=== PATIENT | female | born 1990 | race Caucasian/White ===

== ENCOUNTER 2023-03-15 22:50 | Outpatient (REF) | payer OTHER, SELFPAY ==
[2023-03-20 11:09] LABS: Age Gdln ACOG Testing Note (.); HPV Aptima Negative (Negative); IGP, Aptima HPV, rfx 16/18,45 Note (.)
== END 2023-03-15 22:51 ==
LOC: LAB 22:50
PROVIDERS: PCP Physician Assistant; Visit Provider Physician Assistant
DX: Z12.4 Encounter for screening for malignant neoplasm of cervix (principal)
CPT/HCPCS: 87624; G0145

== ENCOUNTER 2023-04-24 14:34 | Outpatient (OUT) | payer OTHER, SELFPAY ==
--- NOTE | 2023-04-24 14:39 | US_ITS ---
[address] [address] Patient Name: TOMMY ARREOLA MRN: [id number] date: 1990 Sex: F Assigned Patient Location: US Current Patient Location: Accession/Order Number: [id number] Exam Date: 04/24/2023 14:39 Report Date: 04/24/2023 16:04 At the request of: DARREL RAVI Procedure: US OB anatomy EXAMINATION: US OB anatomy HISTORY: ANATOMY COMPARISON: No relevant comparison available. TECHNIQUE: Transabdominal sonographic examination was performed for obstetrical and evaluation. FINDINGS: Number: 1 Heart Rate: 134.0 bpm H.B. /min Amniotic Fluid Volume: Placental Location: Posterior-fundal; no previa Cervix Length: 4 cm , closed ANATOMY: Normal Structures -cerebellum, choroid plexus, cisterna magna, lateral cerebral ventricles, orbits, midline falx, hard palate, four-chamber heart, RVOT, LVOT, stomach, kidneys, bladder, umbilical cord insertion into abdomen, three-vessel cord, cervical spine, thoracic spine, lumbar spine, sacral spine, right upper extremity, left upper extremity, right lower extremity, left lower extremity. SUBOPTIMALLY SEEN: None ABNORMALITIES: None BIOMETRY: BPD: 5.2 cm 21 weeks 5 days HC: 19.4 cm 21 weeks 4 days AC: 17.2 cm 22 weeks 1 days FL: 3.6 cm 21 weeks 3 days EFW:451.2 grams; 72% FL/AC: 21.0 FL/BPD: 69.7 HC/AC: 1.1 GESTATIONAL AGE: Age by EDC: 21 weeks 2 days BRADY by EDC: 09/02/2023 Age by current US: 21 weeks 5 days BRADY by current US: 08/30/2023 US/US OB anatomy IMPRESSION: 1. Single live intrauterine with growth detailed above. Electronically authenticated by: GLEN RALPH Date: 04/24/2023 16:04
--- NOTE | 2023-04-24 14:39 | US_ITS ---
[address] [address] Patient Name: TOMMY ARREOLA MRN: [id number] date: 1990 Sex: F Assigned Patient Location: US Current Patient Location: Accession/Order Number: [id number] Exam Date: 04/24/2023 14:39 Report Date: 04/24/2023 16:04 At the request of: DARREL RAVI Procedure: US OB transvaginal EXAMINATION: US OB anatomy HISTORY: ANATOMY COMPARISON: No relevant comparison available. TECHNIQUE: Transabdominal sonographic examination was performed for obstetrical and evaluation. FINDINGS: Number: 1 Heart Rate: 134.0 bpm H.B. /min Amniotic Fluid Volume: Placental Location: Posterior-fundal; no previa Cervix Length: 4 cm , closed ANATOMY: Normal Structures -cerebellum, choroid plexus, cisterna magna, lateral cerebral ventricles, orbits, midline falx, hard palate, four-chamber heart, RVOT, LVOT, stomach, kidneys, bladder, umbilical cord insertion into abdomen, three-vessel cord, cervical spine, thoracic spine, lumbar spine, sacral spine, right upper extremity, left upper extremity, right lower extremity, left lower extremity. SUBOPTIMALLY SEEN: None ABNORMALITIES: None BIOMETRY: BPD: 5.2 cm 21 weeks 5 days HC: 19.4 cm 21 weeks 4 days AC: 17.2 cm 22 weeks 1 days FL: 3.6 cm 21 weeks 3 days EFW:451.2 grams; 72% FL/AC: 21.0 FL/BPD: 69.7 HC/AC: 1.1 GESTATIONAL AGE: Age by EDC: 21 weeks 2 days BRADY by EDC: 09/02/2023 Age by current US: 21 weeks 5 days BRADY by current US: 08/30/2023 US/US OB transvaginal IMPRESSION: 1. Single live intrauterine with growth detailed above. Electronically authenticated by: GLEN RALPH Date: 04/24/2023 16:04
== END 2023-04-24 14:35 | disposition home or self-care (01) ==
LOC: US 14:35
PROVIDERS: PCP Physician Assistant; Visit Provider Obstetrics & Gynecology
DX: Z34.92 Encounter for supervision of normal pregnancy, unspecified, second trimester (principal)
CPT/HCPCS: 76805; 76817

== ENCOUNTER 2023-06-20 13:22 | Outpatient (OUT) | payer OTHER, SELFPAY ==
--- NOTE | 2023-06-20 13:25 | US_ITS ---
[place] [id number] Patient Name: TOMMY ARREOLA MRN: [id number] date: 1990 Sex: F Assigned Patient Location: US Current Patient Location: US Accession/Order Number: [id number] Exam Date: 06/20/2023 13:25 Report Date: 06/20/2023 16:43 At the request of: DARREL RAVI Procedure: US OB growth EXAMINATION: US OB growth HISTORY: LGA COMPARISON: No relevant comparison available. FINDINGS: Heart Rate: 139.0 bpm Amniotic Fluid Volume: 18.8 cm Number: 1.0 Position: Cephalic presentation, longitudinal lie Maximum Vertical Pocket: 5.3 cm cm 4.5 cm cm 4.6 cm cm 4.5 cm cm BIOMETRY: BPD: 7.4 cm cm; 29 weeks 4 days; 43% HC: 28.3 cmcm; 31 weeks 1 days, 66% AC: 27.2 cm cm; 31 weeks 2 days, 91% FL: 5.5 cm cm; 29 weeks 1 days; 26.2 % % EFW: 1575.3 grams, 3 lbs. 8 oz., 74% FL/AC: 20.3 FL/BPD: 74.8 HC/AC: 1.0 GESTATIONAL AGE: Age by EDC: 29 weeks 3 days BRADY by EDC: 09/02/2023 Age by US: 30 weeks 2 days BRADY by US: 08/27/2023 US/US OB growth IMPRESSION: Normal interval growth Electronically authenticated by: LISBETH PEOPLES Date: 06/20/2023 16:43
== END 2023-06-20 13:23 | disposition home or self-care (01) ==
LOC: US 13:22
PROVIDERS: PCP Physician Assistant; Visit Provider Obstetrics & Gynecology
DX: O26.843 Uterine size-date discrepancy, third trimester (principal); Z3A.29 29 weeks gestation of pregnancy
CPT/HCPCS: 76816

== ENCOUNTER 2023-08-08 19:41 | Outpatient (REF) | payer OTHER, SELFPAY | END 2023-08-08 19:42 | disposition home or self-care (01) | LOC: LAB 19:41 | PROVIDERS: PCP Physician Assistant; Visit Provider Obstetrics & Gynecology | DX: Z34.93 Encounter for supervision of normal pregnancy, unspecified, third trimester (principal) | CPT/HCPCS: 87081 ==

== ENCOUNTER 2023-08-14 08:30 | Outpatient (OUT) | payer OTHER, SELFPAY ==
--- NOTE | 2023-08-14 08:31 | US_ITS ---
[place] [id number] Patient Name: TOMMY ARREOLA MRN: [id number] date: 1990 Sex: F Assigned Patient Location: US Current Patient Location: US Accession/Order Number: [id number] Exam Date: 08/14/2023 08:33 Report Date: 08/14/2023 20:49 At the request of: DARREL RAVI Procedure: US OB growth PROCEDURE: US OB growth HISTORY: SIZE GREATER THAN DATES COMPARISON: None. TECHNIQUE: Transabdominal sonographic examination was performed for obstetrical and evaluation. FINDINGS: Heart Rate: 136.0 bpm Number: 1.0 Position: Cephalic Amniotic Fluid Volume: Objectively normal BIOMETRY: BPD: 8.7 cm 35 weeks 2 days, 15% HC: 32.9 cm 37 weeks 3 days, 30% AC: 33.8 cm 37 weeks 5 days, 75% FL: 7.3 cm 37 weeks 4 days, 57% EFW: 3180 g, 7 lbs. 0 oz. pounds, 59% by AUA FL/AC: 21.7 FL/BPD: 84.1 HC/AC: 1.0 GESTATIONAL AGE: Clinical Age (by LMP): 37 weeks 2 days Clinical BRADY: 09/02/2023 Ultrasound Age: 37 weeks 0 days Ultrasound BRADY: 09/04/2023 US/US OB growth IMPRESSION: Normal interval growth *Reference: [facility] Practice Guideline for the performance of Obstetric Ultrasound Examinations, July 15, 2007. Electronically authenticated by: LISBETH PEOPLES Date: 08/14/2023 20:49
== END 2023-08-14 08:31 | disposition home or self-care (01) ==
LOC: US 08:30
PROVIDERS: PCP Physician Assistant; Visit Provider Obstetrics & Gynecology
DX: O26.843 Uterine size-date discrepancy, third trimester (principal); Z3A.37 37 weeks gestation of pregnancy
CPT/HCPCS: 76816

== ENCOUNTER 2023-08-26 22:14 | Inpatient (IN) | payer OTHER, SELFPAY ==
[2023-08-26 22:40] VITALS: BP 146/83; PULSE 77; TEMP 35.9
[2023-08-26 22:42] VITALS: RESP 18
[2023-08-26] MEDS: 0.9 % SODIUM CHLORIDE 1,000 ML 125 ML IV (23:37)
[2023-08-26] MEDS: OXYTOCIN/0.9 % SODIUM CHLORIDE 10 UNITS/500 ML PLAST..BAG 6 UNIT IV (23:37)
[2023-08-26 23:39] LABS: Hematocrit 33.5 % (36.0-48.0); Hemoglobin 11.1 g/dL (12.0-16.0); Mean Corpuscular HGB Conc 33.1 g/dL (29.9-35.2); Mean Corpuscular Hemoglobin 29.9 pg (26.7-34.0); Mean Corpuscular Volume 90.3 fL (81.0-99.0); Mean Platelet Volume 10.3 fL (9.5-13.5); Platelet Count 296 10^3/uL (150-450); Red Blood Count 3.71 10^6/uL (4.20-5.40); Red Cell Distribution Width 13.6 % (11.0-15.0); White Blood Count 8.9 10^3/uL (4.0-11.0)
[2023-08-27] VITALS (96 sets, daily range): BP systolic 119–201; BP diastolic 61–102; PULSE 57–96; RESP 14–18; TEMP 35.8–36.8
[2023-08-27 00:04] LABS: Amphetamine Screen Urine NEGATIVE (NEGATIVE); Barbiturates Screen Urine NEGATIVE (NEGATIVE); Benzodiazepines Screen Urine NEGATIVE (NEGATIVE); Buprenorphine Screen Urine NEGATIVE (NEGATIVE); Cannabinoid Screen Urine NEGATIVE (NEGATIVE); Cocaine Screen Urine NEGATIVE (NEGATIVE); Methadone Screen Urine NEGATIVE (NEGATIVE); Methamphetamines Screen Urine NEGATIVE (NEGATIVE); Opiate Screen Urine NEGATIVE (NEGATIVE); Oxycodone Screen Urine NEGATIVE (NEGATIVE); Phencyclidine Screen Urine NEGATIVE (NEGATIVE); Tricyclic Antidepressant Urine NEGATIVE (NEGATIVE)
[2023-08-27] MEDS: 0.9 % SODIUM CHLORIDE 1,000 ML 125 ML IV ×2 (07:48→15:46)
[2023-08-27] MEDS: FENTANYL CITRATE/PF 100 MCG/2 ML VIAL EPIDURAL (09:46)
[2023-08-27] MEDS: ROPIVACAINE HCL 0.2% PF 40 MG/20 ML VIAL EPIDURAL (09:46)
[2023-08-27] MEDS: OXYTOCIN/0.9 % SODIUM CHLORIDE 10 UNITS/500 ML PLAST..BAG 60 UNIT IV (10:39)
--- NOTE | 2023-08-27 17:44 | PM.OBPRCVD ---
Procedure Intrapartal events: None Induction method: per pitocin protocol Delivery augmentation: rupture of membranes and pitocin Delivery monitor: external FHT and external uterine Route of delivery: Episiotomy Description: none Laceration description: none Estimated blood loss (mL): 300 Anesthesia type: Epidural Disposition: floor Delivery date: 08/27/23 Gender: male presentation: vertex Placental delivery description: Spontaneous cord description: 3 Vessels
[2023-08-27] MEDS: IBUPROFEN 400 MG TABLET 800 MG PO (18:14)
[2023-08-28 06:25] LABS: Basophils Percent Auto 0.2 % (0.2-2.0); Eosinophils Percent Auto 0.2 % (0.9-7.0); Hematocrit 30.2 % (36.0-48.0); Immature Granulocytes Pct Auto 0.8 % (0.0-0.5); Lymphocytes Absolute Auto 2.5 10^3/uL (1.2-3.8); Lymphocytes Percent Auto 20.4 % (20.5-60.0); Mean Corpuscular HGB Conc 33.1 g/dL (29.9-35.2); Mean Corpuscular Volume 90.7 fL (81.0-99.0); Mean Platelet Volume 10.3 fL (9.5-13.5); Monocytes Absolute Auto 1.3 10^3/uL (0.3-0.8); Monocytes Percent Auto 10.7 % (1.7-12.0); Neutrophils Absolute Auto 8.2 10^3/uL (1.4-6.5); Neutrophils Percent Auto 67.7 % (43.0-75.0); Platelet Count 260 10^3/uL (150-450); Red Blood Count 3.33 10^6/uL (4.20-5.40); Red Cell Distribution Width 13.7 % (11.0-15.0); White Blood Count 12.1 10^3/uL (4.0-11.0)
[2023-08-28] MEDS: IBUPROFEN 400 MG TABLET 800 MG PO ×2 (06:35→15:17)
--- NOTE | 2023-08-28 07:17 | W.PC.ACHO ---
Registration Status: ADM IN Primary Language: Togolese Preferred Language: Togolese Active Medications Generic Name Dose Route Start Last Admin Trade Name Freq PRN Reason Stop Dose Admin Acetaminophen 650 mg 08/27/23 17:45 Acetaminophen 325 Mg Tablet PO Q6H PRN Mild Pain Al Hydroxide/Mg Hydroxide 2,400 mg 08/27/23 17:45 Magnesium Hydroxide 2,400 Mg/10 Ml Oral.Susp PO Q6H PRN Dyspepsia Benzocaine/Menthol 1 applic 08/27/23 17:45 Benzocaine/Menthol 85 Gram Wellman Bottle TOPICAL Q2H PRN Pain Carboprost Tromethamine 250 mcg 08/26/23 22:17 Carboprost Tromethamine 250 Mcg/Ml 1 Ml Vial IM 08/28/23 22:18 Q15M PRN Bleeding Diphtheria/Pertussis/Tetanus Vacc 0.5 ml 08/29/23 09:00 Adacel Diph,Pertuss(Acell),Tet Vac/Pf 0.5 Ml Adult Syringe IM 08/29/23 09:01 .ONCE ONE Docusate Sodium 100 mg 08/28/23 09:00 Docusate Sodium 100 Mg Capsule PO BID [facility] Fentanyl Citrate 100 mcg 08/27/23 01:04 08/27/23 09:46 Fentanyl Citrate/Pf 100 Mcg/2 Ml Vial EPIDURAL 100 mcg ONCE PRN Administration epidural Fentanyl Citrate 100 mcg 08/27/23 01:04 Fentanyl Citrate/Pf 100 Mcg/2 Ml Vial EPIDURAL ONCE PRN epidural Sodium Chloride 1,000 mls @ 125 mls/hr 08/26/23 22:30 08/27/23 18:33 Sodium Chloride 0.9% 1,000 Ml IV Infused .Q8H KAREN Infusion Oxytocin/Sodium Chloride 10 units in 500 mls @ 6 mls/hr 08/26/23 22:30 08/27/23 17:45 Pitocin 10 Unit/500 Ml-Ns IV Infused CONT KAREN Infusion Protocol 2 MILLIUNIT/MIN Ibuprofen 800 mg 08/27/23 18:12 08/28/23 06:35 Ibuprofen 400 Mg Tablet PO 800 mg Q8H PRN Administration As Needed for Fever or Pain Lidocaine 5 ml 08/26/23 22:22 Lidocaine Viscous 2% 15 Ml Solution TOPICAL ONCE PRN Pain Lidocaine 1 ml 08/26/23 22:22 Lidocaine Hcl 1% 200 Mg/20 Ml Mdv INJ ONCE PRN Pain Measles/Mumps/Rubella Vaccine Live 0.5 ml 08/29/23 09:00 Measles,Mumps,Rubella Vacc/Pf 0.5 Ml Vial SQ 08/29/23 09:01 .ONCE ONE Methylergonovine Maleate 0.2 mg 08/26/23 22:17 Methylergonovine Maleate 0.2 Mg/Ml Ampule IM 08/28/23 22:18 ONCE PRN Uterine Contractility/Contract Methylergonovine Maleate 0.2 mg 08/26/23 22:17 Methylergonovine Maleate 0.2 Mg Tablet PO 08/28/23 22:18 Q4H PRN Uterine Contractility/Contract Misoprostol 600 mcg 08/26/23 22:17 Misoprostol 100 Mcg Tablet PO 08/28/23 22:18 ONCE PRN Uterine Bleeding Misoprostol 800 mcg 08/26/23 22:17 Misoprostol 100 Mcg Tablet SL 08/28/23 22:18 ONCE PRN Uterine Bleeding Misoprostol 1,000 mcg 08/26/23 22:17 Misoprostol 100 Mcg Tablet KS 08/28/23 22:18 ONCE PRN Uterine Bleeding Ondansetron HCl 4 mg 08/26/23 22:17 Ondansetron Pf 4 Mg/2 Ml Vial IV Q6H PRN Nausea And Vomiting Ondansetron HCl 4 mg 08/26/23 22:17 Ondansetron 4 Mg Rapdis Tablet SL Q6H PRN Nausea And Vomiting Oxytocin 10 unit 08/26/23 22:17 Oxytocin 10 Unit/Ml Vial IM 08/28/23 22:18 ONCE PRN Bleeding Senna 17.2 mg 08/27/23 20:00 Sennosides 8.6 Mg Tablet PO QHS PRN Constipation Simethicone 80 mg 08/27/23 17:45 Simethicone 80 Mg Tab.Chew PO QID PRN Abdominal Distention Temazepam 15 mg 08/27/23 17:45 Temazepam 15 Mg Capsule PO QHS PRN Sleep Witch Amparo/Glycerin 1 pad 08/27/23 17:45 Glycerin/Witch Amparo Pads TOPICAL Q2H PRN Pain Diet Category Date Time Status Regular Consistency Diet Diet 08/27/23 17:45 Active Respiratory Oxygen Delivery Method Room Air Oxygen Delivery Method Room Air Oxygen Delivery Method Room Air Oxygen Delivery Method Room Air Oxygen Delivery Method Room Air Oxygen Delivery Method Room Air Oxygen Delivery Method Room Air Oxygen Delivery Method Room Air Oxygen Delivery Method Room Air Cardiology Heart Sounds Strong,Regular Heart Sounds Strong,Regular Bowels Bowel Pattern No Bowel Movement Bowel Pattern No Bowel Movement Renal Bladder Pattern Continent Bladder Pattern Continent
--- NOTE | 2023-08-28 08:05 | PM.OBPN ---
OB - PN: Subj Subjective Patient comments: no complaints [place] status: doing well and well Exam Constitutional Vital Signs, click to edit/add: Last Vital Signs Temp 98.1 F 08/27/23 22:25 Pulse 59 L 08/27/23 22:28 Resp 14 08/27/23 22:25 BP 145/84 H 08/27/23 22:28 O2 Del Method Room Air 08/27/23 22:25 Documenting provider has reviewed patient's vital signs: yes Common normals: no apparent distress Respiratory Common normals: normal respiratory effort and clear to auscultation bilaterally Cardio Common normals: regular rate and regular rhythm GI Common normals: Normal to inspection, nondistended, normoactive bowel sounds present Extremity Common normals: no calf tenderness Results Labs Labs: Short CBC 08/28/23 Range/Units 06:20 WBC 12.1 H (4.0-11.0) 10^3/uL Hgb 10.0 L (12.0-16.0) g/dL Hct 30.2 L (36.0-48.0) % Plt Count 260 (150-450) 10^3/uL OB - PN: A/P Plan - Vaginal Delivery day: 1 Plan: routine care, discharge home and follow up 6 weeks Time Spent with Patient Time: Total time spent is greater than 50% in coordination of care (as documented) at patient's floor/unit and/or counseling patient: Total time spent with greater than 50% in coordination of care (as documented) at patient's floor/unit and/or counseling patient: less than 15 minutes
[2023-08-28 09:30] VITALS: RESP 16; TEMP 36.7
[2023-08-28 10:16] VITALS: BP 129/70; PULSE 69
[2023-08-28 15:19] VITALS: BP 122/76; PULSE 67
[2023-08-28 15:27] VITALS: RESP 16; TEMP 37.2
[2023-08-28 15:28] VITALS: RESP 16
--- OUTSIDE RECORDS SUMMARY | 2023-10-02 17:01 | XMS_ITS | CCD ---
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 Name Role Phone TANTIBHEDHYANGKUL, JULIERUT Unavailable Unav ailable TANTIBHEDHYANGKUL, JULIERUT Unavailable Unav ailable Juhi FIGUEROA Primary Care Physician Samira Null Primary Care Physician [phone] TRAV ., DR ROJO Admitting Unavailable TRAV ., DR ROJO Attending Unavailable TRAV ., DR ROJO Consulting Unavailable ZIEBER, DR GLEN Butler Consulting Unavailable TRAV ., DR ROJO Admitting Unavailable TRAV ., DR ROJO Attending Unavailable TRAV ., DR ROJO Consulting Unavailable NONE, XXXX Primary Care Physician Unavailab le TRAV, Darrel R Admitting Unavailable TRAV, Darrel R Attending Unavailable TRAV, Darrel R Admitting Unavailable TRAV, Darrel R Attending Unavailable TRAV, Darrel R Admitting Unavailable TRAV, Darrel R Attending Unavailable TRAV, Darrel R Attending Unavailable TRAV, Darrel R Admitting Unavailable HUMPHREY, TU Admitting Unavailable HUMPHREY, TU Attending Unavailable TRAV, Darrel R Attending Unavailable TRAV, Darrel R Admitting Unavailable Jeison Leon Attending Unavailable Jeison Leon Admitting Unavailable Jeison Leon Attending Unavailable Jeison Leon Admitting Unavailable Jewel Schmidt Attending Unavailable NBA, Becki T Referring Unavailable NBA Becki T Attending Unavailable NBA, Becki T Consulting Unavailable NBA, MALIK Becki T Consulting Unavailable Meghann ORTEGA Consulting Unavailabl e Becki ARANGO T Consulting Unavailable NBA, Becki T Consulting Unavailable NBA, Becki T Consulting Unavailable NBA Becki T Consulting Unavailable NBA, Becki T Consulting Unavailable NBA, Becki T Consulting Unavailable NBA, Becki T Consulting Unavailable NBA, Becki T Consulting Unavailable NBA, Becki T Consulting Unavailable NBA, Becki T Consulting Unavailable NBA, Becki T Consulting Unavailable NBA, Becki T Consulting Unavailable NBA, Becki T Consulting Unavailable Stephanie, Juaquin L Attending Unavailable TRAV, Darrel R Admitting Unavailable TRAV, Darrel R Attending Unavailable TRAV, Darrel R Admitting Unavailable TRAV, Darrel R Attending Unavailable TRAV, Darrel R Admitting Unavailable TRAV, Darrel R Attending Unavailable Allergies Allergy Classification Reported Allergen(s) Allergy Type Date of Onset Reaction(s) Facility (1 source) No Known Medication Allergies; Translations: [No Known Medication Allergies] Propensity to adverse reactions (disorder) [facility] Medications Current Medications Medication Drug Class(es) Dates Sig (Normalized) Sig (Original) ibuprofen 600 mg oral tablet (12 sources) Nonsteroidal Anti-inflammator y Drug Start: 1 take 1 tablet by mouth every six hours ibuprofen 600 mg Tab 600 mg = 1 tab(s), Oral, q6hr, # 15 tab(s), Refills(s) 0, Pharmacy: [facility], 157.4, cm, 12/25/20 2:16:00 EST, Height/Length Dosing, 93.2, kg, 12/25/20 2:16:00 EST, Weight Dosing Start Date: 12/27/20 Status: Ordered letrozole 2.5 mg oral tablet (2 sources) Aromatase Inhibitor Start: 2 End: 2 take 1 tablet by mouth once daily letrozole 2.5 mg Tab 2.5 mg = 1 tab(s), Oral, Daily, X 7 day(s), # 7 tab(s), Refills(s) 0 Start Date: 06/08/22 Stop Date: 06/15/22 Status: Ordered medroxyPROGESTERone acetate 10 mg oral tablet (10 sources) Progestin Start: 2 take 1 tablet by mouth once daily medroxyPROGESTERone 10 mg Tab 10 mg = 1 tab(s), Oral, Daily, # 30 tab(s), Refills(s) 0 Start Date: 06/08/22 Status: Ordered AD (12 sources) Start: 8 take 1 tablet by mouth once daily AD 1 tab(s), Oral, Daily, Refill(s) 0 Start Date: 11/26/17 Status: Ordered Completed/Discontinued Medications Medication Drug Class(es) Dates Sig (Normalized) Sig (Original) sertraline 50 mg oral tablet (12 sources) Serotonin Reuptake Inhibitor Start: 08-07-2019 take 1 tablet by mouth once daily Zoloft 50 mg Tab 50 mg = 1 tab(s), Oral, Daily, 0.5 tabs x 1 week then full tab daily., # 30 tab(s), Refills(s) 1, Pharmacy: [facility] Start Date: 08/07/19 Status: Ordered Problems Active Problems Problem Classification Problem Date Documented Da te Episodic/Chronic Anxiety disorders (12 sources) Anxiety 08-07-2019 Chronic Hypertension complicating ; childbirth and the puerperium (12 sources) -induced hypertension 04-11-2019 Episodic Intestinal infection (12 sources) Clostridium difficile diarrhea 01-28-2017 Episodic Comment on above: Problem added second omar to positive C-Diff lab result. Menstrual disorders (4 sources) Irregular menstruation, unspecified; Translations: [IRREGULAR MENSTRUATION UNSPECIFIED] Onset: 01-19-2023 Chronic Nonspecific chest pain (12 sources) Chest wall pain 06-16-2021 Episodic Other endocrine disorders (12 sources) Polycystic ovaries 11-26-2017 Chronic Other endocrine disorders (11 sources) Polycystic ovary syndrome; Translations: [Polycystic ovarian syndrome] Onset: 06-08-2022 Chronic Other liver diseases (12 sources) Elevated liver enzymes level 06-25-2019 Episodic Other nutritional; endocrine; and metabolic disorders (12 sources) Obesity 06-16-2021 Chronic Other and delivery including normal (5 sources) Encounter for supervision of other normal , first trimester; Translations: [Encounter for supervision of normal , unspecified, first trimester] Onset: 01-28-2023 Episodic Pneumonia (except that caused by tuberculosis or sexually transmitted disease) (12 sources) Pneumonia 04-13-2016 Episodic Polyhydramnios and other problems of amniotic cavity (12 sources) Polyhydramnios 12-25-2020 Episodic Unclassified (12 sources) Non-smoker 06-16-2021 Unclassified (20 sources) Patient encounter status 06-25-2019 Past or Other Problems Problem Classification Problem Date Documented Da te Episodic/Chronic Unclassified (20 sources) Onset: 08-15-2018 Resolved: 12-25-2020 04-13-2019 Results Test Name Value Interpretation Reference Range Facil ity CHEMISTRYOrdered By: SYSTEM SYSTEM on 06-08-2023 Glucose 3 Hr post 75 g gluco se PO [Mass/Vol] 87 mg/dL Normal 55 - 140 mg/dL FT Remisol Glucose 2 Hr post 75 g gluco se PO [Mass/Vol] 136 mg/dL Normal 55 - 155 mg/dL FT Remisol Glucose 1 Hr post 75 g gluco se PO [Mass/Vol] 166 mg/dL Normal 55 - 180 mg/dL [facility] Remisol Glucose post fast [Mass/Vol] 93 mg/dL Normal 55 - 99 mg/dL [facility] Remisol CHEMISTRYOrdered By: Lab ROP User on 06-08-2023 Glucose [Mass/Vol] 86 mg/dL Normal 55 - 99 mg/dL FT C POC Subsection Comment on above: Result Comment: Repe at Test POC Device SN [id number] Invalid Interpretation Code [facility] POC Subsection POC User ID [id number] Invalid Interpretation Code [facility] POC Subsection POC Username NEHEMIAH VENEGAS Invalid Interpretation Cod e [facility] POC Subsection Capillary Glucose POCon 05-16 Glucose [Mass/Vol] 86 mg/dL Normal 55-99 [facility] Comment on above: Result Comment: Repe at Test Performed By: #### 3 [id number], [id number], [id number] #### [facility] [address] [place] [address] Consent for Treatmenton 05-16 Consent for Treatment [id number]:127 Normal [facility] Glu 1 Hron 06-08-2023 Glucose [Mass/Vol] 166 mg/dL Normal 55-180 [facility] Comment on above: Result Comment: POSI TIVE SCREEN = 1 HR > 140 mg/dL Performed By: #### 2 [id number] #### [facility] [address] [place] [address] Glu 2 Hron 06-08-2023 Glucose [Mass/Vol] 136 mg/dL Normal 55-155 [facility] Comment on above: Result Comment: DIAB ETES FASTING >126 mg/dL or 2 HOUR >200 mg/dL Performed By: #### 3 [id number], [id number], [id number] #### [facility] [address] [place] [address] Glu 3 Hron 06-08-2023 Glucose [Mass/Vol] 87 mg/dL Normal 55-140 [facility] Comment on above: Result Comment: GEST ATIONAL DIABETES 2 of the following: FASTING >95 mg/dL 1 HOUR >180 mg/dL 2 HOUR >155 mg/dL 3 HOUR >140 mg/dL Performed By: #### 2 [id number] #### [facility] [address] [place] [address] Glu Fastingon 06-08-2023 Glucose [Mass/Vol] 93 mg/dL Normal 55-99 [facility] Comment on above: Performed By: #### 2 [id number] #### [facility] [address] [place] [address] Physician Orderon 06-08-2023 Physician Order [id number]:127 Normal [facility] Auto Diffon 05-29-2023 Basophils/100 WBC (Bld) 0.3 % Normal 0.0-2.0 F [facility] Comment on above: Order Comment: Order Added by Discern Expert. Performed By: #### 3 [id number], [id number], [id number] #### [facility] [address] [place] [address] Basophils/Leukocytes Auto (B ld) [Pure # fraction] 0.0 E9/L Normal 0.0-0.2 [facility] Comment on above: Order Comment: Order Added by Discern Expert. Performed By: #### 3 [id number], 6440847, 6821774 #### [facility] [address] [place] [address] Eosinophils/100 WBC (Bld) 0.7 % Normal 0.0-8.0 [facility] Comment on above: Order Comment: Order Added by Discern Expert. Performed By: #### 3 [id number], 2645386, 1703068 #### [facility] [address] [place] [address] Eosinophils/Leukocytes Auto (Bld) [Pure # fraction] 0.1 E9/L Normal 0.0-0.5 [facility] Comment on above: Order Comment: Order Added by Discern Expert. Performed By: #### 3 [id number], 9734092, 1748056 #### [facility] [address] [place] [address] Lymphocytes/100 WBC (Bld) 20.4 % Normal 14.0-50.0 [facility] Comment on above: Order Comment: Order Added by [place] Expert. Performed By: #### 3 [id number], 3391473, 3542481 #### [facility] [address] [place] [address] Lymphocytes/Leukocytes Auto (Bld) [Pure # fraction] 1.9 E9/L Normal 1.0-4.0 [facility] Comment on above: Order Comment: Order Added by [place]at Expert. Performed By: #### 3 [id number], 7756554, 7449611 #### [facility] [address] [place] [address] Monocytes/100 WBC (Bld) 5.7 % Normal 4.0-14.0 [facility] Comment on above: Order Comment: Order Added by Discern Expert. Performed By: #### 3 [id number], 1166192, 0814232 #### [facility] [address] [place] [address] Monocytes/Leukocytes Auto (B ld) [Pure # fraction] 0.5 E9/L Normal 0.2-1.0 [facility] Comment on above: Order Comment: Order Added by Montserrat Expert. Performed By: #### 3 [id number], 9529272, 5761892 #### [facility] [address] [place] [address] Neutrophils/100 WBC (Bld) 72.9 % Normal 36.0-75.0 [facility] Comment on above: Order Comment: Order Added by Discern Expert. Performed By: #### 3 [id number], 3125452, 1586885 #### [facility] [address] [place] [address] Neutrophils/Leukocytes Auto (Bld) [Pure # fraction] 6.9 E9/L Normal 2.0-7.5 [facility] Comment on above: Order Comment: Order Added by Discern Expert. Performed By: #### 3 [id number], 3741929, 5254064 #### [facility] [address] [place] [address] CBC w/ Auto Diffon 3 Erythrocyte distribution wid th (RBC) [Ratio] 13.5 % Normal 10.9-14.2 [facility] Comment on above: Performed By: #### 3 [id number], 2689240, 5051598 #### [facility] [address] [place] [address] Hematocrit (Bld) [Volume fraction] 32.8 % Low 3 4.0-46.0 [facility] Comment on above: Performed By: #### 3 0150374, 7359647, 5166183 #### [facility] [address] [place] [address] Hemoglobin (Bld) [Mass/Vol] 11.2 g/dL Low 12.0-16. 0 [facility] Comment on above: Performed By: #### 3 6930597, 3591980, 2851675 #### [facility] [address] [place] [address] MCH (RBC) [Entitic mass] 30.1 pg Normal 27.0-34.0 [facility] Comment on above: Performed By: #### 3 [id number], 0563719, 7933620 #### [facility] [address] [place] [address] MCHC (RBC) [Mass/Vol] 34.1 g/dL Normal 31.4-36.0 [facility] Comment on above: Performed By: #### 3 [id number], 5342199, 5653890 #### [facility] [address] [place] [address] MCV (RBC) [Entitic vol] 88.3 fL Normal 80.0-100.0 F [facility] Comment on above: Performed By: #### 3 7235915, 3982052, 6855884 #### [facility] [address] [place] [address] Platelet mean volume (Bld) [Entitic vol] 8.9 fL Normal 6.4-10.8 [facility] Comment on above: Performed By: #### 3 9971691, 8103328, 7455341 #### [facility] [address] [place] [address] Platelets (Bld) [#/Vol] 296.0 E9/L Normal 150.0-500.0 [facility] Comment on above: Performed By: #### 3 3467042, 1260577, 0266969 #### [facility] [address] [place] [address] RBC (Bld) [#/Vol] 3.7 E12/L Low 4.3-5.9 [facility] Comment on above: Performed By: #### 3 8814504, 7878881, 2033990 #### [facility] [address] [place] [address] WBC corrected for nucl RBC A uto (Bld) [#/Vol] 9.5 E9/L Normal 4.0-11.0 [facility] Comment on above: Performed By: #### 3 3524389, 6588424, 9926249 #### [facility] [address] [place] [address] CHEMISTRYOrdered By: SYSTEM SYSTEM on 05-29-2023 Glucose 1 Hr post 50 g gluco se PO [Mass/Vol] 146 mg/dL High 55 - 140 mg/dL [facility] Remisol Consent for Treatmenton 05-15 Consent for Treatment [id number]:127 Normal [facility] Gest Scr Glu 1 Hron 05-29-20 Glucose [Mass/Vol] 146 mg/dL High 55-140 [facility] Comment on above: Result Comment: Posi tive Screen =1 HR > 140mg/dL Performed By: #### 3 [id number], 2143639, 8439502 #### [facility] [address] [place] [address] HEMATOLOGYOrdered By: SYSTEM SYSTEM on 05-29-2023 Basophils/100 WBC (Bld) 0.3 % Normal 0.0 - 2.0 % [facility] Basophils/Leukocytes Auto (B ld) [Pure # fraction] 0.0 E9/L Normal 0.0 - 0.2 E9/L [facility] Eosinophils/100 WBC (Bld) 0.7 % Normal 0.0 - 8.0 % [facility] Eosinophils/Leukocytes Auto (Bld) [Pure # fraction] 0.1 E9/L Normal 0.0 - 0.5 E9/L [facility] S Lymphocytes/100 WBC (Bld) 20.4 % Normal 14.0 - 50. 0 % [facility] Lymphocytes/Leukocytes Auto (Bld) [Pure # fraction] 1.9 E9/L Normal 1.0 - 4.0 E9/L [facility] S Monocytes/100 WBC (Bld) 5.7 % Normal 4.0 - 14.0 % [facility] Monocytes/Leukocytes Auto (B ld) [Pure # fraction] 0.5 E9/L Normal 0.2 - 1.0 E9/L [facility] Neutrophils/100 WBC (Bld) 72.9 % Normal 36.0 - 75. 0 % [facility] Neutrophils/Leukocytes Auto (Bld) [Pure # fraction] 6.9 E9/L Normal 2.0 - 7.5 E9/L [facility] S HEMATOLOGYOrdered By: Mane Moulton on 05-29-2023 Erythrocyte distribution wid th (RBC) [Ratio] 13.5 % Normal 10.9 - 14.2 % [facility] Hematocrit (Bld) [Volume fraction] 32.8 % Low 34.0 - 46.0 % [facility] Hemoglobin (Bld) [Mass/Vol] 11.2 g/dL Low 12.0 - 1 6.0 gm/dL [facility] MCH (RBC) [Entitic mass] 30.1 pg Normal 27.0 - 34.0 pg [facility] MCHC (RBC) [Mass/Vol] 34.1 g/dL Normal 31.4 - 36.0 gm /dL [facility] MCV (RBC) [Entitic vol] 88.3 fL Normal 80.0 - 100.0 fL [facility] Platelet mean volume (Bld) [Entitic vol] 8.9 fL Normal 6.4 - 10.8 fL [facility] Platelets (Bld) [#/Vol] 296.0 E9/L Normal 150.0 - 500. 0 E9/L [facility] RBC (Bld) [#/Vol] 3.7 E12/L Low 4.3 - 5.9 E12/L [facility] WBC corrected for nucl RBC A uto (Bld) [#/Vol] 9.5 E9/L Normal 4.0 - 11.0 E9/L [facility] HemeAutoSS Physician Orderon 05-29-2023 Physician Order [id number]:127 Normal [facility] BOX TEST SENT OUTon 01-30-20 23 SENT TO REF LAB 01/29/2023 Normal [facility] Comment on above: Performed By: #### B OX #### [facility] [address] [place] [address] Dr. Lydia De Dios Coding Summary.on 01-27-2023 Coding Summary. [id number] [file] [id number] (more content not included)... Normal [facility] C Urineon 01-21-2023 Bacteria identified Cx Nom (U) Microbiology PROCEDURE: Urine Culture [R1] SOURCE: U CleanCatch BODY SITE: COLLECTED DATE/TIME: 01/19/2023 12:07 EDT RECEIVED DATE/TIME: 01/19/2023 13:36 EDT START DATE/TIME: 01/19/2023 13:36 EDT FREE TEXT SOURCE: Darrel RAVI DO R Darrel RAVI DO R FINAL REPORTS Final Report [] Verified Date/Time: 01/21/2023 07:43 EDT <10,000 cfu/ml Mixed skin contaminants Performing Locations R1: This test was performed at: [facility] [place], [address] [place] [address], [address] , , [facility] Comment on above: Performed By: #### 2 [id number] ####[facility] [address] [place] [address] .Interpretation:on HCV Ab IA Ql Comment Invalid Interpretation Code [facility] Comment on above: Result Comment: Not infected with HCV unless early or acute infection is suspected (which may be delayed in an immunocompromised individual), or other evidence exists to indicate HCV infection. Performed at: [facility] [id number] PhD Dayanna Pedro Performed By: #### 3 [id number], 7731632, 1083895 #### [facility] [address] [place] [address] HCV Antibody RFX to Quant PC Dave 01-20-2023 HCV IgG IA Ql Non-Reactive Invalid Interpre tation Code Non Reactive [facility] Comment on above: Result Comment: Perf ormed at: [address] [id number] PhD Dayanna Pedro Performed By: #### 3 [id number], 3044285, 9339480 #### [facility] [address] [place] [address] Hep Bs Agon 01-20-2023 HBV surface Ag IA Ql Negative Invalid Interpretation Cod e Negative [facility] Comment on above: Result Comment: Perf ormed at: [facility] [address] [place], [place] [id number] PhD Dayanna Pedro Performed By: #### 3 [id number], 4431366, [id number] #### [facility] [address] [place] [address] RPR with Conf Rfxon 01-21-20 23 Reagin Ab RPR Ql (S) Non-Reactive Invalid Interpretation Code Non Reactive [facility] Comment on above: Result Comment: Perf ormed at: [address] [id number] PhD Dayanna Pedro Performed By: #### 3 3558334, 4060743, 9456749 #### [facility] [address] [place] [address] Rubella IgGon 01-20-2023 Rubella virus IgG Qn (S) 3.46 [IU]/mL Invalid Interpretation Code Immune >0.99 [facility] Comment on above: Result Comment: Non- immune <0.90 Equivocal 0.90 - 0.99 Immune >0.99 Performed at: [address] [id number] PhD Dayanna Pedro Performed By: #### 3 [id number], 2010819, 8295193 #### [facility] [address] [place] [address] Rubella IgMon 01-20-2023 Rubella virus IgM IA Qn (S) <20.0 Invalid Interpretation Code 0.0-19.9 [facility] Comment on above: Result Comment: Nega tive <20.0 Equivocal 20.0 - 24.9 Positive >24.9 Performed at: [address] [id number] PhD Dayanna Pedro Performed By: #### 3 4552713, 8861059, 4369196 #### [facility] [address] [place] [address] ABO/Rhon 04-07-2023 ABO/Rh Positive Invalid Interpretation Code [facility] Comment on above: Performed By: #### 2 [id number], [id number] ####[facility] [address] [place] [address] ABSCon 01-19-2023 ABSC Gel Interp Negative Normal [facility] Comment on above: Performed By: #### 2 [id number], [id number] ####[facility] [address] [place] [address] Auto Diffon 01-19-2023 Basophils/100 WBC (Bld) 0.4 % Normal 0.0-2.0 F [facility] Comment on above: Order Comment: Order Added by Discern Expert. Performed By: #### 3 [id number], 5418967, 9229358 #### [facility] [address] [place] [address] Basophils/Leukocytes Auto (B ld) [Pure # fraction] 0.0 E9/L Normal 0.0-0.2 [facility] Comment on above: Order Comment: Order Added by Discern Expert. Performed By: #### 3 1897854, 8878086, 9655080 #### [facility] [address] [place] [address] Eosinophils/100 WBC (Bld) 1.4 % Normal 0.0-8.0 [facility] Comment on above: Order Comment: Order Added by Discern Expert. Performed By: #### 3 8092143, 3437945, 5157435 #### [facility] [address] [place] [address] Eosinophils/Leukocytes Auto (Bld) [Pure # fraction] 0.1 E9/L Normal 0.0-0.5 [facility] Comment on above: Order Comment: Order Added by Discern Expert. Performed By: #### 3 2906039, 9914855, 4321536 #### [facility] [address] [place] [address] Lymphocytes/100 WBC (Bld) 26.8 % Normal 14.0-50.0 [facility] Comment on above: Order Comment: Order Added by Discern Expert. Performed By: #### 3 8194071, 6495006, 2042099 #### [facility] [address] [place] [address] Lymphocytes/Leukocytes Auto (Bld) [Pure # fraction] 2.7 E9/L Normal 1.0-4.0 [facility] Comment on above: Order Comment: Order Added by Discern Expert. Performed By: #### 3 2429690, 2129786, 9049864 #### [facility] [address] [place] [address] Monocytes/100 WBC (Bld) 6.6 % Normal 4.0-14.0 [facility] Comment on above: Order Comment: Order Added by Discern Expert. Performed By: #### 3 3629367, 2922423, 0326029 #### [facility] [address] [place] [address] Monocytes/Leukocytes Auto (B ld) [Pure # fraction] 0.7 E9/L Normal 0.2-1.0 [facility] Comment on above: Order Comment: Order Added by Discern Expert. Performed By: #### 3 6474740, 5809040, 8594683 #### [facility] [address] [place] [address] Neutrophils/100 WBC (Bld) 64.8 % Normal 36.0-75.0 [facility] Comment on above: Order Comment: Order Added by Discern Expert. Performed By: #### 3 9146421, 1079520, 0856854 #### [facility] [address] [place] [address] Neutrophils/Leukocytes Auto (Bld) [Pure # fraction] 6.6 E9/L Normal 2.0-7.5 [facility] Comment on above: Order Comment: Order Added by Discern Expert. Performed By: #### 3 4326802, 2894105, 0762459 #### [facility] [address] [place] [address] CBC w/ Auto Diffon 3 Erythrocyte distribution wid th (RBC) [Ratio] 13.6 % Normal 10.9-14.2 [facility] Comment on above: Performed By: #### 3 [id number], 1660480, 1992338 #### [facility] [address] [place] [address] Hematocrit (Bld) [Volume fraction] 38.5 % Normal 34.0-46.0 [facility] Comment on above: Performed By: #### 3 2948146, 8128793, 3813990 #### [facility] [address] [place] [address] Hemoglobin (Bld) [Mass/Vol] 12.9 g/dL Normal 12.0-16. 0 [facility] Comment on above: Performed By: #### 3 9757309, 2478202, 4107697 #### [facility] [address] [place] [address] MCH (RBC) [Entitic mass] 29.2 pg Normal 27.0-34.0 [facility] Comment on above: Performed By: #### 3 9001951, 3058340, 6778165 #### [facility] [address] [place] [address] MCHC (RBC) [Mass/Vol] 33.4 g/dL Normal 31.4-36.0 [facility] Comment on above: Performed By: #### 3 8877950, 2070033, 1784961 #### [facility] [address] [place] [address] MCV (RBC) [Entitic vol] 87.3 fL Normal 80.0-100.0 [facility] Comment on above: Performed By: #### 3 0478426, 9894972, 0144046 #### [facility] [address] [place] [address] Platelet mean volume (Bld) [Entitic vol] 8.3 fL Normal 6.4-10.8 [facility] Comment on above: Performed By: #### 3 5133428, 7898707, 3305826 #### [facility] [address] [place] [address] Platelets (Bld) [#/Vol] 328.0 E9/L Normal 150.0-500.0 [facility] Comment on above: Performed By: #### 3 [id number], [id number], [id number] #### [facility] [address] [place] [address] RBC (Bld) [#/Vol] 4.4 E12/L Normal 4.3-5.9 [facility] Comment on above: Performed By: #### 3 [id number], [id number], [id number] #### [facility] [address] [place] [address] WBC corrected for nucl RBC A uto (Bld) [#/Vol] 10.2 E9/L Normal 4.0-11.0 [facility] Comment on above: Performed By: #### 3 [id number], [id number], [id number] #### [facility] [address] [place] [address] Consent for Treatmenton Consent for Treatment [id number]#1.00CD:127 Normal [facility] JliL9ekr 01-19-2023 HbA1c (Bld) [Mass fraction] 5.5 % Normal <=5.9 [facility] Comment on above: Performed By: #### 3 [id number], [id number], [id number] #### [facility] [address] [place] [address] Physician Orderon 01-19-2023 Physician Order [id number]#1.00CD:127 Normal [facility] TSHon 01-19-2023 TSH Qn 2.30 m[IU]/L Normal 0.34-5.60 [facility] Comment on above: Performed By: #### 3 [id number], [id number], [id number] #### [facility] [address] [place] [address] US PREG TVon 01-19-2023 US PREG TV EXAMINATION: US PREG TV HISTORY: Missed period COMPARISON: No relevant comparison available. FINDINGS: GESTATIONAL SAC: Present and normal appearing. YOLK SAC: Present and normal appearing. POLE: Present and normal appearing. CARDIAC: Present. UTERUS: Normal size and appearance. OVARIES: Right: Corpus lutein cyst. Left: Normal. CERVIX: 3.7 cm in length and closed. CUL-DE-SAC: Normal. OTHER: None. AGE BY LMP: 7 weeks 5 days BRADY BY LMP: 09/02/2023 AGE BY US CRL: 7 weeks 6 days BRADY BY US CRL: 09/01/2023 IMPRESSION: 1. Single live intrauterine . Electronically authenticated by: GLEN RALPH Date: 2023-01-19 10:36 Normal [facility] Coding Summary.on 12-28-2022 Coding Summary. CD:[id number]+PGhlYWQ+QI2THNPmV34lbWBlwF8aB6IKFQlAZgliMXHXRLyCOuFng qKbNJ0ldVNuNVFw [file] ci1j (more content not included)... Normal [facility] Coding Summary. CD:[id number]:[id number]+PGhlYWQ+QV4TRMDcK31ptJCwuD9eX8XOPPvMPbhcBKTUCRnOPmNoc rRrMR6sgLBtMZKm [file] ZGVy (more content not included)... Normal [facility] Coding Summary.on 12-26-2022 Coding Summary. CD:[id number]:[id number]+PGhlYWQ+ER2VQLVuO45brNMtpV7tN1AQVHdKIvdoPHACIJyXMbZen eXnNQ9diXWuJZNl [file] LWNv (more content not included)... Normal Fish [facility] Quanton 12-25-2022 HCG.beta subunit Qn 356 m[IU]/mL High 1-3 [facility] Comment on above: Result Comment: GEST ATIONAL AGE HCG RANGE (mIU/mL) NON- <1-3 0.2-1 WEEKS 5-50 1-2 WEEKS 50-500 2-3 WEEKS 100-5,000 3-4 WEEKS 500-10,000 4-5 WEEKS 1,000-50,000 5-6 WEEKS 10,000-100,000 6-8 WEEKS 15,000-200,000 8-12 WEEKS 10,000-100,000 Performed By: #### 2 [id number] #### [facility] [address] [place] [address] Consent for Treatmenton 12-13 Consent for Treatment [id number]#1.00CD:127 Normal [facility] Physician Orderon 12-25-2022 Physician Order [id number]#1.00CD:127 Normal [facility] Quanton 12-23-2022 HCG.beta subunit Qn 103 m[IU]/mL High 1-3 [facility] Comment on above: Result Comment: GEST ATIONAL AGE HCG RANGE (mIU/mL) NON- <1-3 0.2-1 WEEKS 5-50 1-2 WEEKS 50-500 2-3 WEEKS 100-5,000 3-4 WEEKS 500-10,000 4-5 WEEKS 1,000-50,000 5-6 WEEKS 10,000-100,000 6-8 WEEKS 15,000-200,000 8-12 WEEKS 10,000-100,000 Performed By: #### 2 [id number] ####[facility] [address] [place] [address] CHEMISTRYOrdered By: SYSTEM SYSTEM on 12-23-2022 HCG.beta subunit Qn 103 m[IU]/mL High 1 - 3 mIU/mL [facility] Remisol Consent for Treatmenton 12-13 Consent for Treatment [id number]#1.00CD:127 Normal [facility] Physician Orderon 12-23-2022 Physician Order [id number]#1.00CD:127 Normal [facility] BhCG Quanton 12-22-2022 HCG.beta subunit Qn 38 m[IU]/mL High 1-3 [facility] Comment on above: Result Comment: GEST ATIONAL AGE HCG RANGE (mIU/mL) NON- <1-3 0.2-1 WEEKS 5-50 1-2 WEEKS 50-500 2-3 WEEKS 100-5,000 3-4 WEEKS 500-10,000 4-5 WEEKS 1,000-50,000 5-6 WEEKS 10,000-100,000 6-8 WEEKS 15,000-200,000 8-12 WEEKS 10,000-100,000 Performed By: #### 2 [id number] #### [facility] [address] [place] [address] Coding Summary.on 12-22-2022 Coding Summary. CD:[id number]+PGhlYWQ+WR3MLOAwN59etVKrmV2oC0AZKVnDTleeFIVOOLjKSvNih wPvVC3rpCCqBQVk [file] ci1j (more content not included)... Normal [facility] Physician Orderon 12-22-2022 Physician Order [id number]#1.00CD:127 Normal [facility] CHEMISTRYOrdered By: SYSTEM SYSTEM on 12-21-2022 HCG.beta subunit Qn 38 m[IU]/mL High 1 - 3 mIU/mL [facility] Remisol Consent for Treatmenton Consent for Treatment [id number]#1.00CD:127 Normal [facility] Physician Orderon 12-21-2022 Physician Order [id number]#1.00CD:127 Normal [facility] Physician Order [id number]#1.00CD:127 Normal [facility] Physician Order [id number]#1.00CD:127 Normal [facility] CHEMISTRYOrdered By: SYSTEM SYSTEM on 12-16-2022 Progesterone [Mass/Vol] 15.60 ng/mL Invalid Interpretation Code [facility] Remisol Consent for Treatmenton Consent for Treatment [id number]#1.00CD:127 Normal [facility] Physician Orderon 12-16-2022 Physician Order [id number]#1.00CD:127 Normal [facility] Progesteroneon 12-16-2022 Progesterone [Mass/Vol] 15.60 ng/mL Invalid Interpretation Code [facility] Comment on above: Result Comment: REFE RENCE RANGE Males 0.14-2.06 ng/mL Non- Females Follicular 0.10-0.60 ng/mL Luteal 3.00-17.5 ng/mL Midluteal 3.30-18.6 ng/mL Post-Menopausal 0.10-0.40 ng/mL First Trimester 8.30-66.5 ng/mL Second Trimester 18.9-66.1 ng/mL Third Trimester 35.8-312.4 ng/mL Performed By: #### 3 [id number], 7923358, 9024953 #### [facility] [address] [place] [address] Coding Summary.on 12-11-2022 Coding Summary. CD:[id number]+PGhlYWQ+BO3ZHTMiP22zqJRxiQ5EZ4rNVK6QHWDIGWWBLE4EUM5gh GU2RVwgT5PhoaEh [file] Y29s (more content not included)... Normal [facility] Anti-Mullerian Hormone (AMH) on 12-10-2022 Mullerian inhibiting substance [Mass/Vol] 5.46 ng/mL Invalid Interpretation Code [facility] Comment on above: Result Comment: For assays employing antibodies, the possibility exists for interference by heterophile antibodies in the samples.1 1.Yael Isaacs Interferences in Immunoassays - still a threat. Clin. Chem. 2000; 46: 1168-3584. This test was developed and its performance characteristics determined by [employer]. It has not been cleared or approved by the Food and Drug Administration. Reference Range: Females 26 - 30y: 1.03 - 11.10 Median 4.20 AMH concentrations of >= 1.06 ng/mL is correlated with a better response to ovarian stimulation, produced more retrievable oocytes and higher odds of live according to Chema et al. Fertility and Sterility. 2010: 94:6033-3753. The current AMH test method correlates with the study method with a slope of 0.94. Females at risk of ovarian hyperstimulation syndrome or polycystic ovarian syndrome (PCOS) may exhibit elevated serum AMH concentrations. AMH levels from PCOS patients may be 2 to 5 fold higher than age-appropriate reference interval values. Granulosa cell tumors of the ovary may secrete AMH along with other tumor markers. Elevated AMH is not specific for malignancy, and the assay should not be used exclusively to diagnose or exclude an AMH-secreting ovarian tumor. Performed at: [facility] [address] [place] [address] [id number] MD Cain Mchugh Performed By: #### 3 [id number], [id number], [id number] #### [facility] [address] [place] [address] CHEMISTRYOrdered By: SYSTEM SYSTEM on 12-06-2022 Free T4 [Mass/Vol] 0.69 ng/dL Normal 0.58 - 1.64 ng/dL [facility] Prolactin [Mass/Vol] 10.67 ng/mL Normal 3.34 - 26.72 n g/mL [facility] TSH Qn 2.03 m[IU]/L Normal 0.34 - 5.60 mcIU/mL [facility] Remisol CHEMISTRYOrdered By: Patricia Tyson on 12-06-2022 HbA1c (Bld) [Mass fraction] 5.8 % Normal <=5.9% [facility] ChemAutoSS Consent for Treatmenton 11-16 Consent for Treatment [id number]#1.00CD:127 Normal [facility] Free T4on 12-06-2022 Free T4 [Mass/Vol] 0.69 ng/dL Normal 0.58-1.64 [facility] Comment on above: Performed By: #### 3 [id number], 6889165, 2064077 #### [facility] [address] [place] [address] ZruX9qgd 12-06-2022 HbA1c (Bld) [Mass fraction] 5.8 % Normal <=5.9 [facility] Comment on above: Performed By: #### 3 [id number], 0975724, 7106749 #### [facility] [address] [place] [address] Physician Orderon 12-06-2022 Physician Order [id number]#1.00CD:127 Normal [facility] Prolactinon 12-06-2022 Prolactin [Mass/Vol] 10.67 ng/mL Normal 3.34-26.72 [facility] Comment on above: Performed By: #### 3 [id number], 2040097, 4634458 #### [facility] [address] [place] [address] TSHon 12-06-2022 TSH Qn 2.03 m[IU]/L Normal 0.34-5.60 [facility] Comment on above: Performed By: #### 3 [id number], 2632748, 4261579 #### [facility] [address] [place] [address] Coding Summary.on 10-30-2022 Coding Summary. CD:[id number]+PGhlYWQ+YL3QVNNlT68vcHOsdO8ZY6iWBO2ZVYEOTSBYAI7AAY6vp VC7FQakK7NclpIs [file] Y29s (more content not included)... Normal Fish [facility] BhCG Quanton 10-26-2022 HCG.beta subunit Qn 8 m[IU]/mL [facility] 1-3 [facility] Comment on above: Result Comment: GEST ATIONAL AGE HCG RANGE (mIU/mL) NON- <1-3 0.2-1 WEEKS 5-50 1-2 WEEKS 50-500 2-3 WEEKS 100-5,000 3-4 WEEKS 500-10,000 4-5 WEEKS 1,000-50,000 5-6 WEEKS 10,000-100,000 6-8 WEEKS 15,000-200,000 8-12 WEEKS 10,000-100,000 Performed By: #### 3 [id number], 2352609, 4326742 #### [facility] [address] [place] [address] CHEMISTRYOrdered By: SYSTEM SYSTEM on 10-26-2022 HCG.beta subunit Qn 8 m[IU]/mL High 1 - 3 mIU/mL [facility] C Remisol Progesterone [Mass/Vol] 0.90 ng/mL Invalid Interpretation Code [facility] Remisol Consent for Treatmenton 10-15 Consent for Treatment [id number]#1.00CD:127 Normal [facility] Physician Orderon 10-26-2022 Physician Order [id number]#1.00CD:127 Normal [facility] Progesteroneon 10-26-2022 Progesterone [Mass/Vol] 0.90 ng/mL Invalid Interpretation Code [facility] Comment on above: Result Comment: REFE RENCE RANGE Males 0.14-2.06 ng/mL Non- Females Follicular 0.10-0.60 ng/mL Luteal 3.00-17.5 ng/mL Midluteal 3.30-18.6 ng/mL Post-Menopausal 0.10-0.40 ng/mL First Trimester 8.30-66.5 ng/mL Second Trimester 18.9-66.1 ng/mL Third Trimester 35.8-312.4 ng/mL Performed By: #### 2 [id number] #### [facility] [address] [place] [address] Coding Summary.on 10-24-2022 Coding Summary. CD:[id number]+PGhlYWQ+XX0KSYWqC69rxZWuoR3WC7kLSO4VBKTZKLIFRO0QWI6rg ZH5UWzlJ6GkezUo [file] Y29s (more content not included)... Normal [facility] BhCG Quanton 10-20-2022 HCG.beta subunit Qn 20 m[IU]/mL High 1-3 [facility] Comment on above: Result Comment: GEST ATIONAL AGE HCG RANGE (mIU/mL) NON- <1-3 0.2-1 WEEKS 5-50 1-2 WEEKS 50-500 2-3 WEEKS 100-5,000 3-4 WEEKS 500-10,000 4-5 WEEKS 1,000-50,000 5-6 WEEKS 10,000-100,000 6-8 WEEKS 15,000-200,000 8-12 WEEKS 10,000-100,000 Performed By: #### 3 [id number], 1092523, 2790544 #### [facility] [address] [place] [address] CHEMISTRYOrdered By: SYSTEM SYSTEM on 10-20-2022 HCG.beta subunit Qn 20 m[IU]/mL High 1 - 3 mIU/mL [facility] Remisol Consent for Treatmenton Consent for Treatment [id number]#1.00CD:127 Normal [facility] Physician Orderon 10-20-2022 Physician Order [id number]#1.00CD:127 Normal [facility] COVID-19 (MC)on 08-07-2022 Performing Instrument FT Marcus 3 Normal [facility] Comment on above: Performed By: #### 2 [id number] #### [facility] [address] [place] [address] SARS-CoV-2 (COVID-19) RNA ANGIE+probe Ql (Resp) Not detected Normal Not Detected [facility] Comment on above: Result Comment: This test result should be correlated with clinical presentations and medical history by a healthcare provider to determine its clinical significance. This assay was performed by a reverse transcriptase real-time polymerase chain reaction (rt PCR) method on the [employer] system. This test has been authorized only for the detection of nucleic acid from SARS-CoV-2, not for any other viruses or pathogens. This test has not been FDA cleared or approved. This test has been authorized by FDA under an Emergency Use Authorization (EUA). This test is only authorized for the duration of time the declaration on that circumstances exist justifying the authorization emergency use of in vitro diagnostic tests for detection and/or diagnosis of COVID-19 infection under section 564 (b) (1) of the Act, 21 U.S.C. 360 bbb-3 (b) (1), unless authorization is terminated or revoked sooner. Performed By: #### 2 [id number] #### [facility] [address] [place] [address] SARS-CoV-2 (COVID-19) RNA NA A+probe Ql (Unsp spec) Pass Normal Pass [facility] Comment on above: Performed By: #### 2 [id number] #### [facility] [address] [place] [address] Specimen source Nom (Unsp spec) Nasal Normal [facility] Comment on above: Performed By: #### 2 [id number] #### [facility] [address] [place] [address] ADMITTED TO INTENSIVE CARE U NIT FOR CONDITION OF INTEREST:FIND:PT: Unknown Normal F [facility] Comment on above: Performed By: #### 2 [id number] #### [facility] [address] [place] [address] EMPLOYED IN A HEALTHCARE SETTING:FIND:PT: Unknown Normal [facility] Comment on above: Performed By: #### 2 [id number] #### [facility] [address] [place] [address] FIRST TEST FOR CONDITION OF INTEREST:FIND:PT: Unknown Normal [facility] Comment on above: Performed By: #### 2 [id number] #### [facility] [address] [place] [address] HAS SYMPTOMS RELATED TO COND ITION OF INTEREST:FIND:PT: Unknown Normal [facility] Comment on above: Performed By: #### 2 [id number] #### [facility] [address] [place] [address] HOSPITALIZED FOR CONDITION O F INTEREST:FIND:PT: Unknown Normal [facility] Comment on above: Performed By: #### 2 [id number] #### [facility] [address] [place] [address] STATUS:FIND:PT: Unknown Normal [facility] Comment on above: Performed By: #### 2 [id number] #### [facility] [address] [place] [address] RESIDES IN A [employer] [facility] SETTING:FIND:PT: Unknown Normal [facility] Comment on above: Performed By: #### 2 [id number] #### [facility] [address] [place] [address] Consent for Treatmenton 07-16 Consent for Treatment [id number]#1.00CD:127 Normal [facility] CHEMISTRYOrdered By: SYSTEM SYSTEM on 06-09-2022 Cholesterol [Mass/Vol] 171 mg/dL Normal 120 - 200 mg/ dL [facility] Remisol Cholesterol in HDL [Mass/Vol] 42 mg/dL Invalid Interpretation Code [facility] Cholesterol in LDL [Mass/Vol] 116 mg/dL Normal <=129mg/dL [facility] Cholesterol in VLDL [Mass/Vol] 17 mg/dL Normal 7 - 40 mg/dL [facility] Remisol Triglyceride [Mass/Vol] 85 mg/dL Normal <=149mg/dL [facility] Remisol CHEMISTRYOrdered By: Kuldeep ramos on 06-09-2022 HbA1c (Bld) [Mass fraction] 5.7 % Normal <=5.9% [facility] ChemAutoSS CHEMISTRYOrdered By: SYSTEM SYSTEM on 03-24-2022 Progesterone [Mass/Vol] 8.90 ng/mL Invalid Interpretation Code [facility] Remisol CHEMISTRYOrdered By: SYSTEM SYSTEM on 03-02-2022 Progesterone [Mass/Vol] 3.80 ng/mL Invalid Interpretation Code [facility] Remisol PROGRESSon 06-20-2018 Protein mass conc HNO ID: [id number] thor: Funmilayo Austin () Tarasvice: RadiologyAuthor Type: TechnicianType: Progress NotesFiled: 06/20/2018 3:02 PMNote Text: Radiology Service Progress NotePATIENT NAME: Tommy EldridgeRN: [id number] OF SERVICE: June 20, 2018TIME: 3:01 PMPATIENT IDENTITY VERIFICATION COMPLETED USING TWO (2) METHODS: Patientconfirmed name verbally and ID Band .PATIENT GENDER DATA: Female. status: : NoBreastfeeding status: NO.PATIENT RELEVANT IMPLANT DATA REVIEWED: Not ApplicableRADIOLOGY DEPARTMENT: General X-ray: Exam(s) Completed: HSGPERIPHERAL IV DATA: Not applicableSIGNED BY: Funmilayo Bermudez, [facility]ept2017 3:01 PM [facility] XR HYSTEROSALPINGOGRAMon XR HYSTEROSALPINGOGRAM * * *Final Report * * *DATE OF EXAM: Jun 20 2018 2:58PM X 5389 - XR HYSTEROSALPINGOGRAM / REASON: infertility testing * * * * Physician Interpretation * * * * XR HYSTEROSALPINGOGRAMPROVIDED HISTORY: infertility testingCOMPARISON: No previous similar exams are available for comparisonTECHNIQUE: Fluoroscopic Radiation Summary:Plane A, Air Kerma: 9.4 mGyDose Area Product (DAP): 0.0 mGy*yuU9Gseuon time: 0:12 min:secRESULT: 3 spot images were obtained of the pelvis. Contrast was administered by the TIME CHECKER physician with approximately 5 cc of contrast administered.Endometrial canal is a normal configuration. The bilateral fallopian tubes are seen. Free spillage of contrast is noted from each of the fallopian tubes.IMPRESSION: Patent fallopian tubesTranscriptionist: GEORGE Transcribe Date/Time: Jun 20 2018 4:09PDictated by : JUAQUIN DAVILA MDThis examination was interpreted and the report reviewed and electronically signed by: JUAQUIN DAVILA MD on Jun 20 2018 4:10PM [id number] Normal [facility] Vital Signs Date Time Vital Sign Value Performing Clinician Marisa pereira 06-08-2022 16:10-0400 Blood Pressure Location Samirayohan Null [facility] 06-08-2022 16:10-0400 Body temperature 98.42 [degF] Samirayohan Ambrizell [facility] 06-08-2022 16:10-0400 Diastolic blood pressure 70 mm[Hg] Samira Null [facility] 06-08-2022 16:10-0400 Heart rate 75 /min Samira Null [facility] 06-08-2022 16:10-0400 Respiratory rate 16 /min Samirayohan Null [facility] 06-08-2022 16:10-0400 SaO2% (BldA) [Mass fraction] 98 % Samira Null [facility] 06-08-2022 16:10-0400 Systolic blood pressure 120 mm[Hg] Samira Null [facility] Encounters Encounter Date Encounter Type Care Provider Facility Start: 07-23-2023 ambulatory Jewel Magallon ty:[facility] Start: 06-08-2023 End: 06-09-2023 ambulatory Darrel RAVI Facility:[facility] Start: 06-08-2023 End: 06-08-2023 Patient encounter procedure Darrel RAVI [facility] Start: 05-29-2023 End: 05-30-2023 ambulatory TU YIN Facility:[facility] Start: 05-29-2023 End: 05-29-2023 Patient encounter procedure TU HUMPHREY [facility] Start: 01-29-2023 End: 01-30-[address] DARREL RAVI . Facility: Start: 01-19-2023 End: 01-20-[address] DARREL RAVI . Facility: Start: 12-25-2022 End: 03-26-2023 ambulatory Darrel R TRAV Facility:[facility] Start: 12-23-2022 End: 12-24-2022 ambulatory Darrel R TRAV Facility:[facility] Start: 12-23-2022 End: 12-23-2022 Patient encounter procedure Darrel R TRAV [facility] Start: 12-22-2022 End: 12-23-2022 ambulatory Darrel R TRAV Facility:[facility] Start: 12-22-2022 End: 12-22-2022 Lab Drop off Darrel R TRAV [facility] Start: 12-21-2022 End: 12-22-2022 ambulatory Darrel R TRAV Facility:[facility] Start: 12-16-2022 End: 12-17-2022 ambulatory Darrel R TRAV Facility:[facility] Start: 12-16-2022 End: 12-16-2022 Patient encounter procedure Darrel R TRAV [facility] Start: 12-06-2022 End: 12-07-2022 ambulatory Darrel R TRAV Facility:[facility] Start: 12-06-2022 End: 12-06-2022 Patient encounter procedure Darrel R TRAV [facility] Start: 10-26-2022 End: 10-27-2022 ambulatory Jeison Leon Facility:[facility] Start: 10-26-2022 End: 10-26-2022 Patient encounter procedure Jeison Emanuely [facility] Start: 10-20-2022 End: 10-21-2022 ambulatory Jeison Leon Facility:[facility] Start: 10-20-2022 End: 10-20-2022 Patient encounter procedure Jeison Emanuely [facility] Start: 08-07-2022 End: 11-06-2022 ambulatory Becki ARANGO Facility:[facility] Start: 08-03-2022 End: 11-02-2022 ambulatory Juaquin Brown Facility:[facility] Start: 06-09-2022 End: 06-09-2022 Patient encounter procedure Samira Null [facility] Start: 06-08-2022 End: 06-08-2022 Patient encounter procedure Samira Null [facility] Start: 06-08-2022 End: 06-08-2022 Well adult monitoring check done Samira Null [facility] Start: 03-24-2022 End: 03-24-2022 Patient encounter procedure Jeison Emanuely [facility] Start: 03-02-2022 End: 03-02-2022 Patient encounter procedure Jeison Emanuely [facility] Start: 06-20-2018 Patient encounter [facility] Procedures Date Procedure Procedure Detail Performing Clinician Start: 03-11-2019 Betamethasone (substance) Jeison Printy Start: 03-10-2019 Betamethasone (substance) Jeison Printy Augmentation mammoplasty Lianna an ClearSlide Breast prosthesis, d evice (physical object) Jeison [employer]ide Immunizations Immunization Date Immunization Notes Care Provider Matthew robertsonkrysten 08-03-2022 influenza virus vaccine, unspecified formulation Jeison ClearSlide [facility] Comment on above: Reason for Medicatio n: Prophylaxis 08-09-2021 influenza virus vacc ine, unspecified formulation; Translations: [Fluzone PF Quadrivalent ] Kout [facility] Comment on above: Reason for Medicatio n: Prophylaxis 02-19-2021 COVID-19, mRNA, LNP- S, PF, 30 mcg/0.3 mL dose; Translations: [Pfizer-BioNTech COVID-19 Vaccine] JeisonKrush [facility] Comment on above: Reason for Medicatio n: Prophylaxis 01-29-2021 COVID-19, mRNA, LNP- S, PF, 30 mcg/0.3 mL dose; Translations: [Pfizer-BioNTech COVID-19 Vaccine] JeisonKrush [facility] Comment on above: Reason for Medicatio n: Prophylaxis 08-22-2019 influenza virus vacc ine, live, attenuated, for intranasal use Jeison [employer] [facility] 04-11-2019 tetanus toxoid, redu vanesa diphtheria toxoid, and acellular pertussis vaccine, adsorbed; Translations: [Adacel (Tdap)] [employer] [facility] Payers Date Payer Category Payer Unknown [id number] 2.16.84 [id number] 1990 Unknown [id number] 2.16.84 [id number] 1992 Unknown [id number] 2.16.8 40.1.030102.3.579.2.727 1992 Unknown [id number] 2.16.8 40.1.738089.3.579.2.727 1992 Unknown [id number] 2.16.8 40.1.158485.3.579.2.727 1992 Unknown [id number] 2.16.8 40.1.905346.3.579.2.727 1992 Unknown [id number] 2.16.8 40.1.532123.3.579.2.727 1992 Unknown [id number] 2.16.8 40.1.386611.3.579.2.727 1992 Unknown [id number] 2.16.8 40.1.243465.3.579.2.727 1992 Unknown [id number] 2.16.8 40.1.431532.3.579.2.727 1992 Unknown [id number] 2.16.8 40.1.897760.3.579.2.727 1992 Unknown [id number] 2.16.8 40.1.527349.3.579.2.727 1992 Unknown [id number] 2.16.8 40.1.855097.3.579.2.727 1992 Unknown [id number] 2.16.8 40.1.734205.3.579.2.727 1992 Unknown [id number] 2.16.8 40.1.613417.3.579.2.727 1992 Unknown [id number] 2.16.8 40.1.374829.3.579.2.727 1959 Unknown [id number] Social History Date Type Detail Facility Start: 06-16-2021 End: 06-12-2022 Tobacco smoking status Ex-smoker (finding) [facility] Tobacco smoking status Never [facility] Sex Assigned At Female [facility] Functional Status Date Assessment Result Facility 06-08-2022 Functional Status N/A [facility] Primary Care Evaluation + Plan note 12-06-2022 Laboratory Note Date & Type Note Facility 12-06-2022 Evaluation + Plan note Diagnostic Tests PendingAnti-Mullerian Hormone ([facility]) 12/06/22 Future Scheduled TestsCOVID-19 ([facility]) 05/24/22 [facility] Hospital Discharge instructions 06-08-2022 Note Date & Type Note Facility 06-08-2022 Hospital Discharg e instructions Patient Education 06/08/2022 16:45:36 Polycystic Ovarian Syndrome Polycystic Ovarian Syndrome Polycystic ovarian syndrome (PCOS) is a common hormonal disorder among women of reproductive age. In most women with PCOS, many small fluid-filled sacs (cysts) grow on the ovaries, and the cysts are not part of a normal menstrual cycle. PCOS can cause problems with your menstrual periods and make it difficult to get . It can also cause an increased risk of miscarriage with . If it is not treated, PCOS can lead to serious health problems, such as diabetes and heart disease. What are the causes? The cause of PCOS is not known, but it may be the result of a combination of certain factors, such as: Irregular menstrual cycle. High levels of certain hormones (androgens). Problems with the hormone that helps to control blood sugar (insulin resistance). Certain genes. What increases the risk? This condition is more likely to develop in women who have a family history of PCOS. What are the signs or symptoms? Symptoms of PCOS may include: Multiple ovarian cysts. Infrequent periods or no periods. Periods that are too frequent or too heavy. Unpredictable periods. Inability to get (infertility) because of not ovulating. Increased growth of hair on the face, chest, stomach, back, thumbs, thighs, or toes. Acne or oily skin. Acne may develop during adulthood, and it may not respond to treatment. Pelvic pain. Weight gain or obesity. Patches of thickened and dark brown or black skin on the neck, arms, breasts, or thighs (acanthosis nigricans). Excess hair growth on the face, chest, abdomen, or upper thighs (hirsutism). How is this diagnosed? This condition is diagnosed based on: Your medical history. A physical exam, including a pelvic exam. Your health care provider may look for areas of increased hair growth on your skin. Tests, such as: ?Ultrasound. This may be used to examine the ovaries and the lining of the uterus (endometrium) for cysts. ?Blood tests. These may be used to check levels of sugar (glucose), male hormone (testosterone), and female hormones (estrogen and progesterone) in your blood. How is this treated? There is no cure for PCOS, but treatment can help to manage symptoms and prevent more health problems from developing. Treatment varies depending on: Your symptoms. Whether you want to have a baby or whether you need control (contraception). Treatment may include nutrition and lifestyle changes along with: Progesterone hormone to start a menstrual period. control pills to help you have regular menstrual periods. Medicines to make you ovulate, if you want to get . Medicine to reduce excessive hair growth. Surgery, in severe cases. This may involve making small holes in one or both of your ovaries. This decreases the amount of testosterone that your body produces. Follow these instructions at home: Take esxj-run-mamfdsc and prescription medicines only as told by your health care provider. Follow a healthy meal plan. This can help you reduce the effects of PCOS. ?Eat a healthy diet that includes lean proteins, complex carbohydrates, fresh fruits and vegetables, low-fat dairy products, and healthy fats. Make sure to eat enough fiber. If you are overweight, lose weight as told by your health care provider. ?Losing 10% of your body weight may improve symptoms. ?Your health care provider can determine how much weight loss is best for you and can help you lose weight safely. Keep all follow-up visits as told by your health care provider. This is important. Contact a health care provider if: Your symptoms do not get better with medicine. You develop new symptoms. This information is not intended to replace advice given to you by your health care provider. Make sure you discuss any questions you have with your health care provider. Document Released: 01/25/2006 Document Revised: 09/13/2018 Document Reviewed: 03/18/2017 [employer] Patient Education 2020 [employer]. 06/08/2022 16:45:33 Health Maintenance, Female Health Maintenance, Female Adopting a healthy lifestyle and getting preventive care are important in promoting health and wellness. Ask your health care provider about: The right schedule for you to have regular tests and exams. Things you can do on your own to prevent diseases and keep yourself healthy. What should I know about diet, weight, and exercise? Eat a healthy diet Eat a diet that includes plenty of vegetables, fruits, low-fat dairy products, and lean protein. Do not eat a lot of foods that are high in solid fats, added sugars, or sodium. Maintain a healthy weight Body mass index (BMI) is used to identify weight problems. It estimates body fat based on height and weight. Your health care provider can help determine your BMI and help you achieve or maintain a healthy weight. Get regular exercise Get regular exercise. This is one of the most important things you can do for your health. Most adults should: Exercise for at least 150 minutes each week. The exercise should increase your heart rate and make you sweat (moderate-intensity exercise). Do strengthening exercises at least twice a week. This is in addition to the moderate-intensity exercise. Spend less time sitting. Even light physical activity can be beneficial. Watch cholesterol and blood lipids Have your blood tested for lipids and cholesterol at 20 years of age, then have this test every 5 years. Have your cholesterol levels checked more often if: Your lipid or cholesterol levels are high. You are older than 40 years of age. You are at high risk for heart disease. What should I know about cancer screening? Depending on your health history and family history, you may need to have cancer screening at various ages. This may include screening for: Breast cancer. Cervical cancer. Colorectal cancer. Skin cancer. Lung cancer. What should I know about heart disease, diabetes, and high blood pressure? Blood pressure and heart disease High blood pressure causes heart disease and increases the risk of stroke. This is more likely to develop in people who have high blood pressure readings, are of descent, or are overweight. Have your blood pressure checked: ?Every 3 5 years if you are 18 39 years of age. ?Every year if you are 40 years old or older. Diabetes Have regular diabetes screenings. This checks your fasting blood sugar level. Have the screening done: Once every three years after age 40 if you are at a normal weight and have a low risk for diabetes. More often and at a younger age if you are overweight or have a high risk for diabetes. What should I know about preventing infection? Hepatitis B If you have a higher risk for hepatitis B, you should be screened for this virus. Talk with your health care provider to find out if you are at risk for hepatitis B infection. Hepatitis C Testing is recommended for: Everyone born from 1945 through 1965. Anyone with known risk factors for hepatitis C. Sexually transmitted infections (STIs) Get screened for STIs, including gonorrhea and chlamydia, if: ?You are sexually active and are younger than 24 years of age. ?You are older than 24 years of age and your health care provider tells you that you are at risk for this type of infection. ?Your sexual activity has changed since you were last screened, and you are at increased risk for chlamydia or gonorrhea. Ask your health care provider if you are at risk. Ask your health care provider about whether you are at high risk for HIV. Your health care provider may recommend a prescription medicine to help prevent HIV infection. If you choose to take medicine to prevent HIV, you should first get tested for HIV. You should then be tested every 3 months for as long as you are taking the medicine. If you are about to stop having your period (premenopausal) and you may become , seek counseling before you get . Take 400 to 800 micrograms (mcg) of folic acid every day if you become . Ask for control (contraception) if you want to prevent . Osteoporosis and menopause Osteoporosis is a disease in which the bones lose minerals and strength with aging. This can result in bone fractures. If you are 65 years old or older, or if you are at risk for osteoporosis and fractures, ask your health care provider if you should: Be screened for bone loss. Take a calcium or vitamin D supplement to lower your risk of fractures. Be given hormone replacement therapy (HRT) to treat symptoms of menopause. Follow these instructions at home: Lifestyle Do not use any products that contain nicotine or tobacco, such as cigarettes, e-cigarettes, and chewing tobacco. If you need help quitting, ask your health care provider. Do not use street drugs. Do not share needles. Ask your health care provider for help if you need support or information about quitting drugs. Alcohol use Do not drink alcohol if: ?Your health care provider tells you not to drink. ?You are , may be , or are planning to become . If you drink alcohol: ?Limit how much you use to 0 1 drink a day. ?Limit intake if you are . Be aware of how much alcohol is in your drink. In the [place] one drink equals one 12 oz bottle of beer (355 mL), one 5 oz glass of wine (148 mL), or one 1 oz glass of hard liquor (44 mL). General instructions Schedule regular health, dental, and eye exams. Stay current with your vaccines. Tell your health care provider if: ?You often feel depressed. ?You have ever been abused or do not feel safe at home. Summary Adopting a healthy lifestyle and getting preventive care are important in promoting health and wellness. Follow your health care provider's instructions about healthy diet, exercising, and getting tested or screened for diseases. Follow your health care provider's instructions on monitoring your cholesterol and blood pressure. This information is not intended to replace advice given to you by your health care provider. Make sure you discuss any questions you have with your health care provider. Document Released: 04/15/2012 Document Revised: 09/24/2019 Document Reviewed: 09/24/2019 [employer] Patient Education [employer]. Follow Up Care 06/06/2022 18:36:13 With:Samira Null CNP Address: [address] [place] [phone] When:1 year Comments:or sooner if needed [facility] Primary Care Evaluation + Plan note 06-08-2022 Laboratory Note Date & Type Note Facility 06-08-2022 Evaluation + Plan note Future Scheduled [id number] 06/08/22COVID-19 ([facility]) 05/24/22Lipid Panel 06/08/[address] [facility] Primary Care Evaluation + Plan note 05-24-2022 Laboratory Note Date & Type Note Facility 05-24-2022 Evaluation + Plan note Future Scheduled TestsCOVID-19 ([facility]) 05/24/22 [facility] Evaluation + Plan note Note Date & Type Note Facility Evaluation + Plan note No data available for this section [facility] Hospital Discharge instructions Note Date & Type Note Facility Hospital Discharge instructions No data available for this section [facility] Progress note Note Date & Type Note Facility Progress note No data available for this section [facility] Primary Care Summary Purpose Family History No Family History Records FoundNo Family History Records FoundNo Family History Records Found Advance Directives No Advanced Directives Records FoundNo Advanced Directives Records FoundNo Advanced Directives Records Found Additional Source Comments INFORMATION SOURCE (unrecogn ized section and content) DATE CREATED AUTHOR 06/29/2018 [facility] DATE CREATED AUTHOR AUTHOR'S ORGANIZ ATION 02/04/2023 [facility] DATE CREATED AUTHOR AUTHOR'S ORGANIZ ATION 07/25/2023 [facility] Care Team (unrecognized sect ion and content) Personnel Name: Samira Null CNP Address: [address] [place] [address] Personnel Name: Samira Null CNP Address: [address] [place] [address] Personnel Name: Samira Null CNP Address: Address: [address] [place] [address] Personnel Name: Samira Null CNP Address: Address: [address] [place] [address] Personnel Name: Samira Null CNP Address: Address: [address] [place] [address] Personnel Name: Samira Null CNP Address: Address: [address] [place] [address] Personnel Name: Samira Null CNP Address: Address: [address] [place] [address] Personnel Name: Samira Null CNP Address: Address: [address] [place] [address] Personnel Name: Samira Null CNP Address: Address: [address] [place] [address] Personnel Name: NONE, XXXX Address: Address: [facility] FOR RECORDS PERTAINING TO PATIENTS WHO ARE OR HAVE BEEN ENROLLED IN A CHEMICAL DEPENDENCY/SUBSTANCEABUSE PROGRAM, SOME INFORMATION MAY BE OMITTED. This clinical summary was aggregated from multiple sources. Caution should be exercised in using it in the provision of clinical care. This summary normalizes information from multiple sources, and as a consequence, information in this document may materially change the coding, format and clinical context of patient data. In addition, data may be omitted in some cases. CLINICAL DECISIONS SHOULD BE BASED ON THE PRIMARY CLINICAL RECORDS. [facility]. provides no warranty or guarantee of the accuracy or completeness of information in this document.
== END 2023-08-28 20:00 | disposition home or self-care (01) | DRG 807 ==
PROVIDERS: Admitting Provider Obstetrics & Gynecology; PCP Physician Assistant; Visit Provider Obstetrics & Gynecology
DX: O75.81 Maternal exhaustion complicating labor and delivery (principal); O99.284 Endocrine, nutritional and metabolic diseases complicating childbirth; E28.2 Polycystic ovarian syndrome; Z37.0 Single live birth; Z3A.39 39 weeks gestation of pregnancy; Z23 Encounter for immunization; Z79.82 Long term (current) use of aspirin; Z83.3 Family history of diabetes mellitus; Z82.49 Family history of ischemic heart disease and other diseases of the circulatory system; Z84.2 Family history of other diseases of the genitourinary system; Z80.1 Family history of malignant neoplasm of trachea, bronchus and lung
CPT/HCPCS: 36415; 51702; 59050; 59410; 80307; 85025; 85027; 86850; 86900; 86901; 96365; 96366; 96376

== ENCOUNTER 2023-12-18 07:57 | Outpatient (OUT) | payer OTHER, SELFPAY ==
--- NOTE | 2023-12-18 08:01 | US_ITS ---
[address] [address] Patient Name: TOMMY ARREOLA MRN: [id number] date: 1990 Sex: F Assigned Patient Location: [facility] Current Patient Location: [facility] Accession/Order Number: [id number] Exam Date: 12/18/2023 08:02 Report Date: 12/18/2023 09:41 At the request of: DARREL RAVI Procedure: US OB transvaginal EXAMINATION: US OB transvaginal HISTORY: MISSED MENSES COMPARISON: No relevant comparison available. FINDINGS: Transvaginal images Taylor intrauterine gestation Gestational sac: 3.16 cm, 8 weeks 6 days CRL: 2.70 cm, 9 weeks 4 days Yolk sac: 4.8 mm Heart rate: 167 bpm Cervix: Closed, 4 5 cm. The uterus is normal, anteverted, anteflexed The ovaries are normal. Left corpus luteal cyst Clinical age: 6 weeks 2 days Clinical BRADY: 08/10/2024 Ultrasound age: 9 weeks 4 days Ultrasound BRADY: 07/18/2024 US/US OB transvaginal IMPRESSION: Viable taylor intrauterine gestation measuring 9 weeks 4 days Electronically authenticated by: LISBETH PEOPLES Date: 12/18/2023 09:41
--- OUTSIDE RECORDS SUMMARY | 2023-12-18 08:01 | XMS_ITS | CCD ---
Author Name Unknown Address [address] [place] [address] Organization [facility] Care Team Providers Care [employer] Name Role Phone TANTIBHEDHYANGKUL, JULIERUT Unavailable Unav ailable TANTIBHEDHYANGKUL, JULIERUT Unavailable Unav ailable Juhi FIGUEROA Primary Care Physician Samira Null Primary Care Physician [phone] TRAV ., DR ROJO Admitting Unavailable TRAV ., DR ROJO Attending Unavailable TRAV ., DR ROJO Consulting Unavailable ZIEBER, DR GLEN Butler Consulting Unavailable TRAV ., DR ROJO Admitting Unavailable TRAV ., DR ROJO Attending Unavailable TRAV ., DR ROJO Consulting Unavailable NONE, XXXX Primary Care Physician Unavailab DARREL Mooney Attending Unavailable TRAV, Darrel R Attending Unavailable TRAV, Darrel R Admitting Unavailable Jewel Schmidt Attending Unavailable TRAV, Darrel R Admitting Unavailable TRAV, Darrel R Attending Unavailable TRAV, Darrel R Admitting Unavailable TRAV, Darrel R Attending Unavailable TRAV, Darrel R Attending Unavailable TRAV, Darrel R Admitting Unavailable dorcas mayelin Admitting Unavailable dorcas mayelin Attending Unavailable TRAV, Darrel R Attending Unavailable TRAV, Darrel R Admitting Unavailable Mariya Oneal Attending Unavailab le TRAVDarrel R Attending Unavailable TRAV, Darrel R Admitting Unavailable TRAV, Darrel R Attending Unavailable TRAV, Darrel R Admitting Unavailable TRAV, Darrel R Admitting Unavailable TRAV, Darrel R Attending Unavailable Mariya Oneal Primary Care Physician Allergies Allergy Classification Reported Allergen(s) Allergy Type Date of Onset Reaction(s) Facility (1 source) No Known Medication Allergies; Translations: [No Known Medication Allergies] Propensity to adverse reactions (disorder) [facility] Repository Medications Current Medications Medication Drug Class(es) Dates Sig (Normalized) Sig (Original) ibuprofen 600 mg oral tablet (14 sources) Nonsteroidal Anti-inflammator y Drug Start: 1 take 1 tablet by mouth every six hours ibuprofen 600 mg Tab 600 mg = 1 tab(s), Oral, q6hr, # 15 tab(s), Refills(s) 0, Pharmacy: [facility], 157.4, cm, 12/25/20 2:16:00 EST, Height/Length [...] Ordered medroxyPROGESTERone acetate 10 mg oral tablet (12 sources) Progestin Start: 2 take 1 tablet by mouth once daily medroxyPROGESTERone 10 mg Tab 10 mg = 1 tab(s), Oral, Daily, # 30 tab(s), Refills(s) 0 Start Date: 06/08/22 Status: Ordered AD (14 sources) Start: 8 take 1 tablet by mouth once daily AD 1 tab(s), Oral, Daily, Refill(s) 0 Start Date: 11/26/17 Status: Ordered Completed/Discontinued Medications Medication Drug Class(es) Dates Sig (Normalized) Sig (Original) sertraline 50 mg oral tablet (14 sources) Serotonin Reuptake Inhibitor Start: 08-07-2019 take 1 tablet by mouth once daily Zoloft 50 mg Tab 50 mg = 1 tab(s), Oral, Daily, 0.5 tabs x 1 week then full tab daily., # 30 tab(s), Refills(s) 1, Pharmacy: [facility] Start Date: 08/07/19 Status: Ordered Problems Active Problems Problem Classification Problem Date Documented Date Episodic/Chronic Anxiety disorders (14 sources) Anxiety 08-07-2019 Chronic Hypertension complicating ; childbirth and the puerperium (14 sources) -induced hypertension 04-11-2019 Episodic Intestinal infection (14 sources) Clostridium difficile diarrhea 01-28-2017 Episodic Comment on above: Problem added second omar to positive C-Diff lab result. Menstrual disorders (4 sources) Irregular menstruation, unspecified; Translations: [IRREGULAR MENSTRUATION UNSPECIFIED] Onset: 01-19-2023 Chronic Nonspecific chest pain (12 sources) Chest wall pain 06-16-2021 Episodic Other endocrine disorders (12 sources) Polycystic ovaries 11-26-2017 Chronic Other endocrine disorders (13 sources) Polycystic ovary syndrome; Translations: [Polycystic ovarian syndrome] Onset: 06-08-2022 Chronic Other liver diseases (14 sources) Elevated liver enzymes level 06-25-2019 Episodic [...] Polyhydramnios and other problems of amniotic cavity (14 sources) Polyhydramnios 12-25-2020 Episodic Unclassified (14 sources) Non-smoker 06-16-2021 Unclassified (20 sources) Patient encounter status 06-25-2019 Past or Other Problems Problem Classification Problem Date Documented Da te Episodic/Chronic Unclassified (20 sources) Onset: 08-15-2018 Resolved: 12-25-2020 04-13-2019 Results Test Name Value Interpretation Reference Range Facility CHEMISTRYOrdered By: SYSTEM SYSTEM on 12-14-2023 HCG.beta subunit Qn [id number] m[IU]/mL High 1 - 3 mIU/mL Remisol Chem Comment on above: Result Comment: 'F N ON < 1 - 3' ' 0.2 - 1 WEEK = 5 TO 50' ' 1 - 2 WEEKS = 50 - 500' ' 2 - 3 WEEKS = 100 - 5000' ' 3 - 4 WEEKS = 500 - 26146' ' 4 - 5 WEEKS = 1000 - 22581' ' 5 - 6 WEEKS = 59258 - 488064' ' 6 - 8 WEEKS = 48908 - 143167' ' 8 - 12 WEEKS = 79194 - 092087' CHEMISTRYOrdered By: SYSTEM SYSTEM on 12-12-2023 HCG.beta subunit Qn [id number] m[IU]/mL High 1 - 3 mIU/mL Remisol Chem Comment on above: Result Comment: 'F N ON < 1 - 3' ' 0.2 - 1 WEEK = 5 TO 50' ' 1 - 2 WEEKS = 50 - 500' ' 2 - 3 WEEKS = 100 - 5000' ' 3 - 4 WEEKS = 500 - 86241' ' 4 - 5 WEEKS = 1000 - 95334' ' 5 - 6 WEEKS = 62019 - 223169' ' 6 - 8 WEEKS = 00139 - 525968' ' 8 - 12 WEEKS = 34065 - 664870' CHEMISTRYOrdered By: SYSTEM SYSTEM on 06-08-2023 Glucose 3 Hr post 75 g glucose PO [Mass/Vol] 87 mg/dL Normal 55 - 140 mg/dL [facility] Remisol Glucose 2 Hr post 75 g glucose PO [Mass/Vol] 136 mg/dL Normal 55 - 155 mg/dL [facility] Remisol Glucose 1 Hr post 75 g glucose PO [Mass/Vol] 166 mg/dL Normal 55 - 180 mg/dL [facility] Remisol Glucose post fast [Mass/Vol] 93 mg/dL Normal 55 - 99 mg/dL [facility] Remisol CHEMISTRYOrdered By: Lab ROP User on 06-08-2023 Glucose [Mass/Vol] 86 mg/dL Normal 55 - 99 mg/dL [facility] POC Subsection Comment on above: Result Comment: Repe at Test POC Device SN [id number] Invalid Interpretation Code [facility] POC Subsection POC User ID [id number] Invalid Interpretation Code [facility] POC Subsection POC Username NEHEMIAH VENEGAS Invalid Interpretation Code [facility] POC Subsection Capillary Glucose POCon 05-16 Glucose [Mass/Vol] 86 mg/dL Normal 55-99 [facility] Comment on above: Result Comment: Repe at Test Performed By: #### 2 [id number], [id number], [id number] #### [facility] [address] [place] [address] Consent for Treatmenton 05-16 Consent for Treatment [id number] 0CD:127 Normal [facility] Glu 1 Hron 06-08-2023 Glucose [Mass/Vol] 166 mg/dL Normal 55-180 [facility] Comment on above: Result Comment: POSI TIVE SCREEN = 1 HR > 140 mg/dL Performed By: #### 2 [id number] #### [facility] [address] [place] [address] Glu 2 Hron 06-08-2023 Glucose [Mass/Vol] 136 mg/dL Normal 55-155 [facility] Comment on above: Result Comment: DIAB ETES FASTING >126 mg/dL or 2 HOUR >200 mg/dL Performed By: #### 2 406101, [id number], [id number] #### [facility] [address] [place] [address] Glu 3 Hron 06-08-2023 Glucose [Mass/Vol] 87 mg/dL Normal 55-140 [facility] Comment on above: Result Comment: GEST ATIONAL DIABETES 2 of the following: FASTING >95 mg/dL 1 HOUR >180 mg/dL 2 HOUR >155 mg/dL 3 HOUR >140 mg/dL Performed By: #### 2 [id number] #### [facility] [address] [place] [address] Glu Fastingon 06-08-2023 Glucose [Mass/Vol] 93 mg/dL Normal 55-99 [facility] Comment on above: Performed By: #### 2 [id number] #### [facility] [address] [place] [address] Physician Orderon 06-08-2023 Physician Order [id number]#1.0 0CD:127 Normal [facility] Auto Diffon 05-29-2023 Basophils/100 WBC (Bld) 0.3 % Normal 0.0-2.0 [facility] Comment on above: Order Comment: Order Added by [employer] Expert. Performed By: #### 2 065594, [id number], [id number] #### [facility] [address] [place] [address] Basophils/Leukocytes Auto (Bld) [Pure # fraction] 0.0 E9/L Normal 0.0-0.2 [facility] Comment on above: Order Comment: Order Added by Discern Expert. Performed By: #### 2 218808, 5396334, [id number] #### [facility] [address] [place] [address] Eosinophils/100 WBC (Bld) 0.7 % Normal 0.0-8.0 [facility] Comment on above: Order Comment: Order Added by [employer] Expert. Performed By: #### 2 697199, 2637550, [id number] #### [facility] [address] [place] [address] 18960 Eosinophils/Leukocytes Auto (Bld) [Pure # fraction] 0.1 E9/L Normal 0.0-0.5 [facility] Comment on above: Order Comment: Order Added by [employer] Expert. Performed By: #### 2 782060, 8826703, [id number] #### [facility] [address] [place] [address]48[address] Lymphocytes/100 WBC (Bld) 20.4 % Normal 14.0-50.0 [facility] Comment on above: Order Comment: Order Added by [employer] Expert. Performed By: #### 2 594573, 6348254, [id number] #### [facility] [address] [place] [address]69[address] Lymphocytes/Leukocytes Auto (Bld) [Pure # fraction] 1.9 E9/L Normal 1.0-4.0 [facility] Comment on above: Order Comment: Order Added by [employer] Expert. Performed By: #### 2 334902, 2652910, [id number] #### [facility] [address] [place] [address] Monocytes/100 WBC (Bld) 5.7 % Normal 4.0-14.0 [facility] Comment on above: Order Comment: Order Added by Discern Expert. Performed By: #### 2 325917, 6987173, [id number] #### [facility] [address] [place] [address] Monocytes/Leukocytes Auto (Bld) [Pure # fraction] 0.5 E9/L Normal 0.2-1.0 [facility] Comment on above: Order Comment: Order Added by Discern Expert. Performed By: #### 2 569248, 2010593, [id number] #### [facility] [address] [place] [address] Neutrophils/100 WBC (Bld) 72.9 % Normal 36.0-75.0 [facility] Comment on above: Order Comment: Order Added by Discern Expert. Performed By: #### 2 434784, 2974516, [id number] #### [facility] [address] [place] [address] Neutrophils/Leukocytes Auto (Bld) [Pure # fraction] 6.9 E9/L Normal 2.0-7.5 [facility] Comment on above: Order Comment: Order Added by Discern Expert. Performed By: #### 2 369097, 1471879, [id number] #### [facility] [address] [place] [address] CBC w/ Auto Diffon 3 Erythrocyte distribution width (RBC) [Ratio] 13.5 % Normal 10.9-14.2 [facility] Comment on above: Performed By: #### 2 683601, 9909541, 15242009 #### [facility] [address] [place] [address] Hematocrit (Bld) [Volume fraction] 32.8 % Low 34.0-46.0 [facility] Comment on above: Performed By: #### 2 174583, 4909575, [id number] #### [facility] [address] [place] [address] Hemoglobin (Bld) [Mass/Vol] 11.2 g/dL Low 12.0-16.0 [facility] Comment on above: Performed By: #### 2 852569, 1133570, [id number] #### [facility] [address] [place] [address] MCH (RBC) [Entitic mass] 30.1 pg Normal 27.0-34.0 [facility] Comment on above: Performed By: #### 2 875366, 6693506, 61785514 #### [facility] [address] [place] [address] MCHC (RBC) [Mass/Vol] 34.1 g/dL Normal 31.4-36.0 [facility] Comment on above: Performed By: #### 2 335281, 1548151, [id number] #### [facility] [address] [place] [address]28 MCV (RBC) [Entitic vol] 88.3 fL Normal 80.0-100.0 [facility] Comment on above: Performed By: #### 2 875747, 2626950, [id number] #### [facility] [address] [place] [address] 30352 Platelet mean volume (Bld) [Entitic vol] 8.9 fL Normal 6.4-10.8 [facility] Comment on above: Performed By: #### 2 375649, 7736360, [id number] #### [facility] [address] [place] [address] Platelets (Bld) [#/Vol] 296.0 E9/L Normal 150.0-500.0 [facility] Comment on above: Performed By: #### 2 287990, 7322135, [id number] #### [facility] [address] [place] [address] RBC (Bld) [#/Vol] 3.7 E12/L Low 4.3-5.9 [facility] Comment on above: Performed By: #### 2 381137, 5898574, [id number] #### [facility] [address] [place] [address] WBC corrected for nucl RBC Auto (Bld) [#/Vol] 9.5 E9/L Normal 4.0-11.0 [facility] Comment on above: Performed By: #### 2 919554, 1711743, 79963656 #### [facility] [address] [place] [address] CHEMISTRYOrdered By: SYSTEM SYSTEM on 05-29-2023 Glucose 1 Hr post 50 g glucose PO [Mass/Vol] 146 mg/dL High 55 - 140 mg/dL [facility] Remisol Consent for Treatmenton 05-15 Consent for Treatment [id number] 0CD:127 Normal [facility] Gest Scr Glu 1 Hron 05-29-20 Glucose [Mass/Vol] 146 mg/dL High 55-140 [facility] Comment on above: Result Comment: Posi tive Screen =1 HR > 140mg/dL Performed By: #### 2 782596, 8443809, [id number] #### [facility] [address] [place] [address] HEMATOLOGYOrdered By: SYSTEM SYSTEM on 05-29-2023 Basophils/100 WBC (Bld) 0.3 % Normal 0.0 - 2.0 % [facility] Basophils/Leukocytes Auto (Bld) [Pure # fraction] 0.0 E9/L Normal 0.0 - 0.2 E9/L [facility] Eosinophils/100 WBC (Bld) 0.7 % Normal 0.0 - 8.0 % [facility] Eosinophils/Leukocytes Auto (Bld) [Pure # fraction] 0.1 E9/L Normal 0.0 - 0.5 E9/L [facility] Lymphocytes/100 WBC (Bld) 20.4 % Normal 14.0 - 50.0 % [facility] Lymphocytes/Leukocytes Auto (Bld) [Pure # fraction] 1.9 E9/L Normal 1.0 - 4.0 E9/L [facility] Monocytes/100 WBC (Bld) 5.7 % Normal 4.0 - 14.0 % [facility] Monocytes/Leukocytes Auto (Bld) [Pure # fraction] 0.5 E9/L Normal 0.2 - 1.0 E9/L [facility] Neutrophils/100 WBC (Bld) 72.9 % Normal 36.0 - 75.0 % [facility] Neutrophils/Leukocytes Auto (Bld) [Pure # fraction] 6.9 E9/L Normal 2.0 - 7.5 E9/L [facility] HEMATOLOGYOrdered By: Mane Moulton on 05-29-2023 Erythrocyte distribution width (RBC) [Ratio] 13.5 % Normal 10.9 - 14.2 % [facility] Hematocrit (Bld) [Volume fraction] 32.8 % Low 34.0 - 46.0 % [facility] Hemoglobin (Bld) [Mass/Vol] 11.2 g/dL Low 12.0 - 16.0 gm/dL [facility] MCH (RBC) [Entitic mass] 30.1 pg Normal 27. 0 - 34.0 pg [facility] MCHC (RBC) [Mass/Vol] 34.1 g/dL Normal 31.4 - 36.0 gm/dL [facility] MCV (RBC) [Entitic vol] 88.3 fL Normal 80.0 - 100.0 fL [facility] Platelet mean volume (Bld) [Entitic vol] 8.9 fL Normal 6.4 - 10.8 fL [facility] Platelets (Bld) [#/Vol] 296.0 E9/L Normal 150. 0 - 500.0 E9/L [facility] RBC (Bld) [#/Vol] 3.7 E12/L Low 4.3 - 5.9 E12/L [facility] WBC corrected for nucl RBC Auto (Bld) [#/Vol] 9.5 E9/L Normal 4.0 - 11.0 E9/L [facility] Physician Orderon 05-29-2023 Physician Order [id number]. [id number]:127 Normal [facility] BOX TEST SENT OUTon 01-30-20 23 SENT TO REF LAB 01/29/2023 Normal [facility] Comment on above: Performed By: #### B OX #### [facility] [address] [place] [address] Dr. Lydia De Dios Coding Summary.on 01-27-2023 Coding Summary. CD:[id number] Ww +PGhlYWQ+VI8QZWKxP23yp TXutR9vI6AUAQtKHmctCSC PMDxXFdUvyaOuXV0kgGWhO XJu IC8+UC8eMTNqDwzubWMas9 H6sWF2S13oos2fOWykjJU4 WXZhRqIpjryxq5ohsBa1BY cuNmluOyBt GKMcmG57HZM3cT97Xz89xW JjpUIzb7ohsAx6FfJmNFRj XCE9mRyxAYzvs4EwEMMoD0 9jeLFfc1L9 NDPqhBpkyPPdFbUgeWU7aQ 2dRYexislor6cekgrkCqo7 zv43hCYzu9H4aBP3U5Ztrt J6TGIavREz PoacrVAWxF8dfalgp8unxm euWeJpZSFsBTq0YGd0ZUSw oTlaMxJjKX70PAC9KXOnsp RmW8FuUXCb mJqgLoI5b0S5Im6SI1QDQu miD8PREDZGXZfvoMX+PC90 au00U7QtBtuhMpk8DBDtKL V8oWZ5cY1f FWGpWIfut7Q4hFA0Z2Wfut Htic2hf4gfGSLcLHglQ08i oOPmj4P5SMSxsWO3WSIglQ gfAmRreB57 Oyc+PMMooKeqt8MqVogrr8 ltv5tnpWo8OfyfVQSekyIn tSwwILH5o4EjRm4vXXCrvA G3dAK4hD6a VqFrKzC2BRbdJ594OaArrA YfAohzI07kX1PxnVV+PHRy Jxi4YOTspLgtYR4kK1KrOG RpbmctbGVm mZikDB7zCHEadlolGPFbiX 1lAHCdG8a0LjKdXpJ1RQlu Z5MxLAIelrjvVn03zC8xNy KdTsB0ONvn J0EigcF3RYDskYSmGZceNT N2T00bm7Y6CWNuVBVzVZI6 wWN4qF1jpIzaxfigbMQzaO sgdmVydGlj XEgmIMezF669VAHxnSulZx NvZGluZyBEYXRlOiAgMDQv MTUvMjAyMzwvdGQ+PHRkIH U5wNeoPZJa cJJpHAdkYt4qiYgbeStuDQ 7gONTgswbtQHZouF7xUHTi cKKibIwrKP0eLZVvxjnvg3 14QtCyKQM4 AWObmVUyE1YfiL9oRfNfJC CoJNDnP0RcgDVqHFdlE469 IGxzReN1CUAapaXsN1OqWN FsaWduOiB0 z8H9Hk9No8PhbldbQ1OanK PkBzWgNujoMUp3L6IhYfya dHI+RE35ICTcHV45ONn5DP H2gDlyECmz ZMCnP3SmsJ9pYwQjMYCwBR RkOyc+PHRhYmxlIHdpZHRo KImbOUIfIwQfkDsbAC7dNs 9yZGVyLWNv xDewvAEkFbTrb8skXEWxRW guJH6czDmpO2JbhNN2UAKn s7b6Ej92M07aG8TpkZH+PG AuaUC7kHM0 jK4kYmVlIyE2GFahA672Ku JfgYHiQavpo3img8xkbCx6 LhO1EMYshhBdsLlpJCB1c5 XuUo77K01w IHdpZHRoPSIxNSUiIHZhbG gytq0vsO1cLb1+PGNvbCB3 zNT1dL3vBvAeKkB7YTxfZ6 49InRvcCIv Cqskx0yzb7lldYe1IeWqKG JciuFziUeiEQQ3h9DhSe71 V3KowUkyc2YmAhx1ei37aU Cus8W5fMV4 O9UhATItvzpjsNVpeSyiJD 4fJBXxbnsvAIIymN5dYEXk M3g7MeMeMtJ0GVmnH7Wxwo D3BLFlaUNt ISLllXTYgK0qflhsv0jxki sjLgGbHNFzKXt2HQb7REQs kAnkQsXkAXM3OnA7ECZ8jV XhiD6rwIzo yzcvjJ8wMsg+QRZ2jEAraC WZNJ5bAyavjEM+PHRkIHN0 uGjtZJrbQCMtyR4kOADdK0 n8RhFqWxP5 WPlkB8LejbE2ANSpmUVcVB GmuMRKpY1hwoksq7ksrgzm EsXtNPLbVDz9RAp9KSIkcA duOiBsZWZ0 WyY8YHW1xVOmfI4jmXruug omhC9wHws+QmlydGggRGF0 VSc0S5FcFul7BTNncXrqIH 0ncGFkZGlu Ky1hxTxseKzfKE8vLNWxlx zan520JtPmg7pzMVTcgLJp DZjeOAA9Z56fa2E8PRKlXS XuUTZ2tCL9 pG4feObzxlffqZGmjQcurg LceDcbSRttWWzqE776JPGz aEpkJwOmKKc2B7TtIss4DT DcbYmfKW9h dBWlSZzsHl3naRxgqQgeYO 5eCWIwcjbrk963KiClq2ez WDWxyJUmACzfTII6I39dy3 Y2LQPxELOa VCB1qDO2eK3soAsdlbwqrL VmdDsgdmVydGljYWwtYWxp H270CSGyaLxtIdGrmMm3S8 WrNol2KLLq cGwxMK0pjBBlPNuiSp6mwJ zwgMjqCB8mXOPznhnlb545 BzSvo7yjHSGkwJXmMIjzIZ D8K82xc6N3 IXZpJKLpLSM5wZL4pL6tqE lnbjogbGVmdDsgdmVydGlj EYweMPkcZ131BVFxvNglUr BhdGllbnQg YFtrSEv4E9AuGqaqvPG+PC 71UBWnYQ14wMNpqHTaz6my yIq8SvAqPQSxJZR0iJxuHH ulx8JfPPOu R26yeYJoc2G3XYNhhBdyhO RkWpFztUK6aM8sTXlfdiil g7lefpzqPjawm2lkwx75fB 59E22qRBvh ZHRoPSIzMCUiIHZhbGlnbj 5wtU2pDn8+XTYepME7tPC9 uM1qQCHuOjI0RZanJ181Ue RvcCIvPjxj q0lkp7rcuUn0NxZ1SZSmkq MrrTbpYCF1v8VeGy29D27l IHdpZHRoPSIyMCUiIHZhbG czhb8ifY2i Ii8+FOJitFU2qFJ8xU5vJv VpCaJ8TMlcX974QgTpbLPl FrnjQ63uX5GwkGR+PHRyPj i4KIErmLfk CZ7dfDRdZYwmIr0rZQZ8Ni EyUuZwUEwwF7SyEWUnszde rrqqpJT8YWReEWChxO83Ag 9udDogMTBw hUUFiQ3lwcntq4scftqfDi DaUBBxISd3VGt9YDVizLxp VpCxGEH0HcJ6UOY2rDQvdY 1hbGlnbjog wF4bF8VjUPIprgzpRf98lN 1aTfCdJwE4WCsaVtm+WU9V EfmRHQPIYPrtYD8OW4XOTK A1C0CkAft2 OWRjvOwbWF9xiVKaTOifTy 5lfWnxhXlfLM5sMTWfkpml ZSRawH6jSCEgdASpoYscHL 4wNTBpbjtm n852DfMiYPZ0MERcqOCvG9 RtpK0rDsQaKHExUFVzS1Lo sLQzBMuoS948LQeiQxF6YR JhjkJbY7Vs EXMqwWnnMnC1u8U9Xz8rKQ 4qWK9iFHbiYO00LU07eHYl w3G3qKJ8J4RhYLTtwpyjlp lkpZQ1GYKq IDYcgR86uXAiFGsnUz1zj4 I6l088LVChBRExiX33Ev5g fTlvKJJquCXCrB2jlycre8 xvcjogIzAw JGTxQRg7FLx8HMPfbGdxHp WtQCJ0YgG6JLB7rXFgbW8t pQqryqxpkU6hAsu+MzAgWW VzfrZ4T1Zg Dmj9TMYkwOfdBZ6weNKqJB kzEs9tgMhhdKyuGH0iXWCz jxiqBRTqqN8uMYWtgAUcuZ vhYW9cKPDz xbpsv525OsPtGAQ1QNFgiW OuE3PjtC5mQfLrMCEdLOVs J8QnpJBxTVjuE588NFatAc R6QEYngvJj V4OoMTOjzLphQaV8j2C6Ef 9TZJ3brMW9T9VeLqj3EIMb kSacOV5mdOQsJWtqOv3hjA eofBkiLH7h GFFgjawfWZUwuQ9aGCYjoX XkwEwbAX2uJLSopykcl423 QmSlWNN9ODGjyGByK9MghG 9yOiAjMDAw YHVmN5NyiLQlYApxN356HD oyTaA6OPOmjkSqU9XsBCPk xNynWiD4m8G9Jf1LpYAtAC AnZV31GC10 HH70K0PbYkcbaJWwvZF+PH RhYmxlIHdpZHRoPScxMDAl MiYixZduRS2aAy4wYQNnAN NvbGxhcHNl QlDiw7egCJMoVZvpWI9gbM jmA7EvxSF9GIGtw8y1Qx87 J10yF7XcmSJ+JATrgFU8zL B1lU9uHmEr MlH3ZPtbS546HjGvsNLkTv ioa5imt1sdsAv3NqVgHBFc qcKnuSerBTY3k1HwIs20J7 9sIHdpZHRo EZTcRCHgYGSakAcfjb0enP 9wIi8+ZUZesMS3rWV5sM5s ToQeFiH3FWpkR444OtPrqW SwFlezP52k M5ZnaNR+SZMrPiw2YGGqiN aoDW4lvMMmVQmqHz1bHVF8 CrWqQgZrKQvbT6BbTCDows ctcmlnaHQ6 AXLkKUIhuU48Go5ktZfzGe 4tNTUiXCP5QXBxqRGoX2Wy fS8xKzRmJPJmPFZqU3ShpO EiFCjiV137 SFfbLaX8YEHslxTnR6JxJV DdpIffYyX2y9Y2Nu7BmLdg rRAnQX4uXaGlLMm4E8SaOs y3FZFlkOut YT7cdKJwUTqvWv3xjGvcaM wdKO4gANJhnbuft609BiUd j3mmACGebEGkJPssIDH1T2 9lv5V6XFSp KLChCTH2iIQ4qE1ydPmehe ogbGVmdDsgdmVydGljYWwt HYfqB731BQMpiYqbVgPRMt q0F6SxQlc9 OTXwiRfrVQ6yaTZmUXpnSg 1roRadiWbnHU0vFJTsbdze q279BrIyw9gxMCXhlDYwGQ juOMT1S97s l4Q2BJQjEXXiADK5fQT0kB 1hbGlnbjogbGVmdDsgdmVy jDtcBDjnJAhhW712VYPquA ckUy7RQpl1 Q0ScZjs4MIGddStuUN2vsY KuSYbyUr6iuBakfHkzKT9n UGNmzbhfy758UjTvx1ntKS EwcHQgVGlt XQE3J38si2W6IHHlJNKdDE K9iCG2tO3deWxedqqkqKZv dDsgdmVydGljYWwtYWxpZ2 46IHRvcDsn PlBheWVyOjwvdGQ+PC90cj 98U5LdShstSik9FWXxSID6 hKH9sC0yRGBmXQnau2A9zN U6N2UmzpHf cb3gt7bt (more content not included)... Normal [facility] C Urineon 01-21-2023 Bacteria identified Cx Nom (U) Microbiology PROCEDURE: Urine Culture [R1] SOURCE: U CleanCatch BODY SITE: COLLECTED DATE/TIME: 01/19/2023 12:07 EDT RECEIVED DATE/TIME: 01/19/2023 13:36 EDT START DATE/TIME: 01/19/2023 13:36 EDT FREE TEXT SOURCE: Darrel RAVI DO, DO, Corey R FINAL REPORTS Final Report [] Verified Date/Time: 01/21/2023 07:43 EDT <10,000 cfu/ml Mixed skin contaminants Performing Locations R1: This test was performed at: [facility], [address] [place] [address], [facility] , , [facility] Comment on above: Performed By: #### 2 [id number] ####[place] [address] .Interpretation:on 3 HCV Ab IA Ql Comment Invalid Interpretation Code [facility] Comment on above: Result Comment: Not infected with HCV unless early or acute infection is suspected (which may be delayed in an immunocompromised individual), or other evidence exists to indicate HCV infection. Performed at: [facility] [id number] PhD Dayanna Pedro Performed By: #### 2 [id number] #### [facility] [address] [place] [address] HCV Antibody RFX to Quant PC Dave 01-20-2023 HCV IgG IA Ql Non-Reactive Invalid Interpretation Code Non Reactive [facility] Comment on above: Result Comment: Perf ormed at: [address] [phone] [id number] PhD Dayanna Pedro Performed By: #### 2 [id number], [id number] #### [facility] [address] [place] [address] Hep Bs Agon 01-20-2023 HBV surface Ag IA Ql Negative Invalid Interpretation Code Negative [facility] Comment on above: Result Comment: Perf ormed at: [address] [id number] [id number] PhD Dayanna Pedro Performed By: #### 2 [id number] #### [facility] [address] [place] [id number] RPR with Conf Rfxon 01-21-20 23 Reagin Ab RPR Ql (S) Non-Reactive Invalid Interpretation Code Non Reactive [facility] Comment on above: Result Comment: Perf ormed at: [address] [phone] [id number] PhD Dayanna Pedro Performed By: #### 2 [id number] #### [facility] [address] [place] [address] Rubella IgGon 01-20-2023 Rubella virus IgG Qn (S) 3.46 [IU]/mL Invalid Interpretation Code Immune >0.99 [facility] Comment on above: Result Comment: Non- immune <0.90 Equivocal 0.90 - 0.99 Immune >0.99 Performed at: [address] [id number] PhD Dayanna Pedro Performed By: #### 2 [id number] #### [facility] [address] [place] [id number] Rubella IgMon 01-20-2023 Rubella virus IgM IA Qn (S) <20.0 Invalid Interpretation Code 0.0-19.9 [facility] [facility] Comment on above: Result Comment: Nega tive <20.0 Equivocal 20.0 - 24.9 Positive >24.9 Performed at: [facility] [id number] PhD Dayanna Pedro Performed By: #### 2 [id number], [id number], [id number] #### [facility] [address] [place] [address] ABO/Rhon 01-19-2023 ABO/Rh Positive Invalid Interpretation Code [facility] Comment on above: Performed By: #### 2 [id number], [id number] ####[facility] [address] [place] [address] ABSCon 01-19-2023 ABSC Gel Interp Negative Normal [facility] Comment on above: Performed By: #### 2 [id number], [id number] ####[facility] [address] [place] [address] Auto Diffon 01-19-2023 Basophils/100 WBC (Bld) 0.4 % Normal 0.0-2.0 [facility] Comment on above: Order Comment: Order Added by Discern Expert. Performed By: #### 2 [id number], [id number], [id number] #### [facility] [address] [place] [address] Basophils/Leukocytes Auto (Bld) [Pure # fraction] 0.0 E9/L Normal 0.0-0.2 [facility] Comment on above: Order Comment: Order Added by Discern Expert. Performed By: #### 2 218583, [id number], [id number] #### [facility] [address] [place] [address] Eosinophils/100 WBC (Bld) 1.4 % Normal 0.0-8.0 [facility] Comment on above: Order Comment: Order Added by Discern Expert. Performed By: #### 2 455914, 2791034, [id number] #### [facility] [address] [place] [address] Eosinophils/Leukocytes Auto (Bld) [Pure # fraction] 0.1 E9/L Normal 0.0-0.5 [facility] Comment on above: Order Comment: Order Added by Discern Expert. Performed By: #### 2 288271, [id number], [id number] #### [facility] [address] [place] [address] Lymphocytes/100 WBC (Bld) 26.8 % Normal 14.0-50.0 [facility] Comment on above: Order Comment: Order Added by Discern Expert. Performed By: #### 2 247364, [id number], [id number] #### [facility] [address] [place] [address] Lymphocytes/Leukocytes Auto (Bld) [Pure # fraction] 2.7 E9/L Normal 1.0-4.0 [facility] Comment on above: Order Comment: Order Added by Discern Expert. Performed By: #### 2 773424, 5943214, [id number] #### [facility] [address] [place] [address] Monocytes/100 WBC (Bld) 6.6 % Normal 4.0-14.0 [facility] Comment on above: Order Comment: Order Added by Discern Expert. Performed By: #### 2 384407, 9021859, [id number] #### [facility] [address] [place] [address] Monocytes/Leukocytes Auto (Bld) [Pure # fraction] 0.7 E9/L Normal 0.2-1.0 [facility] Comment on above: Order Comment: Order Added by Discern Expert. Performed By: #### 2 446630, 4745007, [id number] #### [facility] [address] [place] [address] Neutrophils/100 WBC (Bld) 64.8 % Normal 36.0-75.0 [facility] Comment on above: Order Comment: Order Added by Discern Expert. Performed By: #### 2 855479, 3819015, [id number] #### [facility] [address] [place] [address] Neutrophils/Leukocytes Auto (Bld) [Pure # fraction] 6.6 E9/L Normal 2.0-7.5 [facility] Comment on above: Order Comment: Order Added by Discern Expert. Performed By: #### 2 809812, 3597465, [id number] #### [facility] [address] [place] [address] CBC w/ Auto Diffon 3 Erythrocyte distribution width (RBC) [Ratio] 13.6 % Normal 10.9-14.2 [facility] Comment on above: Performed By: #### 2 540843, 6202348, [id number] #### [facility] [address] [place] [address] Hematocrit (Bld) [Volume fraction] 38.5 % Normal 34.0-46.0 [facility] Comment on above: Performed By: #### 2 274437, 3879576, [id number] #### [facility] [address] [place] [address] Hemoglobin (Bld) [Mass/Vol] 12.9 g/dL Normal 12.0-16.0 [facility] Comment on above: Performed By: #### 2 500547, 3288159, [id number] #### [facility] [address] [place] [address] MCH (RBC) [Entitic mass] 29.2 pg Normal 27.0-34.0 [facility] Comment on above: Performed By: #### 2 913351, 8034999, [id number] #### [facility] [address] [place] [address] MCHC (RBC) [Mass/Vol] 33.4 g/dL Normal 31.4-36.0 [facility] Comment on above: Performed By: #### 2 444800, 4602718, [id number] #### [facility] [address] [place] [address] MCV (RBC) [Entitic vol] 87.3 fL Normal 80.0-100.0 [facility] Comment on above: Performed By: #### 2 556587, 5755619, [id number] #### [facility] [address] [place] [address] Platelet mean volume (Bld) [Entitic vol] 8.3 fL Normal 6.4-10.8 [facility] Comment on above: Performed By: #### 2 507565, 1846098, [id number] #### [facility] [address] [place] [address] Platelets (Bld) [#/Vol] 328.0 E9/L Normal 150.0-500.0 [facility] Comment on above: Performed By: #### 2 080467, 9640482, [id number] #### [facility] [address] [place] [address] RBC (Bld) [#/Vol] 4.4 E12/L Normal 4.3-5.9 [facility] Comment on above: Performed By: #### 2 168299, 4315725, [id number] #### [facility] [address] [place] [address] WBC corrected for nucl RBC Auto (Bld) [#/Vol] 10.2 E9/L Normal 4.0-11.0 [facility] Comment on above: Performed By: #### 2 620750, 6155564, [id number] #### [facility] [address] [place] [address] Consent for Treatmenton Consent for Treatment [id number] [id number]#1.0 0CD:127 Normal [facility] WpbZ2bkn 01-19-2023 HbA1c (Bld) [Mass fraction] 5.5 % Normal <=5.9 [facility] Comment on above: Performed By: #### 2 792012, 0890184, [id number] #### [facility] [address] [place] [address] Physician Orderon 01-19-2023 Physician Order [id number]#1. 00CD:127 Normal [facility] TSHon 01-19-2023 TSH Qn 2.30 m[IU]/L Normal 0.34-5.60 [facility] Comment on above: Performed By: #### 2 438970, 8011825, [id number] #### [facility] [address] [place] [address] US PREG TVon 01-19-2023 US PREG TV [...] by: GLEN RALPH Date: 2023-01-19 10:[address] [facility] Coding Summary.on 12-28-2022 Coding Summary. CD:[id number]:[id number] Gh 0bWw+PGhlYWQ+FA1FGGEkL 71kcRBdwR5lH7ITSVtJZbx xYPYFXJbDToMemcVjNS1fk XNjZXJu IC8+XO3eMKSaBpzziFMnr1 A7wKJ7A04htf5mBCvroKU6 KXFyIrGdbrnrp4xuwLe3NX cuNmluOyBt EWKckI16GIU7uP46Cl58fN FgrCJmz3sqvAw0DeTdFNBd PBC3gVmlUObwe0BhWXLlH0 0ycVOqa2O9 HSTaeEfypIWqHhQqeQU0oI 9yDEleseuzw5zlbsqzQxw0 kw11uWGop5P7lOR8D8Dqrm K5AUOefEBp TgfwyXVBmN7iiajjl2rjuz adQxQdOFLrPRw5AIq0QLJu nHawLyQhZW02LMO6TJIzoa JpG5WnCBPq jTigCgX0s7U7Wi8NG9OJAf iyW7LDVRNSAWsipPO+PC90 bf56L4TeEucfGvg1FVKvUK D2wWK7hU8a ENZxABfkx3E5gNJ1H5Gyfe Zryn8ez3lxFUItHPerH47t xRAix5B2PDFqhIM2PAFbpC fvTyMupQ85 Oyc+CTVrjStkx4GlZocis0 hol3xqrHs8DfznBHBvjaZc gFmlTOZ8v4IgTb6eVKAkhO N7tQN2aI7h AdKfNuD2KUtuX671XgUvqE RyRxzqU39dD6CmrPP+PHRy Yud1KKYgpLneXR1bS4YuXF RpbmctbGVm gAkwOS5aYIGhjbsqNSUxjO 7nURLbY3v1GcHjOmW9RIin F7ZbXWAtikkkFc80rP8mZg GgBgG7KOqt B8DbpaP9IXXdhJBqBFcpQO W9B85ks5K3AURlIBSkMQG7 sHD1vS0lvZwazcitfXBshP sgdmVydGlj DAsvVLrzN095PRXgkFccDl NvZGluZyBEYXRlOiAgMDMv MTYvMjAyMzwvdGQ+PHRkIH A5aRiuSYEx gZTkNMjaTt1vbCmyoJbqRV 7wBDDeihwxITStyS1jDFVp kPRdgXeyZV4jYTEfrlaus0 43PlShWFL4 PEBieQJmC3SyfW4sYfVbRH YcHBDwE4YtaJMmNDpfQ237 RDrnNvV5HQRvtrWcK2MsHD FsaWduOiB0 u3N7Cc2Jp7BjuuyyF8DfdV NbYfZrVzxeMBn7A6KsEwob dHI+EP04NPSeEA37YKj4PE W8dQhtHEjx DYMfI9PmzE9zGlBuSAFnRJ RkOyc+PHRhYmxlIHdpZHRo BLkpCJWcCoAyeUuxNR8qWk 9yZGVyLWNv qJlnoSWzRtMoq9cbXQKpRJ ywWC1jeMneQ8EoqLV6QAUn u9s4Ib33W99gE1MzhIF+PG SvxGE3oAL3 uF3tVqSkPgO8FWxhN405Rw LqgFDwNmfft1uwx3hyhFh7 PzZ3TFBkwfDokVemRJI5z1 AuWo23O98w IHdpZHRoPSIxNSUiIHZhbG oawj7ywX8tUr2+PGNvbCB3 qSD1vW7fWpJfKkC5HFhiI2 49InRvcCIv Wqlwz7qgm1flmMj9BzWmDO XpkkQlmKzzIRF2s1RaHs60 Q4NqfJryi2AjPrd4jr31uM Uje0L4xPL8 G4YmKXJcryevoTSchYvvAO 1wTRRlnndwMVKipJ3vFNKj L8p0KbQnOpP8QHchP0Kuns U9HXRftKDe KVFowUHJoY1fmgxza0mnft hnHmIjOSFfPPm9RXq1IYNn hXmuDzBvADU1HnK5PNA3hF EzqV5tgDit ufrgeN3rBrv+VVG8kAXztT ORRT2wAgsghBW+PHRkIHN0 aMxjSGxyLORbsP8aXTEjC7 b9TfLzYmM9 RYakV9CfedH5YOQxfKBuSG KysXEMiM3tweser2tghhtc HaDvGVRfYWx1JGt9MSEokB duOiBsZWZ0 NuC0MWG7rFRyeL3uyFbzls nyyV6xRvy+QmlydGggRGF0 EEr1D1TtTyj8GGKeaMioHU 0ncGFkZGlu Sq5rjZsltKnvOS5xKZGqqq ytv752XiPhy0irINNdxLAg WJbwRTP3Z10hf1T3LKMdCC TcBCK6lIO3 aQ3njHjntupekRLfbVyhnv XjqWmjBQxsLDjsU256UZFf lIkzBzEdHJs7P8EsHid3YD WkhPevPG1y zYZmMXyjLr6lnEkiwTbuLU 5vKBVwzsagj512FpEnh2pr VOZtwPEhSDekEXI8O87sh7 E5FWNhCSSq ZUS4lWF9yT0ygBywswifrC VmdDsgdmVydGljYWwtYWxp N681FZEfcBbyQqNidCt9M5 OlCog9LRHo hQmyHG5ojBBaYPtpQf2zsK fvyPixCI3pHBNdiebhc782 FgZhk4kpSGYngMGiSJeaPZ O6F85lp2W8 CCZzENReCGY6lKB9iI0nhQ lnbjogbGVmdDsgdmVydGlj EFqkEBikJ973JQQtmTgqEn BhdGllbnQg HAkwDNg4I2HkDqbmvCD+PC 35LMWjNA43kUVdvTLmc5at jTs5QxMhHKSlRJG8kOisUN zfl7HnAIQx D66qoSEsi8Z9KRUilLucgA QeJkLbmNE7gY1mVUbstulu p1ztfgtwVigsj9lxel31sI 65D99wDJis ZHRoPSIzMCUiIHZhbGlnbj 5zeA7nSq4+MZMzrQY1wNG5 vA4hWWUmKoJ0CKgoI637Ba RvcCIvPjxj x1qbk5nbxYf4HfI0BGScop KvhFeiPBI5e1MbZb99M45l IHdpZHRoPSIyMCUiIHZhbG sqxf7sbO3x Ii8+TUAqnPA2hYB7iT1pWh UqMhY6NFuuR204BoSwoJVj BibcM49gJ3LlxUR+PHRyPj y5NNUxtHup VF3hxZFcMYluIs8sKLY6Th FzGiMgESphI2MwYSVlkqge jgnqtKK5JMRvVFYpeV50Gz 9udDogMTBw aKFUzP0ieivgj5vvhjjwXd OjXEZsGLo7VNw0KZHltQee DgJqUZI7HpL8KUK3zRBswI 1hbGlnbjog cN7uT7TvOTNrugcpJm05eF 5vWxKhWjO3QTcwGvk+WU9V JraHWPZRWRmgNM8KP1OZOZ S7M2EzEoe5 MUPyjRmwKE0uuWDlUPsdPe 0otSeqdDisLO0wTMXqruez VAEavH2oEBClaEHsnBvmBG 4wNTBpbjtm o448EdPhMVE4AVIlmBHiC0 OrbL8mBeKrZGLbSMVsF1Ve aPLoSKdqE218JWeuXlV2RV TeekZvT5Qt BUUsjBfqHiH8d8D0Ez0fSY 7vSE2kBWzeEU63PR66uPTf g3G1uAC4L4VaATSthzdpdd lmxOD5SRRn ZUGkuB39jBClCCseHr1xr7 B9b262IUXwZUUnsV41Rd5x zUmfPFUsgGDJdJ8nevjad1 xvcjogIzAw XEBrQNk5XMm5CFPmlIamPx UvRMW0YiY1JXE6bRCbtV2o zGcfckcytE6aOct+MzAgWW AyadP9G6Ga Tnx4DUIhjLowAQ0erGXlRL adWi4pyJsjxLhuYG3mZHYm asaxGKUnsO1eEQLavWJxbE xxGM2sZJJi pierz572DeReWGV5YYNktP YkO4PazC3vSgPzYNElQFHm H6RnnZZyPWntE246JSunMn B3AOElwdDz S0SqRENjxUagJvN2m9G0Io 4SYQ8duWK3B5CbIyf9XRNk kIupVA7nhUZdVVpeDl2duX rkoAbjVD0w SNZlkuvnSQOlbV9rIIMjxX WkcCvsYE7mPBWpoefde924 PkChUVT8USIefDNmQ0AtfL 9yOiAjMDAw BETkT3LowTPbYNqwG877HY joNxO6SSPerhJiN6LtRBUy zStnVjC6x2G2La5WqASqZK TnIZ13XA67 FH66Q1TpYvoiwRLydXZ+PH RhYmxlIHdpZHRoPScxMDAl GoCycCbnFN1iYw3lKTHlCG NvbGxhcHNl JaUis4zwEWQuUScyEZ5zrO gzO5HxtZA4LQJuz3p6Wy22 K00gW1LvnCS+XAJbnLO4kW R9pV9bXhJs IfR7DXvpO453NrMicDBfBz uge4ibr3yidIz6FkGtMNEm tvXnxNflPKG3o5FsIk57G0 9sIHdpZHRo RHMvTMNhHYCijOvjhu3ukG 9wIi8+FRZkdCW0iCA7aP0b HxHvFuE5LQjpP011KzWmwD KaNylrK32v L9WysHU+PAIzGif8BKBpfQ rfXH9lfDNyWApxEa1oMLR0 ZtGrAlCtSSkqC4CuMUCebp ctcmlnaHQ6 PYBrAUZwlK66Mp9rrSpuHg 0zJWCzIMR7XFAoaHGdN7Zd iE7tNmAuOWAoJBBiI7GgrP DkPDlwD434 RDmhUvQ3WNHndwZaF3VdAK WoyHpgXoA8z1W4Cl8WhClz cUNtUK6jIzZtZWc0C1VeIj f8CAAjfUki QS8pwWTjUOsnFp9biBrjfQ npYZ2vIFWfkpais568VtAt i5hhFVGlcJNtPRvtBFQ9O1 7cs7M5TASr FVMhWBS0vGU4yI6dpNttim ogbGVmdDsgdmVydGljYWwt GTigQ640JIXboEtoWaXOCx y2P8SzNrx3 TUBogXitTO6sdQFcDQirMz 5wmEmpvQkbGZ5sHCQmcduz s689BmHai1nwGXGjwRCiDR qqHJN7V68a x4S8FCRiJNVkWWP2nVD5mM 1hbGlnbjogbGVmdDsgdmVy dDvpOZcgBVsdJ955OYAyhS ixDz7DMhb4 J1FkAbu8SJCdqAwkXO8tfM KiAFaxYl6taGfnsSzzKJ3f QJVybpwgg229PsKkq2vgUE EwcHQgVGlt RBP2Y39wc2K9XGZqBEQyMH Z2dBN5sY9geMnbtcrjjLLr dDsgdmVydGljYWwtYWxpZ2 46IHRvcDsn PlBheWVyOjwvdGQ+PC90cj 33I3NzPpnmYtt4AIVcDGZ5 wSA7tR7oZOUmYTaie5L5kO C5B8LycnSf ci1j (more content not included)... Normal [facility] Coding Summary. CD:[id number] Gh 0bWw+PGhlYWQ+EG6HWWJuZ 73nuTCmhC5iD0XEYMaGXte kPTACNAqCMgXxzuIgIU9dc XNjZXJu IC8+GY6yARCzHsyjoGDhr1 P7wOA4C61frr9eVTlxuRZ4 WHAnVdCnzdltw0qxvCt0BF cuNmluOyBt HSSawK56AEC0uS45Sj20fV PtiQJvk4ozfSd6WlFmBJNk RHK3sKoaCArms2JoQRSoN2 6xhKApq7D6 JLKagNcttSIoTdYriQD3zL 6xCDkkdcvna9ajrjhnJir8 np48uLBpz1H1rVF3K4Fckg F7PQYdtIDb EwdfvOCJdI4nnoxlm9ygfo tnOjIqYUGvOIr5LJu1AFTn eOfaZtTtSX03SQP2XGXiio LbQ1WwLBUc tJtnLjQ5c9G7Kc3CJ8JXRp hbX2TOYATTYWxshTC+PC90 on84M1SaNivwKnk2BMDtJM N6tTX5iV7x RRClDSneo9U5pSF8J1Zkkt Oplo3uv7abFFPsQWhoO68d rZDzz5Y8APMazFU5FPBwvQ rePxDzfG44 Oyc+QLGfnItdd7AcTgrlk1 oov4wjrHn9PabgJZXmogHf qWjlUDM0r2QiRd2cXLZieF M7jLH4zM5y SvSeJqI0MFjiC284LwYmuJ TrJbdwE89lG6DygHT+PHRy Ale8CDVwtFvmRP2uS5EkPA RpbmctbGVm tQwgHT2tFNDgpsoqDKAqmC 4gNIKfF7f6BnXmThY5ERfl Y7FsTEVxogqlUm04nA0uEy TbNxA0LRth M1XhvyX9CJOhiYChDZcrXY B0S61rd8K7SJSrNPTqPHF6 kIB9sG4cpXxodqdcbJLtvI sgdmVydGlj AOolNZztH509FNSsmNxkEh NvZGluZyBEYXRlOiAgMDMv MTYvMjAyMzwvdGQ+PHRkIH Y9aKhtRMXx zTZoJJjwBb0phUfwgCilGQ 5yTQIeoclrMMKycR4rADTg gCNnkMuvSY9kZVYcdoaws4 61SbKpCSX3 TRHckBLnO7TbdK4hIdEyKM VwHMTtN4JdyLYqWVacU039 VWquLhX5GEEkvoEqT2TdNW FsaWduOiB0 w7A1La8Mi5UzqwntM9KqmJ WjFaAvChjsCZc0W7SzCrxo dHI+OS25WJTvLV44IBq5UQ F3zFunGLwt SSGqI3YigV1iFjPwBWMlMF RkOyc+PHRhYmxlIHdpZHRo NAshMKGyVvBzpCxeYN2wAe 9yZGVyLWNv pLldzHShXnDwp8idBJRoRZ cuCU8mrQrcO6XwyBV9FRPt y2j1Pq66K04kT3GeuUD+PG DgiXO4lOH2 iU6gHzMvQxG7RKfuM818Bo IsrNUzBggtz0rat2mrxSb3 ZrU5NVBvbdGfdMihUUI9a3 HaHx18L32r IHdpZHRoPSIxNSUiIHZhbG yrwx4ahQ4uEq5+PGNvbCB3 gSP2yA0oSyEcKnR7CQlyN6 49InRvcCIv Iuoqb4jcv0wfoUy3MzCtIN LgocKazOdyXPO0a5ZuQr12 E4NdlOvqp1GtGpm8yq40zX Fyy3Q7wLP9 M8NvYIUrhtioqFBsmCavOS 9pKXXadyjmTYKglM4aQBZr K9o9KcJnAdC6CRjzP2Lata B5AZFrxHKg UZDsxSUUsN6vbtaqt5vizi roTjVvVQJkXRp6UGl6SZCe mMsxYbXwSDK0KzO2LBU8wA IncR2tkAmk hlxyuT2xJoz+ISJ1pSEbxI GDQR1zJnnvlZN+PHRkIHN0 vRcyRGmxCOYitE3qCWNcI3 b4UxEuXlX3 SYtpI3MwgwM2HELlrWUbGZ DzfADKlB1krboma7cevfrz GqDzTTKjDKe6SId1WPBnjY duOiBsZWZ0 VeO6IDR5kSGztV7jhRudvp jngK3pVbo+QmlydGggRGF0 LRq0A4UkDby2YCAtuKkwKM 0ncGFkZGlu Yl5owHupkGdbFV7eLGZjdx fvk091ZuSsn0vwEEFipHRz BKumWXH0S24vp5V9RHKfNI TvEYO7bEP6 pD2nxLsxglsxlVVwoRsfig TpvUrsRDnzKYlmS621KAIh yVpmGuOjJSc6Z5XaPej6TU VdtGyfDP7k xCYoBLntCo4sdKdltZtmNJ 9wISJgewmir458OtXfy8cg GATgbSFqLVmhJXM9T03fs7 J6BKEjJBMr CPE3xAS2rD3dfJtmfcqnpX VmdDsgdmVydGljYWwtYWxp I588DVXxyYjkWwWtgXd1T7 HiEcb3CJXm lQjtYU8dfKGqDCewSv9bhQ cmjPosOF2cJKXrmiexk294 DdDbd4quTYIdfUPmQMbvAL Z4X88pm8C3 PFRaYNYyLPY1hKV3qX0bnK lnbjogbGVmdDsgdmVydGlj TZesTNgtE113SAQdrXduJt BhdGllbnQg UPwkDQw1A6WrGvrqgLO+PC 75HJKjBT14xFGarCVoz6ej lYf9GqAoDTOaZLQ7zVrmSL his6UyTKCv S37qjWGsb4Z8CHNtrTwzsV ScSjAruEJ1iE3rMEbqsqsy b3tnocraDwplj2jccb05nE 87T27pQEnw ZHRoPSIzMCUiIHZhbGlnbj 8tgS3qDd3+TZXjiKV9kAD9 xE9hIWGgVsK5JIalX505Ue RvcCIvPjxj d6xzl7dzdZq5JbG0ZTIjot FhnXivQFO3j6OgUj71P81k IHdpZHRoPSIyMCUiIHZhbG czrw2umO3n Ii8+GDXdeQY2pNP4pZ4sYq VwSzM5HUnrJ035KpTapGWk PvmdI75uH2UreVP+PHRyPj a1NGXpaAdi RZ1raTVlODopWp8oPUV2Am TwNpGfJXdtU7LeYZPmuqki lpppkLJ9SZJgKAPuqB38Ux 9udDogMTBw lZSKoY9hpabie1jkgpttSw EyVQAeCWf0PWc9UJEogHys MuOsVFM8CvU7AOZ9iSMogI 1hbGlnbjog sJ6zS3JxDWLogwiiRb95xU 3rHgZlPtF8OOjmHsb+WU9V SluMCAGZGJsdXQ5QK5NEHZ Y7M4NyJhl3 DXSnyQvhMP8gfWIfNHefCi 2hdQounTmjHR5oNESeipdi FMGneZ7dPEAasRDcbOfqKK 4wNTBpbjtm u327DlRnJCT1BBDdsDBqA8 GhqX9yEfSkWWVzLVPxJ4Be zGBmNQnsB882GIyvYcR4GE BjifUqL8Ug IEJkaXvgUtV7k6Q0Jj4jMD 9yKN1kQWqlHI50NP18rPBr l9E8yEM8W5OeNRGgloiyai yyfDG1ZLRs PKZrtR10fZAkOHdtDq5zr2 T3g070TBAxFPIvpF94Ud2u cGasOKFtkGSAeJ6slslgn2 xvcjogIzAw CHDpREj2WXu5BVXooAtnUe OzXMV9DrM0UEH3wTXlqF3h eAylzqvvxZ4gYff+MzAgWW FftjC6H9Nw Trb2SYLhyFvlHX6mnFXtDK ugDn9boSlpsQkfFE1mBGSq avkdDTYdrQ9oDFUskRJqyD jyMV9iGFCf nbsoc464CqSpOEI7NWWnnB SgK7TywC2oIaEtGMLzLKTu U1LboKAvZPvyI505EXryUo Q6MPPalnSj J2GfDLUftRudRyV0o4C0Rb 9EBF3lgPV7E4HpEki9ANSq rVpeRG5elLUxOFwzMo9wzT kocMwxTW1n PDOdiutjOVChpO8zRLRcpC QevHweUP1hMPUrmvyzp915 PiEoKRJ4MUJupFXmI5IrqF 9yOiAjMDAw UWSbM9LmjZGzNVlcC841OB gfEdC9SGStxoGyM5KvGMRl gRynBzN7j4X3Vf8QRPNiZC JvcCBvZmY8 K6RuHyqpbKO+RX62EXSeOV 66oQXisEHbv9vdsIx8PeAu TCFpEXH9qVziQEtlc8KuCM OfE93thWJk s6T4QEHjuLhlkDBhIiLmkJ I7mN6zHRaiilsed4bsuant Flstb9kggt24bY14P53uCQ dpZHRoPSIz EZDoUSIxwHuciz2cdW4vNy 8+EOYfeAQ8rKY2bS2yMxRe AtQ8GVpmP194IjSupGZwRf blg8hus9jw cGa1QxPkQGQsedVclHiySA R6w2BaRm51J02xPWqlZJCq YMCpKGIhXCDqiYtvhn7zzT 9wIi8+PC9j o3cduc04pQ74oXJ+PHRkIH X0aJyaSTtjNECohY8bXJxo FjH1HUIjTdKxxX38yEYnZX inYj8tkVhz uFidMO6wHFIdpfxge511Vn Rhj3okWAOchPWlCEnuHGI9 X65wo3V1XUWvNMMrUFT2hG S0tZ4rqHha bjogbGVmdDsgdmVydGljYW hbISifD503EOBayYgyPtOy eLDoX7qamxUPAG2lWuhqtK Q+PHRkIHN0 lYbnLRwwAOXniW0yABAyH2 f0EgFjGqX9SWirJ0YtzjN2 EGWahJVyVGIgcWFUfD2gax tex9yjfkuq OgUpGVJvKBp9FTe5XIZvfC fvMzPiEKP0ZrG8WEW9aSCp gW3clDozyviqrZ9mAtv+Rk lOOjwvdGQ+ SCXzLSY7uJvgPNjkLYIbcI 1nEQYkC8s1OaPcTpW4YCek Y0NzmaX5ZEJgmKZvPMAonG ABnX5qhtkk a4ufnhcuZrWgBICxXVl0GG f1FMBwbGgcRtWnZII4CyN2 UST3lSUmgH2pxKntcbwdlX 9wOyc+TVJO OjwvdGQ+FTRhNVY8mIllFI hcWKDmeX6pTMQzZ6a5AfGr ViV6MTmzK3RdiaJ8INDioF QgMTBwdCBU iC2sysqhh3fcljroEqGsRJ TyONt7HGb8YORfxDkeKsBl CFI4EyO2KVL7uMXycS4meM yhdpimqP4z Oyc+JQW2DDQ8CE37ZE17Y4 RyPjwvdGFibGU+PHRhYmxl IHdpZHRoPScxMDAlJyBzdH bvWR4fCy5g ZGVy (more content not included)... Normal [facility] Coding Summary.on 12-26-2022 Coding Summary. CD:[id number]:[id number] Gh 0bWw+PGhlYWQ+RK8VNNUyK 20mtYCzrS4dQ6GHLSjPPtb mPNKUTQhHKgHkacJqBP2hx XNjZXJu IC8+LB7jHRLwDcwqsZBif1 N3qOL8A62div7gKEtaqYV0 PVIwAyMnuxrdz0detOz4RD cuNmluOyBt PKSdyT03CEE7xX60Nj57iW ZcdZKio5qltZo2DlZcHQJv WHD5eShcFPwrn3IfCVOaJ3 3znQYnt2B3 IXHrnObdeQUpKwTxpII5pR 8eZCdjoupit5yslchdQps7 nl10iOZpc8Q9iMZ5S4Cboq I4KHMulJCv MhuyvVALsG9dnoool6gflr gbAfZfJMGsSNr5LNh7OHIk uVpyEdYdNU19SOM8PYQwli TjZ9FwKORb qRalSjD9j9Q8Ph1YS0PFFh zuV7NNXFUYEOiorZE+PC90 ok96Y4AwZsroNut5ULTfFP X6xBJ1aW1c OQHtCJhfb7B9rLP7N3Jocc Nqzt0zk1ahCAVsOZldX02h nDIsf4L1DIIndWG1UEEhpM iwPdFlpD76 Oyc+FPJddYjve6LfUvkta3 ona3ddiCg9EmjjZZHhpdLx bAgwERI5m9NtNc3iTRUqfH N2uEW2xD6s YxHwNqC7HAvtR650JgPekW WxViwjQ74kH3MtmYG+PHRy Pzr8KQAbiOgyDJ9gJ9NoGI RpbmctbGVm vQnsRH9cKCOxhndnSGGkmX 1uNWSkC8q2OpGyBmJ8KCnr E8ChTZEwygfkRb28iX0dOx NcWxD8QOsd T2AqdtA4SGQbeCImMZldZQ C8G34rw6A2DHDhOTMpLDK8 dAE3wU7qjQyvewohtAMgzK sgdmVydGlj BSoyBYebX023PFGgoZvvMc NvZGluZyBEYXRlOiAgMDMv MTQvMjAyMzwvdGQ+PHRkIH I2vGhbNEWv sBAaZYbnZn1csOfdnSsvXM 0wLXInvduzPRLirO4gKEXy sJBhgXeuBT0eXTSwjeehh9 95PnDpLNB6 KHQzbZGbZ3MzfN4qPwGbZJ XtSHSiH9GyaBCpTEldH194 FJnzJgJ3MADyftRqW8HyKL FsaWduOiB0 i3P2Zl3Bi2KsygtfM0PxwZ FiDuOuMnoxVBj2P8OoGoti dHI+FS41FJSfQJ59TCb9VR U6gIlaWHqm DSWxB4KvbZ0gRpKoURZbAR RkOyc+PHRhYmxlIHdpZHRo MAdyWNEkKjIftJxvAK5tCh 9yZGVyLWNv aKqwrBDnQiPtb7flUCIpKF eeIF8btUsyP6IwkDE4COYa z7o1Dd57G19lU8YmyFC+PG QyuTC8hJX4 dF3fTeWkXfD5FNzlV002Tl MxjBJrBytyd3csv0hvbJi4 BgW0LBHvmjPclJkbMUI9t4 XoFz14Z54a IHdpZHRoPSIxNSUiIHZhbG hdvc1klU5uOd6+PGNvbCB3 mHT2kS8qRyBuSuM8BStfU5 49InRvcCIv Elvdz4gvd5ffaGi4CaNjRS VswqCwvOsbQUZ1g2GwLz76 G8VerGgcf0RlMsn8nv82tT Pcz1Q4wBZ7 T7ArMKZhxrcooLYwtZnyOA 7uXMGlssrbBUNduC3sPCTl N8s2XoEnPuR2LXnfA7Ccrf J8PNJexSSv RYRwgEDVsC8rfudps6flmv uaKhNpWVOvHEn2AFc3PMQy rKfrXeUwLYU2RbX1ATP5tY MheB6kdLuu hjctmW8xSyf+IUI6uRJbrL MUDH2ePdstsWG+PHRkIHN0 vIbeWWyiISSarT0dKBBxH0 x4FvDyHuJ9 JYyxS2BqopR8SUZyyBCnBX BeuBXUkX3cyjbnk1fsralw KqPjBWOeQYe5SMw8RMRogJ duOiBsZWZ0 EyV7WDQ1dMUiwD2qoGaako izbB4wUbo+QmlydGggRGF0 KGk5R7HaHij5RBWspQtrXL 0ncGFkZGlu Ih0chBumfUphDH1eCLWgef kan114LtFdn8wbIJWpoOWd ZFfjIXH2E43yg4V7KULjZK YiUCU9oZE2 lX3tyCzwjvypzKRelCgexb UnhCfsGCzlXKinS741TJSf qNpiBaAeJKg7R4CrNzy8TX BsgFdfMH7x bLNjGRucXm0raPlqrDpwSC 3lNRZexqkpp982CgVxm4ei JHLlcVXpVExdKYX0P84cn6 Z0YYZnJEKj DUQ1xAT1lS9tnPdqfguhgR VmdDsgdmVydGljYWwtYWxp C189DZNnrNvoLtEtgDj8H8 SfCza8NQZm iNzmRN7loNYyBBzlYr8eyN mvgJjmCI6fLBWthwigt151 FqGny2teCMYucEAbSKmjLU O2F92ww4X5 BHSaVFWqSEU4lEN5lB3vwK lnbjogbGVmdDsgdmVydGlj MXwfBWpfC774KRNoeEcqQw BhdGllbnQg DBpyNCr6P4UdCddsqDT+PC 38HUSnAY53fIGmvTRlt1ou cAr6YhNwQSAfVPZ1dEpoVO sua0BfGDQk P53hsYWfa0T0NNWoqLqpdI XnAwBxvLF8dR2fZHebaeyb w4esedkxGnvnk5stwf64zK 84K52tZEwi ZHRoPSIzMCUiIHZhbGlnbj 2azT4xJk2+MCTczKF6hPH2 cQ6gTDZmMdG8RUkfC697Gl RvcCIvPjxj h1esg8gfdNn0AnE2HQOxly NxvQncKHE2b6OiQf56P65x IHdpZHRoPSIyMCUiIHZhbG mvkf5qiN6c Ii8+OXJkwPR2iNB3uT3fDp CiGuG9HVemI257XrNtnBXt FgbwH45zE8LsmJV+PHRyPj h2ELOefDwm RL0jwRFnHSrdPh8wASY0Xj YxNtDnCUahU6MzHGXrocry mvgipXM6OHRyNJIhpZ33Dr 9udDogMTBw sMGGmY0ytczxs5srkuexLc OnOKDoPFn2KBo3VPVvaXfz HtKvRUS5KzL0QST0pZSipU 1hbGlnbjog hY8nD4QzNJTmxyozHf52xQ 5kLxQeLpR7TPdeWqe+WU9V WeqHUZFPLIcuXH5PY8EPDL F9G7ShOzd5 NHXjuYpxEE9jvYKeOBlmJp 6fxDzvpXipWV1mOKCenshb OKOnqC7mEALjkEGwzWmiAQ 4wNTBpbjtm o553TbXvONF7YKWhqZCcZ5 AnoJ1qKyUxHOZsJLAuA9Zw fZUpUItoF979ZXjqDsC6SO RrywScD4Ty JCKkvVuaMvZ9p4N2Vi8xST 3zVV8wHMcbQB01ZK54tGNc d8Y9xPJ2S6BlGCJhkwodih iduID1RKUu NFVwbE86pPHtDYmtVw4pw1 V8h901WSCyRBVsqQ46Gd3k vHruPDXfwEPZtC6ijeqjq8 xvcjogIzAw UDGlMMh0TJr9UIWskDqaNo MuGKO6VrS6WJI6uEJklA1s qVlwxxtvkP6nBka+MzAgWW QgnhZ4F5Xh Ehx6GICsbNqmRN6lhLYjXG xrHw6saJjcfRxySK2xKSEo etcbBNRedV0uAYBkqKNmgK nfBY2iNIXu wrzww324LuNjLFM9NBZxaR BiR9YggR4fSdYdATSfHDDc K8EayZYxCFefG169EFsyVs E2CMGritBu X1YiFIUneWzuKhU9x6E8Bz 7FZU8jfDT0D3DxEbn8INKr lLtfOA6oqWIqJKctNi1kjD ajvHepDH0u DDSdjbtjSEBmbT4fKLUtrP PdbBwaFJ3yEIYivkjyp434 QeXdQCZ4OQEazLLrD3HazN 9yOiAjMDAw SMGsP4DrkVMzWBmvJ769LC etDwK8ZZMboqVkG4JoNHSm kJakMfV0p5K0Ot2SKHC2ul Jwhut6K9Ou PjwvdHI+YJ41UBTwWA25nU GgzSBjf4oqoVs4OcTbTDNn QNZ9iBivYWlpi0AeFIWkB1 2ajGAcf3V4 JOXddVtpaODuFdBxoWA4uO 5vPGlvpeqyd3ggsexwJdkv o1rbsa44oI20Y11yVNbeUT RoPSIzMCUi TGRbuVgawx4izG3cWq0+PG YyrEX6sGB6iP7wCwYcKvN6 IWelB095XmMfpSRbRbvmx1 kye9aghJq5 QzVuEKOjsaRmzRmpCYL8c5 UoZx57U20fMJpyWHGgHPQz LAZlPYMwrRbexb1wjU7kMq 8+DX5pr2wz bn40qC30pCF+QVKmZRH4wD tyLDnnMHSswA1oKNwwYfI0 BNDoUwLxcS35hHWsKKbhEr 1yaWdodDog II0dHBZrpimre600YzYpg0 ujQODygQZdZFgjPCA2P27x d7W3NXUhZKWxUIT6zWN0yW 1hbGlnbjog bGVmdDsgdmVydGljYWwtYW fmQ125ICDlzXhsSoOvoBFd K8scqjYCHS1cXxydfGA+PH KjZIA9vOoh CHarLWYqvA3gFXZvR5n3Zs QpRlR8LXqhX6LvhzC8NGXr cCYwPRMfhZVGkN1sxalps6 xvcjogIzAw TFXkMMl5HTw1RHHjjIgtZn DfHCC3EzZ4IEK9dDGhfD7w yVwsshidmA1yFbt+RklOOj wvdGQ+PHRk BEI7dGdhPNovQJLkdJ7lCS RvB2x2FgRkCzE7EEnxE4Az ndO4WRRyxYKuRZVzzOPWzW 5rachhh7dy czlwOzEpDSXoLSk4IKh6HU JrgCpzJiOrFQH2BlA2ZFO0 xTYsvR2hxCzzfbnemH2qTq c+TVJOOjwv dGQ+RUVgJWF7vZkgEGpgQM PwdT0aKIEvZ0a2UdNsFbA5 RCdhI6ElitU3WSYwmAKqHI ZaiAZXqM5k vfekw3cmphikPaFmJJQhWC p9KNt8AYTpoFopJvGnXFQ0 RbW6XMA7nAIbwO7dpPtkex ozoO6jLfs+ NNV2QNP1YN04TL68T5IkTt wvdGFibGU+PHRhYmxlIHdp ZHRoPScxMDAlJyBzdHlsZT 3xFh8bAQZk LWNv (more content not included)... Normal [facility] Quanton 12-25-2022 HCG.beta subunit Qn 356 m[IU]/mL High 1-3 [facility] Comment on above: Result Comment: GEST ATIONAL AGE HCG RANGE (mIU/mL) NON- <1-3 0.2-1 WEEKS 5-50 1-2 WEEKS 50-500 2-3 WEEKS 100-5,000 3-4 WEEKS 500-10,000 4-5 WEEKS 1,000-50,000 5-6 WEEKS 10,000-100,000 6-8 WEEKS 15,000-200,000 8-12 WEEKS 10,000-100,000 Performed By: #### 2 [id number] ####[facility] [id number] [place] [address] Consent for Treatmenton 12-13 Consent for Treatment [id number]#1.0 0CD:127 Normal [facility] Physician Orderon 12-25-2022 Physician Order [id number]#1. 00CD:127 Normal [facility] 12-23-2022 HCG.beta subunit Qn 103 m[IU]/mL High 1-3 [facility] Comment on above: Result Comment: GEST ATIONAL AGE HCG RANGE (mIU/mL) NON- <1-3 0.2-1 WEEKS 5-50 1-2 WEEKS 50-500 2-3 WEEKS 100-5,000 3-4 WEEKS 500-10,000 4-5 WEEKS 1,000-50,000 5-6 WEEKS 10,000-100,000 6-8 WEEKS 15,000-200,000 8-12 WEEKS 10,000-100,000 Performed By: #### 2 [id number] #### [facility] [address] [place] [address] CHEMISTRYOrdered By: SYSTEM SYSTEM on 12-23-2022 HCG.beta subunit Qn 103 m[IU]/mL High 1 - 3 mIU/mL [facility] Remisol Consent for Treatmenton 12-13 Consent for Treatment [id number]#1.0 0CD:127 Normal [facility] Physician Orderon 12-23-2022 Physician Order [id number]#1. 00CD:127 Normal [facility] [facility]-22-2022 HCG.beta subunit Qn 38 m[IU]/mL High 1-3 [facility] Comment on above: Result Comment: GEST ATIONAL AGE HCG RANGE (mIU/mL) NON- <1-3 0.2-1 WEEKS 5-50 1-2 WEEKS 50-500 2-3 WEEKS 100-5,000 3-4 WEEKS 500-10,000 4-5 WEEKS 1,000-50,000 5-6 WEEKS 10,000-100,000 6-8 WEEKS 15,000-200,000 8-12 WEEKS 10,000-100,000 Performed By: #### 2 [id number] #### [facility] [address] [place] [address] Coding Summary.on 12-22-2022 Coding Summary. CD:[id number] Gh 0bWw+PGhlYWQ+NT4ZWCYvL 03bwURliV7tM0XDAEgWFpx xFFMWFXtYFjXekhZoUM1te XNjZXJu IC8+DS1tVDShVdhpdFLmm9 J6oWO4L59pzw1kGJduzQX8 PRRfIiDsfmhzl3eaxCf9OY cuNmluOyBt YAYmuQ80PGA5jA73Fv87xT IzpSPfn8zfaJx5OqUbMIHl EQZ0nXiiPSowq6VwYSKsQ0 7tnWYfl2I8 LEZgmDgcnBNsPeDmlZR4iO 8uSWuxddmdd6ndkwabYsi2 sp85oXZgj7T2iSF3T6Kjef K7WZNclAOp UxrdgSUDiI5uawxup6aaun eaJpWgZFFnEWo8OSh2WNEb eDjzCrEwKP08HQY3QKLewo CkB9SwFZTn bUqjWkU8r9E2Bk9PO0EUTl loJ9HUHGGRJMwkmAP+PC90 br59S9NeNbqcNnq3SZYoBS O8dQF3aZ7y IQLfPHejn0K6yDX4E6Djxp Zrhb4lo6daPSReWUwgP75y nCPtc6S3VGGkzFA0HRQveJ cuFeUzhP23 Oyc+PZVdxPrqp6MoNsznt7 gtl1wdpXk5PwjjLMGeuiQv jDbgDMH9r0NaAj1hVSEmjY J8yCZ9eI2x NvEpNpZ2MCzzZ467XpXmjS LqBmogF73aF1OghWL+PHRy Zlt9JANycCycHJ9mI1MoDC RpbmctbGVm eLgrOD7sUGJcuehiCIJdhE 3fWZYsW0f6QzSrFzD0EBmm L6RcENBqzvqgDu36iA7uMq EqRfQ0ENwm J0SzbnE4WHMbqBItYQjoJW Q1K66qy6X3WTPkKISwSUF7 pDG2qX8myRzheczfvEYhcK sgdmVydGlj JEpmFRpoK412XEZpvQvgQi NvZGluZyBEYXRlOiAgMDMv MTAvMjAyMzwvdGQ+PHRkIH V8xHlfNMUa pOXvSAlqFh3ixZfxwFvsSB 8zXUOuattjRUXlmV3mLHQk nYBdhCuzSF8pPUGtqvzkt4 91LuSbDDW9 PXTpcXLuJ2RujS5gDaEmQF FmYCWvZ8ZasNYsQVtnM414 ZObnChA3XBTswxUiJ2XpFR FsaWduOiB0 f3Y7Jm3Nv9RwpakmV6FhtP YrBjUyTqixFWn4G5WzHzdb dHI+BZ91DLIrOY17RHa6KG L1uXvtMDfu QTMlK2YolY1pXiMcKFYwKT RkOyc+PHRhYmxlIHdpZHRo LFnwVTInJsAspTfdKE3lRf 9yZGVyLWNv pLpruITrLaEif5goPZAhBH eaUQ0zmIshC7RmmGD5EOFz f6l2Xy42M52cD0WwnXA+PG FgkKT7qNM1 bI2ePfHaIiH0DBjgV616Ta AomWQqViqog8wdg3fotKm6 WnL2TVAtnmHiqIlhZLL2c4 NkVv28X21i IHdpZHRoPSIxNSUiIHZhbG qpek6tbR3hXf5+PGNvbCB3 xXI2dH1zCeYpJcR8MYrdQ0 49InRvcCIv Lxlli3mew9fgpGu9UcBoEZ FzabEsfOeyOGM2k9CoSy33 R2TbjOhtc7ApFlz1dm99hX Vpj0I6fOT9 D3CwAPNxwdldlKBpkMbqJM 1fAHWzywtnQPVbsL5nFPLn V0w6GySvGxJ9CYknU8Idhc Y8PDBkbCWb ZEItlUASzX1bngrny4ectm jcGnWnZLSaVWg0NQm7ACGy nFxqLjNtINY6MkZ6TIZ7iY WqkQ9mzDiw wmpesK5uOkn+CKL3eGOcpE HVUO7fZfuktBW+PHRkIHN0 uTzdQLmpVCPfxP7pSCGsO7 c3PdSkYuU9 CZvnS9WwsvA6OONeeBJbYR PvqTDBdR1lecjjq1iusoun YqGgNUMmPFh3LYj3PMUcvT duOiBsZWZ0 MfB5EZC7yJZkqL6vlEniet wywO7iBrr+QmlydGggRGF0 CMe8P2ReKvz6UUGgxTrmYK 0ncGFkZGlu Ac4diSjntBvaGI6bXIPibv lqj851VwBvo0erBLMlvYAj PJqgEWF8I94pq2N6FFYsIQ EePMQ6yRK0 bE8ffPdjpatmaFUsuQnvbt MikXfpLDgrDIfoO866QMIc oQkaVuKqMIx6U7NfAof8FP DbtTifYU8e nQXiQEnmOi0prCrqaRasNZ 4qASBjswzef545EuLdb8qp RVPsnZLvSOdfCHN2P19ma8 N7LIQjXCGl VTZ8xYO4sB7nuLlicuupdF VmdDsgdmVydGljYWwtYWxp W088WPQbyNsvTsOlpJs6X4 SkMvy9UKGb nPyqWW1yvFNjASzlXi7ukD zksMeyRT0rJQUexgbru863 HtRtg8rjQNHduDSxTDwoPH E5U89vx7P6 JFIjFJFxJFN1yCT8hF2naN lnbjogbGVmdDsgdmVydGlj VVmsTFgtK778HLPxlFcmJy BhdGllbnQg QRjtSGg7U0MdYwsrfXL+PC 27KXRjTH45kGYihZNkr3qf fAp1OiXiNQXmWVX7lOslQS vsm2QxPHTy K85uaREum9C2HATuzOgypZ MmLiNyvYZ1gR8gSSwbklcr i3btctbqLpnih9iqbd45eK 62B02sXRbg ZHRoPSIzMCUiIHZhbGlnbj 9xzQ6iZw2+PYOkoHW7bTK4 dI4kGUUrMkN3PEgqN505Zx RvcCIvPjxj x5ioc8uffNj9TgV3DIKdca VtpGljWTL2v7BiAt80P86o IHdpZHRoPSIyMCUiIHZhbG wiky0nwI5j Ii8+WIZveAW1lAF8uS2yPh PuUrR2QKmlH788JiIfqCUd EjiiJ34dF9ItmIF+PHRyPj h2PWVdkQuq RC1ltZYsGQkrNg8eBBF3Qo LsArNcHJbjI6PvGKKpivmi ombtdEJ6WNAdDUMnoB34Nk 9udDogMTBw sWPObI5wlnwjp6lcbyrbJs VqTJUyXRy2WGe2TWMmaHqf YuDhJPS2JwC8NXC5lLEamF 1hbGlnbjog mU5yN1UrLPRrzjkoAg65hB 2tLgQmMbS5KFztZxx+WU9V AlkAZAPKJOlpNY9IK0UIGI V8T6MpCir1 LPGuvYniWJ1efEAuOCzhJc 9ajTsisUjlQB9fCBAqtera WTEvwL1zLIEygXHepIllPS 4wNTBpbjtm i453JyNvOYB6GNTpcRWqF7 LjbF1uDrJoWJFqBUOhI7Er fTWtUXedN219PHgnZmB2JZ GegaHxJ1Ib EVZppVoaYfJ2n5J1Ri1kRS 5yXA6oHAqcYU58ZU53uHOu k1H2eEP2X1RmVTLnrvhxfk bpuYX9MNUx YTElsR96aJHsCOixYf3ut9 H3l207QJEsQBCxsZ14Wr0y mDjhYJRglZIJbZ9sjprss6 xvcjogIzAw RIClIIm9VVy2SZBpkKkxBb RsTIR2WfM2ZRT8vUFglJ8f wKlbeqwdvJ3dFvp+MzAgWW UxeoA1C4Bp Yhb7XSPldGhuFG4gtYGdZT hvAb9mvYabsLrwKR1eDSNl hwuqKBBgzM6bXDEopKUvvW omDY4rVWRy tgpec034NvKxTHC0AASdqZ RfH4WxhX5zTqYjMRXoIRXs Q7IioTLvVKwvF280URyqNc H5IVZuhaRt C9MmFHAaeKepAfF4f1H2Cf 4HVB2bbAH2Y0FvUij3RHUz yMrsVA6gnRKpFXupQu6eqU uzkLteFJ3p JXGomigsICNvnI7zKOGtvC DtlXukNF2bTFBqyrcqa591 FfWiPOY8UNQcwDNtR8NaqM 9yOiAjMDAw IOQzH0FwwABbHPfeS830IT lxFnU6INQyugPoK6LvZVRn jLwoGaM2t6M9Py4WaSYrXC OiBC10LS13 MH23V4TlDfaokIEjpVV+PH RhYmxlIHdpZHRoPScxMDAl QqQdpMuyLJ2oPr4rYAZmYT NvbGxhcHNl DdQjd1rdVXDdEEafZP5amD rcU7UirTL4KSUko6w7Vz11 S07cL3TrzOS+CJUtkCY3nT Z6zG5nDzNw OzS5IDhmK595FvWdbAShUd oko8oyj5joiFq0NyKtQTVh gmFpgJiwDJK8k9RdPy39U3 9sIHdpZHRo VQSnBKZpAOUgnXkjqz3lkU 9wIi8+CJElvHW3kWV4nO2p ZdWnFuJ2GFlwH886InNubB ZeXalgP26t Z8QsdAC+FDAoAbn0UMZjwA cwNF9eyNSnDJlyOj0nEKE8 KrIiMiHkAQrkB2VjZOThcj ctcmlnaHQ6 XMEkYYRttE06Cx5jqOzzZz 0iCRRyQKT2ITBreENbS7Zo cA5uEfDuKCRdCBAiA9FimQ RrKAnoM286 LCubZfB4ILFzpqNaT4FqSP PgcDjaLaW9d8Q6Uo1HnWej eTTfUN8oDgOxVLp4K2GmJv d7FSXvhGgj DN2hbRCtVCwaIj9uzUqkfZ vpOG6jKPIshngzo501VbZc d4bsXPUmaWEaHEcdAHR8M3 4cs8L1XLUn ETQrJMS1hOX7eR1cjLqezj ogbGVmdDsgdmVydGljYWwt NXlqT936KHWjkQrxUtJVPa o0Y3TaZok1 AFVjkYmsOR9stMJtWIawCm 4saVekmThqBQ6lZAWqzlll m512UaDjy2veGFIoeJSjCX yzUUF5M64x t2V8MVJlYBSzTYE3xST9lQ 1hbGlnbjogbGVmdDsgdmVy hBylSQluZYbtG590XVKjeO rnPe5FGxs5 L4WjAqf2TOXgcJqkFG0heG MfQRjcYo6doFgocHrwFM7z UPOjpjgke562EcQqk9pmMV EwcHQgVGlt XEL9Z24fh7K8ZHPtGOLjNM G5vUX9lV3maCxkjwcpwRMl dDsgdmVydGljYWwtYWxpZ2 46IHRvcDsn PlBheWVyOjwvdGQ+PC90cj 97R8YoSbbzGso1ATQgYVT3 dBZ7qM4vDLToNUlcx2S9mL Y5T3VepsYx ci1j (more content not included)... Normal [facility] Physician Orderon 12-22-2022 Physician Order [id number]#1.0 0CD:127 [facility] CHEMISTRYOrdered By: SYSTEM SYSTEM on 12-21-2022 HCG.beta subunit Qn 38 m[IU]/mL High 1 - 3 mIU/mL [facility] Remisol Consent for Treatmenton Consent for Treatment [id number] 3030 [id number]#1.0 0CD:127 [facility] Physician Orderon 12-21-2022 Physician Order [id number]#1.0 0CD:127 [facility] Physician Order [id number]#1.0 0CD:127 [facility] Physician Order [id number]#1. 00CD:127 [facility] CHEMISTRYOrdered By: SYSTEM SYSTEM on 12-16-2022 Progesterone [Mass/Vol] 15.60 ng/mL Invalid Interpretation Code [facility] Remisol Consent for Treatmenton Consent for Treatment [id number] 3030 [id number]#1.0 0CD:127 [facility] Physician Orderon 12-16-2022 Physician Order [id number]#1. 00CD:127 [facility] Progesteroneon 12-16-2022 Progesterone [Mass/Vol] 15.60 ng/mL Invalid Interpretation Code [facility] Comment on above: Result Comment: REFE RENCE RANGE Males 0.14-2.06 ng/mL Non- Females Follicular 0.10-0.60 ng/mL Luteal 3.00-17.5 ng/mL Midluteal 3.30-18.6 ng/mL Post-Menopausal 0.10-0.40 ng/mL First Trimester 8.30-66.5 ng/mL Second Trimester 18.9-66.1 ng/mL Third Trimester 35.8-312.4 ng/mL Performed By: #### 2 [id number] #### [facility] [address] [place] [address] Coding Summary.on 12-11-2022 Coding Summary. CD:[id number] Gh 0bWw+PGhlYWQ+CH8RSVZtL 12zmSPbfT4MT9fYHZ0EABQ YZLWXNI1JCZ2ctXG8IIsgZ 2VybiAv BbztkNUwQF14QBp6VQD2aY iaWQbuaE4bwJJuO6q6VdQo AX74qQ14WSwjZJDmNeI7Nf ZpbjsgbWFy N9kgCqYxxTDzKeo+PHRhYm xlIHdpZHRoPScxMDAlJyBz wGfsBW8jUb4eNEFgNWHyaI xhcHNlOiBj s2tpGEXuCBgdCC0zmYdwE8 PfpXY6KPRho3p8By27oCE+ DBUcTSP0eGwxNXpew285Ac Ymg2tiPXU9 nUQzQSajIJV2X34tf7C5FE VrFHKyZUE9pBZ2tR4uhIra dyyoC7GljPOcGiE4VHU2mD YovC7nfPkg ezfbwW4cSnw+E62RUO5AZX OOJH9DJky6K6OcOdwnsTV+ VW56PFMbBZ38eGPmiIJfh6 xfhDs4SvVt BLYaUDN1eBuwMQzjb1LxBG XgF61iiUJyl7S7JFJknKda eAZeOeRtwBK2nX9rLRzgig ecu2wfwdjj Oeast8vsln96sO79U02rAV ssXIHhJSD8JQPaJCHxuUpj as0nmK1tTm6+QPeav5nkg4 wsxSn4HkCn TGWzriVvyMdfWHB3w0TfZx 19J8LvzOuak9HeKoc5wg90 vOTry4D2gVQ8MFgiQWKjrU 6qWIwdRhC2 KMUtAkOjcX91eUSgXFnyEb 7tuMjfrWycTV5hAXDfadzq LEAnnA0zQKTvwQFlvRfeML 4wNTBpbjtm p928ArCeTFY7QFQjhXKaN7 VmgT6dEeJpRXFdHXUlX5Ng tZMsCIsvI283AAvsNlY1EG XaizYdN5Zg NJTrnIdoKuZ9a9V5Mf4Jt3 TvdqptTRQ0EYbkHPQtNlM1 OzDfCaK1Q0ViTvh6ATJrhK soRT5zJ9Mn BMQzusqrvgqzwKM5YIRjZK XdoG80wZMkJUmyQg3ex2R5 x474YUFvUURgrU62Nv1ysP ogMTBwdCBU cZ9nyrmwh3vosetjThAgSS CcLHy9PUn8ALThnGvoDgSs RFQ5OaT1TRA6zIJycO0raZ zpjvukvC6m Oyc+E58oeD6iKVS2QHJ7hf evZDCeipJtLB71ST66Z1Na PjwvdGFibGU+PGRpdiBzdH xePS4iWeEp y3uqv6VoMJupY1RbNEGdSQ vvMtb6JFYpEDK8jEJ5yS8d JKHtVAcsq8C3pPT4K9Dzqd Yiie0op7tj QUErUFawY77ppKKly0F4BA GoiXZ6OQFjgZpgQaTnaA88 Oyc+PKFrzAjzl1DiNpqbw6 cnj5owdPx1 AfBmPTThxgUqcOamDDE9w6 YcEe18M14nNHunAAWpIYJw TMDeTQZxjTcikt3rdF8eXg 8+PGNvbCB3 pKD4oI0vCTJtAyY1AHamE0 21CtWlgOTzRyyit9bir4bo lVc1QoJuOBUgovWtlYlwJL H8x0BzPf31 N64eRZsaTHMnMRApYXXgDR KpfLqotc8gaR2dJv0+PC9j m0uvax38uZ94sJX+PHRkIH G9dQzuOYbs OCOwsH5qAWdhErS6FXDaTe XmgX79tEOvXBuxBa2gbJtg zIbzPP7kAYJvaumnr166Gq Ofj5tlPGCm iJLlSDbiTDM7Q46ek8Z5SC JsAZQwKXN8dPK0jK6tfOqg bjogbGVmdDsgdmVydGljYW itCPahH989 IHRvcDsnPlBhdGllbnQgTm MfHQq6D0SuEhj3UUXfyPzt CY4xbQRfQBuwEo2ggPwnlQ gkEK6nAWOa qigkn347EsEiw6jeSVBbxF HjPNeiTMU2H70kr4C8QREo QALmSGX1bUM1sY0grNlgxn ogbGVmdDsg zyUvgMznQRhtZHdaH331OJ RvcDsnPkJpcnRoIERhdGU6 TK24MG10fBSgz4Y6oCB8D0 BhZGRpbmct niqwdWU0PLQcLDAnvL45Zg 9tdZyuCv5hVWOmGJA0JLFn rUNgY2PdcB5uTtIlDRCnTD MiG1OskBCt IJvoU959ZQzqSpV5KPQpbn HdO9SbVOGzhQtvLfE9j6I7 Ah6YT1J7GM89BE31yTDzz9 K6uTZ6Q7Vi JSZpylktlfzypYP6BULyIB XyfO82Fx4vqZuiPv5kLHSu HNI0YKPskKZnE9EtlV4jVm AjMDAwMDAw G1GduSYnTTbwK963XSdhMm L7DGAjviBgZ7DoJSYziOay XxJ6r1L4Kk1TPFi0JD69BW 62sKOnm1E6 sUD0S0XaTDHofwhsvmgteF U0JRDoVGIbcU77Rg8ucLip Bn7zMOBnPND4KUEvrWCrN4 KqkU2lRlAa REGrFCOoA6AleQCnZGnuK4 99CGknNwH5OGBqluWvP3Bx UAGmsSxwQnM8m4D8Pj9ICT UmSR38CIH9 jZI4DT68VP43E2NjUeqymC FibGU+PHRhYmxlIHdpZHRo AAvtLMSjXaWolTkvNH2yQb 9yZGVyLWNv kLnzjUNpJrIvy5vhZEVbRS icSJ5ofCrdZ2DgkQQ4WFTr d7s6Nf95W56sO5IxbXW+PG IdoAU5wTS6 cC0jWdKcMjU4ZMyyI224Xx UctGKgAunxp8gce6adtVl6 ZwN9NIEpeiLboFekDDD6a6 ZqQh87B24d IHdpZHRoPSIxNSUiIHZhbG yphx4rnM9jQs5+PGNvbCB3 uDN4tG9zPhTlKoO3TYhaL5 49InRvcCIv Nezbz3sas2awvHc6LvSdTP TopfMyvXkdLXF5q2QuYs65 U4TqiFpba7QsNfu9qp91eG Yht5E7cXA2 I5JmIQFioktmbVGerWfoGC 6bDAHvguznAZQlqB8aNNBj V5u5PpMaQuT8EEdeA9Jsfr I8XAQcdDFf BZxjDWH8J94jb4N5CJXxGG BpSBK7yEL3jC0pgQtbokgq bGVmdDsgdmVydGljYWwtYW hkZ675QOWt qLbsHBVsuW6fBXIsiMBqeU wqSQ9xBVDdttwnNpjZJOHK CgiCU7olMU9YQodUGwIRUY 14WD20fBTz r0U4cXH4M9GmZMMowvcqym kwzNY9EMYhQITljI65pJNn ORwnZu9er7Y8b423JSBjPG NowU84Bb8u uYlwQASzwYWNjJ8dloeof9 eogedgYbQhGHIvCQw5TGd0 UWFooIjzLvVsOZH4YzM0LM C0iJMjnZ2v iDxqebdtjZ9vUvp+MDEvMT JjMCy1JdoreRC+PHRkIHN0 zSjzEKalAQDknS9mSNStY6 d2AiPbViW6 QQgoB4NbRIWfzbjaDo93pY 5rOhCiWtB0ZEhyC4DqumO6 GACuhXHjXMlgUIC0B14qa3 V6IMEgWDBy DPW6qOV4lN4hxAyrpsuvdL VmdDsgdmVydGljYWwtYWxp C478MEIkdMslTuUjZHdyWR QhDZ16AE16 bXLnf5P6zKY9F9SrKZHsvh vknvbwvSW2DLOeZQUdrH54 uYAmUAjeLi3tr5S8b241IS UnWHXqzF25 Lt8wtQnrKNBgpRNGqD6tby mtt5ibrwzqVaElAMRvYKr7 STy3AZAdvBllEjUhPZG7Mi F2WDZ9yZDt iP3vgRwbjihvbH5bAqq+Rm QlKFneMF98TX87uDEiq8B8 jWE2N1WaUDQqqmjmervgtJ C1XPAcPVGp xX27gGGrHJbeEb3eh9R7m7 59CSCoYWLupW98Hx1cbTdk SLBusRXWlJ1ozpums4awsi ogIzAwMDAw VZn7SFt8CHKvbFfhVmIuBL N5TbU3UJK4wAHrtE3hdHew drokoS5xCyw+R7T3fQH4lB VudDwvdGQ+ BD38ye89Y7SaAfajJzh8JY OrFJR8tIH4gY5hOTKvETem m0Y1oXI6P5HgyoIhsf7ml9 xsYXBzZTog H85nyZTar8N0VEErgRP5KO QmtQmtHoCoxJ42Ety+PGNv bTkln3JtIkazw2tzc4udhP d6VtPhJRZl agUnlFcyVNS5d1VoHu55Z9 9sIHdpZHRoPSIzMCUiIHZh aAybvr1qhB5tFi5+PGNvbC X0nCW6kH8t CzNwMbN1XYskA946VyItnI YhLhknk6pqi6nqiCp1PqZd JNBdxlHufYidDSI3m9YrCl 30H7PowRki z8FnSab8ik62sHFml5R1iD Z5H3AtZCVvnksvcLBxyLnf QC6bVSRkzaleHXIaxQ0rDF LvO9x2HrRx HlE4IQusU8IdrsS8ZHFjaI VxEXMzuXKXkC9kagajn7ay aqukKrUbHDBdWEt9HQi3OP FsaWduOiBs SWM5KpM4ROO4mSShnF2orO owbohmvG1hTra+PXb8c4el rKStZH6hcLA1GP05XZ99rJ Rso0P9pNP3 H7HhTSXvvabyiunnxEN9ZR HaOTHpzS47Rx7bpJbgOt5j UEWwMFJ4KQMuaXVbQ8ZxjF 9yOiAjMDAw JJUbL4CueYXfCIsoY019RP hpHpD8QXCydtLdQ1OwKDZr xRipHaS8m4L2Rb7JFD11EW 53OY55dNYp o5D0wWW5P0ZaUOOkmojwjq wcbNC0YNUdUIDgdK41Hp6i fQguBv3mUGDzWTD5RNLamL NbA5UuiE3i WyJuDLMwISYjZ4KfxXVfCM nvQ010LXgrMoR5JZDjffQg Z0ZkMWVwpOpcEpL3m1G5Ur 1MJo37VW62 HL89qEZsn0B9gPA0U9AuLY SvrfzqhfcxvUK7GPOcCPYf eP18Fb3tpDkmHt2mEGTmZN V6VOZegXUi Y1KvgC5wBbQgWRKfWREsF9 IzkHOlFIalK915YJknOaQ1 GABjtnOdC3HtCVTffUesVb E8j8X6Oa2R OBezqgo8Z7HtKremzLS+PC 63QNQdVV92vOVmkRFxw2iw sBi0MhScLSAzENH8gIfcRV hkb0AiRTAj Y29s (more content not included)... Normal [facility] Anti-Mullerian Hormone (AMH) on 12-10-2022 Mullerian inhibiting substance [Mass/Vol] 5.46 ng/mL Invalid Interpretation Code [facility] Comment on above: Result Comment: For assays employing antibodies, the possibility exists for interference by heterophile antibodies in the samples.1 1.Yael Isaacs Interferences in Immunoassays - still a threat. Clin. Chem. 2000; 46: 3584-4915. This test was developed and its performance characteristics determined by [employer]. It has not been cleared or approved by the Food and Drug Administration. Reference Range: Females 26 - 30y: 1.03 - 11.10 Median 4.20 AMH concentrations of >= 1.06 ng/mL is correlated with a better response to ovarian stimulation, produced more retrievable oocytes and higher odds of live according to Alinaer et al. Fertility and Sterility. 2010: 94:0631-0181. The current AMH test method correlates with [...] exclude an AMH-secreting ovarian tumor. Performed at: [facility] [address] [place] [address] [id number] MD Cain Mchugh Performed By: #### 2 [id number] #### [facility] [address] [place] [address] CHEMISTRYOrdered By: SYSTEM SYSTEM on 12-06-2022 Free T4 [Mass/Vol] 0.69 ng/dL Normal 0.58 - 1. 64 ng/dL [facility] Remisol Prolactin [Mass/Vol] 10.67 ng/mL Normal 3.34 - 26.72 ng/mL [facility] TSH Qn 2.03 m[IU]/L Normal 0.34 - 5.60 mcIU/mL [facility] CHEMISTRYOrdered By: Patricia Tyson on 12-06-2022 HbA1c (Bld) [Mass fraction] 5.8 % Normal <=5.9% [facility] ChemAutoSS Consent for Treatmenton 11-16 Consent for Treatment [id number] 0CD:127 Normal [facility] Free T4on 12-06-2022 Free T4 [Mass/Vol] 0.69 ng/dL Normal 0.58-1.64 [facility] Comment on above: Performed By: #### 2 [id number] #### [facility] [address] [place] [address] PooQ9oet 12-06-2022 HbA1c (Bld) [Mass fraction] 5.8 % Normal <=5.9 [facility] Comment on above: Performed By: #### 2 [id number] #### [facility] [address] [place] [address] Physician Orderon 12-06-2022 Physician Order [id number]. 00CD:127 Normal [facility] Prolactinon 12-06-2022 Prolactin [Mass/Vol] 10.67 ng/mL Normal 3.34-26.72 [facility] Comment on above: Performed By: #### 2 [id number], [id number], [id number] #### [facility] [address] [place] [address] TSHon 12-06-2022 TSH Qn 2.03 m[IU]/L Normal 0.34-5.60 [facility] Comment on above: Performed By: #### 2 [id number], [id number] #### [facility] [address] [place] [address] CHEMISTRYOrdered By: SYSTEM SYSTEM on 10-26-2022 HCG.beta subunit Qn 8 m[IU]/mL High 1 - 3 mIU/mL [facility]isol Progesterone [Mass/Vol] 0.90 ng/mL Invalid Interpretation Code [facility] CHEMISTRYOrdered By: SYSTEM SYSTEM on 10-20-2022 HCG.beta subunit Qn 20 m[IU]/mL High 1 - 3 mIU/mL [facility] CHEMISTRYOrdered By: SYSTEM SYSTEM on 06-09-2022 Cholesterol [Mass/Vol] 171 mg/dL Normal 120 - 200 mg/dL [facility] Cholesterol in HDL [Mass/Vol] 42 mg/dL Invalid Interpretation Code [facility] Cholesterol in LDL [Mass/Vol] 116 mg/dL Normal <=129mg/dL [facility] Cholesterol in VLDL [Mass/Vol] 17 mg/dL Normal 7 - 40 mg/dL [facility] Triglyceride [Mass/Vol] 85 mg/dL Normal <=149mg/dL [facility] Remisol CHEMISTRYOrdered By: Kuldeep ramos on 06-09-2022 HbA1c (Bld) [Mass fraction] 5.7 % Normal <=5.9% [facility] ChemAutoSS CHEMISTRYOrdered By: SYSTEM SYSTEM on 03-24-2022 Progesterone [Mass/Vol] 8.90 ng/mL Invalid Interpretation Code [facility]isol CHEMISTRYOrdered By: SYSTEM SYSTEM on 03-02-2022 Progesterone [Mass/Vol] 3.80 ng/mL Invalid Interpretation Code [facility] PROGRESSon 06-20-2018 Protein mass conc HNO ID: [id number]: Funmilayo GarciaRtJames Sancheze: RadiologyAuthor Type: TechnicianType: Progress NotesFiled: 06/20/2018 3:02 PMNote Text: Radiology Service Progress NotePATIENT NAME: Tommy EldridgeCarrieN: [id number] OF SERVICE: June 20, 2018TIME: 3:01 PMPATIENT IDENTITY VERIFICATION COMPLETED USING TWO (2) METHODS: Patientconfirmed name verbally and ID Band .PATIENT GENDER DATA: Female. status: : NoBreastfeeding status: NO.PATIENT RELEVANT IMPLANT DATA REVIEWED: Not ApplicableRADIOLOGY DEPARTMENT: General X-ray: Exam(s) Completed: HSGPERIPHERAL IV DATA: Not applicableSIGNED BY: Funmilayo Bermudez, RTSept2017 3:01 PM [facility] XR HYSTEROSALPINGOGRAMon XR HYSTEROSALPINGOGRAM * * *Final Report * * *DATE OF EXAM: Jun 20 2018 2:58PM [id number] - XR HYSTEROSALPINGOGRAM / REASON: infertility testing * * * * Physician Interpretation * * * * XR HYSTEROSALPINGOGRAMPRO VIDED HISTORY: infertility testingCOMPARISON: No previous similar exams are available for comparisonTECHNIQUE: Fluoroscopic Radiation Summary:Plane A, Air Kerma: 9.4 mGyDose Area Product (DAP): 0.0 mGy*jjN7Hxzdyz time: 0:12 min:secRESULT: 3 spot images were obtained of the pelvis. Contrast was administered by the MANAGER LIGHTING physician with approximately 5 cc of contrast administered.Endometri al canal is a normal configuration. The bilateral fallopian tubes are seen. Free spillage of contrast is noted from each of the fallopian tubes.IMPRESSION: Patent fallopian tubesTranscriptionist: GEORGE Transcribe Date/Time: Jun 20 2018 4:09PDictated by : JAXON DAVILA MDThis examination was interpreted and the report reviewed and electronically signed by: JAXON DAVILA MD on Jun 20 2018 4:10PM [id number] [facility] Vital Signs Date Time Vital Sign Value Performing Clinician Marisa pereira 06-08-2022 16:10-0400 Blood Pressure Location Samira Null [facility] 06-08-2022 16:10-0400 Body temperature 98.42 [degF] Samira Null [facility] 06-08-2022 16:10-0400 Diastolic blood pressure 70 mm[Hg] Samira Null [facility] 06-08-2022 16:10-0400 Heart rate 75 /min Samira Null [facility] 06-08-2022 16:10-0400 Respiratory rate 16 /min Samira Null [facility] 06-08-2022 16:10-0400 SaO2% (BldA) [Mass fraction] 98 % Samira Null [facility] 06-08-2022 16:10-0400 Systolic blood pressure 120 mm[Hg] Samira Null [facility] Encounters Encounter Date Encounter Type Care Provider Facility Start: 12-24-2023 ambulatory Mariya Trotter [facility] Start: 12-14-2023 End: 12-14-2023 Patient encounter procedure Darrel R TRAV [facility] Start: 12-12-2023 End: 12-12-2023 Patient encounter procedure Darrle R TRAV [facility] Start: 10-09-2023 End: 10-09-2023 ambulatory DARREL TRAV Not Available Start: 07-23-2023 End: 10-22-2023 ambulatory Jewel Schmidt Facility:[facility] Start: 06-08-2023 End: 06-09-2023 ambulatory Darrel R TRAV Facility:[facility] Start: 06-08-2023 End: 06-08-2023 Patient encounter procedure Darrel R TRAV [facility] Start: 05-29-2023 End: 05-30-2023 ambulatory mayelin yin Facility:[facility] Start: 05-29-2023 End: 05-29-2023 Patient encounter procedure MAYELIN YIN [facility] Start: 01-29-2023 End: 01-30-[address] DARREL RAVI . Facility: Start: 01-19-2023 End: 01-20-[address] DARREL RAVI . Facility: Start: 12-25-2022 End: 03-26-2023 ambulatory Darrel R TRAV Facility:[facility] Start: 12-23-2022 End: 12-24-2022 ambulatory Darrel R TRAV Facility:[facility] Start: 12-23-2022 End: 12-23-2022 Patient encounter procedure Darrel R TRAV [facility] Start: 12-22-2022 End: 12-23-2022 ambulatory Darrel R TRAV Facility:[facility] Start: 12-22-2022 End: 12-22-2022 Lab Drop off Darrel R TRAV [facility] Start: 12-21-2022 End: 12-22-2022 ambulatory Darrel R TRAV Facility:[facility] Start: 12-16-2022 End: 12-17-2022 ambulatory Darrel R TRAV Facility:[facility] Start: 12-16-2022 End: 12-16-2022 Patient encounter procedure Darrel R TRAV [facility] Start: 12-06-2022 End: 12-07-2022 ambulatory Darrel R TRAV Facility:[facility] Start: 12-06-2022 End: 12-06-2022 Patient encounter procedure Darrel R TRAV [facility] Start: 10-26-2022 End: 10-26-2022 Patient encounter procedure Jeison Leon [facility] Start: 10-20-2022 End: 10-20-2022 Patient encounter procedure Jeison Leon [facility] Start: 06-09-2022 End: 06-09-2022 Patient encounter procedure Samira Carrie Null [facility] Start: 06-08-2022 End: 06-08-2022 Patient encounter procedure Samira Null [facility] Start: 06-08-2022 End: 06-08-2022 Well adult monitoring check done Samira Carrie Null [facility] Start: 03-24-2022 End: 03-24-2022 Patient encounter procedure Jeison Leon [facility] Start: 03-02-2022 End: 03-02-2022 Patient encounter procedure Jeison Leon [facility] Start: 06-20-2018 Patient encounter [facility] Procedures Date Procedure Procedure Detail Performing Clinician Start: 03-11-2019 Betamethasone (substance) Jeison Printy Start: 03-10-2019 Betamethasone (substance) Jeison Printy Augmentation mammoplasty Lianna an Printy Breast prosthesis, d evice (physical object) Jeison Printy Immunizations Immunization Date Immunization Notes Care Provider Matthew mendoza 07-23-2023 influenza virus vaccine, unspecified formulation Darrel RAVI [facility] Comment on above: Reason for Medicatio n: Prophylaxis 08-03-2022 influenza virus vaccine, unspecified formulation Jeison Leon [facility] Comment on above: Reason for Medicatio n: Prophylaxis 08-09-2021 influenza virus vaccine, unspecified formulation; Translations: [Fluzone PF Quadrivalent ] Jeison [employer] [facility] Comment on above: Reason for Medicatio n: Prophylaxis 02-19-2021 COVID-19, mRNA, LNP- S, PF, 30 mcg/0.3 mL dose; Translations: [Pfizer-BioNTech COVID-19 Vaccine] Jeison [employer] [facility] Comment on above: Reason for Medicatio n: Prophylaxis 01-29-2021 COVID-19, mRNA, LNP- S, PF, 30 mcg/0.3 mL dose; Translations: [Pfizer-BioNTech COVID-19 Vaccine] Jeison [employer] [facility] Comment on above: Reason for Medicatio n: Prophylaxis 08-22-2019 influenza virus vaccine, live, attenuated, for intranasal use Jeison [employer] [facility] 04-11-2019 tetanus toxoid, redu vanesa diphtheria toxoid, and acellular pertussis vaccine, adsorbed; Translations: [Adacel (Tdap)] Jeison [employer] [facility] Payers Date Payer Category Payer Unknown [id number] 2.16.84 [id number] 1992 Unknown [id number] 2.16.84 [id number] 1992 Unknown [id number] 1992 Unknown [id number] 2.16.8 [id number] 1992 Unknown [id number] 2.16.8 [id number] 1992 Unknown [id number] 2.16.8 [id number] 1992 Unknown [id number] 2.16.8 [id number] 1990 Unknown [id number] 2.16.8 [id number] 1990 Unknown [id number] 2.16.8 [id number] 1992 Unknown [id number] 2.16.8 [id number] 1992 Unknown [id number] 2.16.8 [id number] 1992 Unknown [id number] 2.16.8 [id number] 1992 Unknown [id number] 2.16.8 [id number] 1992 Unknown [id number] 2.16.8 [id number] 1959 Unknown [id number] Social History Date Type Detail Facility Start: 06-16-2021 End: 06-12-2022 Tobacco smoking status Ex-smoker (finding) [facility] Tobacco smoking status Never [facility] Sex Assigned At Female [facility] Functional Status Date Assessment Result Facility 06-08-2022 Functional Status N/A [facility] Primary Care Evaluation + Plan note 12-06-2022 Laboratory Note Date & Type Note Facility 12-06-2022 Evaluation + Plan note Diagnostic Tests PendingAnti-Mullerian Hormone ([facility]) 12/06/22 Future Scheduled TestsCOVID-19 ([facility]) 05/24/22 [facility] Hospital Discharge instructions 08-25-2022 Note Date & Type Note Facility 06-08-2022 [...] produces. Follow these instructions at home: Take [id number] and prescription medicines only as told by [...] 01/25/2006 Document Revised: 09/13/2018 Document Reviewed: 03/18/2017 [employer] Patient Education 2020 [employer]. 06/08/2022 16:45:33 Health Maintenance, Female Health Maintenance, [...] 04/15/2012 Document Revised: 09/24/2019 Document Reviewed: 09/24/2019 [employer] Patient Education 2020 [employer]. Follow Up Care 06/06/2022 18:36:13 With:Samira Null CNP Address: [address] [place] [address] [place] [address]- [phone] When:1 year Comments:or sooner if needed [facility] Primary Care Evaluation + Plan note 06-08-2022 Laboratory Note Date & Type Note Facility 06-08-2022 Evaluation + Plan note Future Scheduled [id number] 06/08/22COVID-19 ([facility]) 05/24/22Lipid Panel 06/08/22 [facility] Primary Care Evaluation + Plan note 05-24-2022 Laboratory Note Date & Type Note Facility 05-24-2022 Evaluation + Plan note Future Scheduled TestsCOVID-19 ([facility]) 05/24/22 [facility] Evaluation + Plan note Note Date & Type Note Facility Evaluation + Plan note No data available for this section [facility] Evaluation + Plan note Note Date & Type Note Facility Evaluation + Plan note Future Appointments Appointment Date:12/24/2023 08:20:00 AM Scheduled Provider:Mariya Girard Location:[facility] Appointment Type: Open [facility] Hospital Discharge instructions Note Date & Type Note Facility Hospital Discharge instructions No data available for this section [facility] Progress note Note Date & Type Note Facility Progress note No data available for this section [facility] Primary Care Summary Purpose Family History No Family History Records FoundNo Family History Records FoundNo Family History Records FoundNo Family History Records Found No data available for this section No data available for this section Advance Directives No Advanced Directives Records FoundNo Advanced Directives Records FoundNo Advanced Directives Records FoundNo Advanced Directives Records Found Additional Source Comments INFORMATION SOURCE (unrecogn ized section and content) DATE CREATED AUTHOR 06/29/2018 [facility] DATE CREATED AUTHOR AUTHOR'S ORGANIZ ATION 02/04/2023 [facility] DATE CREATED AUTHOR AUTHOR'S ORGANIZ ATION 10/11/2023 [facility] EPIC DATE CREATED AUTHOR AUTHOR'S ORGANIZ ATION 11/17/2023 [facility] Care Team (unrecognized sect ion and content) Personnel Name: Samira Nlul CNP Address: [address] [place] [address] Personnel Name: Samira Null CNP Address: [address] [place] [address] Personnel Name: Samira Null CNP Address: Address: [address] [place] [address] Personnel Name: Samira Null CNP Address: Address: [address] [place] [address] Personnel Name: Samira Null CNP Address: Address: [address] [place] [address] Personnel Name: Samira Null CNP Address: Address: [address] [place] [address] Personnel Name: Samira Null CNP Address: Address: [address] [place] [address] Personnel Name: Samira Null CNP Address: Address: [address] [place] [address] Personnel Name: Samira Null CNP Address: Address: [address] [place] [address] Personnel Name: NONE, XXXX Address: Address: [facility] Personnel Name: Mariya Girard Address: Address: [address] [place] [address] Personnel Name: Mariya Girard Address: Address: [address] [place] [address] FOR RECORDS PERTAINING TO PATIENTS WHO ARE [...] BE BASED ON THE PRIMARY CLINICAL RECORDS. [facility]. provides no warranty or guarantee of the accuracy or completeness of information in this document.
== END 2023-12-18 07:58 | disposition home or self-care (01) ==
LOC: NOMS 07:58
PROVIDERS: PCP Physician Assistant; Visit Provider Obstetrics & Gynecology
DX: Z34.91 Encounter for supervision of normal pregnancy, unspecified, first trimester (principal); Z3A.09 9 weeks gestation of pregnancy; N92.6 Irregular menstruation, unspecified
CPT/HCPCS: 76817

== ENCOUNTER 2024-03-06 09:27 | Outpatient (OUT) | payer OTHER, SELFPAY ==
--- NOTE | 2024-03-06 09:36 | US_ITS ---
[address] [address] Patient Name: TOMMY ARREOLA MRN: [id number] date: 1990 Sex: F Assigned Patient Location: [facility] Current Patient Location: [facility] Accession/Order Number: [id number] Exam Date: 03/06/2024 09:36 Report Date: 03/06/2024 10:54 At the request of: TU YIN Procedure: US OB cervical length EXAMINATION: US OB anatomy, US OB cervical length HISTORY: ANATOMY COMPARISON: No relevant comparison available. TECHNIQUE: Transabdominal sonographic examination was performed for obstetrical and evaluation. FINDINGS: Number: 1 Heart Rate: 143.0 bpm H.B. /min Amniotic Fluid Volume: Subjectively normal position: Cephalic Placental Location: Posterior, grade 1. Placental edge is 5.4 cm from the internal os Cervix Length: 4.8 cm , closed Normal anatomy: Lateral ventricles, cerebellum, posterior fossa, nose, lips, orbits, four-chamber heart, RVOT, LVOT, diaphragm, stomach, kidneys, abdominal cord insertion, bladder, umbilical arteries, three-vessel cord, spine, extremities BIOMETRY: BPD: 4.7 cm 20 weeks 0 days , 19% HC: 17.8 cm 20 weeks 2 days, 18% AC: 15.5 cm 20 weeks 5 days, 38% FL: 3.7 cm 21 weeks 6 days , 75% EFW:398.8 grams; 14 ounces, 58% FL/AC: 23.9 FL/BPD: 80.0 HC/AC: 1.2 GESTATIONAL AGE: Age by EDC: 20 weeks 6 days BRADY by EDC: 07/18/2024 Age by current US: 20 weeks 5 days BRADY by current US: 07/19/2024 US/US OB cervical length IMPRESSION: Normal anatomy scan Closed cervix measuring 4.8 cm in length *Reference: [employer] Practice Guideline for the performance of Obstetric Ultrasound Examinations, July 15, 2007. Electronically authenticated by: LISBETH PEOPLES Date: 03/06/2024 10:54
--- NOTE | 2024-03-06 09:36 | US_ITS ---
[address] [address] Patient Name: TOMMY ARREOLA MRN: [id number] date: 1990 Sex: F Assigned Patient Location: [facility] Current Patient Location: [facility] Accession/Order Number: [id number] Exam Date: 03/06/2024 09:37 Report Date: 03/06/2024 10:54 At the request of: TU YIN Procedure: US OB anatomy EXAMINATION: US OB anatomy, US OB cervical length HISTORY: ANATOMY COMPARISON: No relevant comparison available. TECHNIQUE: Transabdominal sonographic examination was performed for obstetrical and evaluation. FINDINGS: Number: 1 Heart Rate: 143.0 bpm H.B. /min Amniotic Fluid Volume: Subjectively normal position: Cephalic Placental Location: Posterior, grade 1. Placental edge is 5.4 cm from the internal os Cervix Length: 4.8 cm , closed Normal anatomy: Lateral ventricles, cerebellum, posterior fossa, nose, lips, orbits, four-chamber heart, RVOT, LVOT, diaphragm, stomach, kidneys, abdominal cord insertion, bladder, umbilical arteries, three-vessel cord, spine, extremities BIOMETRY: BPD: 4.7 cm 20 weeks 0 days , 19% HC: 17.8 cm 20 weeks 2 days, 18% AC: 15.5 cm 20 weeks 5 days, 38% FL: 3.7 cm 21 weeks 6 days , 75% EFW:398.8 grams; 14 ounces, 58% FL/AC: 23.9 FL/BPD: 80.0 HC/AC: 1.2 GESTATIONAL AGE: Age by EDC: 20 weeks 6 days BRADY by EDC: 07/18/2024 Age by current US: 20 weeks 5 days BRADY by current US: 07/19/2024 US/US OB anatomy IMPRESSION: Normal anatomy scan Closed cervix measuring 4.8 cm in length *Reference: [employer] Practice Guideline for the performance of Obstetric Ultrasound Examinations, July 15, 2007. Electronically authenticated by: LISBETH PEOPLES Date: 03/06/2024 10:54
--- OUTSIDE RECORDS SUMMARY | 2024-03-06 09:57 | XMS_ITS | CCD ---
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 Name Role Phone TANTIBHEDHYANGKUL, JULIERUT Unavailable Unav ailable TANTIBHEDHYANGKUL, JULIERUT Unavailable Unav ailable Juhi FIGUEROA Primary Care Physician Samira Null Primary Care Physician TRAV ., DR ROJO Admitting Unavailable TRAV ., DR ROJO Attending Unavailable TRAV ., DR ROJO Consulting Unavailable ZIEBER, DR GLEN Butler Consulting Unavailable TRAV ., DR ROJO Admitting Unavailable TRAV ., DR ROJO Attending Unavailable TRAV ., DR ROJO Consulting Unavailable NONE, XXXX Primary Care Physician Unavailab Mariya Hicks Primary Care Physician [phone] Gregory RAVIy R Attending Unavailable TRAV, Darrel R Admitting Unavailable TU YIN Attending Unavailable TU YIN Admitting Unavailable Mariya Oneal Attending Unavailab le Gregory RAVIy R Attending Unavailable TRAV, Darrel R Admitting Unavailable TRAV, Darrel R Admitting Unavailable TRAV, Darrel R Attending Unavailable TRAV, Darrel R Attending Unavailable TRAV, Darrel R Admitting Unavailable TRAV, Darrel R Attending Unavailable TRAV, Darrel R Admitting Unavailable Jewel Schmidt Attending Unavailable GREGORY RAVIY Attending Unavailable GREGORY RAVIY Attending Unavailable TU YIN Attending Unavailable Allergies Allergy Classification Reported Allergen(s) Allergy Type Date of Onset Reaction(s) Facility (1 source) No Known Medication Allergies; Translations: [No Known Medication Allergies] Propensity to adverse reactions (disorder) [facility] Repository Medications Current Medications Medication Drug Class(es) Dates Sig (Normalized) Sig (Original) ibuprofen 600 mg oral tablet (16 sources) Nonsteroidal Anti-inflammator y Drug Start: 1 take 1 tablet by mouth every six hours ibuprofen 600 mg Tab 600 mg = 1 tab(s), Oral, q6hr, # 15 tab(s), Refills(s) 0, Pharmacy: [facility], 157.4, cm, 12/25/20 2:16:00 EST, [...] Ordered medroxyPROGESTERone acetate 10 mg oral tablet (14 sources) Progestin Start: 2 take 1 tablet by mouth once daily medroxyPROGESTERone 10 mg Tab 10 mg = 1 tab(s), Oral, Daily, # 30 tab(s), Refills(s) 0 Start Date: 06/08/22 Status: Ordered AD (16 sources) Start: 8 take 1 tablet by mouth once daily AD 1 tab(s), Oral, Daily, Refill(s) 0 Start Date: 11/26/17 Status: Ordered Completed/Discontinued Medications Medication Drug Class(es) Dates Sig (Normalized) Sig (Original) sertraline 50 mg oral tablet (16 sources) Serotonin Reuptake Inhibitor Start: 08-07-2019 take 1 tablet by mouth once daily Zoloft 50 mg Tab 50 mg = 1 tab(s), Oral, Daily, 0.5 tabs x 1 week then full tab daily., # 30 tab(s), Refills(s) 1, Pharmacy: [facility] Start Date: 08/07/19 Status: Ordered Problems Active Problems Problem Classification Problem Date Documented Date Episodic/Chronic Administrative/social admission (1 source) Counseling procedure with explicit context; Translations: [Dietary counseling and surveillance] Onset: 12-12-2023 Episodic Anxiety disorders (17 sources) Anxiety; Translations: [Anxiety disorder] Onset: 12-12-2023 08-07-2019 Chronic Hypertension complicating ; childbirth and the puerperium (16 sources) -induced hypertension 04-11-2019 Episodic Intestinal infection (16 sources) Clostridium difficile diarrhea 01-28-2017 Episodic Comment on above: Problem added second omar to positive C-Diff lab result. Menstrual disorders (4 sources) Irregular menstruation, unspecified; Translations: [IRREGULAR MENSTRUATION UNSPECIFIED] Onset: 01-19-2023 Chronic Nonspecific chest pain (12 sources) Chest wall pain 06-16-2021 Episodic Other endocrine disorders (12 sources) Polycystic ovaries 11-26-2017 Chronic Other endocrine disorders (15 sources) Polycystic ovary syndrome; Translations: [Polycystic ovarian syndrome] Onset: 06-08-2022 Chronic Other liver diseases (16 sources) Elevated liver enzymes level 06-25-2019 Episodic [...] Polyhydramnios and other problems of amniotic cavity (16 sources) Polyhydramnios 12-25-2020 Episodic Unclassified (16 sources) Non-smoker 06-16-2021 Unclassified (20 sources) Patient encounter status 06-25-2019 Past or Other Problems Problem Classification Problem Date Documented Da te Episodic/Chronic Unclassified (20 sources) Onset: 08-15-2018 Resolved: 12-25-2020 04-13-2019 Results Test Name Value Interpretation Reference Range Facility .Interpretation:on 4 HCV Ab IA Ql Comment Invalid Interpretation Code [facility] Comment on above: Result Comment: Not infected with HCV unless early or acute infection is suspected (which may be delayed in an immunocompromised individual), or other evidence exists to indicate HCV infection. Performed at: [facility] [id number] PhD Dayanna Pedro Performed By: #### 2 [id number], [id number], [id number], [id number], 8638834197, 648136680, 60772223, 6497621 ####[facility] [address] [place] [address] C Urineon 01-10-2024 Bacteria identified Cx Nom (U) Microbiology PROCEDURE: Urine Culture [R1] SOURCE: U CleanCatch BODY SITE: COLLECTED DATE/TIME: 01/08/2024 16:47 EDT RECEIVED DATE/TIME: 01/08/2024 19:10 EDT START DATE/TIME: 01/08/2024 19:10 EDT FREE TEXT SOURCE: Darrel RAVI DO, DO, Corey R FINAL REPORTS Final Report [] Verified Date/Time: 01/10/2024 07:30 EDT 5,000 cfu/ml Mixed skin contaminants Performing Locations R1: This test was performed at: [facility], [address] [place] [address], [facility] , , Normal [facility] Comment on above: Performed By: #### 2 [id number] ####[address] [address] HCV Antibody RFX to Quant PC Dave 01-10-2024 HCV IgG IA Ql Non-Reactive Invalid Interpretation Code Non Reactive [facility] Comment on above: Result Comment: Perf ormed at: [facility] [address] [id number] PhD Dayanna Pedro Performed By: #### 2 [id number], 7991291, 024777456, 697698105, 2234258171, 297275773, 42366727, 0916892 ####[facility] [address] [place] [address] HIV Screen 4th Generation wR fxon 01-10-2024 HIV 1+2 Ab+HIV1 p24 Ag IA Ql Non-Reactive Invalid Interpretation Code Non Reactive [facility] Comment on above: Result Comment: HIV Negative HIV-1/HIV-2 antibodies and HIV-1 p24 antigen were NOT detected. There is no laboratory evidence of HIV infection. Performed at: [address] [id number] PhD Dayanna Pedro Performed By: #### 2 [id number], 9774915, 720834672, 257479877, 3734130153, 264301635, 30729552, 8750549 ####[facility] [address] [place] [address] Hep Bs Agon 01-10-2024 HBV surface Ag IA Ql Negative Invalid Interpretation Code Negative [facility] Comment on above: Result Comment: Perf ormed at: [address] [id number] PhD Dayanna Pedro Performed By: #### 2 [id number], 8192614, 782562610, 552314150, 2836717305, 121775359, 55198691, 0098161 ####[facility] [address] [place] [address] RPR with Conf Rfxon 01-10-20 Reagin Ab RPR Ql (S) Non-Reactive Invalid Interpretation Code Non Reactive [facility] Comment on above: Result Comment: Perf ormed at: [address] [id number] PhD Dayanna Pedro Performed By: #### 2 [id number], 5326117, 598119345, 894107504, 7833673877, 961755821, 89135576, 1753437 ####[facility] [address] [place] [address] Rubella IgGon 01-10-2024 Rubella virus IgG Qn (S) 3.33 [IU]/mL Invalid Interpretation Code Immune >0.99 [facility] Comment on above: Result Comment: Non- immune <0.90 Equivocal 0.90 - 0.99 Immune >0.99 Performed at: [address] [id number] PhD Dayanna Pedro Performed By: #### 2 [id number], 2379433, 150816695, 867671522, 8664694753, 823932812, 19178655, 4108682 ####[facility] [address] [place] [address] ABO/Rhon 01-08-2024 ABO/Rh Positive Invalid Interpretation Code [facility] Comment on above: Performed By: #### 1 [id number], 80504116, 2572634 ####[facility] [address] [place] [address] ABO/Rh History Checkon 01-07 ABO/Rh History Check Verified Hx Blood Type Normal [facility] Comment on above: Performed By: #### 1 1014799, 32395210, 2778595 ####[address] [address] ABSCon 01-08-2024 ABSC Gel Interp Negative Normal [facility] Comment on above: Performed By: #### 1 0004555, 30863844, 1007785 ####[address] [address] BLOOD BANKOrdered By: Tree Arenas on 01-08-2024 ABO/Rh Interp Positive Invalid Interpretation Code [facility] BB Subsection ABSC Gel Interp Negative (01/08/24 4:58 PM) Normal [facility] BB Subsection CBC w/ Auto Diffon Basophils/100 WBC (Bld) 0.6 % Normal 0.0-2.0 [facility] Comment on above: Performed By: #### 2 [id number], 4696922, 257049432, 027586564, 0029653094, 798803625, 14751058, 3187291 ####[facility] [address] [place] [address] Basophils/Leukocytes Auto (Bld) [Pure # fraction] 0.1 E9/L Normal 0.0-0.2 [facility] Comment on above: Performed By: #### 2 028852325, 0015949, 018961417, 299839775, 0024651138, 968945426, 85786626, 7879894 ####[address] [place] [address] Eosinophils (Bld) [#/Vol] 0.3 E9/L Normal 0.0-0.5 [facility] Comment on above: Performed By: #### 2 309754601, 1532077, 560495898, 587474667, 2473187675, 000430686, 18992827, 6282764 ####[address] [address] Eosinophils/100 WBC (Bld) 2.3 % Normal 0.0-8.0 [facility] Comment on above: Performed By: #### 2 191121766, 7267030, 776547638, 800727162, 0973141242, 912933435, 99056245, 4002698 ####[address] [address] Erythrocyte distribution width (RBC) [Ratio] 13.9 % Normal 10.9-14.2 [facility] Comment on above: Performed By: #### 2 533862645, 0459179, 578455746, 094455188, 7279101225, 225197484, 28675364, 2479345 ####[address] [address] Hematocrit (Bld) [Volume fraction] 36.9 % Normal 34.0-46.0 [facility] Comment on above: Performed By: #### 2 751492671, 9205044, 893454636, 061946738, 8330336165, 297151224, 04947470, 8929120 ####[address] [address] Hemoglobin (Bld) [Mass/Vol] 12.5 g/dL Normal 12.0-16.0 [facility] Comment on above: Performed By: #### 2 403170908, 5665706, 404764705, 794804615, 6204786009, 220085017, 82001153, 3063701 ####[address] [place] [address] Lymphocytes (Bld) [#/Vol] 3.2 E9/L Normal 1.0-4.0 [facility] Comment on above: Performed By: #### 2 712665642, 2514531, 378108160, 253470037, 9212826490, 690988090, 99828079, 2210146 ####[address] [address] Lymphocytes/100 WBC (Bld) 28.1 % Normal 14.0-50.0 [facility] Comment on above: Performed By: #### 2 928089327, 9819796, 254531983, 496281589, 7727452681, 765445750, 33580958, 6432692 ####[address] [address] MCH (RBC) [Entitic mass] 29.2 pg Normal 27.0-34.0 [facility] Comment on above: Performed By: #### 2 703118306, 5646790, 855522199, 860083035, 3203778560, 413308167, 16127591, 5478940 ####[address] [address] MCHC (RBC) [Mass/Vol] 33.9 g/dL Normal 31.4-36.0 [facility] Comment on above: Performed By: #### 2 923791051, 1431488, 587159002, 052676773, 6654886389, 750037525, 93084632, 4878788 ####[address] [place] [address] MCV (RBC) [Entitic vol] 86.1 fL Normal 80.0-100.0 [facility] Comment on above: Performed By: #### 2 060457387, 2521122, 181703721, 519676348, 0500858175, 868210650, 52769515, 7637246 ####[facility] [address] [place] [address] Monocytes (Bld) [#/Vol] 0.8 E9/L Normal 0.2-1.0 [facility] Comment on above: Performed By: #### 2 552258417, 6295284, 554659241, 714053185, 9428090717, 796709376, 92877320, 0130089 ####[address] [address] Neutrophils (Bld) [#/Vol] 7.0 E9/L Normal 2.0-7.5 [facility] Comment on above: Performed By: #### 2 662690996, 1243291, 538444572, 711726488, 9821339391, 599219391, 24698215, 1642536 ####[address] [address] Neutrophils/100 WBC (Bld) 62.2 % Normal 36.0-75.0 [facility] Comment on above: Performed By: #### 2 616421022, 6716735, 440234475, 049591429, 5584384159, 824717907, 10064818, 9824208 ####[address] [address] Platelet 341.0 E9/L Normal 150.0-500.0 [facility] Comment on above: Performed By: #### 2 054099196, 2989475, 323336066, 957387839, 8750840917, 054589255, 97071895, 6953473 ####[address] [place] [address] Platelet mean volume (Bld) [Entitic vol] 8.4 fL Normal 6.4-10.8 [facility] Comment on above: Performed By: #### 2 903550228, 4006712, 280009353, 397603494, 3223281197, 885532786, 01792836, 1080660 ####[facility] [address] [place] [address] RBC (Bld) [#/Vol] 4.3 E12/L Normal 4.3-5.9 [facility] Comment on above: Performed By: #### 2 404765370, 9171317, 756475697, 755014610, 6862548096, 587624721, 98436641, 8779445 ####[facility] [address] [place] [address] WBC corrected for nucl RBC Auto (Bld) [#/Vol] 11.3 E9/L High 4.0-11.0 [facility] Comment on above: Performed By: #### 2 756319237, 4832058, 135077636, 440524143, 5472087550, 707625249, 08811750, 4435274 ####[facility] [address] [place] [address] CHEMISTRYOrdered By: Becka Spaulding on 01-08-2024 HbA1c (Bld) [Mass fraction] 5.5 % Normal <=5.9% [facility] ChemAutoSS Consent for Treatmenton 12-14 Consent for Treatment [id number] [id number]#1.0 0TIFF Normal [facility] HEMATOLOGYOrdered By: SYSTEM SYSTEM on 01-08-2024 Basophils/100 WBC (Bld) 0.6 % Normal 0.0 - 2.0 % [facility] Basophils/Leukocytes Auto (Bld) [Pure # fraction] 0.1 E9/L Normal 0.0 - 0.2 E9/L [facility] Eosinophils (Bld) [#/Vol] 0.3 E9/L Normal 0.0 - 0.5 E9/L [facility] Eosinophils/100 WBC (Bld) 2.3 % Normal 0.0 - 8.0 % [facility] Erythrocyte distribution width (RBC) [Ratio] 13.9 % Normal 10.9 - 14.2 % [facility] Hematocrit (Bld) [Volume fraction] 36.9 % Normal 34.0 - 46.0 % [facility] Hemoglobin (Bld) [Mass/Vol] 12.5 g/dL Normal 12.0 - 16.0 gm/dL [facility] Lymphocytes (Bld) [#/Vol] 3.2 E9/L Normal 1.0 - 4.0 E9/L [facility] Lymphocytes/100 WBC (Bld) 28.1 % Normal 14.0 - 50.0 % [facility] MCH (RBC) [Entitic mass] 29.2 pg Normal 27. 0 - 34.0 pg [facility] MCHC (RBC) [Mass/Vol] 33.9 g/dL Normal 31.4 - 36.0 gm/dL [facility] MCV (RBC) [Entitic vol] 86.1 fL Normal 80.0 - 100.0 fL [facility] Monocytes (Bld) [#/Vol] 0.8 E9/L Normal 0.2 - 1.0 E9/L [facility] Monocytes/100 WBC (Bld) 6.8 % Normal 4.0 - 14.0 % [facility] Neutrophils (Bld) [#/Vol] 7.0 E9/L Normal 2.0 - 7.5 E9/L [facility] Neutrophils/100 WBC (Bld) 62.2 % Normal 36.0 - 75.0 % [facility] Platelet 341.0 E9/L Normal 150.0 - 500.0 E9/L [facility] Platelet mean volume (Bld) [Entitic vol] 8.4 fL Normal 6.4 - 10.8 fL [facility] RBC (Bld) [#/Vol] 4.3 E12/L Normal 4.3 - 5.9 E12/L [facility] WBC corrected for nucl RBC Auto (Bld) [#/Vol] 11.3 E9/L High 4.0 - 11.0 E9/L [facility] [id number] 01-08-2024 HbA1c (Bld) [Mass fraction] 5.5 % Normal <=5.9 [facility] Comment on above: Performed By: #### 2 [id number], 6050654, 962800280, 394823294, 5030189094, 582161689, 63276827, 5208628 ####[facility] [address] [place] [address] Physician Orderon 01-08-2024 Physician Order [id number]#1. 00TIFF Normal [facility] BhCG Quanton 12-14-2023 HCG.beta subunit Qn 836265 m[IU]/mL High 1-3 [facility] Comment on above: Result Comment: 'F N ON < 1 - 3' ' 0.2 - 1 WEEK = 5 TO 50' ' 1 - 2 WEEKS = 50 - 500' ' 2 - 3 WEEKS = 100 - 5000' ' 3 - 4 WEEKS = 500 - 58809' ' 4 - 5 WEEKS = 1000 - 01188' ' 5 - 6 WEEKS = 11649 - 673167' ' 6 - 8 WEEKS = 65513 - 805888' ' 8 - 12 WEEKS = 63373 - 542168' Performed By: #### 2 518550 ####[facility] [address] [place] [address] CHEMISTRYOrdered By: SYSTEM SYSTEM on 12-14-2023 HCG.beta subunit Qn 731041 m[IU]/mL High 1 - 3 mIU/mL [facility] Comment on above: Result Comment: 'F N ON < 1 - 3' ' 0.2 - 1 WEEK = 5 TO 50' ' 1 - 2 WEEKS = 50 - 500' ' 2 - 3 WEEKS = 100 - 5000' ' 3 - 4 WEEKS = 500 - 15259' ' 4 - 5 WEEKS = 1000 - 48691' ' 5 - 6 WEEKS = [address]83 - 131290' ' 6 - 8 WEEKS = 75718 - 250131' ' 8 - 12 WEEKS = 86735 - 674448' Consent for Treatmenton Consent for Treatment [id number] [id number]#1.0 0TIFF Normal [facility] Physician Orderon 12-14-2023 Physician Order [id number]#1.0 0TIFF Normal [facility] BhCG Quanton 12-12-2023 Beta hCG Qnt 391625 mIU/mL High 1-3 [facility] Comment on above: Result Comment: 'F N ON < 1 - 3' ' 0.2 - 1 WEEK = 5 TO 50' ' 1 - 2 WEEKS = 50 - 500' ' 2 - 3 WEEKS = 100 - 5000' ' 3 - 4 WEEKS = 500 - 48482' ' 4 - 5 WEEKS = 1000 - 77577' ' 5 - 6 WEEKS = 02852 - 219309' ' 6 - 8 WEEKS = 13318 - 602371' ' 8 - 12 WEEKS = 44204 - 138746' Performed By: #### 2 921709 ####[facility] [address] [place] [address] CHEMISTRYOrdered By: SYSTEM SYSTEM on 12-12-2023 HCG.beta subunit Qn 079623 m[IU]/mL High 1 - 3 mIU/mL [facility] Comment on above: Result Comment: 'F N ON < 1 - 3' ' 0.2 - 1 WEEK = 5 TO 50' ' 1 - 2 WEEKS = 50 - 500' ' 2 - 3 WEEKS = 100 - 5000' ' 3 - 4 WEEKS = 500 - 61026' ' 4 - 5 WEEKS = 1000 - 34946' ' 5 - 6 WEEKS = 46827 - 302367' ' 6 - 8 WEEKS = 59501 - 818516' ' 8 - 12 WEEKS = 14489 - 167610' Consent for Treatmenton 11-16 Consent for Treatment [id number] [id number]#1.0 0TIFF Normal [facility] Patient Educationon 12-12-19 24 Patient Education Emergency Medicine Medical Screening Exam A medical screening exam (MSE) helps to determine whether you need immediate medical treatment relating to any number of symptoms you are having. This type of exam may be done in an emergency department, an urgent care setting, or your health care provider's office. Depending on your symptoms and severity, you may need additional tests or medical therapy. It is important to note that an MSE does not necessarily mean that you will need or receive further medical testing or interventions if your symptoms are not deemed to be medically urgent (emergent). Tell a health care provider about: ? Any allergies you have. ? All medicines you are taking, including vitamins, herbs, eye drops, creams, and jplz-xbt-wpzjhus medicines. ? Any problems you or family members have had with anesthetic medicines. ? Any bleeding problems you have. ? Any surgeries you have had. ? Any medical conditions you have. ? Whether you are or may be . What happens during the test? During the exam, a health care provider does a short, often focused, physical exam and asks about your medical history to assess: ? Your current symptoms. ? Your overall health. ? Your need for possible further medical intervention. What can I expect after the test? If you have a regular health care provider, make an appointment for a follow-up visit with him or her. If you do not have a regular health care provider, ask about resources in your community. Your medical screening exam may determine that: ? You do not need emergency treatment at this time. ? You need treatment right away. ? You need to be transferred to another medical center. This may happen if you need an emergent specialist or customer consultant that is not available at the medical center you are at. ? You need to have more tests. A medical laboratory specialist may be consulted if needed. Get help right away if: ? Your condition gets worse. ? You develop new or troubling symptoms before you see your health care provider. These symptoms may represent a serious problem that is an emergency. Do not wait to see if the symptoms will go away. Get medical help right away. Call your local emergency services (911 in the [place] Do not drive yourself to the hospital. Summary ? A medical screening exam helps to determine whether you need medical treatment right away. This type of exam may be done in an emergency department, an urgent care setting, or your health care provider's office. ? During the exam, a health care provider does a short physical exam and asks about your current symptoms and overall health. ? Depending on the exam, more tests or therapies may be ordered. However, an MSE does not necessarily mean that you will have further medical testing if your symptoms are not deemed to be urgent. ? If you need further care that is not offered at your current medical center, you may need to be transferred to another facility. This information is not intended to replace advice given to you by your health care provider. Make sure you discuss any questions you have with your health care provider. Document Revised: 06/14/2022 Document Reviewed: 02/09/2022 [employer] Patient Education ? 2022 [employer] Obstetrics and Gynecology Health Maintenance, Female Adopting a healthy lifestyle and getting preventive care are important in promoting health and wellness. Ask your health care provider about: ? The right schedule for you to have regular tests and exams. ? Things you can do on your own to prevent diseases and keep yourself healthy. What should I know about diet, weight, and exercise? Eat a healthy diet ? Eat a diet that includes plenty of vegetables, fruits, low-fat dairy products, and lean protein. ? Do not eat a lot of foods [...] do for your health. Most adults should: ? Exercise for at least 150 minutes each week. The exercise should increase your heart rate and make you sweat (moderate-intensity exercise). ? Do strengthening exercises at least twice a week. This is in addition to the moderate-intensity exercise. ? Spend less time sitting. Even light physical activity can be beneficial. Watch cholesterol and blood lipids Have your blood tested for lipids and cholesterol at 20 years of age, then have this test every 5 years. Have your cholesterol levels checked more often if: ? Your lipid or cholesterol levels are high. ? You are older than 40 years of age. ? You are at high risk for heart disease. What (more content not included)... Normal [facility] Physician Orderon 12-12-2023 Physician Order [id number]#1. 00TIFF Normal [facility] CHEMISTRYOrdered By: SYSTEM SYSTEM on 06-08-2023 Glucose 3 Hr post 75 g glucose PO [Mass/Vol] 87 mg/dL Normal 55 - 140 mg/dL [facility] Remisol Glucose 2 Hr post 75 g glucose PO [Mass/Vol] 136 mg/dL Normal 55 - 155 mg/dL [facility] Remisol Glucose 1 Hr post 75 g glucose PO [Mass/Vol] 166 mg/dL Normal 55 - 180 mg/dL [facility] Remisol Glucose post fast [Mass/Vol] 93 mg/dL Normal 55 - 99 mg/dL [facility] Remisol CHEMISTRYOrdered By: Lab ROP User on 06-08-2023 Glucose [Mass/Vol] 86 mg/dL Normal 55 - 99 mg/dL [facility] POC Subsection Comment on above: Result Comment: Repe at Test POC Device SN [id number] Invalid Interpretation Code [facility] POC Subsection POC User ID [id number] Invalid Interpretation Code [facility] POC Subsection POC Username NEHEMIAH VENEGAS Invalid Interpretation Code [facility] POC Subsection Capillary Glucose POCon 05-16 Glucose [Mass/Vol] 86 mg/dL Normal 55-99 [facility] Comment on above: Result Comment: Repe at Test Performed By: #### 2 [id number] ####[facility] [address] [place] [address] Consent for Treatmenton 05-16 Consent for Treatment [id number]#1.0 0CD:127 Normal [facility] Glu 1 Hron 06-08-2023 Glucose [Mass/Vol] 166 mg/dL Normal 55-180 [facility] Comment on above: Result Comment: POSI TIVE SCREEN = 1 HR > 140 mg/dL Performed By: #### 2 [id number] ####[facility] [address] [place] [address] Glu 2 Hron 06-08-2023 Glucose [Mass/Vol] 136 mg/dL Normal 55-155 [facility] Comment on above: Result Comment: DIAB ETES FASTING >126 mg/dL or 2 HOUR >200 mg/dL Performed By: #### 2 410294 ####[facility] [address] [place] [address] Glu 3 Hron 06-08-2023 Glucose [Mass/Vol] 87 mg/dL Normal 55-140 [facility] Comment on above: Result Comment: [facility] DIABETES 2 of the following: FASTING >95 mg/dL 1 HOUR >180 mg/dL 2 HOUR >155 mg/dL 3 HOUR >140 mg/dL Performed By: #### 2 737544 ####[facility] [address] [place] [address] Glu Fastingon 06-08-2023 Glucose [Mass/Vol] 93 mg/dL Normal 55-99 [facility] Comment on above: Performed By: #### 2 986348 ####[address] [address] Physician Orderon 06-08-2023 Physician Order [id number]#1.0 0CD:127 Normal [facility] Auto Diffon 05-29-2023 Basophils/100 WBC (Bld) 0.3 % Normal 0.0-2.0 [facility] Comment on above: Order Comment: Order Added by Discern Expert. Performed By: #### 2 627635, 14542938, 1329154 ####[address] [address] Basophils/Leukocytes Auto (Bld) [Pure # fraction] 0.0 E9/L Normal 0.0-0.2 [facility] Comment on above: Order Comment: Order Added by Discern Expert. Performed By: #### 2 284997, [id number], 5342897 ####[address] [address] Eosinophils/100 WBC (Bld) 0.7 % Normal 0.0-8.0 [facility] Comment on above: Order Comment: Order Added by Discern Expert. Performed By: #### 2 424388, 49629244, 6716916 ####[facility] [address] [place] [address] Eosinophils/Leukocytes Auto (Bld) [Pure # fraction] 0.1 E9/L Normal 0.0-0.5 [facility] Comment on above: Order Comment: Order Added by Discern Expert. Performed By: #### 2 901712, 75437404, 4896471 ####[facility] [address] [place] [address] Lymphocytes/100 WBC (Bld) 20.4 % Normal 14.0-50.0 [facility] Comment on above: Order Comment: Order Added by Discern Expert. Performed By: #### 2 379075, 60230473, 4987617 ####[address] [place] [address] Lymphocytes/Leukocytes Auto (Bld) [Pure # fraction] 1.9 E9/L Normal 1.0-4.0 [facility] Comment on above: Order Comment: Order Added by Discern Expert. Performed By: #### 2 986040, 96235444, 9842195 ####[address] [address] Monocytes/100 WBC (Bld) 5.7 % Normal 4.0-14.0 [facility] Comment on above: Order Comment: Order Added by Discern Expert. Performed By: #### 2 466456, 00453854, 1076294 ####[address] [address] Monocytes/Leukocytes Auto (Bld) [Pure # fraction] 0.5 E9/L Normal 0.2-1.0 [facility] Comment on above: Order Comment: Order Added by Discern Expert. Performed By: #### 2 327419, 83792639, 9099138 ####[facility] [address] [place] [address] Neutrophils/100 WBC (Bld) 72.9 % Normal 36.0-75.0 [facility] Comment on above: Order Comment: Order Added by Discern Expert. Performed By: #### 2 935092, 70289208, 1244707 ####[address] [address] Neutrophils/Leukocytes Auto (Bld) [Pure # fraction] 6.9 E9/L Normal 2.0-7.5 [facility] Comment on above: Order Comment: Order Added by Discern Expert. Performed By: #### 2 216673, 70119108, 4860743 ####[address] [place] [address] CBC w/ Auto Diffon 3 Erythrocyte distribution width (RBC) [Ratio] 13.5 % Normal 10.9-14.2 [facility] Comment on above: Performed By: #### 2 549142, 19777313, 2168384 ####[address] [address] Hematocrit (Bld) [Volume fraction] 32.8 % Low 34.0-46.0 [facility] Comment on above: Performed By: #### 2 924725, 52251774, 4719965 ####[address] [address] Hemoglobin (Bld) [Mass/Vol] 11.2 g/dL Low 12.0-16.0 [facility] Comment on above: Performed By: #### 2 737882, 51073056, 3056834 ####[address] [address] MCH (RBC) [Entitic mass] 30.1 pg Normal 27.0-34.0 [facility] Comment on above: Performed By: #### 2 743198, 93620461, 1036624 ####[address] [address] MCHC (RBC) [Mass/Vol] 34.1 g/dL Normal 31.4-36.0 [facility] Comment on above: Performed By: #### 2 435452, 75595841, 8060552 ####[address] [place] [address] MCV (RBC) [Entitic vol] 88.3 fL Normal 80.0-100.0 [facility] Comment on above: Performed By: #### 2 681049, 70695315, 6157369 ####[address] [address] Platelet mean volume (Bld) [Entitic vol] 8.9 fL Normal 6.4-10.8 [facility] Comment on above: Performed By: #### 2 099340, 95380814, 1465011 ####[facility] [address] [place] [address] Platelets (Bld) [#/Vol] 296.0 E9/L Normal 150.0-500.0 [facility] Comment on above: Performed By: #### 2 936734, 16765011, 3541573 ####[facility] [address] [place] [address] RBC (Bld) [#/Vol] 3.7 E12/L Low 4.3-5.9 [facility] Comment on above: Performed By: #### 2 108169, 08279975, 4369653 ####[facility] [address] [place] [address] WBC corrected for nucl RBC Auto (Bld) [#/Vol] 9.5 E9/L Normal 4.0-11.0 [facility] Comment on above: Performed By: #### 2 400717, 44364711, 8867086 ####[facility] [address] [place] [address] CHEMISTRYOrdered By: [employer] SYSTEM on 05-29-2023 Glucose 1 Hr post 50 g glucose PO [Mass/Vol] 146 mg/dL High 55 - 140 mg/dL [facility] Remisol Consent for Treatmenton 05-15 Consent for Treatment [id number]#1.0 0CD:127 Normal [facility] Gest Scr Glu 1 Hron 05-29-20 Glucose [Mass/Vol] 146 mg/dL High 55-140 [facility] Comment on above: Result Comment: Posi tive Screen =1 HR > 140mg/dL Performed By: #### 2 503091, 16054789, 5421172 ####[facility] [address] [place] [address] HEMATOLOGYOrdered By: SYSTEM SYSTEM on 05-29-2023 Basophils/100 [...] E9/L Normal 150. 0 - 500.0 E9/L FT HemeAutoSS RBC (Bld) [#/Vol] 3.7 E12/L Low 4.3 - 5.9 E12/L FT HemeAutoSS WBC corrected for nucl RBC Auto (Bld) [#/Vol] 9.5 E9/L Normal 4.0 - 11.0 E9/L [facility] HemeAutoSS Physician Orderon 05-29-2023 Physician Order [id number]. 00CD:127 Normal [facility] BOX TEST SENT OUTon 01-30-20 23 SENT TO REF LAB 01/29/2023 Normal [facility] Comment on above: Performed By: #### B OX #### [facility] [address] [place] [address] Dr. Lydia De Dios Coding Summary.on 01-27-2023 Coding Summary. CD:[id number] Ww +PGhlYWQ+UQ3CFVIiA08og TFotM7cA4NVMEdLVcmvCBS YDSeLYtNnrvFiNF5ohMMdG XJu IC8+BO3zJGZdZjmrdHRgq9 Q6rHS1Q66mzg0rNEszkXQ3 OSHqFnLvxmbtw0nblWs5QL cuNmluOyBt EKZfhE01BRR4vL85En49eA PcdBDaa5iwpAp6KiSmSWYv DHA8bVblASrnv3MpLUIiE1 4wpHKmc1M8 DYEosHhuzIZlVlZboAU3sB 1jWIvcrciad6acbisqYxn6 uk41cOVpq2J9wRQ0N6Vmnl B8VYLqwRFj IpeqcOYAaG6lbmrql6publ jrQkVhIBYpANk6XBj9NFVn mRwfUkEjTX78MXY6CKWvvu TxH5HdETIz mGfpDwY9a5L5Ea1NM1XMIa weF2EVZTJIDVwwxSS+PC90 eb94B1EpMtndDnd7VPVjWV Y3aAS7wN6r KZZfAPwti4V3tPF7A3Unlq Guno5yi1pjKKFkEKspU08g iTVwz1J8VUYzaXF8QURufS pzOzNtzA37 Oyc+ULUiwJugw2AtJtbld5 ixw0tokOj2TtweQYAnlzMj dVgkJGK1b2KcZr7aQVJokR Y1gTF3fO4j MqEpHdY7JHyhM053HsQgpA HiHycxU94rK9IosZN+PHRy Sda5NMEbgJjnSV4pY0OnKA RpbmctbGVm bNelMC8zZPHmdlroBERjuO 2fCIXaK3h6XsBfUdV7RJjs L9WdIWAshsmsYa85cE0zBc HxZfG3SEyr J7VerqA7LMNqhGGpQQdnBY C9E67ia8E2RQQoBYJsGJO4 oLI8vT7pkTxtoqambQXibW sgdmVydGlj NQcmPDbmW406RLGyuCgdUw NvZGluZyBEYXRlOiAgMDQv MTUvMjAyMzwvdGQ+PHRkIH V7jNfeGNSq dHBoGDhkTx1msOwewExeVL 1tVZOcuuimPUDygY4uEGGv iZPkeRhlTK2hWYNqbdemn6 82CuWfROI2 TFLahEEnI0EloT2uJvZjGK RiWMDpA4SxpDVxSAdpM518 WYuwPwK0RWEpdkChV6QnXI FsaWduOiB0 p7P9An8Ar3DlbpzyR7FtuA SjUaNzEvevJMr1Q0KmEsbh dHI+IX80XFClYS90JZt2GK W6qDbzJMuc EPZlH3OkiV9jFpZkUTGrNW RkOyc+PHRhYmxlIHdpZHRo CKmhVETwQdVrmHaxKQ9aEe 9yZGVyLWNv lJgnpHXnYgGmx5buACKsQO vqZJ3nzVyjU2KjnWK3YGKs j1e1Oo46Y24sU8HjrCN+PG AyxBW4gPQ6 zB6vYfBfJmW7GMkdJ301Lo PpfAKfJfbtb3emp9skqEl9 PiO2ZUMfszOopBhqTGM5f9 BnZg45C35i IHdpZHRoPSIxNSUiIHZhbG qfvb1yeZ9bJr0+PGNvbCB3 oJJ8bT9eWvVuZiT4KFyoF2 49InRvcCIv Rwhpy2gxe1hxyMx1QwPaVV ScarCcuOmlYAG5o1KbPq39 U1VelEesg7IfHoc8va80hX Rvk1K6rMM8 Z1JjNJAmopuclJTedDjwEC 5pNETxjbzlBWNmlG7sFKDb S8x5UgLqKgL5SHcjV0Amay F4AHYcpAKe DIDspQVYlO8qgjpve3kyby vlElDpTBNqUVg2HPm0ARXw uHusDxMpNZK3MhT1ZOJ5rY DqlJ5gnSih bdsfeE1tTwt+LJQ0oNKxkD JAWM0cGueqcYX+PHRkIHN0 hIpdQLfyEHNnvA2mNBLxW6 c6FcFfJpC2 NRwjD0KmyrE4NXEzoXGyTT NeyBPEvK7dedwgk1pebybd GbAsUTSnURu9TKz4JJLjaZ duOiBsZWZ0 HbX9KBR8cGYovE5nxOgqvz yimI7mZom+QmlydGggRGF0 BOv7H2HdUng5KKDmrZqxSZ 0ncGFkZGlu Lw4knWgwwTujTF6wOALrgq mwu470RkWac1zzNCDeeWSo OQonRBI6Y54ud3M4SGRjYO LmOSO1xTP5 bH8skLmatyaixBXilJgqti IsoAbbWTsbNNruA557HONb dVaqGlMhVGg2C6KkWwr5GI OpjAtvOA1v iZInHKqaNm9dpVfemKgwMF 3tOHUffngmk644RcMyn3zh PUSkyMCnFUfzJJE0X95il0 L5KLZkVDGz JND3cCG7jX5nwCiocsiywM VmdDsgdmVydGljYWwtYWxp L788RIHqtOmvFxOswPq2T2 BwHgr8XIRz jBuiUX5dbOUoWQwzLs4tyB sxyJhoFJ4jKNBtonhdb173 XdAer6kvBXZlrKMuQZfoPJ W6V82oh5S3 ZJRmRSNfOBZ7nNC4iP8miG lnbjogbGVmdDsgdmVydGlj ZBjwFThxH621FQKiuRwcUu BhdGllbnQg OPxkJXy8W1GtWksxmGP+PC 02JGVvWN61ePAzvZIol2xf sWt8PcXeHCLjREM8kGcrLI kxb8VeYADd L48jbOTcn2D1OHUchDtzvI BoNlYjrEF8oU7cNYdzamph x3zdimbzTpovg8ceqs91rU 73X25uFDiq ZHRoPSIzMCUiIHZhbGlnbj 9lmE9fEl0+LZNqvZO6iFF0 eO1uXWBjUbL2MXrdN102Ci RvcCIvPjxj c7fwl1xgkKi8PaZ5UHXivn KdnDdqGVG1t4ZsVv16D35p IHdpZHRoPSIyMCUiIHZhbG gree8yyP6c Ii8+OYZfmGT6vFZ2uP2aBb KrLxZ3DPqgY134SySusYBx OocvF94vM2IowSV+PHRyPj f1JXGgkBbj RA7liEPkYYedUz4gIIY9Wj JuUlQrMJqoD0WbIBUkptit bekchAJ4AVCeSUXvpH15Kt 9udDogMTBw rKLDpB2iqknxf0duliyzJy SqRANzAFa9ACo6OHUveOht FaAiFDJ2BfN9YHR0yVCwkH 1hbGlnbjog vZ5dW9UxRCGjfehdCy10sS 9jQlPiXgG1FUkdDmh+WU9V HnlGLBGCUFbpOB0KA7FXCM Q9M2RbJwp3 MCVquPvgHF8gyAJpLUcnTy 2vaFbcsYtiYK9nWYAbmcyb ALWvqQ4pKTLubVLijAnyXU 4wNTBpbjtm c447UeAcLII2JHWvdSDjU5 DazU9aKkXlKIVzFHOrT0Sm iJMrUVrwA362DCjhUwH0QN JnigFdA6Gl ZCFtwOexBlF0s5G1Fi2lLW 0mSB0aOWcxWZ86SL54tKWv m2V5oXJ4V0DeCLTrzvxmav zyxLB8FKBg HQMhqN81zWSpVQfsAv2xj4 M3q997ANLbDJPhdU33Xi9z uUhiFMDdtUFTvF5lqoqhs5 xvcjogIzAw OVWhALh5KXn8EUHhcWeoWf TkBDT3KzL6GHG5sORbyP0n aHdbxtawdO2pKcl+MzAgWW UeydH1G0Bz Dho8KATbfOgqOY5zrYYbZS qoBm2qtUpavPrhIC1rAAZi gvraPWXddR6gCTEmrKYbjU jxZN1nHKAs pnvcy593VeXhGWM5LSUzsY RuG3RziF6zFgRlKKRqBXCd D3TxdRCxTHbwB264PCpvCc T2YMPagySs B9CdBKSxpNrxRgD0c9E0Qc 5BTY7taXC5O9FuLrp3LWZr dUjkPK0zkSOgYFsaAe2okD pqzEvsAR8h BQPqkrdxNASmuA6fVLXgzP EtgPtnNL3tPKYzmnjas308 XsXkDDO9QTRapZHlM5BxmB 9yOiAjMDAw VHHrM7UyhEJlTYwnQ743RH qqQhF5XETrceBwK6WzCPLm hPmkGvV3w6V7Om0LeQVsCJ JaAR26EZ34 YF22U0AiKyifbOWxgKD+PH RhYmxlIHdpZHRoPScxMDAl NwJvlMppVB0gVl3uOORhSU NvbGxhcHNl UhDhn3liAXCuQEtiND0deH buE5GiwXS4REUaw4o0Bo42 K31vA4YqwRX+INBvsLE5uP E1dW2qDyWp RzO2NAhyL255JtQamJLwCg wfo1mbr7cifSc4OcQhNMOo pjZpjNtbIVK1z3MmFf78Z4 9sIHdpZHRo KBMaCLCyMKAwxYwwgq9htW 9wIi8+XVCowZR9mSJ6eY2p TvSlBxT3WWqvM232AjRorN UkImxrN73k D5GrmAW+YENbImn0OISjyZ shNM1heOSnWAmuHo7sTTD1 UrSbRbWqNUmmL5TqUOOjrg ctcmlnaHQ6 YHIoIDGlaH48Zv7vxLnnSp 7hYXDjYIV7GBHxiSDpI9Hi hG7xSoUgGBGiMESnW1RlyQ TvIIqzY954 GGhkWhD7YLNkrjBsU9UfAD LhzUzcUwZ0l0D6Ao3VrWjv vYTmOK2eRlPeBGo3I5StEr s8KMGqoGqg KU8fcMCiFCtvOy1zvJtliE abHP8mNYKataroj011MjIk o2nbHKSbdXHcNTmrDAL0M0 2uq3P2HUGs QNElFTK8kGR4eS7crYlloa ogbGVmdDsgdmVydGljYWwt YMblJ865GNAbuKrlNdFNZx u2Y5TuOnt8 FJSheDnsVJ8jcHBaPGtfFl 0xcLuohKsiRP9pDFXpelwo l589OyHvh3zlJHUeeZJvIP axSHM8C76y o1A0LBZhDMMxNPD2pAM3jF 1hbGlnbjogbGVmdDsgdmVy dDreKWuzPWvgJ711AOXyoQ osHe5JDoe6 L1UoLmm0XGGjnPbhWC2saK YbXEgbWe6meQrmdOqwDV6k JAVspetxl848DmCll9goQO EwcHQgVGlt KCG8S90xy4H8MIBcUUQlUL T1bJU7rB4beGgxwgvgnGOa dDsgdmVydGljYWwtYWxpZ2 46IHRvcDsn PlBheWVyOjwvdGQ+PC90cj 49Z7UnXfihVur2EBFwOPW1 oBY2jB6xTCSsWMxtr0J8nY D1X7AyqvPh uy3iu6mz (more content not included)... Normal [facility] C Urineon 01-21-2023 Bacteria identified Cx [...] Locations R1: This test was performed at: [facility], [address] [place] [address], [address] , [place], Normal [facility] Comment on above: Performed By: #### 2 [address] ####[address] [address] .Interpretation:on HCV Ab IA Ql Comment Invalid Interpretation Code [facility] Comment on above: Result Comment: Not infected with HCV unless early or acute infection is suspected (which may be delayed in an immunocompromised individual), or other evidence exists to indicate HCV infection. Performed at: [address] [id number] PhD Dayanna Pedro Performed By: #### 1 4548729, 2079160, 469384683, 9550229479, 32623057, 9165500, 3433042, 1918557517, 9270323, 409826432 ####[address] [place] [address] HCV Antibody RFX to Quant PC Dave 01-20-2023 HCV IgG IA Ql Non-Reactive Invalid Interpretation Code Non Reactive [facility] Comment on above: Result Comment: Perf ormed at: [address] [id number] PhD Dayanna Pedro Performed By: #### 1 8286053, 4815265, 509444188, 3462482465, 62032474, 5654099, 6327122, 2767625821, 5506406, 036354248 ####[address] [place] [address] Hep Bs Agon 01-20-2023 HBV surface Ag IA Ql Negative Invalid Interpretation Code Negative [facility] Comment on above: Result Comment: Perf ormed at: [address] [id number] PhD Dayanna Pedro Performed By: #### 1 8966193, 5635211, 991058787, 5495542874, 30607283, 3943998, 8684610, 5994971762, 8490219, 179622491 ####[address] [address] RPR with Conf Rfxon 01-21-20 23 Reagin Ab RPR Ql (S) Non-Reactive Invalid Interpretation Code Non Reactive [facility] Comment on above: Result Comment: Perf ormed at: [address] [id number] PhD Dayanna Pedro Performed By: #### 1 4201399, 0379534, 658881230, 7335802912, 92391119, 3191564, 6640283, 7223092897, 8649158, 643499180 ####[address] [address] Rubella IgGon 01-20-2023 Rubella virus IgG Qn (S) 3.46 [IU]/mL Invalid Interpretation Code Immune >0.99 [facility] Comment on above: Result Comment: Non- immune <0.90 Equivocal 0.90 - 0.99 Immune >0.99 Performed at: [address] [id number] PhD Dayanna Pedro Performed By: #### 1 4603051, 9712153, 534572173, 6616395226, 54140513, 1494700, 7726999, 1641343683, 9662281, 500548214 ####[address] [address] Rubella IgMon 01-20-2023 Rubella virus IgM IA Qn (S) <20.0 Invalid Interpretation Code 0.0-19.9 [facility] Comment on above: Result Comment: Nega tive <20.0 Equivocal 20.0 - 24.9 Positive >24.9 Performed at: [address] [id number] PhD Dayanna Pedro Performed By: #### 1 4445147, 4630635, 537508943, 2903672665, 12361127, 3282731, 2988451, 9627678805, 5006265, 492836119 ####[facility] [address] [place] [address] ABO/Rhon 01-19-2023 ABO/Rh Positive Invalid Interpretation Code [facility] Comment on above: Performed By: #### 2 586361, 53379334 ####[facility] [address] [place] [address] ABSCon 01-19-2023 ABSC Gel Interp Negative Normal [facility] Comment on above: Performed By: #### 2 590363, 86562321 ####[facility] [address] [place] [address] Auto Diffon 01-19-2023 Basophils/100 WBC (Bld) 0.4 % Normal 0.0-2.0 [facility] Comment on above: Order Comment: Order Added by Discern Expert. Performed By: #### 1 2920036, 5794288, 689669420, 1204494134, 90684013, 4671698, 2456807, 5072936024, 5865435, 996212351 ####[address] [address] Basophils/Leukocytes Auto (Bld) [Pure # fraction] 0.0 E9/L Normal 0.0-0.2 [facility] Comment on above: Order Comment: Order Added by Discern Expert. Performed By: #### 1 9294405, 3457478, 086146292, 9437843799, 01661461, 8158929, 7829552, 7261154847, 6616239, 847555320 ####[address] [place] [address] Eosinophils/100 WBC (Bld) 1.4 % Normal 0.0-8.0 [facility] Comment on above: Order Comment: Order Added by Discern Expert. Performed By: #### 1 1996796, 1904968, 156791099, 1799999093, 75272438, 3538528, 1108722, 9567220817, 4589159, 363512244 ####[address] [place] [address] Eosinophils/Leukocytes Auto (Bld) [Pure # fraction] 0.1 E9/L Normal 0.0-0.5 [facility] Comment on above: Order Comment: Order Added by Discern Expert. Performed By: #### 1 5048550, 7729333, 254056000, 4071927442, 85000050, 6112047, 4309758, 2537649807, 6049935, 350866311 ####[address] [place] [address] Lymphocytes/100 WBC (Bld) 26.8 % Normal 14.0-50.0 [facility] Comment on above: Order Comment: Order Added by Discern Expert. Performed By: #### 1 9173975, 0223468, 399081143, 1203944104, 51230241, 4154593, 1344454, 6636275130, 7412140, 325270221 ####[address] [place] [address] Lymphocytes/Leukocytes Auto (Bld) [Pure # fraction] 2.7 E9/L Normal 1.0-4.0 [facility] Comment on above: Order Comment: Order Added by Discern Expert. Performed By: #### 1 9625700, 3789684, 567150502, 6166587848, 96134110, 7552826, 5771318, 1379927146, 0229761, 316235030 ####[address] [place] [address] Monocytes/100 WBC (Bld) 6.6 % Normal 4.0-14.0 [facility] Comment on above: Order Comment: Order Added by Discern Expert. Performed By: #### 1 7977222, 6430508, 158701376, 1581054882, 28998924, 6919594, 6009878, 6111346691, 1229812, 263250859 ####[facility] [address] [place] [address] Monocytes/Leukocytes Auto (Bld) [Pure # fraction] 0.7 E9/L Normal 0.2-1.0 [facility] Comment on above: Order Comment: Order Added by Discern Expert. Performed By: #### 1 4771567, 2175302, 889653746, 5146414324, 23984878, 1344869, 9187613, 7140447912, 9112441, 286533299 ####[address] [place] [address] Neutrophils/100 WBC (Bld) 64.8 % Normal 36.0-75.0 [facility] Comment on above: Order Comment: Order Added by Discern Expert. Performed By: #### 1 0948759, 6588733, 798128000, 6832988988, 41143671, 0844877, 7077999, 8762033503, 8844337, 030191112 ####[address] [place] [address] Neutrophils/Leukocytes Auto (Bld) [Pure # fraction] 6.6 E9/L Normal 2.0-7.5 [facility] Comment on above: Order Comment: Order Added by Discern Expert. Performed By: #### 1 8254117, 6453117, 171485979, 6065127631, 86374232, 9538350, 9985734, 8007545594, 3167358, 581874413 ####[facility] [address] [place] [address] CBC w/ Auto Diffon 3 Erythrocyte distribution width (RBC) [Ratio] 13.6 % Normal 10.9-14.2 [facility] Comment on above: Performed By: #### 1 6564476, 4267832, 156796226, 0984319299, 46210944, 6508878, 6139287, 1820982975, 8562364, 496096049 ####[address] [place] [address] Hematocrit (Bld) [Volume fraction] 38.5 % Normal 34.0-46.0 [facility] Comment on above: Performed By: #### 1 6409636, 7453810, 607567971, 2038954129, 01129973, 9127337, 3630264, 5950007169, 4149367, 837762006 ####[facility] [address] [place] [address] Hemoglobin (Bld) [Mass/Vol] 12.9 g/dL Normal 12.0-16.0 [facility] Comment on above: Performed By: #### 1 7596384, 7031645, 173955897, 8407510849, 27332775, 2152683, 6972652, 7794885697, 5517717, 173318452 ####[facility] [address] [place] [address] MCH (RBC) [Entitic mass] 29.2 pg Normal 27.0-34.0 [facility] Comment on above: Performed By: #### 1 2599260, 0494832, 748588588, 0045477313, 31351766, 2650789, 9503349, 3569250561, 4876889, 236192319 ####[facility] [address] [place] [address] MCHC (RBC) [Mass/Vol] 33.4 g/dL Normal 31.4-36.0 [facility] Comment on above: Performed By: #### 1 7888949, 5272757, 837902718, 0002014471, 72968780, 3774981, 8678695, 6022826309, 7348536, 293579505 ####[facility] [address] [place] [address] MCV (RBC) [Entitic vol] 87.3 fL Normal 80.0-100.0 [facility] Comment on above: Performed By: #### 1 0464879, 0126856, 771700235, 2080409931, 71197059, 3438872, 3284539, 4947158036, 4426477, 404421228 ####[facility] [address] [place] [address] Platelet mean volume (Bld) [Entitic vol] 8.3 fL Normal 6.4-10.8 [facility] Comment on above: Performed By: #### 1 2796504, 9610483, 789121382, 4846260161, 20915820, 4463121, 3163662, 0226081874, 3099675, 900483373 ####[address] [place] [address] Platelets (Bld) [#/Vol] 328.0 E9/L Normal 150.0-500.0 [facility] Comment on above: Performed By: #### 1 5524586, 2361443, 106633537, 5404466099, 83831739, 9407925, 7666562, 8183766609, 4155437, 934940011 ####[address] [address] RBC (Bld) [#/Vol] 4.4 E12/L Normal 4.3-5.9 [facility] Comment on above: Performed By: #### 1 3529074, 8959929, 724709546, 1401955112, 60151853, 6560382, 6181084, 5920611727, 6337594, 823596878 ####[address] [place] [address] WBC corrected for nucl RBC Auto (Bld) [#/Vol] 10.2 E9/L Normal 4.0-11.0 [facility] Comment on above: Performed By: #### 1 7484487, 3399734, 330699448, 9436636783, 79315656, 9642403, 2358666, 5534582994, 3420585, 862915510 ####[address] [place] [address] Consent for Treatmenton 040 Consent for Treatment [id number] 3040 [id number]#1.0 0CD:127 Normal [facility] SgzC7gpx 01-19-2023 HbA1c (Bld) [Mass fraction] 5.5 % Normal <=5.9 [facility] Comment on above: Performed By: #### 1 5863075, 7391585, 916066222, 3847639629, 42437163, 9556029, 9209678, 1876461541, 6541863, 630015198 ####[facility] [address] [place] [address] Physician Orderon 01-19-2023 Physician Order [id number]. 00CD:127 Normal [facility] TSHon 01-19-2023 TSH Qn 2.30 m[IU]/L Normal 0.34-5.60 [facility] Comment on above: Performed By: #### 1 3174073, 3415953, 047111353, 0990970553, 39399354, 3588939, 0663699, 7331313521, 6093277, 347153224 ####[facility] [address] [place] [address] US PREG TVon 01-19-2023 US PREG TV [...] by: GLEN RALPH Date: 2023-01-19 10:36 Normal [facility] CHEMISTRYOrdered By: SYSTEM SYSTEM on 12-23-2022 HCG.beta subunit Qn 103 m[IU]/mL High 1 - 3 mIU/mL [facility] Remisol CHEMISTRYOrdered By: SYSTEM SYSTEM on 12-21-2022 HCG.beta subunit Qn 38 m[IU]/mL High 1 - 3 mIU/mL [facility] Remisol CHEMISTRYOrdered By: SYSTEM SYSTEM on 12-16-2022 Progesterone [Mass/Vol] 15.60 ng/mL Invalid Interpretation Code [facility] Remisol CHEMISTRYOrdered By: SYSTEM SYSTEM on 12-06-2022 Free T4 [Mass/Vol] 0.69 ng/dL Normal 0.58 - 1. 64 ng/dL [facility] Remisol Prolactin [Mass/Vol] 10.67 ng/mL Normal 3.34 - 26.72 ng/mL [facility] Remisol TSH Qn 2.03 m[IU]/L Normal 0.34 - 5.60 mcIU/mL [facility] Remisol CHEMISTRYOrdered By: Patricia Tyson on 12-06-2022 HbA1c (Bld) [Mass fraction] 5.8 % Normal <=5.9% [facility] ChemAutoSS CHEMISTRYOrdered By: SYSTEM SYSTEM on 10-26-2022 HCG.beta [...] Progesterone [Mass/Vol] 8.90 ng/mL Invalid Interpretation Code [facility] Remisol CHEMISTRYOrdered By: SYSTEM SYSTEM on 03-02-2022 Progesterone [Mass/Vol] 3.80 ng/mL Invalid Interpretation Code [facility] Remisol PROGRESSon 06-20-2018 Protein mass conc HNO ID: [id number]: Funmilayo Grajeda (Rt)vice: RadiologyAuthor Type: TechnicianType: Progress NotesFiled: 06/20/2018 3:02 PMNote Text: Radiology Service Progress NotePATIENT NAME: Paramjit ChappellN: [id number] OF SERVICE: June 20, 2018TIME: 3:01 PMPATIENT IDENTITY VERIFICATION COMPLETED USING TWO (2) METHODS: Patientconfirmed name verbally and ID Band .PATIENT GENDER DATA: Female. status: : NoBreastfeeding status: NO.PATIENT RELEVANT IMPLANT DATA REVIEWED: Not ApplicableRADIOLOGY DEPARTMENT: General X-ray: Exam(s) Completed: HSGPERIPHERAL IV DATA: Not applicableSIGNED BY: Funmilayo Bermudez, [facility]ept[facility] 3:01 PM [facility] XR HYSTEROSALPINGOGRAMon XR HYSTEROSALPINGOGRAM * * *Final Report * * *DATE OF EXAM: Jun 20 2018 2:58PM X [id number] - XR HYSTEROSALPINGOGRAM / REASON: infertility testing * * * * Physician Interpretation * * * * XR HYSTEROSALPINGOGRAMPRO VIDED HISTORY: infertility testingCOMPARISON: No previous similar exams are available for comparisonTECHNIQUE: Fluoroscopic Radiation Summary:Plane A, Air Kerma: 9.4 mGyDose Area Product (DAP): 0.0 mGy*ndN0Csuewn time: 0:12 min:secRESULT: 3 spot images were obtained of the pelvis. Contrast was administered by the [facility] CONSULTANT physician with approximately 5 cc of contrast [...] DAVILA MD on Jun 20 2018 4:10PM [id number] ACN Normal [facility] Vital Signs Date Time Vital Sign Value Performing Clinician Marisa pereira 06-08-2022 16:10-0400 Blood Pressure Location Samirayohan Null [facility] 06-08-2022 16:10-0400 Body temperature 98.42 [degF] Samirayohan Ambrizell [facility] 06-08-2022 16:10-0400 Diastolic blood pressure 70 mm[Hg] Samira Null [facility] 06-08-2022 16:10-0400 Heart rate 75 /min Samirayohan Ambrizell [facility] 06-08-2022 16:10-0400 Respiratory rate 16 /min Samirayohan Null [facility] 06-08-2022 16:10-0400 SaO2% (BldA) [Mass fraction] 98 % Samira Null [facility] 06-08-2022 16:10-0400 Systolic blood pressure 120 mm[Hg] Samira Ambrizell [facility] Encounters Encounter Date Encounter Type Care Provider Facility Start: 02-20-2024 End: 02-20-2024 ambulatory TU YIN Not Available Start: 01-22-2024 End: 01-22-2024 ambulatory DARREL MUNGUIAO Not Available Start: 01-08-2024 End: 01-09-2024 ambulatory Darrel R TRAV Facility:[facility] Start: 01-08-2024 End: 01-08-2024 Patient encounter procedure Darrel RAVI [facility] Start: 01-04-2024 End: 01-04-2024 ambulatory DARREL TRAV Not Available Start: 12-24-2023 End: 12-25-2023 ambulatory Mariya Oneal Facility:[facility] Start: 12-24-2023 End: 12-24-2023 Patient encounter procedure Mariya Oneal [facility] Start: 12-24-2023 End: 12-24-2023 Well adult monitoring check done Mariya Oneal [facility] Start: 12-14-2023 End: 12-15-2023 ambulatory Darrel R TRAV Facility:[facility] Start: 12-14-2023 End: 12-14-2023 Patient encounter procedure Darrel R TRAV [facility] Start: 12-12-2023 End: 12-13-2023 ambulatory Darrel R TRAV Facility:[facility] Start: 12-12-2023 End: 12-12-2023 Patient encounter procedure Darrel R TRAV [facility] Start: 10-09-2023 End: 10-09-2023 ambulatory DARREL TRAV Not Available Start: 07-23-2023 End: 10-22-2023 ambulatory Jewel Schmidt Facility:[facility] Start: 06-08-2023 End: 06-09-2023 ambulatory Darrel R TRAV Facility:[facility] Start: 06-08-2023 End: 06-08-2023 Patient encounter procedure Darrel R TRAV [facility] Start: 05-29-2023 End: 05-30-2023 ambulatory TU YIN Facility:[facility] Start: 05-29-2023 End: 05-29-2023 Patient encounter procedure TU YIN [facility] Start: 01-29-2023 End: 01-30-[address] DARREL RAVI . Facility:[facility] Start: 01-19-2023 End: 01-20-[address] DARREL RAVI . Facility:[facility] Start: 12-23-2022 End: 12-23-2022 Patient encounter procedure Darrel R TRAV [facility] Start: 12-22-2022 End: 12-22-2022 Lab Drop off Darrel R TRAV [facility] Start: 12-16-2022 End: 12-16-2022 Patient encounter procedure Darrel R TRAV [facility] Start: 12-06-2022 End: 12-06-2022 Patient encounter procedure Darrel R TRAV [facility] Start: 10-26-2022 End: 10-26-2022 Patient encounter procedure Jeison Leon [facility] Start: 10-20-2022 End: 10-20-2022 Patient encounter procedure Jeison Emanuely [facility] Start: 06-09-2022 End: 06-09-2022 Patient encounter procedure Samira Null [facility] Start: 06-08-2022 End: 06-08-2022 Patient encounter procedure Samira Null [facility] Start: 06-08-2022 End: 06-08-2022 Well adult monitoring check done Samira Null [facility] Start: 03-24-2022 End: 03-24-2022 Patient encounter procedure Jeison Leon [facility] Start: 03-02-2022 End: 03-02-2022 Patient encounter procedure Jeison Leon [facility] Start: 06-20-2018 Patient encounter [facility] Procedures Date Procedure Procedure Detail Performing Clinician Start: 03-11-2019 Betamethasone (substance) Jeison Emanuely Start: 03-10-2019 Betamethasone (substance) Jeison Emanuely Augmentation mammoplasty Lianna an Printy Breast prosthesis, d evice (physical object) Jeison Printy Immunizations Immunization Date Immunization Notes Care Provider Fa erji 07-23-2023 influenza virus vaccine, unspecified formulation Darrel RAVI [facility] Comment on above: Reason for Medicatio n: Prophylaxis 08-03-2022 influenza virus vaccine, unspecified formulation Jeison Leon [facility] Comment on above: Reason for Medicatio n: Prophylaxis 08-09-2021 influenza virus vaccine, unspecified formulation; Translations: [Fluzone PF Quadrivalent ] Jeison [employer] [facility] Comment on above: Reason for Medicatio n: Prophylaxis 02-19-2021 COVID-19, mRNA, LNP- S, PF, 30 mcg/0.3 mL dose; Translations: [Pfizer-BioNTech COVID-19 Vaccine] Jeison [employer] [facility] Comment on above: Reason for Medicatio n: Prophylaxis 01-29-2021 COVID-19, mRNA, LNP- S, PF, 30 mcg/0.3 mL dose; Translations: [Modulus-Yola COVID-19 Vaccine] Jeison Leon [facility] Comment on above: Reason for Medicatio n: Prophylaxis 08-22-2019 influenza virus vaccine, live, attenuated, for intranasal use Jeison Leon [facility] 04-11-2019 tetanus toxoid, redu vanesa diphtheria toxoid, and acellular pertussis vaccine, adsorbed; Translations: [Adacel (Tdap)] Jeison Leon [facility] Payers Date Payer Category Payer Unknown [id number] 2.16.84 [id number] 1992 Unknown [id number] 2.16.84 [id number] 1992 Unknown [id number] 2.16.8 [id number] 1992 Unknown [id number] 2.16.8 [id number] 1992 Unknown [id number] 2.16.8 [id number] 1992 Unknown [id number] 2.16.8 [id number] 1992 Unknown [id number] 2.16.8 [id number] 1992 Unknown [id number] 2.16.8 [id number] 1992 Unknown [id number] 2.16.8 [id number] 1992 Unknown [id number] 2.16.8 [id number] 1992 Unknown [id number] 2.16.84 [id number] 1992 Unknown [id number] 2.16.84 [id number] 1992 Unknown [id number] 2.16.84 [id number] 1992 Unknown [id number] 2.16.840 .[id number] 1959 Unknown [id number] Social History Date Type Detail Facility Start: 06-16-2021 End: 06-12-2022 Tobacco smoking status Ex-smoker (finding) [facility] Tobacco smoking status [facility] Sex Assigned At Female [facility] Functional Status Date Assessment Result Facility 06-08-2022 Functional Status N/A [facility] Evaluation + Plan note 01-08-2024 Note Date & Type Note Facility 01-08-2024 Evaluation + Plan note Diagnostic Tests PendingRPR with Conf Rfx 01/08/24Rubella Antibody IgG 01/08/24epatitis B Surface Antigen 01/08/24CV Antibody RFX to Quant PCR 01/08/24IV Screen 4th Generation wRfx 01/08/24Urine Culture 01/08/24 [facility] Hospital Discharge instructions 12-12-2023 Note Date & Type Note Facility 12-12-2023 Hospital Discharg e instructions Patient Education 12/12/2023 07:29:09 Medical Screening Exam Medical Screening Exam A medical screening exam (MSE) helps to determine whether you need immediate medical treatment relating to any number of symptoms you are having. This type of exam may be done in an emergency department, an urgent care setting, or your health care provider's office. Depending on your symptoms and severity, you may need additional tests or medical therapy. It is important to note that an MSE does not necessarily mean that you will need or receive further medical testing or interventions if your symptoms are not deemed to be medically urgent (emergent). Tell a health care provider about: Any allergies you have. All medicines you are taking, including vitamins, herbs, eye drops, creams, and ksas-qrx-izhioxf medicines. Any problems you or family members have had with anesthetic medicines. Any bleeding problems you have. Any surgeries you have had. Any medical conditions you have. Whether you are or may be . What happens during the test? During the exam, a health care provider does a short, often focused, physical exam and asks about your medical history to assess: Your current symptoms. Your overall health. Your need for possible further medical intervention. What can I expect after the test? If you have a regular health care provider, make an appointment for a follow-up visit with him or her. If you do not have a regular health care provider, ask about resources in your community. Your medical screening exam may determine that: You do not need emergency treatment at this time. You need treatment right away. You need to be transferred to another medical center. This may happen if you need an emergent specialist or customer consultant that is not available at the medical center you are at. You need to have more tests. A medical laboratory specialist may be consulted if needed. Get help right away if: Your condition gets worse. You develop new or troubling symptoms before you see your health care provider. These symptoms may represent a serious problem that is an emergency. Do not wait to see if the symptoms will go away. Get medical help right away. Call your local emergency services (911 in the [place] Do not drive yourself to the hospital. Summary A medical screening exam helps to determine whether you need medical treatment right away. This type of exam may be done in an emergency department, an urgent care setting, or your health care provider's office. During the exam, a health care provider does a short physical exam and asks about your current symptoms and overall health. Depending on the exam, more tests or therapies may be ordered. However, an MSE does not necessarily mean that you will have further medical testing if your symptoms are not deemed to be urgent. If you need further care that is not offered at your current medical center, you may need to be transferred to another facility. This information is not intended to replace advice given to you by your health care provider. Make sure you discuss any questions you have with your health care provider. Document Revised: 06/14/2022 Document Reviewed: 02/09/2022 [email or web address] Patient Education 2022 [email or web address] 12/12/2023 07:29:07 Health Maintenance, Female Health Maintenance, Female Adopting [...] in people who have high blood pressure readings or are overweight. Have your blood pressure [...] of menopause. Follow these instructions at home: Alcohol use Do not drink alcohol if: ?Your health care provider tells you not to drink. ?You are , may be , or are planning to become . If you drink alcohol: ?Limit how much you have to: ?0 1 drink a day. ?Know how much alcohol is in your drink. In the [place] one drink equals one 12 oz bottle of beer (355 mL), one 5 oz glass of wine (148 mL), or one 1 oz glass of hard liquor (44 mL). Lifestyle Do not use any products that contain nicotine or tobacco. These products include cigarettes, chewing tobacco, and vaping devices, such as e-cigarettes. If you need help quitting, ask your health care provider. Do not use street drugs. Do not share needles. Ask your health care provider for help if you need support or information about quitting drugs. General instructions Schedule regular health, dental, and [...] have with your health care provider. Document Revised: 02/20/2022 Document Reviewed: 02/20/2022 [email or web address] Patient Education 2022 [employer]. Follow Up Care 11/15/2023 13:38:14 With:Mariya Girard Address: [address] [place] [address] [place] [phone] When:Within 6 Month(s) Comments:[facility] Evaluation + Plan note 12-06-2022 Laboratory Note Date & Type Note Facility 12-06-2022 Evaluation + Plan note Diagnostic Tests PendingAnti-Mullerian Hormone ([facility]) 12/06/22 Future Scheduled TestsCOVID-19 ([facility]) 05/24/22 [facility] Hospital Discharge instructions 06-08-2022 Note Date [...] produces. Follow these instructions at home: Take ebux-jna-asoegqc and prescription medicines only as told by [...] 01/25/2006 Document Revised: 09/13/2018 Document Reviewed: 03/18/2017 [email or web address] Patient Education 2020 [employer]. 06/08/2022 16:45:33 Health Maintenance, Female Health Maintenance, [...] 04/15/2012 Document Revised: 09/24/2019 Document Reviewed: 09/24/2019 [email or web address] Patient Education 2020 [employer]. Follow Up Care 06/06/2022 18:36:13 With:Samira Null CNP Address: [address] [place] [phone] When:1 year Comments:or sooner if needed [facility] Evaluation + Plan note 06-08-2022 Laboratory Note Date & Type Note Facility 06-08-2022 Evaluation + Plan note Future Scheduled [id number] 06/08/22COVID-19 ([facility]) 05/24/22Lipid Panel 06/08/22 [facility] Evaluation + Plan note 05-24-2022 Laboratory Note Date & Type Note Facility 05-24-2022 Evaluation + Plan note Future Scheduled TestsCOVID-19 ([facility]) 05/24/22 [facility] Evaluation + Plan note Note Date & Type Note Facility Evaluation + Plan note No data available for this section [facility] Evaluation + Plan note Note Date & Type Note Facility Evaluation + Plan note Future Appointments Appointment Date:12/24/2023 08:20:00 AM Scheduled Provider:Mariya Girard Location:[facility] Appointment Type: Open [facility] Hospital Discharge instructions Note Date & Type Note Facility Hospital Discharge instructions No data available for this section [facility] Progress note Note Date & Type Note Facility Progress note No data available for this section [facility] Summary Purpose Family History No Family History Records FoundNo Family History Records Found No data available for this section No data available for this section No data available for this section No data available for this section No Family History Records FoundNo Family History Records Found Advance Directives No Advanced Directives Records FoundNo Advanced Directives Records FoundNo Advanced Directives Records FoundNo Advanced Directives Records Found Additional Source Comments INFORMATION SOURCE (unrecogn ized section and content) DATE CREATED AUTHOR 06/29/2018 [facility] DATE CREATED AUTHOR AUTHOR'S ORGANIZ ATION 02/04/2023 [facility] DATE CREATED AUTHOR AUTHOR'S ORGANIZ ATION 01/10/2024 [facility] DATE CREATED AUTHOR AUTHOR'S ORGANIZ ATION 02/22/2024 [facility] EPIC Care Team (unrecognized sect ion and content) Personnel Name: Samira Null CNP Address: [address] [place] [address] Personnel Name: Samira Null CNP Address: [address] [place] [address] Personnel Name: Samira Null CNP Address: Address: [address] [place] [address] Personnel Name: Samira Null CNP Address: Address: [address] [place] [address] Personnel Name: Samira Null CNP Address: Address: [address] [place] [address] Personnel Name: Samira Null CNP Address: Address: [address] [place] [address] Personnel Name: Samira Null CNP Address: Address: [address] [place] [address] Personnel Name: Samira Null CNP Address: Address: [address] [place] [address] Personnel Name: Samira Null CNP Address: Address: [address] [place] [address] Personnel Name: NONE, XXXX Address: Address: [facility] Personnel Name: Mariya Girard Address: Address: [address] [place] [address] Personnel Name: Mariya Girard Address: Address: [address] [place] [address] Personnel Name: Mariya Girard Address: Address: [address] [place] [address] Personnel Name: Mariya Girard Address: Address: [address] [place] [address] FOR RECORDS PERTAINING TO PATIENTS WHO ARE [...] BE BASED ON THE PRIMARY CLINICAL RECORDS. [facility]. provides no warranty or guarantee of the accuracy or completeness of information in this document.
== END 2024-03-06 09:28 | disposition home or self-care (01) ==
LOC: NOMS 09:27
PROVIDERS: PCP Physician Assistant; Visit Provider Physician Assistant
DX: Z36.89 Encounter for other specified antenatal screening (principal); Z3A.20 20 weeks gestation of pregnancy
CPT/HCPCS: 76805; 76817

== ENCOUNTER 2024-05-28 12:51 | Outpatient (OUT) | payer OTHER, SELFPAY ==
--- NOTE | 2024-05-28 12:58 | US_ITS ---
[address] [address] Patient Name: TOMMY ARREOLA MRN: [id number] date: 1990 Sex: F Assigned Patient Location: [facility] Current Patient Location: [facility] Accession/Order Number: [id number] Exam Date: 05/28/2024 12:59 Report Date: 05/28/2024 13:57 At the request of: TU YIN Procedure: US OB growth EXAMINATION: US OB growth HISTORY: INCONSISTENT SIZE WITH DATES COMPARISON: No relevant comparison available. FINDINGS: Heart Rate: 133 bpm Amniotic Fluid Volume: 12.7 cm, largest fluid pocket 3.9 cm Number: 1 Position: Cephalic presentation, longitudinal lie BIOMETRY: BPD: 7.76 cm; 31 weeks 1 day; 7.20 % HC: 28.91 cm; 30 weeks 6 days; 4.20 % AC: 28.75 cm; 32 weeks 5 days; 51.80 % FL: 6.41 cm; 33 weeks 1 day; 48.70 % EFW: 1866.97 g; 36.90 %, 4 lbs. 7 oz. FL/AC: 22.30 FL/BPD: 82.60 HC/AC: 1.01 GESTATIONAL AGE: Age by EDC: 32 weeks 5 days BRADY by EDC: 2024-07-18 Age by US: 32 weeks 2 days BRADY by US: 2024-07-21 US/US OB growth IMPRESSION: Normal interval growth Electronically authenticated by: LISBETH PEOPLES Date: 05/28/2024 13:57
== END 2024-05-28 12:52 | disposition home or self-care (01) ==
LOC: NOMS 12:51
PROVIDERS: PCP Physician Assistant; Visit Provider Physician Assistant
DX: O26.849 Uterine size-date discrepancy, unspecified trimester (principal); Z3A.32 32 weeks gestation of pregnancy
CPT/HCPCS: 76816

== ENCOUNTER 2024-06-25 19:55 | Outpatient (REF) | payer OTHER, SELFPAY ==
--- OUTSIDE RECORDS SUMMARY | 2024-06-25 20:00 | XMS_ITS | CCD ---
Author Organization [facility] Informat ion [facility] Care Team Providers Care Penology Teacher Name Role Phone TANTIBHEDHYANGKUL, JULIERUT Unavailable Unav [...] Physician Unavailab Mariya Hicks Primary Care Physician TRAV, Darrel R Admitting Unavailable TRAV, Darrel R Attending Unavailable TRAV, Darrel R Admitting Unavailable TRAV, Darrel R Attending Unavailable Mariya Oneal Attending Unavailab TU Ferreira Admitting Unavailable HUMPHREYTU RYAN Attending Unavailable TRAV, Darrel R Attending Unavailable TRAV, Darrel R Admitting Unavailable TRAV, Darrel R Attending Unavailable TRAV, Darrel R Admitting Unavailable TRAV, Darrel R Admitting Unavailable TRAV, Darrel R Attending Unavailable DO Jewel Schmidt Attending Unavailable TRAV, Darrel R Attending Unavailable TRAV, Darrel R Admitting Unavailable TRAVGREGORYY Attending Unavailable TU YIN Attending Unavailable GREGORY RAVIY Attending Unavailable TRAVGREGORYY Attending Unavailable HUMPHREY TU Attending Unavailable TU YIN Attending Unavailable TRAV, DARREL Attending Unavailable TU YIN Attending Unavailable TRAV, DARREL Attending Unavailable Allergies Allergy Classification Reported Allergen(s) Allergy Type Date of Onset Reaction(s) Facility (1 source) No Known Medication Allergies; Translations: [No Known Medication Allergies] Propensity to adverse reactions (disorder) [facility] Repository Medications Current Medications Medication Drug Class(es) Dates Sig (Normalized) Sig (Original) ibuprofen 600 mg oral tablet (17 sources) Nonsteroidal Anti-inflammator y Drug Start: 1 take 1 tablet by mouth every six hours ibuprofen 600 mg Tab 600 mg = 1 tab(s), Oral, q6hr, # 15 tab(s), Refills(s) 0, Pharmacy: [facility], 157.4, cm, 12/25/20 2:16:00 EST, Height/Length [...] Ordered medroxyPROGESTERone acetate 10 mg oral tablet (15 sources) Progestin Start: 2 take 1 tablet by mouth once daily medroxyPROGESTERone 10 mg Tab 10 mg = 1 tab(s), Oral, Daily, # 30 tab(s), Refills(s) 0 Start Date: 06/08/22 Status: Ordered AD (17 sources) Start: 8 take 1 tablet by mouth once daily AD 1 tab(s), Oral, Daily, Refill(s) 0 Start Date: 11/26/17 Status: Ordered Completed/Discontinued Medications Medication Drug Class(es) Dates Sig (Normalized) Sig (Original) sertraline 50 mg oral tablet (17 sources) Serotonin Reuptake Inhibitor Start: 08-07-2019 take 1 tablet by mouth once daily Zoloft 50 mg Tab 50 mg = 1 tab(s), Oral, Daily, 0.5 tabs x 1 week then full tab daily., # 30 tab(s), Refills(s) 1, Pharmacy: [facility] Start Date: 08/07/19 Status: Ordered Problems Active Problems Problem Classification Problem Date Documented Date Episodic/Chronic Administrative/social admission (1 source) Counseling procedure with explicit context; Translations: [Dietary counseling and surveillance] Onset: 12-12-2023 Episodic Anxiety disorders (18 sources) Anxiety; Translations: [Anxiety disorder] Onset: 12-12-2023 08-07-2019 Chronic Hypertension complicating ; childbirth and the puerperium (17 sources) -induced hypertension 04-11-2019 Episodic Intestinal infection (17 sources) Clostridium difficile diarrhea 01-28-2017 Episodic Comment on above: Problem added second omar to positive C-Diff lab result. Menstrual disorders (4 sources) Irregular menstruation, unspecified; Translations: [IRREGULAR MENSTRUATION UNSPECIFIED] Onset: 01-19-2023 Chronic Nonspecific chest pain (12 sources) Chest wall pain 06-16-2021 Episodic Other endocrine disorders (12 sources) Polycystic ovaries 11-26-2017 Chronic Other endocrine disorders (16 sources) Polycystic ovary syndrome; Translations: [Polycystic ovarian syndrome] Onset: 06-08-2022 Chronic Other liver diseases (17 sources) Elevated liver enzymes level 06-25-2019 Episodic [...] Polyhydramnios and other problems of amniotic cavity (17 sources) Polyhydramnios 12-25-2020 Episodic Unclassified (17 sources) Non-smoker 06-16-2021 Unclassified (20 sources) Patient encounter status 06-25-2019 Past or Other Problems Problem Classification Problem Date Documented Da te Episodic/Chronic Unclassified (20 sources) Onset: 08-15-2018 Resolved: 12-25-2020 04-13-2019 Results Test Name Value Interpretation Reference Range Facility CBC w/Indiceson 04-14-2024 Erythrocyte distribution width (RBC) [Ratio] 13.9 % Normal 10.9-14.2 [facility] Comment on above: Performed By: #### 2 [id number] #### [facility] Laboratory [address] [place] [address] Hematocrit (Bld) [Volume fraction] 34.4 % Normal 34.0-46.0 [facility] Comment on above: Performed By: #### 2 [id number] #### [facility] Laboratory [address] [place] [address] Hemoglobin (Bld) [Mass/Vol] 11.8 g/dL Low 12.0-16.0 [facility] Comment on above: Performed By: #### 2 261210 #### [facility] [address] [place] [address] MCH (RBC) [Entitic mass] 30.6 pg Normal 27.0-34.0 [facility] Comment on above: Performed By: #### 2 505181 #### [facility] [address] [place] [address] MCHC (RBC) [Mass/Vol] 34.3 g/dL Normal 31.4-36.0 [facility] Comment on above: Performed By: #### 2 904828 #### [facility] [address] [place] [address] MCV (RBC) [Entitic vol] 89.4 fL Normal 80.0-100.[address] [facility] Comment on above: Performed By: #### 2 828865 #### [facility] [address] [place] [address] Platelet mean volume (Bld) [Entitic vol] 8.4 fL Normal 6.4-10.8 [facility] Comment on above: Performed By: #### 2 816651 #### [facility] Laboratory [address] [place] [address] Platelets (Bld) [#/Vol] 286.0 E9/L Normal 150.0-500.0 [facility] Comment on above: Performed By: #### 2 204903 #### [facility] [address] [place] [address] RBC (Bld) [#/Vol] 3.8 E12/L Low 4.3-5.9 [facility] Comment on above: Performed By: #### 2 746099 #### [facility] [address] [place] [address] RBC size Nom (Bld) NORMAL Invalid Interpretation Code [facility] Comment on above: Performed By: #### 2 178732 #### [facility] [address] [place] [address] WBC corrected for nucl RBC Auto (Bld) [#/Vol] 9.7 E9/L Normal 4.0-11.0 [facility] Comment on above: Performed By: #### 2 120555 #### [facility] Laboratory [address] [place] [address] CHEMISTRYOrdered By: SYSTEM SYSTEM on 04-14-2024 Glucose [Mass/Vol] 125 mg/dL Normal 55 - 140 mg/dL Remisol Chem Gest Scr Glu 1 Hron 04-14-20 Glucose [Mass/Vol] 125 mg/dL Normal 55-140 [facility] Comment on above: Performed By: #### 3 [id number] #### [facility] Laboratory [address] [place] [address] HEMATOLOGYOrdered By: SYSTEM SYSTEM on 04-14-2024 Erythrocyte distribution width (RBC) [Ratio] 13.9 % Normal 10.9 - 14.2 % Remisol Heme Hematocrit (Bld) [Volume fraction] 34.4 % Normal 34.0 - 46.0 % Remisol Heme Hemoglobin (Bld) [Mass/Vol] 11.8 g/dL Low 12.0 - 16.0 gm/dL Remisol Heme MCH (RBC) [Entitic mass] 30.6 pg Normal 27. 0 - 34.0 pg Remisol Heme MCHC (RBC) [Mass/Vol] 34.3 g/dL Normal 31.4 - 36.0 gm/dL Remisol Heme MCV (RBC) [Entitic vol] 89.4 fL Normal 80.0 - 100.0 fL Remisol Heme Platelet mean volume (Bld) [Entitic vol] 8.4 fL Normal 6.4 - 10.8 fL Remisol Heme Platelets (Bld) [#/Vol] 286.0 E9/L Normal 150. 0 - 500.0 E9/L Remisol Heme RBC (Bld) [#/Vol] 3.8 E12/L Low 4.3 - 5.9 E12/L Remisol Heme RBC size Nom (Bld) NORMAL *NA* (04/14/24 8:37 AM) Invalid Interpretation Code Remisol Heme WBC corrected for nucl RBC Auto (Bld) [#/Vol] 9.7 E9/L Normal 4.0 - 11.0 E9/L Remisol Heme .Interpretation:on HCV Ab IA Ql Comment Invalid Interpretation Code [facility] Comment on above: Result Comment: Not infected with HCV unless early or acute infection is suspected (which may be delayed in an immunocompromised individual), or other evidence exists to indicate HCV infection. Performed at: [facility] [id number] PhD Dayanna Pedro Performed By: #### 1 [id number], 1827192, [id number], 5699751, 474954844, 591139394, [id number], 427165729 ####[facility] [address] [place], [place] [address] C Urineon 01-10-2024 Bacteria identified Cx Nom [...] Locations R1: This test was performed at: [facility], [address] [place] [address], [address]- , , Normal [facility] Comment on above: Performed By: #### 2 774550 #### [facility] Laboratory [address] [place] [address] HCV Antibody RFX to Quant PC Dave 01-10-2024 HCV IgG IA Ql Non-Reactive Invalid Interpretation Code Non Reactive [facility] Comment on above: Result Comment: Perf ormed at: [address] [id number] PhD Dayanna Pedro Performed By: #### 1 6827424, 5550078, [id number], 4774273, 242201400, 675655222, 8958762674, 957674724 ####[facility] [address] [place] [address] HIV Screen 4th Generation wR fxon 01-10-2024 HIV 1+2 Ab+HIV1 p24 Ag IA Ql Non-Reactive Invalid Interpretation Code Non Reactive [facility] Comment on above: Result Comment: HIV Negative HIV-1/HIV-2 antibodies and HIV-1 p24 antigen were NOT detected. There is no laboratory evidence of HIV infection. Performed at: [address] [id number] PhD Dayanna Pedro Performed By: #### 1 3788862, 1164605, [id number], 6901151, 967130332, 642168806, 9679759069, 893036167 ####[address] [place] [address] Hep Bs Agon 01-10-2024 HBV surface Ag IA Ql Negative Invalid Interpretation Code Negative [facility] Comment on above: Result Comment: Perf ormed at: [address] [id number] PhD Dayanna Pedro Performed By: #### 1 1897570, 5534514, [id number], 9593730, 625437104, 031854268, 5195690273, 058025873 ####[address] [place] [address] RPR with Conf Rfxon 01-10-20 24 Reagin Ab RPR Ql (S) Non-Reactive Invalid Interpretation Code Non Reactive [facility] Comment on above: Result Comment: Perf ormed at: [address] [id number] PhD Dayanna Pedro Performed By: #### 1 9797965, 5581717, 6187177829, 8013112, 609538829, 527624597, 0286979715, 547588141 ####[address] [address] Rubella IgGon 01-10-2024 Rubella virus IgG Qn (S) 3.33 [IU]/mL Invalid Interpretation Code Immune >0.99 [facility] Comment on above: Result Comment: Non- immune <0.90 Equivocal 0.90 - 0.99 Immune >0.99 Performed at: [address] [id number] PhD Dayanna Pedro Performed By: #### 1 6981424, 0681099, [id number], 5056974, 487411182, 003504678, 4515552092, 321865066 ####[address] [address] ABO/Rhon 01-08-2024 ABO/Rh Positive Invalid Interpretation Code [facility] Comment on above: Performed By: #### 2 032360, 33384779, 10225050 ####[address] [address] ABO/Rh History Checkon 01-07 ABO/Rh History Check Verified Hx Blood Type Normal [facility] Comment on above: Performed By: #### 2 426351, 89487556, 08487188 ####[address] [address] ABSCon 01-08-2024 ABSC Gel Interp Negative Normal [facility] Comment on above: Performed By: #### 2 347126, 10960592, 94504482 ####[address] [place] [address] BLOOD BANKOrdered By: Tree Arenas on 01-08-2024 ABO/Rh Interp Positive Invalid Interpretation Code [facility] BB Subsection ABSC Gel Interp Negative (01/08/24 4:58 PM) Normal [facility] BB Subsection CBC w/ Auto Diffon Basophils/100 WBC (Bld) 0.6 % Normal 0.0-2.[address] [facility] Comment on above: Performed By: #### 1 6957520, 8644109, 3612829085, 0052471, 962551309, 367457466, 9938187343, 807168815 ####[address] [address] Basophils/Leukocytes Auto (Bld) [Pure # fraction] 0.1 E9/L Normal 0.0-0.2 [facility] Comment on above: Performed By: #### 1 4400656, 9914157, 2387697213, 3199028, 216165915, 930747746, 9907278215, 875352179 ####[address] [address] Eosinophils (Bld) [#/Vol] 0.3 E9/L Normal 0.0-0.5 [facility] Comment on above: Performed By: #### 1 0354449, 0867414, 9737052551, 2555063, 733492481, 425367833, 9061502983, 597885958 ####[address] [address] Eosinophils/100 WBC (Bld) 2.3 % Normal 0.0-8.0 [facility] Comment on above: Performed By: #### 1 2123603, 5689869, 8500260396, 0534095, 594552014, 375809061, 1497017920, 956089813 ####[address] [address] Erythrocyte distribution width (RBC) [Ratio] 13.9 % Normal 10.9-14.2 [facility] Comment on above: Performed By: #### 1 6993307, 9680072, 8557226167, 7702915, 422474044, 929949279, 5458532019, 217750180 ####[address] [place] [address] Hematocrit (Bld) [Volume fraction] 36.9 % Normal 34.0-46.0 [facility] Comment on above: Performed By: #### 1 4593471, 5162146, 6517441564, 9591984, 405225330, 668984277, 8209316389, 740069875 ####[address] [place] [address] Hemoglobin (Bld) [Mass/Vol] 12.5 g/dL Normal 12.0-16.0 [facility] Comment on above: Performed By: #### 1 0288880, 0238758, 6550712245, 3921993, 698899557, 290883082, 3508484918, 887248862 ####[address] [address] Lymphocytes (Bld) [#/Vol] 3.2 E9/L Normal 1.0-4.0 [facility] Comment on above: Performed By: #### 1 6095780, 2486491, 6080900710, 8611251, 090289980, 802205150, 6224489096, 778983813 ####[address] [address] Lymphocytes/100 WBC (Bld) 28.1 % Normal 14.0-50.0 [facility] Comment on above: Performed By: #### 1 4835409, 5780477, 6459885604, 8915768, 763526807, 827148406, 8670818966, 862061772 ####[address] [address] MCH (RBC) [Entitic mass] 29.2 pg Normal 27.0-34.0 [facility] Comment on above: Performed By: #### 1 8975826, 8650411, 2419856399, 7540924, 322350148, 518646731, 3207668561, 926923796 ####[facility] [address] [place] [address] MCHC (RBC) [Mass/Vol] 33.9 g/dL Normal 31.4-36.0 [facility] Comment on above: Performed By: #### 1 5011447, 4967820, 2952363838, 5030739, 166003167, 358983950, 0180164537, 316375116 ####[facility] [address] [place] [address] MCV (RBC) [Entitic vol] 86.1 fL Normal 80.0-100.[address] [facility] Comment on above: Performed By: #### 1 3004763, 9729310, 2840173324, 3307441, 734995099, 259992885, 9612299532, 819114753 ####[address] [address] Monocytes (Bld) [#/Vol] 0.8 E9/L Normal 0.2-1.[address] [facility] Comment on above: Performed By: #### 1 4394920, 7852263, 1727347488, 7993429, 320096466, 230192954, 9712340253, 373382457 ####[address] [address] Neutrophils (Bld) [#/Vol] 7.0 E9/L Normal 2.0-7.5 [facility] Comment on above: Performed By: #### 1 4225274, 4429501, 5134924980, 2309197, 721391888, 328443286, 4387499118, 670769186 ####[address] [address] Neutrophils/100 WBC (Bld) 62.2 % Normal 36.0-75.0 [facility] Comment on above: Performed By: #### 1 4866903, 8052025, 0619577398, 7659873, 927764465, 181734167, 3846063131, 658401171 ####[facility] [address] [place] [address] Platelet 341.0 E9/L Normal 150.0-500.0 [facility] Comment on above: Performed By: #### 1 0612299, 1400296, 0764400767, 5430428, 854884349, 484711326, 1953382139, 765244275 ####[address] [place] [address] Platelet mean volume (Bld) [Entitic vol] 8.4 fL Normal 6.4-10.8 [facility] Comment on above: Performed By: #### 1 0651746, 9045065, 7962086798, 8865606, 271760850, 681025024, 7777779590, 577786180 ####[address] [address] RBC (Bld) [#/Vol] 4.3 E12/L Normal 4.3-5.9 [facility] Comment on above: Performed By: #### 1 6941764, 6971204, 7593946627, 8987884, 608800169, 324333201, 5016293062, 156189022 ####[address] [address] WBC corrected for nucl RBC Auto (Bld) [#/Vol] 11.3 E9/L High 4.0-11.0 [facility] Comment on above: Performed By: #### 1 0736702, 8885267, 9609551573, 2945152, 092557249, 674332589, 7220849880, 692505986 ####[address] [place] [address] CHEMISTRYOrdered By: Becka Spaulding on 01-08-2024 HbA1c (Bld) [Mass fraction] 5.5 % Normal <=5.9% [facility] ChemAutoSS Consent for Treatmenton 12-14 Consent for Treatment [id number] 4030 [id number]#1.0 0TIFF Normal [facility] HEMATOLOGYOrdered By: SYSTEM SYSTEM on 01-08-2024 Basophils/100 [...] High 4.0 - 11.0 E9/L Remisol Heme WrtX6hsu 01-08-2024 HbA1c (Bld) [Mass fraction] 5.5 % Normal <=5.9 [facility] Comment on above: Performed By: #### 1 4100197, 3524814, 9630994627, 7019710, 745785279, 955394269, 6799390764, 712370864 ####[facility] [address] [place] [address] Physician Orderon 01-08-2024 Physician Order [id number]#1. 00TIFF Normal [facility] BhCG Quanton 12-14-2023 HCG.beta subunit Qn 576986 m[IU]/mL High 1-3 [facility] Comment on above: Result Comment: 'F N ON < 1 - 3' ' 0.2 - 1 WEEK = 5 TO 50' ' 1 - 2 WEEKS = 50 - 500' ' 2 - 3 WEEKS = 100 - 5000' ' 3 - 4 WEEKS = 500 - 64045' ' 4 - 5 WEEKS = 1000 - 74391' ' 5 - 6 WEEKS = 99213 - 644664' ' 6 - 8 WEEKS = 18379 - 696042' ' 8 - 12 WEEKS = 44142 - 859841' Performed By: #### 2 907195 ####[facility] [address] [place] [address] CHEMISTRYOrdered By: SYSTEM SYSTEM on 12-14-2023 HCG.beta subunit Qn 429018 m[IU]/mL High 1 - 3 mIU/mL Remisol Chem Comment on above: Result Comment: 'F N ON < 1 - 3' ' 0.2 - 1 WEEK = 5 TO 50' ' 1 - 2 WEEKS = 50 - 500' ' 2 - 3 WEEKS = 100 - 5000' ' 3 - 4 WEEKS = 500 - 44580' ' 4 - 5 WEEKS = 1000 - 70012' ' 5 - 6 WEEKS = 59748 - 447303' ' 6 - 8 WEEKS = 03426 - 511730' ' 8 - 12 WEEKS = 615[address] - 092739' Consent for Treatmenton Consent for Treatment [id number] [id number]#1.0 0TIFF [facility] Physician Orderon 12-14-2023 Physician Order [id number]#1.0 0TIFF Normal [facility] BhCG Quanton 12-12-2023 Beta hCG Qnt 581973 mIU/mL High 1-3 [facility] Comment on above: Result Comment: 'F N ON < 1 - 3' ' 0.2 - 1 WEEK = 5 TO 50' ' 1 - 2 WEEKS = 50 - 500' ' 2 - 3 WEEKS = 100 - 5000' ' 3 - 4 WEEKS = 500 - 76922' ' 4 - 5 WEEKS = 1000 - 56834' ' 5 - 6 WEEKS = 97500 - 493289' ' 6 - 8 WEEKS = 91600 - 300277' ' 8 - 12 WEEKS = 93036 - 469880' Performed By: #### 2 768421 ####[facility] [address] [place] [address] CHEMISTRYOrdered By: SYSTEM SYSTEM on 12-12-2023 HCG.beta subunit Qn 619316 m[IU]/mL High 1 - 3 mIU/mL Remisol Chem Comment on above: Result Comment: 'F N ON < 1 - 3' ' 0.2 - 1 WEEK = 5 TO 50' ' 1 - 2 WEEKS = 50 - 500' ' 2 - 3 WEEKS = 100 - 5000' ' 3 - 4 WEEKS = 500 - 79749' ' 4 - 5 WEEKS = 1000 - 84374' ' 5 - 6 WEEKS = 63890 - 555198' ' 6 - 8 WEEKS = 03162 - 855974' ' 8 - 12 WEEKS = [address] - 395376' Consent for Treatmenton 11-16 Consent for Treatment [id number] [id number]#1.0 0TIFF Normal [facility] Patient Educationon 12-12-19 Patient Education Emergency Medicine Medical Screening Exam [...] including vitamins, herbs, eye drops, creams, and yvia-otl-npenlax medicines. ? Any problems you or family [...] if you need an emergent specialist or lifestyle consultant that is not available at the medical center you are at. ? You need to have more tests. A medical technologist generalist may be consulted if needed. Get help [...] provider. Document Revised: 06/14/2022 Document Reviewed: 02/09/2022 [employer] Patient Education ? 2022 [employer]. Obstetrics and Gynecology Health Maintenance, Female Adopting [...] disease. What (more content not included)... Normal [facility] Physician Orderon 12-12-2023 Physician Order [id number]#1. 00TIFF [facility] CHEMISTRYOrdered By: SYSTEM SYSTEM on 06-08-2023 Glucose 3 Hr post 75 g glucose PO [Mass/Vol] 87 mg/dL Normal 55 - 140 mg/dL [facility] Remisol Glucose 2 Hr post 75 g glucose PO [Mass/Vol] 136 mg/dL Normal 55 - 155 mg/dL [facility] Remisol Glucose 1 Hr post 75 g glucose PO [Mass/Vol] 166 mg/dL Normal 55 - 180 mg/dL [facility] Remisol Glucose post fast [Mass/Vol] 93 mg/dL Normal 55 - 99 mg/dL [facility] Remisol CHEMISTRYOrdered By: Lab ROP User on 06-08-2023 Glucose [Mass/Vol] 86 mg/dL Normal 55 - 99 mg/dL [facility] POC Subsection Comment on above: Result Comment: Repe at Test POC Device SN [id number] Invalid Interpretation Code [facility] POC Subsection POC User ID [id number] Invalid Interpretation Code [facility] POC Subsection POC Username NEHEMIAH VENEGAS Invalid Interpretation Code [facility] POC Subsection Capillary Glucose POCon 05-16 Glucose [Mass/Vol] 86 mg/dL Normal 55-99 [facility] Comment on above: Result Comment: Repe at Test Performed By: #### 2 [id number] ####[facility] [address] [place] [address] Consent for Treatmenton 05-16 Consent for Treatment [id number]#1.0 [id number]:127 Normal [facility] Glu 1 Hron 06-08-2023 Glucose [Mass/Vol] 166 mg/dL Normal 55-180 [facility] Comment on above: Result Comment: POSI TIVE SCREEN = 1 HR > 140 mg/dL Performed By: #### 2 203778 ####[facility] [address] [place] [address] Glu 2 Hron 06-08-2023 Glucose [Mass/Vol] 136 mg/dL Normal 55-155 [facility] Comment on above: Result Comment: DIAB ETES FASTING >126 mg/dL or 2 HOUR >200 mg/dL Performed By: #### 2 171065 ####[facility] [address] [place] [address] Glu 3 Hron 06-08-2023 Glucose [Mass/Vol] 87 mg/dL Normal 55-140 [facility] [facility] Comment on above: Result Comment: GEST ATIONAL DIABETES 2 of the following: FASTING >95 mg/dL 1 HOUR >180 mg/dL 2 HOUR >155 mg/dL 3 HOUR >140 mg/dL Performed By: #### 2 [id number] ####[facility] [address] [place] [address] Glu Fastingon 06-08-2023 Glucose [Mass/Vol] 93 mg/dL Normal 55-99 [facility] Comment on above: Performed By: #### 2 [id number] ####[facility] [address] [place] [address] Physician Orderon 06-08-2023 Physician Order [id number] 0CD:127 Normal [facility] Auto Diffon 05-29-2023 Basophils/100 WBC (Bld) 0.3 % Normal 0.0-2.[address] [facility] Comment on above: Order Comment: Order Added by Discern Expert. Performed By: #### 2 [id number], [id number], [id number] ####[facility] [address] [place] [address] Basophils/Leukocytes Auto (Bld) [Pure # fraction] 0.0 E9/L Normal 0.0-0.2 [facility] Comment on above: Order Comment: Order Added by Discern Expert. Performed By: #### 2 235684, [id number], 7451561 ####[facility] [address] [place] [address] Eosinophils/100 WBC (Bld) 0.7 % Normal 0.0-8.0 [facility] Comment on above: Order Comment: Order Added by Discern Expert. Performed By: #### 2 589034, [id number], [id number] ####[address] [address] Eosinophils/Leukocytes Auto (Bld) [Pure # fraction] 0.1 E9/L Normal 0.0-0.5 [facility] Comment on above: Order Comment: Order Added by Montserrat Expert. Performed By: #### 2 335795, [id number], [id number] ####[address] [address] Lymphocytes/100 WBC (Bld) 20.4 % Normal 14.0-50.0 [facility] Comment on above: Order Comment: Order Added by Montserrat Expert. Performed By: #### 2 223497, [id number], [id number] ####[address] [address] Lymphocytes/Leukocytes Auto (Bld) [Pure # fraction] 1.9 E9/L Normal 1.0-4.0 [facility] Comment on above: Order Comment: Order Added by Montserrat Expert. Performed By: #### 2 842340, [id number], 6365902 ####[address] [place] [address] Monocytes/100 WBC (Bld) 5.7 % Normal 4.0-14.0 [facility] Comment on above: Order Comment: Order Added by Montserrat Expert. Performed By: #### 2 672182, [id number], [id number] ####[address] [address] Monocytes/Leukocytes Auto (Bld) [Pure # fraction] 0.5 E9/L Normal 0.2-1.0 [facility] Comment on above: Order Comment: Order Added by Discern Expert. Performed By: #### 2 112504, [id number], [id number] ####[facility] [address] [place] [address] Neutrophils/100 WBC (Bld) 72.9 % Normal 36.0-75.0 [facility] Comment on above: Order Comment: Order Added by Discern Expert. Performed By: #### 2 102118, [id number], 7058388 ####[address] [place] [address] Neutrophils/Leukocytes Auto (Bld) [Pure # fraction] 6.9 E9/L Normal 2.0-7.5 [facility] Comment on above: Order Comment: Order Added by Discern Expert. Performed By: #### 2 797107, [id number], 6781135 ####[address] [address] CBC w/ Auto Diffon 3 Erythrocyte distribution width (RBC) [Ratio] 13.5 % Normal 10.9-14.2 [facility] Comment on above: Performed By: #### 2 030588, [id number], 6998632 ####[address] [address] Hematocrit (Bld) [Volume fraction] 32.8 % Low 34.0-46.0 [facility] Comment on above: Performed By: #### 2 275557, [id number], 9073474 ####[facility] [address] [place] [address] Hemoglobin (Bld) [Mass/Vol] 11.2 g/dL Low 12.0-16.0 [facility] Comment on above: Performed By: #### 2 495308, [id number], 6246003 ####[address] [place] [address] MCH (RBC) [Entitic mass] 30.1 pg Normal 27.0-34.0 [facility] Comment on above: Performed By: #### 2 350235, [id number], 7409780 ####[address] [address] MCHC (RBC) [Mass/Vol] 34.1 g/dL Normal 31.4-36.0 [facility] Comment on above: Performed By: #### 2 216875, [id number], 2472152 ####[address] [address] MCV (RBC) [Entitic vol] 88.3 fL Normal 80.0-100.[address] [facility] Comment on above: Performed By: #### 2 700367, [id number], 4013918 ####[address] [address] Platelet mean volume (Bld) [Entitic vol] 8.9 fL Normal 6.4-10.8 [facility] Comment on above: Performed By: #### 2 983636, [id number], 9030497 ####[address] [address] Platelets (Bld) [#/Vol] 296.0 E9/L Normal 150.0-500.0 [facility] Comment on above: Performed By: #### 2 374765, [id number], 6645576 ####[address] [address] RBC (Bld) [#/Vol] 3.7 E12/L Low 4.3-5.9 [facility] Comment on above: Performed By: #### 2 178874, [id number], 9852281 ####[address] [address] WBC corrected for nucl RBC Auto (Bld) [#/Vol] 9.5 E9/L Normal 4.0-11.0 [facility] Comment on above: Performed By: #### 2 983472, [id number], 9833427 ####[facility] [address] [place] [address] CHEMISTRYOrdered By: SYSTEM SYSTEM on 05-29-2023 Glucose 1 Hr post 50 g glucose PO [Mass/Vol] 146 mg/dL High 55 - 140 mg/dL [facility] Remisol Consent for Treatmenton 05-15 Consent for Treatment [id number] 0CD:127 Normal [facility] Gest Scr Glu 1 Hron 05-29-20 Glucose [Mass/Vol] 146 mg/dL High 55-140 [facility] Comment on above: Result Comment: Posi tive Screen =1 HR > 140mg/dL Performed By: #### 2 345446, [id number], [id number] ####[facility] [address] [place] [address] HEMATOLOGYOrdered By: SYSTEM SYSTEM on 05-29-2023 Basophils/100 [...] [facility] Physician Orderon 05-29-2023 Physician Order [id number]:127 Normal [facility] BOX TEST SENT OUTon 01-30-20 23 SENT TO REF LAB 01/29/2023 Normal [facility] Comment on above: Performed By: #### B OX #### [facility] [address] [place] [address] Dr. Lydia De Dios US PREG TVon 01-19-2023 US PREG TV [...] by: GLEN RALPH Date: 2023-01-19 10:36 Normal [facility] CHEMISTRYOrdered By: SYSTEM SYSTEM on 12-23-2022 [...] PROGRESSon 06-20-2018 Protein mass conc HNO ID: [id number]: Funmilayo Sanchez (Rt)e: RadiologyAuthor Type: TechnicianType: Progress NotesFiled: 06/20/2018 3:02 PMNote Text: Radiology Service Progress NotePATIENT NAME: Paramjit ChappellN: [id number] OF SERVICE: June 20, 2018TIME: 3:01 PMPATIENT IDENTITY VERIFICATION COMPLETED USING TWO (2) METHODS: Patientconfirmed name verbally and ID Band .PATIENT GENDER DATA: Female. status: : NoBreastfeeding status: NO.PATIENT RELEVANT IMPLANT DATA REVIEWED: Not ApplicableRADIOLOGY DEPARTMENT: General X-ray: Exam(s) Completed: HSGPERIPHERAL IV DATA: Not applicableSIGNED BY: Funmilayo Bermudez, RTSept2017 3:01 PM [facility] XR HYSTEROSALPINGOGRAMon XR HYSTEROSALPINGOGRAM * * *Final Report * * *DATE OF EXAM: Jun 20 2018 2:58PM X [id number] - XR HYSTEROSALPINGOGRAM / REASON: infertility testing * * * * Physician Interpretation * * * * XR HYSTEROSALPINGOGRAMPRO VIDED HISTORY: infertility testingCOMPARISON: No previous similar exams are available for comparisonTECHNIQUE: Fluoroscopic Radiation Summary:Plane A, Air Kerma: 9.4 mGyDose Area Product (DAP): 0.0 mGy*sjM4Dhfrcn time: 0:12 min:secRESULT: 3 spot images were obtained of the pelvis. Contrast was administered by the RN ADMISSIONS physician with approximately 5 cc of contrast [...] DAVILA MD on Jun 20 2018 4:10PM [id number] Normal [facility] Vital Signs Date Time Vital Sign Value Performing Clinician Faci lity 06-08-2022 16:10-0400 Blood Pressure Location Samira Null [facility] 06-08-2022 16:10-0400 Body temperature 98.42 [degF] Samira Null [facility] 06-08-2022 16:10-0400 Diastolic blood pressure 70 mm[Hg] Samira Null [facility] 06-08-2022 16:10-0400 Heart rate 75 /min Samira Null [facility] 06-08-2022 16:10-0400 Respiratory rate 16 /min Samira Null [facility] 06-08-2022 16:10-0400 SaO2% (BldA) [Mass fraction] 98 % Samira Null [facility] 06-08-2022 16:10-0400 Systolic blood pressure 120 mm[Hg] Samira Null [facility] Encounters Encounter Date Encounter Type Care Provider Facility Start: 06-10-2024 End: 06-10-2024 ambulatory TU HUMPHREY Not Available Start: 05-28-2024 End: 05-28-2024 ambulatory DARREL TRAV Not Available Start: 05-14-2024 End: 05-14-2024 ambulatory TU HUMPHREY Not Available Start: 04-29-2024 End: 04-29-2024 ambulatory TU HUMPHREY Not Available Start: 04-15-2024 End: 04-15-2024 ambulatory DARREL TRAV Not Available Start: 04-14-2024 End: 04-14-2024 ambulatory Darrel R TRVA Facility[facility] Start: 04-14-2024 End: 04-14-2024 Patient encounter procedure Darrel R TRAV [facility] Start: 03-18-2024 End: 03-18-2024 ambulatory DARREL TRAV Not Available Start: 02-20-2024 End: 02-20-2024 ambulatory TU HUMPHREY Not Available Start: 01-22-2024 End: 01-22-2024 ambulatory DARREL TRAV Not Available Start: 01-08-2024 End: 01-08-2024 ambulatory Darrel R TRAV Facility:[facility] Start: 01-08-2024 End: 01-08-2024 Patient encounter procedure Darrel R TRAV [facility] Start: 01-04-2024 End: 01-04-2024 ambulatory DARREL TRAV Not Available Start: 12-24-2023 End: 12-24-2023 ambulatory Mariya Oneal Facility:[facility] Start: 12-24-2023 End: 12-24-2023 Patient encounter procedure Mariyamaria del carmen Oneal [facility] Start: 12-24-2023 End: 12-24-2023 Well adult monitoring check done Mariya Oneal [facility] Start: 12-14-2023 End: 12-14-2023 ambulatory Darrel R TRAV Facility:[facility] Start: 12-14-2023 End: 12-14-2023 Patient encounter procedure Darrel R TRAV [facility] Start: 12-12-2023 End: 12-12-2023 ambulatory Darrel R TRAV Facility:[facility] Start: 12-12-2023 End: 12-12-2023 Patient encounter procedure Darrel R TRAV [facility] Start: 10-09-2023 End: 10-09-2023 ambulatory DARREL MUNGUIAO Not Available Start: 07-23-2023 End: 10-21-2023 ambulatory DO Jewel Schmidt Facility:[facility] Start: 06-08-2023 End: 06-08-2023 ambulatory Darrel R TRAV Facility:[facility] Start: 06-08-2023 End: 06-08-2023 Patient encounter procedure Darrel R TRAV [facility] Start: 05-29-2023 End: 05-29-2023 ambulatory TU YIN Facility:[facility] Start: 05-29-2023 End: 05-29-2023 Patient encounter procedure TU YIN [facility] Start: 01-29-2023 End: 01-30-[address] DARREL RAVI . Facility: Start: 01-19-2023 End: 01-20-[address] DARREL RAVI . Facility: Start: 12-23-2022 End: 12-23-2022 Patient encounter procedure Darrel RAVI [facility] Start: 12-22-2022 End: 12-22-2022 Lab Drop off Darrel MUNGUIAO [facility] Start: 12-16-2022 End: 12-16-2022 Patient encounter procedure Darrel Butler TRAV [facility] Start: 12-06-2022 End: 12-06-2022 Patient encounter procedure Darrel LOWRYZIO [facility] Start: 10-26-2022 End: 10-26-2022 Patient encounter procedure Jeison Emanuely [facility] Start: 10-20-2022 End: 10-20-2022 Patient encounter procedure Jeison Emanuely [facility] Start: 06-09-2022 End: 06-09-2022 Patient encounter procedure Samira Null [facility] Start: 06-08-2022 End: 06-08-2022 Patient encounter procedure Samira Null [facility] Start: 06-08-2022 End: 06-08-2022 Well adult monitoring check done Samira Null [facility] Start: 03-24-2022 End: 03-24-2022 Patient encounter procedure Jeison Emanuely [facility] Start: 03-02-2022 End: 03-02-2022 Patient encounter procedure Jeison Austin Printy [facility] Start: 06-20-2018 Patient encounter NEDRA MONTE [facility] Procedures Date Procedure Procedure Detail Performing Clinician Start: 03-11-2019 Betamethasone (substance) Jeison Leon Start: 03-10-2019 Betamethasone (substance) Jeison Leon Augmentation mammoplasty Lianna an Edward Breast prosthesis, d evice (physical object) Jeison Leon Immunizations Immunization Date Immunization Notes Care Provider Fa reji 07-23-2023 influenza virus vaccine, unspecified formulation Darrel RAVI [facility] Comment on above: Reason for Medicatio n: Prophylaxis 08-03-2022 influenza virus vaccine, unspecified formulation Jeison Leon [facility] Comment on above: Reason for Medicatio n: Prophylaxis 08-09-2021 influenza virus vaccine, unspecified formulation; Translations: [Fluzone PF Quadrivalent ] Jeison Leon [facility] Comment on above: Reason for Medicatio n: Prophylaxis 02-19-2021 COVID-19, mRNA, LNP- S, PF, 30 mcg/0.3 mL dose; Translations: [Pfizer-BioNTech COVID-19 Vaccine] Jeison Leon [facility] Comment on above: Reason for Medicatio n: Prophylaxis 01-29-2021 COVID-19, mRNA, LNP- S, PF, 30 mcg/0.3 mL dose; Translations: [Pfizer-BioNTech COVID-19 Vaccine] Jeison Leon [facility] Comment on above: Reason for Medicatio n: Prophylaxis 08-22-2019 influenza virus vaccine, live, attenuated, for intranasal use Jeison Leon [facility] 04-11-2019 tetanus toxoid, redu vanesa diphtheria toxoid, and acellular pertussis vaccine, adsorbed; Translations: [Adacel (Tdap)] Jeison Leon [facility] Payers Date Payer Category Payer Unknown [id number] 2.16.84 [id number] 1992 Unknown [id number] 2.16.84 0.1.399325.3.579.2.593 1992 Unknown [id number] 2.16.8 40.1.270398.3.579.2.727 1992 Unknown [id number] 2.16.8 40.1.744065.3.579.2.727 1992 Unknown [id number] 2.16.8 40.1.386302.3.579.2.727 1992 Unknown [id number] 2.16.8 40.1.833995.3.579.2.727 1992 Unknown [id number] 2.16.8 40.1.643782.3.579.2.727 1992 Unknown [id number] 2.16.8 40.1.685326.3.579.2.727 1992 Unknown [id number] 2.16.8 40.1.025774.3.579.2.727 1992 Unknown [id number] 2.16.8 40.1.661944.3.579.2.727 1992 Unknown [id number] 2.16.84 0.1.676859.3.579.2.1259 1992 Unknown [id number] 2.16.84 0.1.095541.3.579.2.1259 1992 Unknown [id number] 2.16.84 0.1.715949.3.579.2.1259 1992 Unknown [id number] 2.16.84 0.1.171863.3.579.2.1259 1992 Unknown [id number] 2.16.84 0.1.477922.3.579.2.1259 1992 Unknown [id number] 2.16.84 0.1.195928.3.579.2.1259 1992 Unknown [id number] 2.16.84 0.1.615087.3.579.2.9 1992 Unknown [id number] 2.16.84 0.1.806465.3.579.2.1259 1992 Unknown [id number] 2.16.84 0.1.638737.3.579.2.9 1992 Unknown [id number] 2.16.840 .1.470700.3.579.2.1259 1959 Unknown [id number] Social History Date Type Detail Facility Start: 06-16-2021 End: 06-12-2022 Tobacco smoking status Ex-smoker (finding) [facility] Tobacco smoking status Never [facility] Sex Assigned At Female [facility] Functional Status Date Assessment Result Facility 06-08-2022 Functional Status N/A [facility] Evaluation + Plan note 01-08-2024 Note Date & Type Note Facility 01-08-2024 Evaluation + Plan note Diagnostic Tests PendingRPR with Conf Rfx 01/08/24Rubella Antibody IgG 01/08/24epatitis B Surface Antigen 01/08/24CV Antibody RFX to Quant PCR 01/08/24IV Screen 4th Generation wRfx 01/08/24Urine Culture 01/08/24 [facility] Hospital Discharge instructions 12-12-2023 Note Date [...] including vitamins, herbs, eye drops, creams, and fpra-jqv-augzlrj medicines. Any problems you or family members [...] if you need an emergent specialist or lifestyle consultant that is not available at the medical center you are at. You need to have more tests. A medical technologist generalist may be consulted if needed. Get help [...] provider. Document Revised: 06/14/2022 Document Reviewed: 02/09/2022 [employer] Patient Education 2022 [employer]. 12/12/2023 07:29:07 Health Maintenance, Female Health Maintenance, [...] provider. Document Revised: 02/20/2022 Document Reviewed: 02/20/2022 [employer] Patient Education 2022 [employer]. Follow Up Care 11/15/2023 13:38:14 With:Mariya Girard Address: [address] [place] [address] [place] [address]- When:Within 6 Month(s) Comments:[facility] Evaluation + Plan note 12-06-2022 Laboratory Note Date & Type Note Facility 12-06-2022 Evaluation + Plan note Diagnostic Tests PendingAnti-Mullerian Hormone (AMH) 12/06/22 Future Scheduled TestsCOVID-19 ([facility]) 05/24/22 [facility] Hospital Discharge instructions 06-08-2022 Note Date [...] produces. Follow these instructions at home: Take wkgj-bwz-sbectnx and prescription medicines only as told by [...] 01/25/2006 Document Revised: 09/13/2018 Document Reviewed: 03/18/2017 [employer] Patient Education 2020 [employer]. 06/08/2022 16:45:33 Health Maintenance, Female Health Maintenance, [...] 04/15/2012 Document Revised: 09/24/2019 Document Reviewed: 09/24/2019 [employer] Patient Education 2020 [employer]. Follow Up Care 06/06/2022 18:36:13 With:Samira Null CNP Address: [address] [place] [phone] [phone] When:1 year Comments:or sooner if needed [facility] Evaluation + Plan note 06-08-2022 Laboratory Note Date & Type Note Facility 06-08-2022 Evaluation + Plan note Future Scheduled [id number] 06/08/22COVID-19 ([facility]) 05/24/22Lipid Panel 06/08/22 [facility] Evaluation + Plan note 05-24-2022 Laboratory Note Date & Type Note Facility 05-24-2022 Evaluation + Plan note Future Scheduled TestsCOVID-19 ([facility]) 05/24/22 [facility] Evaluation + Plan note Note Date & Type Note Facility Evaluation + Plan note No data available for this section [facility] Evaluation + Plan note Note Date & Type Note Facility Evaluation + Plan note Future Appointments Appointment Date:12/24/2023 08:20:00 AM Scheduled Provider:Mariya Girard Location:[facility] Appointment Type:FM Open [facility] Hospital Discharge instructions Note Date & Type Note Facility Hospital Discharge instructions No data available for this section [facility] Progress note Note Date & Type Note Facility Progress note No data available for this section [facility] Summary Purpose Family History No Family History Records FoundNo Family History Records Found No data available for this section No data available for this section No data available for this section No data available for this section No Family History Records FoundNo Family History Records FoundNo Family History Records Found No data available for this section No Family History Records Found Advance Directives No Advanced Directives Records FoundNo Advanced Directives Records FoundNo Advanced Directives Records FoundNo Advanced Directives Records FoundNo Advanced Directives Records FoundNo Advanced Directives Records Found Additional Source Comments INFORMATION SOURCE (unrecogn ized section and content) DATE CREATED AUTHOR 06/29/2018 [facility] DATE CREATED AUTHOR AUTHOR'S ORGANIZ ATION 02/04/2023 [facility] DATE CREATED AUTHOR AUTHOR'S ORGANIZ ATION 04/14/2024 [facility] DATE CREATED AUTHOR AUTHOR'S ORGANIZ ATION 04/15/2024 [facility] DATE CREATED AUTHOR AUTHOR'S ORGANIZ ATION 06/12/2024 [facility] EPIC Care Team (unrecognized sect ion and content) Personnel Name: Samira Null CNP Address: [address] [place] [address] Personnel Name: Samira Null CNP Address: [address] [place] [address] Personnel Name: Samira Null CNP Address: Address: [address] [place] [address] Personnel Name: Samira Null CNP Address: Address: [address] [place] [address] Personnel Name: Samira Null CNP Address: Address: [address] [place] [address] Personnel Name: Samira Null CNP Address: Address: [address] [place] [address] Personnel Name: Samira Null CNP Address: Address: [address] [place] [address] Personnel Name: Samira Null CNP Address: Address: [address] [place] [address] Personnel Name: Samira Null CNP Address: Address: [address] [place] [address] Personnel Name: NONE, XXXX Address: Address: [facility] Personnel Name: Mariya Girard Address: Address: [address] [place] [address] Personnel Name: Mariya Girard Address: Address: [address] A [address] Personnel Name: Mariya Girard Address: Address: [place] A [address] Personnel Name: Mariya Girard Address: Address: [facility] A [address] Personnel Name: Mariya Girard Address: Address: [facility] A [address] FOR RECORDS PERTAINING TO PATIENTS WHO [...] BE BASED ON THE PRIMARY CLINICAL RECORDS. [facility] [employer], [facility]. provides no warranty or guarantee of the accuracy or completeness of information in this document.
== END 2024-06-25 19:56 | disposition home or self-care (01) ==
LOC: LAB 19:55
PROVIDERS: PCP Physician Assistant; Visit Provider Obstetrics & Gynecology
DX: Z34.93 Encounter for supervision of normal pregnancy, unspecified, third trimester (principal)
CPT/HCPCS: 87081; 87150

== ENCOUNTER 2024-07-15 09:09 | Inpatient (IN) | payer OTHER, SELFPAY ==
[2024-07-15] VITALS (12 sets, daily range): BP systolic 113–136; BP diastolic 59–80; PULSE 67–90; TEMP 35.8–37.2
[2024-07-15 10:29] LABS: Hematocrit 37.5 % (36.0-48.0); Hemoglobin 12.8 g/dL (12.0-16.0); Mean Corpuscular HGB Conc 34.1 g/dL (29.9-35.2); Mean Corpuscular Hemoglobin 30.4 pg (26.7-34.0); Mean Corpuscular Volume 89.1 fL (81.0-99.0); Mean Platelet Volume 9.9 fL (9.5-13.5); Platelet Count 307 10^3/uL (150-450); Red Blood Count 4.21 10^6/uL (4.20-5.40); Red Cell Distribution Width 12.5 % (11.0-15.0); White Blood Count 12.9 10^3/uL (4.0-11.0)
[2024-07-15 11:54] LABS: Amphetamine Screen Urine NEGATIVE (NEGATIVE); Barbiturates Screen Urine NEGATIVE (NEGATIVE); Benzodiazepines Screen Urine NEGATIVE (NEGATIVE); Buprenorphine Screen Urine NEGATIVE (NEGATIVE); Cannabinoid Screen Urine NEGATIVE (NEGATIVE); Cocaine Screen Urine NEGATIVE (NEGATIVE); Methadone Screen Urine NEGATIVE (NEGATIVE); Methamphetamines Screen Urine NEGATIVE (NEGATIVE); Opiate Screen Urine NEGATIVE (NEGATIVE); Oxycodone Screen Urine NEGATIVE (NEGATIVE); Phencyclidine Screen Urine NEGATIVE (NEGATIVE); Tricyclic Antidepressant Urine NEGATIVE (NEGATIVE)
--- NOTE | 2024-07-15 14:00 | PC.NURSE ---
rates pain an 8, up to BR, fluid s started iv, mec fluid noted on chux
[2024-07-15] MEDS: 0.9 % SODIUM CHLORIDE 1,000 ML 125 ML IV (14:06)
[2024-07-15] MEDS: OXYTOCIN/0.9 % SODIUM CHLORIDE 10 UNITS/500 ML PLAST..BAG 6 UNIT IV (15:36)
[2024-07-15] MEDS: OXYTOCIN/0.9 % SODIUM CHLORIDE 20 UNITS/1,000 ML PLAST..BAG 125 UNIT IV (16:20)
--- NOTE | 2024-07-15 16:20 | PM.OBPRCVD ---
Procedure Intrapartal events: None Induction method: artificial rupture of membranes Delivery augmentation: pitocin Delivery monitor: external FHT and external uterine Route of delivery: Episiotomy Description: none L&D Laceration Description: none Estimated blood loss (mL): 250 Anesthesia type: None Disposition: floor Infant Delivery date: 07/15/24 Gender: female presentation: vertex Placental delivery description: Spontaneous cord description: 3 Vessels
[2024-07-15] MEDS: IBUPROFEN 600 MG TABLET PO (16:47)
[2024-07-16 02:36] VITALS: BP 111/62; PULSE 72; TEMP 36.7
[2024-07-16] MEDS: IBUPROFEN 600 MG TABLET PO ×2 (02:43→09:01)
--- NOTE | 2024-07-16 05:46 | PM.OBPN ---
OB - PN: Subj Subjective Patient comments: no complaints and pain well controlled Mcdaniel status: doing well Exam Constitutional Vital Signs, click to edit/add: Last Vital Signs Temp 98.1 F 07/16/24 02:36 Pulse 72 07/16/24 02:36 Resp 12 07/16/24 02:36 BP 111/62 07/16/24 02:36 O2 Del Method Room Air 07/16/24 02:37 Documenting provider has reviewed patient's vital signs: yes Common normals: no apparent distress Respiratory Common normals: clear to auscultation bilaterally Cardio Common normals: regular rate and regular rhythm GI Common normals: Normal to inspection, nondistended, normoactive bowel sounds present Extremity Common normals: no clubbing, cyanosis or edema Results Labs Labs: Short CBC 07/15/24 Range/Units 10:22 WBC 12.9 H (4.0-11.0) 10^3/uL Hgb 12.8 (12.0-16.0) g/dL Hct 37.5 (36.0-48.0) % Plt Count 307 (150-450) 10^3/uL OB - PN: A/P Plan - Vaginal Delivery day: 1 Plan: routine care, discharge home and follow up 6 weeks Time Spent with Patient Time: Total time spent is greater than 50% in coordination of care (as documented) at patient's floor/unit and/or counseling patient: Total time spent with greater than 50% in coordination of care (as documented) at patient's floor/unit and/or counseling patient: less than 15 minutes
[2024-07-16 06:55] LABS: Basophils Percent Auto 0.3 % (0.2-2.0); Eosinophils Absolute Auto 0.1 10^3/uL (0.0-0.7); Eosinophils Percent Auto 0.6 % (0.9-7.0); Hematocrit 34.1 % (36.0-48.0); Hemoglobin 11.4 g/dL (12.0-16.0); Immature Granulocytes Abs Auto 0.13 10^3/uL (0.00-0.03); Lymphocytes Absolute Auto 3.3 10^3/uL (1.2-3.8); Lymphocytes Percent Auto 24.6 % (20.5-60.0); Mean Corpuscular HGB Conc 33.4 g/dL (29.9-35.2); Mean Corpuscular Volume 89.7 fL (81.0-99.0); Mean Platelet Volume 10.1 fL (9.5-13.5); Monocytes Percent Auto 7.2 % (1.7-12.0); Neutrophils Absolute Auto 8.8 10^3/uL (1.4-6.5); Neutrophils Percent Auto 66.3 % (43.0-75.0); Platelet Count 282 10^3/uL (150-450); Red Cell Distribution Width 12.6 % (11.0-15.0); White Blood Count 13.2 10^3/uL (4.0-11.0)
[2024-07-16 08:55] VITALS: BP 128/70; PULSE 68
[2024-07-16 08:58] VITALS: TEMP 36.7
[2024-07-16] MEDS: DOCUSATE SODIUM 100 MG CAPSULE PO (09:01)
== END 2024-07-16 19:30 | disposition home or self-care (01) | DRG 807 ==
PROVIDERS: Admitting Provider Obstetrics & Gynecology; PCP Physician Assistant; Visit Provider Obstetrics & Gynecology
DX: O80 Encounter for full-term uncomplicated delivery (principal); Z37.0 Single live birth; Z3A.39 39 weeks gestation of pregnancy
CPT/HCPCS: 36415; 59050; 59410; 80307; 85025; 85027; 86900; 86901

== ENCOUNTER 2024-09-02 08:56 | Outpatient (OUT) | payer OTHER, SELFPAY | END 2024-09-02 08:57 | disposition home or self-care (01) | LOC: PST 08:58 | PROVIDERS: Visit Provider Obstetrics & Gynecology | DX: Z01.818 Encounter for other preprocedural examination (principal); Z30.2 Encounter for sterilization ==

== ENCOUNTER 2024-09-05 07:26 | Day surgery (SDC) | payer OTHER, SELFPAY ==
[2024-09-02 09:26] VITALS: BP 124/88; PULSE 67; TEMP 36.3; O2SAT 100; BMI 33.1
[2024-09-05] VITALS (16 sets, daily range): BP systolic 112–131; BP diastolic 67–93; PULSE 64–89; TEMP 36.1–36.4; O2SAT 95–100; BMI 35.0
--- OUTSIDE RECORDS SUMMARY | 2024-09-05 07:29 | XMS_ITS | CCD ---
Author Organization [facility] Informat ion [facility] Care Team Providers Care Dog Licenser Name Role Phone TANTIBHEDHYANGKUL, JULIERUT Unavailable Unav ailable TANTIBHEDHYANGKUL, JULIERUT Unavailable Unav ailable Juhi FIGUEROA Primary Care Physician Samira Null Primary Care Physician KEYANA ., DR ROJO Admitting Unavailable KEYANA ., DR ROJO Attending Unavailable KEYANA ., DR ROJO Consulting Unavailable ZIEBER, DR GLEN Butler Consulting Unavailable KEYANA ., DR ROJO Admitting Unavailable KEYANA ., DR ROJO Attending Unavailable KEYANA ., DR ROJO Consulting Unavailable NONE, XXXX Primary Care Physician Unavailab Mariya Hicks Primary Care Physician [phone] KEYANA, Darrel R Admitting Unavailable KEYANA, Darrel R Attending Unavailable KEYANA, Darrel R Admitting Unavailable KEYANA, Darrel R Attending Unavailable Mariya Oneal Attending Unavailab EUGENIE Ferreira Admitting Unavailable EUGENIE YIN Attending Unavailable KEYANA, Darrel R Attending Unavailable KEYANA, Darrel R Admitting Unavailable KEYANA, Darrel R Attending Unavailable KEYANA, Darrel R Admitting Unavailable KEYANA, Darrel R Admitting Unavailable KEYANA, Darrel R Attending Unavailable DO Jewel Schmidt Attending Unavailable Unallocated , Shyams Provider Primary Care Provi obed Eugenie Loredo Unavailable Unallocatremi CAMACHO, Shyams Provider Primary Care Provi obed Laisha Fuentes Attending Unavailable Laisha Fuentes Attending Unavailable Laisha Fuentes Admitting Unavailable Darrel RIDLEY R Attending Unavailable Darrel RIDLEY R Admitting Unavailable Laisha Fuentes Primary Care Physician Marcelo CHONG Attending Unavailable Laisha Fuentes Attending Unavailable Laisha Fuentes Admitting Unavailable KEYANA, DARREL Attending Unavailable HUMPHREY, EUGENIE Attending Unavailable KEYANA, DARREL Attending Unavailable KEYANA, DARREL Attending Unavailable HUMPHREY, EUGENIE Attending Unavailable HUMPHREY, EUGENIE Attending Unavailable KEYANA, DARREL Attending Unavailable HUMPHREY, EUGENIE Attending Unavailable KEYANA, DARREL Attending Unavailable KEYANA, DARREL Attending Unavailable KEYANA, DARREL Attending Unavailable KEYANA, DARREL Attending Unavailable KEYANA, DARREL Attending Unavailable KEYANA, DARREL Attending Unavailable Allergies Allergy Classification Reported Allergen(s) Allergy Type Date of Onset Reaction(s) Facility (3 sources) No Known Medication Allergies; Translations: [No Known Medication Allergies] Propensity to adverse reactions (disorder) [facility] Medications Current Medications Medication Drug Class(es) Dates Sig (Normalized) Sig (Original) aspirin 81 mg delayed release oral tablet (5 sources) Platelet Aggregation Inhibitor, Nonsteroidal Anti-inflammator y Drug take 1 tablet by mouth once daily aspirin 81 MG EC tablet Take 81 mg by mouth Daily Active ibuprofen 600 mg oral tablet (17 sources) Nonsteroidal Anti-inflammator y Drug Start: 1 take 1 tablet by mouth every six hours ibuprofen 600 mg Tab 600 mg = 1 tab(s), Oral, q6hr, # 15 tab(s), Refills(s) 0, Pharmacy: [facility], 157.4, cm, 12/25/20 2:16:00 EST, Height/Length Dosing, 93.2, kg, 12/25/20 2:16:00 EST, Weight Dosing Start Date: 12/27/20 Status: Ordered Iron (5 sources) take 15 mL by mouth once daily Iron 18 MG/15ML liquid Take 15 mL by mouth Daily Active letrozole 2.5 mg oral tablet (2 sources) Aromatase Inhibitor Start: 2 End: 2 take 1 tablet by mouth once daily letrozole 2.5 mg Tab 2.5 mg = 1 tab(s), Oral, Daily, X 7 day(s), # 7 tab(s), Refills(s) 0 Start Date: 06/08/22 Stop Date: 06/15/22 Status: Ordered Magnesium (5 sources) Start: 4 magnesium 250 MG tablet 02/03/2024 Active medroxyPROGESTERone acetate 10 mg oral tablet (15 sources) Progestin Start: 2 take 1 tablet by mouth once daily medroxyPROGESTERone 10 mg Tab 10 mg = 1 tab(s), Oral, Daily, # 30 tab(s), Refills(s) 0 Start Date: 06/08/22 Status: Ordered Multiple Vitamin (multivitamin) tablet (5 sources) take 1 tablet by mouth in the morning Multiple Vitamin (multivitamin) tablet Take 1 tablet by mouth in the morning. Active omega-3 acid ethyl esters (long term) 1000 mg oral capsule (5 sources) take 1 capsule by mouth in the morning omega-3 acid ethyl esters (Lovaza) 1 g capsule Take 1 g by mouth in the morning and 1 g before bedtime. Active AD (19 sources) Start: 8 take 1 tablet by mouth once daily AD 1 tab(s), Oral, Daily, Refill(s) 0 Start Date: 11/26/17 Status: Ordered VITAMIN D, CHOLECALCIFEROL, PO (5 sources) take 1 capsule by mouth once in the morning VITAMIN D, CHOLECALCIFEROL, PO Take 1 capsule by mouth in the morning. Active Completed/Discontinued Medications Medication Drug Class(es) Dates Sig (Normalized) Sig (Original) sertraline 50 mg oral tablet (17 sources) Serotonin Reuptake Inhibitor Start: 08-07-2019 take 1 tablet by mouth once daily Zoloft 50 mg Tab 50 mg = 1 tab(s), Oral, Daily, 0.5 tabs x 1 week then full tab daily., # 30 tab(s), Refills(s) 1, Pharmacy: [facility] Start Date: 08/07/19 Status: Ordered Problems Active Problems Problem Classification Problem Date Documented Date Episodic/Chronic Administrative/social admission (1 source) Counseling procedure with explicit context; Translations: [Dietary counseling and surveillance] Onset: 12-12-2023 Episodic Anxiety disorders (20 sources) Anxiety; Translations: [Anxiety disorder] Onset: 12-12-2023 08-07-2019 Chronic Hypertension complicating ; childbirth and the puerperium (19 sources) -induced hypertension 04-11-2019 Episodic Intestinal infection (19 sources) Clostridium difficile diarrhea 01-28-2017 Episodic Comment on above: Problem added second omar to positive C-Diff lab result. Menstrual disorders (4 sources) Irregular menstruation, unspecified; Translations: [IRREGULAR MENSTRUATION UNSPECIFIED] Onset: 01-19-2023 Chronic Nonspecific chest pain (12 sources) Chest wall pain 06-16-2021 Episodic Other endocrine disorders (12 sources) Polycystic ovaries 11-26-2017 Chronic Other endocrine disorders (18 sources) Polycystic ovary syndrome; Translations: [Polycystic ovarian syndrome] Onset: 06-08-2022 Chronic Other liver diseases (19 sources) Elevated liver enzymes level 06-25-2019 Episodic Other nutritional; endocrine; and metabolic disorders (15 sources) Obesity; Translations: [Obesity, unspecified] Onset: 07-23-2024 06-16-2021 Chronic Other nutritional; endocrine; and metabolic disorders (1 source) Obese class I; Translations: [Body mass index (BMI) 33.0-33.9, adult] Onset: 07-23-2024 Chronic Other nutritional; endocrine; and metabolic disorders (2 sources) Body mass index 30+ - obesity 07-23-2024 Chronic Other and delivery including normal (7 sources) Encounter for supervision of other normal , first trimester; Translations: [Encounter for supervision of normal , unspecified, first trimester] Onset: 01-28-2023 Episodic Pneumonia (except that caused by tuberculosis or sexually transmitted disease) (12 sources) Pneumonia 04-13-2016 Episodic Polyhydramnios and other problems of amniotic cavity (19 sources) Polyhydramnios 12-25-2020 Episodic Residual codes; unclassified (2 sources) Gestation period, 39 weeks; Translations: [39 weeks gestation of ] 07-15-2024 Episodic Unclassified (19 sources) Non-smoker 06-16-2021 Unclassified (20 sources) Patient encounter status 06-25-2019 Past or Other Problems Problem Classification Problem Date Documented Da te Episodic/Chronic Unclassified (20 sources) Onset: 08-15-2018 Resolved: 12-25-2020 04-13-2019 Results Test Name Value Interpretation Reference Range Facility CBC w/ Auto Diffon 4 Basophils/100 WBC (Bld) 0.4 % Normal 0.0-2.0 [facility] Comment on above: Performed By: #### 2 [id number] #### [facility] [address] [place] [address] Basophils/Leukocytes Auto (Bld) [Pure # fraction] 0.0 E9/L Normal 0.0-0.2 [facility] Comment on above: Performed By: #### 2 [id number] #### [facility] [address] [place] [address] Eosinophils (Bld) [#/Vol] 0.2 E9/L Normal 0.0-0.5 [facility] Comment on above: Performed By: #### 2 [id number] #### [facility] [address] [place] [address] Eosinophils/100 WBC (Bld) 1.6 % Normal 0.0-8.0 [facility] Comment on above: Performed By: #### 2 [id number] #### [facility] [address] [place] [address] Erythrocyte distribution width (RBC) [Ratio] 13.2 % Normal 10.9-14.2 [facility] Comment on above: Performed By: #### 2 [id number] #### [facility] [address] [place] [address] Hematocrit (Bld) [Volume fraction] 39.6 % Normal 34.0-46.0 [facility] Comment on above: Performed By: #### 2 [id number] #### [facility] [address] [place] [address] Hemoglobin (Bld) [Mass/Vol] 13.4 g/dL Normal 12.0-16.0 [facility] Comment on above: Performed By: #### 2 [id number] #### [facility] [address] [place] [address] Lymphocytes (Bld) [#/Vol] 2.6 E9/L Normal 1.0-4.0 [facility] Comment on above: Performed By: #### 2 [id number] #### [facility] [address] [place] [address] Lymphocytes/100 WBC (Bld) 26.5 % Normal 14.0-50.0 [facility] Comment on above: Performed By: #### 2 [id number] #### [facility] [address] [place] [address] MCH (RBC) [Entitic mass] 29.9 pg Normal 27.0-34.0 [facility] Comment on above: Performed By: #### 2 [id number] #### [facility] [address] [place] [address] MCHC (RBC) [Mass/Vol] 33.9 g/dL Normal 31.4-36.0 [facility] Comment on above: Performed By: #### 2 [id number] #### [facility] [address] [place] [address] MCV (RBC) [Entitic vol] 88.0 fL Normal 80.0-100.0 [facility] Comment on above: Performed By: #### 2 [id number] #### [facility] [address] [place] [address] Monocytes (Bld) [#/Vol] 0.7 E9/L Normal 0.2-1.0 [facility] Comment on above: Performed By: #### 2 [id number] #### [facility] [address] [place] [address] Neutrophils (Bld) [#/Vol] 6.3 E9/L Normal 2.0-7.5 [facility] Comment on above: Performed By: #### 2 [id number] #### [facility] [address] [place] [address] Neutrophils/100 WBC (Bld) 63.9 % Normal 36.0-75.0 [facility] Comment on above: Performed By: #### 2 [id number] #### [facility] [address] [place] [address] Platelet 360.0 E9/L Normal 150.0-500.0 [facility] Comment on above: Performed By: #### 2 [id number] #### [facility] [address] [place] [address] Platelet mean volume (Bld) [Entitic vol] 8.3 fL Normal 6.4-10.8 [facility] Comment on above: Performed By: #### 2 [id number] #### [facility] [address] [place] [address] RBC (Bld) [#/Vol] 4.5 E12/L Normal 4.3-5.9 [facility] Comment on above: Performed By: #### 2 [id number] #### [facility] [address] [place] [address] WBC corrected for nucl RBC Auto (Bld) [#/Vol] 9.8 E9/L Normal 4.0-11.0 [facility] Comment on above: Performed By: #### 2 [id number] #### [facility] [address] [place] [address] CHEMISTRYOrdered By: SYSTEM SYSTEM on 07-24-2024 Albumin [Mass/Vol] 3.7 g/dL Normal 3.3 - 5.0 gm/dL [facility] Albumin/Globulin [Mass ratio] 1.1 {ratio} Normal 1.1 - 2.2 [facility] ALP [Catalytic activity/Vol] 68 [iU]/d Normal 21 - 98 Int._Unit/L [facility] ALT No additional P-5'-P [Catalytic activity/Vol] 38 [iU]/d Normal 6 - 46 Int._Unit/L [facility] Anion gap [Moles/Vol] 10 mmol/L Normal 6 - 16 mEq/L [facility] AST [Catalytic activity/Vol] 34 [iU]/d Normal 5 - 43 Int._Unit/L [facility] Bilirubin [Mass/Vol] 0.4 mg/dL Normal 0.0 - 1 .1 mg/dL [facility] Calcium [Mass/Vol] 9.4 mg/dL Normal 8.9 - 11. 1 mg/dL [facility] Chloride [Moles/Vol] 103 mmol/L Normal 101 - 1 11 mmol/L [facility] Cholesterol [Mass/Vol] 258 mg/dL High 120 - 200 mg/dL [facility] Cholesterol in HDL [Mass/Vol] 60 mg/dL Invalid Interpretation Code [facility] Comment on above: Result Comment: '>= 60 LOW RISK' '<= 40 HIGH RISK' Cholesterol in LDL [Mass/Vol] 180 mg/dL High <=129mg/dL [facility] Cholesterol in VLDL [Mass/Vol] 35 mg/dL Normal 7 - 40 mg/dL [facility] CO2 [Moles/Vol] 28 mmol/L Normal 21 - 31 mmol/L [facility] Creatinine [Mass/Vol] 1.0 mg/dL Normal 0.5 - 1.3 mg/dL [facility] eGFR 77 mL/min/1.73 m2 Normal >=59mL/min / 1.73 m2 [facility] Globulin (S) [Mass/Vol] 3.5 g/dL Normal 1.4 - 4.0 gm/dL [facility] Glucose [Mass/Vol] 90 mg/dL Normal 55 - 199 mg/dL [facility] Potassium [Moles/Vol] 4.0 mmol/L Normal 3.5 - 5.3 mmol/L [facility] Protein [Mass/Vol] 7.2 g/dL Normal 6.0 - 7.8 gm/dL [facility] Sodium [Moles/Vol] 137 mmol/L Normal 135 - 145 mmol/L [facility] Triglyceride [Mass/Vol] 174 mg/dL High <=149mg/dL [facility] Urea nitrogen [Mass/Vol] 13 mg/dL Normal 5 - 21 mg/dL [facility] Urea nitrogen/Creatinine [Mass ratio] 13 mg/mg Normal 10 - 20 [facility] CMPon 07-24-2024 Albumin [Mass/Vol] 3.7 g/dL Normal 3.3-5.0 [facility] Comment on above: Performed By: #### 2 [id number] #### [facility] [address] [place] [address] Albumin/Globulin (S) [Mass conc ratio] 1.1 Normal 1.1-2.2 [facility] Comment on above: Performed By: #### 2 [id number] #### [facility] [address] [place] [address] ALP [Catalytic activity/Vol] 68 Int._Unit/L Normal 21-98 [facility] Comment on above: Performed By: #### 2 [id number] #### [facility] [address] [place] [address] ALT No additional P-5'-P [Catalytic activity/Vol] 38 Int._Unit/L Normal 6-46 [facility] Comment on above: Performed By: #### 2 [id number] #### [facility] [address] [place] [address] Anion gap [Moles/Vol] 10 mmol/L Normal 6-16 [facility] Comment on above: Performed By: #### 2 [id number] #### [facility] [address] [place] [address] AST [Catalytic activity/Vol] 34 Int._Unit/L Normal 5-43 [facility] Comment on above: Performed By: #### 2 [id number] #### [facility] [address] [place] [address] Bilirubin [Mass/Vol] 0.4 mg/dL Normal 0.0-1.1 [facility] Comment on above: Performed By: #### 2 [id number] #### [facility] [address] [place] [address] Calcium [Mass/Vol] 9.4 mg/dL Normal 8.9-11.1 [facility] Comment on above: Performed By: #### 2 [id number] #### [facility] [address] [place] [address] Chloride [Moles/Vol] 103 mmol/L Normal 101-111 [facility] Comment on above: Performed By: #### 2 [id number] #### [facility] [address] [place] [address] CO2 [Moles/Vol] 28 mmol/L Normal 21-31 [facility] Comment on above: Performed By: #### 2 [id number] #### [facility] [address] [place] [address] Creatinine [Mass/Vol] 1.0 mg/dL Normal 0.5-1.3 [facility] Comment on above: Performed By: #### 2 [id number] #### [facility] [address] [place] [address] Globulin (S) [Mass/Vol] 3.5 g/dL Normal 1.4-4.0 [facility] Comment on above: Performed By: #### 2 [id number] #### [facility] [address] [place] [address] Glucose [Mass/Vol] 90 mg/dL Normal 55-199 [facility] Comment on above: Performed By: #### 2 [id number] #### [facility] [address] [place] [address] Potassium [Moles/Vol] 4.0 mmol/L Normal 3.5-5.3 [facility] Comment on above: Performed By: #### 2 [id number] #### [facility] [address] [place] [address] Protein [Mass/Vol] 7.2 g/dL Normal 6.0-7.8 [facility] Comment on above: Performed By: #### 2 [id number] #### [facility] [address] [place] [address] Sodium [Moles/Vol] 137 mmol/L Normal 135-145 [facility] Comment on above: Performed By: #### 2 [id number] #### [facility] [address] [place] [address] Urea nitrogen [Mass/Vol] 13 mg/dL Normal 5-21 [facility] Comment on above: Performed By: #### 2 [id number] #### [facility] [address] [place] [address] Urea nitrogen/Creatinine [Mass ratio] 13 No Units Normal 10-20 [facility] Comment on above: Performed By: #### 2 [id number] #### [facility] [address] [place] [address] HEMATOLOGYOrdered By: SYSTEM SYSTEM on 07-24-2024 Basophils/100 WBC (Bld) 0.4 % Normal 0.0 - 2.0 % [facility] Basophils/Leukocytes Auto (Bld) [Pure # fraction] 0.0 E9/L Normal 0.0 - 0.2 E9/L [facility] Eosinophils (Bld) [#/Vol] 0.2 E9/L Normal 0.0 - 0.5 E9/L [facility] Eosinophils/100 WBC (Bld) 1.6 % Normal 0.0 - 8.0 % [facility] Erythrocyte distribution width (RBC) [Ratio] 13.2 % Normal 10.9 - 14.2 % [facility] Hematocrit (Bld) [Volume fraction] 39.6 % Normal 34.0 - 46.0 % [facility] Hemoglobin (Bld) [Mass/Vol] 13.4 g/dL Normal 12.0 - 16.0 gm/dL [facility] Lymphocytes (Bld) [#/Vol] 2.6 E9/L Normal 1.0 - 4.0 E9/L [facility] Lymphocytes/100 WBC (Bld) 26.5 % Normal 14.0 - 50.0 % [facility] MCH (RBC) [Entitic mass] 29.9 pg Normal 27. 0 - 34.0 pg [facility] MCHC (RBC) [Mass/Vol] 33.9 g/dL Normal 31.4 - 36.0 gm/dL [facility] MCV (RBC) [Entitic vol] 88.0 fL Normal 80.0 - 100.0 fL [facility] Monocytes (Bld) [#/Vol] 0.7 E9/L Normal 0.2 - 1.0 E9/L [facility] Monocytes/100 WBC (Bld) 7.6 % Normal 4.0 - 14.0 % [facility] Neutrophils (Bld) [#/Vol] 6.3 E9/L Normal 2.0 - 7.5 E9/L [facility] Neutrophils/100 WBC (Bld) 63.9 % Normal 36.0 - 75.0 % [facility] Platelet 360.0 E9/L Normal 150.0 - 500.0 E9/L [facility] Platelet mean volume (Bld) [Entitic vol] 8.3 fL Normal 6.4 - 10.8 fL [facility] RBC (Bld) [#/Vol] 4.5 E12/L Normal 4.3 - 5.9 E12/L [facility] WBC corrected for nucl RBC Auto (Bld) [#/Vol] 9.8 E9/L Normal 4.0 - 11.0 E9/L [facility] Lipid Panelon 07-24-2024 Cholesterol [Mass/Vol] 258 mg/dL High 120-200 [facility] Comment on above: Performed By: #### 2 [id number] #### [facility] [address] [place] [address] Cholesterol in HDL [Mass/Vol] 60 mg/dL Invalid Interpretation Code [facility] Comment on above: Result Comment: '>= 60 LOW RISK' '<= 40 HIGH RISK' Performed By: #### 2 [id number] #### [facility] [address] [place] [address] Cholesterol in LDL [Mass/Vol] 180 mg/dL High <=129 [facility] Comment on above: Performed By: #### 2 [id number] #### [facility] [address] [place] [address] Cholesterol in VLDL [Mass/Vol] 35 mg/dL Normal 7-40 [facility] Comment on above: Performed By: #### 2 [id number] #### [facility] [address] [place] [address] Triglyceride [Mass/Vol] 174 mg/dL High <=149 [facility] Comment on above: Performed By: #### 2 [id number] #### [facility] [address] [place] [address] eGFRon 07-24-2024 eGFR 77 mL/min/1.73 m2 Normal >=59 [facility] Comment on above: Performed By: #### 1 [id number] #### [facility] [address] [place] [address] Ambulatory Visit Summaryon Ambulatory Visit Summary Ambulatory Visi t Summary TOMMY FABIAN :1990 Visit Date:07/23/2024 Ambulatory Visit Instructions Your Diagnosis Adult wellness visit BMI 33.0-33.9,adult Obesity Your Care Team Attending Physician - Laisha Daniels Primary Care Physician - Samira Null CNP This Is Your Medications List Contact prescribing physician if questions or concerns multivitamin, ( AD) Procedures Performed Betamethasone (03/11/2019), Betamethasone (03/10/2019), Breast augmentation, Breast implant. Discharge Vitals Temperature (Oral) 36.4 ?C Heart Rate (Peripheral) 74 Blood Pressure 120/74 Height 161.5 cm Height 64 in Weight 88.3 kg Weight 194.26 lb BMI 33.85 What to do next You Need to Complete the Following CBC w/ Auto Diff, Blood, Routine collect, 07/23/24, Order for future visit, Lab Collect, Adult wellness visit, Print Label By Order Location Comprehensive Metabolic Panel, Blood, Routine collect, 07/23/24, Order for future visit, Lab Collect, Adult wellness visit, Print Label By Order Location Lipid Panel, Blood, Routine collect, 07/23/24, Order for future visit, Lab Collect, Adult wellness visit, Print Label By Order Location Medications What How Much When Instructions Unchanged multivitamin, ( AD) 1 Tablets By Mouth Every day Contact prescribing physician if questions or concerns Allergies No Known Allergies No Known Medication Allergies Problems Ongoing - Any problem that you are currently receiving treatment for. Anxiety BMI 33.0-33.9,adult Clostridium difficile diarrhea Elevated liver enzymes Encounter for weight loss counseling Non-smoker Obesity PCOS (polycystic ovarian syndrome) Routine adult health maintenance Historical - Any problem that you are no longer receiving treatment for. Patient Survey You may receive a survey via text or e-mail asking about your office visit. Please share your experience with us by completing your survey. We appreciate your feedback and thank you for choosing us for your care. Education Materials Health Maintenance, Female Adopting a healthy lifestyle [...] various ages. This may include screening for: ? Breast cancer. ? Cervical cancer. ? Colorectal cancer. ? Skin cancer. ? Lung cancer. What should I know about heart disease, diabetes, and high blood pressure? Blood pressure and heart disease ? High blood pressure causes heart disease and increases the risk of stroke. This is more likely to develop in people who have high blood pressure readings or are overweight. ? Have your blood pressure checked: ? Every 3?5 years if you are 18?39 years of age. ? Every year if you are 40 years old or older. Diabetes Have regular diabetes screenings. This checks your fasting blood sugar level. Have the screening done: ? Once every three years after age 40 if you are at a normal weight and have a low risk for diabetes. ? More often and at a younger age if you are overweight or have a high risk for diabetes. What should I know about preventing infection? Hepatitis B If you have a higher risk for hepatitis B, you (more content not included)... Normal [facility] Family Medicine Office/Clini c Noteon 07-23-2024 Family Medicine Office/Clinic Note Family Medicine Office/Clinic Note Chief Complaint wellness HPI Staff pt here for wellness Last routine labs: 04/14/24 smoker status: former Pap (21-64yo): due flu vaccine status: due History of Present Illness I have reviewed and discussed the HPI (staff) with the patient today. Information was verified and is correct. Additional information provided if needed. Patient is here for yearly wellness visit. Patient is here today for evaluation and overall feeling well. She is 1 week , healing well physically and doing well emotionally as well. 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[employer] [facility] [place] Family life: home with and 4 kids Diet: no restrictions, avoids dairy Caffeine: 2/day Alcohol use: denies Drug use: denies Smoking status: former, quit 7 years ago Health Maintenance: Routine labs: due Pap (21-64yo): utd, 2023 colonoscopy/cologuard (45-75yo): not due yet Flu vaccine: will get at work Specialists: [employer]: [facility] Dentist: due to see OBGYN: [place] Review of Systems PHQ Score Initial Depression Screen Score: 0 SCORE ROS: Constitutional: no fever, no chills, no sweats, no weakness, no body aches, no changes in weight without trying. Skin: no rash, no skin lesions, no petechiae. Eyes: no eye irritation/pain, no eye drainage, no vision changes. Ears: no ear pain, no ear drainage, no itching, no tinnitus. Nose: no rhinorrhea, no nasal congestion. Throat: no pain, no hoarseness. Respiratory: no shortness of breath, no cough, no orthopnea, no wheezing. Cardiovascular: no chest pain, no palpitations, no edema. Gastrointestinal: no nausea, no vomiting, no diarrhea, no bleeding, no abdominal pain. Genitourinary: no dysuria, no hematuria, no frequency, no urgency, no hesitancy, no small amount void, no suprapubic pain, no flank pain. Musculoskeletal: no back pain, no joint pain, no trauma. Neurological: no headache, no dizziness, no numbness/tingling, no weakness. Psychiatric: no sleeping problems, irritability, mood swings/depression Heme/Lymph: no bleeding tendency, bruising tendency, petechia, swollen/tender nodes Allergy/immunologic: no seasonal allergies, food allergies, recurrent infection, impaired immunity Physical Exam Vitals & Measurements T: 36.4 ?C(Oral) HR: 74(Peripheral) BP: 120/74 SpO2: 98% HT: 64 in HT: 161.5 cm WT: 88.3 kg WT: 194.26 lb BMI: 33.85 PHYSICAL EXAM General: Well developed, well nourished, no apparent distress Head:Normocephalic, atraumatic Eyes:EOMI, sclera clear Nose:No deformity, discharge, inflammation or lesions Mouth:Mucosa moist. Normal oropharynx and posterior pharynx without lesions or exudate. Tongue normal. Neck:No bruit, symmetric Lungs:Lungs clear to auscultation Cardio:Regular rate and rhythm with no murmur Pulses:Pulses present in all four extremities Abdomen:Normal bowel sounds, non tender, no masses Musculoskeletal:Normal ROM of extremities, self ambulating Neuro:grossly normal Skin:No abnormal skin lesions Lymph Nodes: No cervical lymphadenopathy Mental Status: Alert and cooperative with appropriate mood and affect Assessment/Plan 1. Adult wellness visit (Z00.00: Encounter for general adult medical examination without abnormal findings) Discussed recommended screenings and testing for age and lifestyle risks: - Screening for hypertension with blood pressure checks - Screening for depression with PHQ tools - Vaccination recommendations reviewed - Screening for diabetes, vitamin deficiencies, thyroid disorders -Ordered labs today (CMP, CBC, TSH, lipids, PSA for males and other as needed testing) - Discuss Resources and Guidelines including proper diet and exercise. - Those with HTN, CAD, or PAD for example. recommendations regarding BP parameters and lipid control provided - Those with DM and obesity recommendations regarding labs including hgA1c, microalbumin, foot exams, eye exams, nutrition, weight, reviewed - Avoid tobacco and nicotine products and if indicated education provided smoking cessation - Referrals made regarding health maintenance recommendations for Colon Cancer screenings with colonoscopy vs Cologuard, bone density screening with DEXA scans,Breast cancer screening with mammograms, CT scans, AAA monitoring for smokers and high risk patients - PAP screening for females reviewed - Dental and Ophthalmology recommendations - Skin cancer screening recommendations - HIV, HPV, STD including gonorrhea chlamydia screening recommendations for those sexually active - if needed, health insurance requirements, health screenings for workplace, sports documentation submitted and reviewed Routines labs ordered today. We will call with results. Follow up 12 months with pcp Ordered: CBC w/ Auto Diff Comprehensive Metabolic Panel Est Preventative 18 to 39 years [address] Lipid Panel 2. BMI 33.0-33.9,adult (Z68.33: Body mass i (more content not included)... Normal [facility] Comment on above: Result Comment: Elec tronically Signed By: Gina REILLY, Laisha Cabezas\Date and Time Signed: 07/23/24 09:26 EDT ALL CBC WITH AUTO DIFFon BASOPHILS ABSOLUTE AUTO 0.0 N [facility] Basophils/100 WBC (Bld) 0.3 % 0.2 - 2.0 % [facility] Eosinophils/100 WBC (Bld) 0.6 % Low 0.9 - 7.0 % [facility] Erythrocyte distribution width (RBC) [Ratio] 12.6 % 11.0 - 15.0 % [facility] Hematocrit (Bld) [Volume fraction] 34.1 % Low 36.0 - 48.0 % [facility] Hemoglobin (Bld) [Mass/Vol] 11.4 g/dL Low 12.0 - 16.0 g/dL [facility] IMMATURE GRANULOCYTES ABS AUTO 0.13 High [facility] Immature granulocytes/100 WBC (Bld) 1.0 % High 0.0 - 0.5 % [facility] Interpretation and review of laboratory results Abnormal [facility] LYMPHOCYTES ABSOLUTE AUTO 3.3 [facility] Lymphocytes/100 WBC (Bld) 24.6 % 20.5 - 60.0 % [facility] MCH (RBC) [Entitic mass] 30.0 pg 26. 7 - 34.0 pg [facility] MCHC (RBC) [Mass/Vol] 33.4 g/dL 29.9 - 35.2 g/dL [facility] MCV (RBC) [Entitic vol] 89.7 fL 81.0 - 99.0 fL [facility] MONOCYTES ABSOLUTE AUTO 1.0 High N [facility] Monocytes/100 WBC (Bld) 7.2 % 1.7 - 12.0 % [facility] NEUTROPHILS ABSOLUTE AUTO 8.8 High [facility] Neutrophils/100 WBC (Bld) 66.3 % 43.0 - 75.0 % [facility] Platelet mean volume (Bld) [Entitic vol] 10.1 fL 9.5 - 13.5 fL [facility] TBH EO # 0.1 [facility] PLT [address] [facility] RBC 3.80 Low [facility] WBC 13.2 High [facility] WITH PLATELET NO DI FFERENTIALon 07-15-2024 Erythrocyte distribution width (RBC) [Ratio] 12.5 % 11.0 - 15.0 % [facility] Hematocrit (Bld) [Volume fraction] 37.5 % 36.0 - 48.0 % [facility] Hemoglobin (Bld) [Mass/Vol] 12.8 g/dL 12.0 - 16.0 g/dL [facility] Interpretation and review of laboratory results Abnormal [facility] MCH (RBC) [Entitic mass] 30.4 pg 26. 7 - 34.0 pg [facility] MCHC (RBC) [Mass/Vol] 34.1 g/dL 29.9 - 35.2 g/dL [facility] MCV (RBC) [Entitic vol] 89.1 fL 81.0 - 99.0 fL [facility] Platelet mean volume (Bld) [Entitic vol] 9.9 fL 9.5 - 13.5 fL [facility] PLT 307 [facility] RBC 4.21 [facility] WBC 12.9 High [facility] Urinalysis macro (dipstick) panel (U)on 07-15-2024 Bilirubin, UA Positive Negative - 4(70) +++ mg/dL [facility] Comment on above: small Blood, UA Positive Negative - 50 Haja/mcL [facility] Comment on above: small Clarity, UA Clear [facility] Color, UA Yellow [facility] Glucose, UA Negative Negative - 1999(110) ++++ mg/dL [facility] Interpretation and review of laboratory results Abnormal [facility] Ketones, UA Negative Negative - 160(16) ++++ mg/dL [facility] Leukocytes, UA Positive Negative - 500+++ Fabiano/mcL [facility] Comment on above: small Nitrite, UA Negative Negative - Positive [facility] pH, UA 7.0 5 - 9 [facility] Protein, UA Positive Negative - 1999(20) ++++ mg/dL [facility] Comment on above: 30 Spec Grav, UA 1.020 1 - 1.03 [facility] Urobilinogen, UA 0.2 0.2 - 12 mg/dL [facility] CBC w/Indiceson 04-14-2024 Erythrocyte distribution width (RBC) [Ratio] 13.9 % Normal 10.9-14.2 [facility] Comment on above: Performed By: #### 2 [id number] #### [facility] [address] [place] [address] Hematocrit (Bld) [Volume fraction] 34.4 % Normal 34.0-46.0 [facility] Comment on above: Performed By: #### 2 172759 #### [facility] [address] [place] [address] Hemoglobin (Bld) [Mass/Vol] 11.8 g/dL Low 12.0-16.0 [facility] Comment on above: Performed By: #### 2 896232 #### [facility] [address] [place] [address] MCH (RBC) [Entitic mass] 30.6 pg Normal 27.0-34.0 [facility] Comment on above: Performed By: #### 2 744486 #### [facility] [address] [place] [address] MCHC (RBC) [Mass/Vol] 34.3 g/dL Normal 31.4-36.0 [facility] Comment on above: Performed By: #### 2 673628 #### [facility] [address] [place] [address] MCV (RBC) [Entitic vol] 89.4 fL Normal 80.0-100.0 [facility] Comment on above: Performed By: #### 2 438699 #### [facility] [address] [place] [address] Platelet mean volume (Bld) [Entitic vol] 8.4 fL Normal 6.4-10.8 [facility] Comment on above: Performed By: #### 2 613041 #### [facility] [address] [place] [address] Platelets (Bld) [#/Vol] 286.0 E9/L Normal 150.0-500.0 [facility] Comment on above: Performed By: #### 2 342389 #### [facility] [address] [place] [address] RBC (Bld) [#/Vol] 3.8 E12/L Low 4.3-5.9 [facility] Comment on above: Performed By: #### 2 648012 #### [facility] [address] [place] [address] RBC size Nom (Bld) NORMAL Invalid Interpretation Code [facility] Comment on above: Performed By: #### 2 [id number] #### [facility] [address] [place] [address] WBC corrected for nucl RBC Auto (Bld) [#/Vol] 9.7 E9/L Normal 4.0-11.0 [facility] Comment on above: Performed By: #### 2 223884 #### [facility] [address] [place] [address] CHEMISTRYOrdered By: SYSTEM SYSTEM on 04-14-2024 Glucose [Mass/Vol] 125 mg/dL Normal 55 - 140 mg/dL Remisol Chem Gest Scr Glu 1 Hron 04-14-20 24 Glucose [Mass/Vol] 125 mg/dL Normal 55-140 [facility] Comment on above: Performed By: #### 3 [id number] #### [facility] [address] [place] [address] HEMATOLOGYOrdered By: SYSTEM SYSTEM on 04-14-2024 Erythrocyte [...] 4.0 - 11.0 E9/L Remisol Heme .Interpretation:on 4 HCV Ab IA Ql Comment Invalid Interpretation Code [facility] Comment on above: Result Comment: Not infected with HCV unless early or acute infection is suspected (which may be delayed in an immunocompromised individual), or other evidence exists to indicate HCV infection. Performed at: [facility] [id number] PhD Dayanna Pedro Performed By: #### 1 [id number], 5686853, [id number], 8236822, [id number], 095836926, [id number], [id number] ####[facility] [address] [place] [address] C Urineon 01-10-2024 Bacteria identified Cx Nom (U) Microbiology PROCEDURE: Urine Culture [R1] SOURCE: U CleanCatch BODY SITE: COLLECTED DATE/TIME: 01/08/2024 16:47 EDT RECEIVED DATE/TIME: 01/08/2024 19:10 EDT START DATE/TIME: 01/08/2024 19:10 EDT FREE TEXT SOURCE: Darrel RIDLEY DO, DO, Corey R FINAL REPORTS Final Report [] Verified Date/Time: 01/10/2024 07:30 EDT 5,000 cfu/ml Mixed skin contaminants Performing Locations R1: This test was performed at: [facility], [address] [place] [address], [address] , [place], Normal [facility] Comment on above: Performed By: #### 2 [id number] #### [facility] [address] [place] [address] HCV Antibody RFX to Quant PC Dave 01-10-2024 HCV IgG IA Ql Non-Reactive Invalid Interpretation Code Non Reactive [facility] Comment on above: Result Comment: Perf ormed at: [address] [id number] PhD Dayanna Pedro Performed By: #### 1 6896596, 5253748, [id number], 0387572, 138905925, 690663361, 3617524841, 271150896 ####[facility] [address] [place] [address] HIV Screen 4th Generation wR fxon 01-10-2024 HIV 1+2 Ab+HIV1 p24 Ag IA Ql Non-Reactive Invalid Interpretation Code Non Reactive [facility] Comment on above: Result Comment: HIV Negative HIV-1/HIV-2 antibodies and HIV-1 p24 antigen were NOT detected. There is no laboratory evidence of HIV infection. Performed at: [address] [id number] PhD Dayanna Pedro Performed By: #### 1 5727926, 8381896, [id number], 0108557, 865050932, 240751770, 4785330027, 578761582 ####[facility] [address] [place] [address] Hep Bs Agon 01-10-2024 HBV surface Ag IA Ql Negative Invalid Interpretation Code Negative [facility] Comment on above: Result Comment: Perf ormed at: [address] [id number] PhD Dayanna Pedro Performed By: #### 1 7868117, 1822408, [id number], 9773799, 396758460, 425462702, 7777039564, 813907396 ####[facility] [address] [place] [address] RPR with Conf Rfxon 01-10-20 Reagin Ab RPR Ql (S) Non-Reactive Invalid Interpretation Code Non Reactive [facility] Comment on above: Result Comment: Perf ormed at: [address] [id number] PhD Dayanna Pedro Performed By: #### 1 2017600, 6441138, 0162506819, 5434200, 894443665, 553387005, 9804981095, 596319528 ####[address] [place] [address] Rubella IgGon 01-10-2024 Rubella virus IgG Qn (S) 3.33 [IU]/mL Invalid Interpretation Code Immune >0.99 [facility] Comment on above: Result Comment: Non- immune <0.90 Equivocal 0.90 - 0.99 Immune >0.99 Performed at: [address] [id number] PhD Dayanna Pedro Performed By: #### 1 0600917, 4645373, 9446800295, 4025646, 613783966, 496202533, 8677421053, 731045191 ####[address] [place] [address] ABO/Rhon 01-08-2024 ABO/Rh Positive Invalid Interpretation Code [facility] Comment on above: Performed By: #### 2 507024, 41368121, [id number] ####[address] [place] [address] ABO/Rh History Checkon 01-07 ABO/Rh History Check Verified Hx Blood Type Normal [facility] Comment on above: Performed By: #### 2 002286, 13080443, 73249914 ####[address] [place] [address] ABSCon 01-08-2024 ABSC Gel Interp Negative Normal [facility] Comment on above: Performed By: #### 2 709555, 76465072, 36077865 ####[facility] [address] [place] [address] BLOOD BANKOrdered By: Tree Arenas on 01-08-2024 ABO/Rh Interp Positive Invalid Interpretation Code [facility] BB Subsection ABSC Gel Interp Negative (01/08/24 4:58 PM) Normal [facility] BB Subsection CBC w/ Auto Diffon Basophils/100 WBC (Bld) 0.6 % Normal 0.0-2.0 [facility] Comment on above: Performed By: #### 1 3111369, 9513732, 1326767743, 5040551, 744569399, 832330831, 4895735134, 308782494 ####[address] [address] Basophils/Leukocytes Auto (Bld) [Pure # fraction] 0.1 E9/L Normal 0.0-0.2 [facility] Comment on above: Performed By: #### 1 6701132, 5710315, 6310516290, 7516184, 571583649, 552416404, 7291322883, 152802014 ####[address] [address] Eosinophils (Bld) [#/Vol] 0.3 E9/L Normal 0.0-0.5 [facility] Comment on above: Performed By: #### 1 1680250, 4963112, 5280147306, 4453404, 651874229, 434759520, 1385112085, 110204409 ####[address] [place] [address] Eosinophils/100 WBC (Bld) 2.3 % Normal 0.0-8.0 [facility] Comment on above: Performed By: #### 1 2559237, 2796166, 1563674304, 2682445, 598662754, 264124833, 4605740293, 476327331 ####[address] [address] Erythrocyte distribution width (RBC) [Ratio] 13.9 % Normal 10.9-14.2 [facility] Comment on above: Performed By: #### 1 4255314, 7475772, 1323650192, 4395746, 662455815, 623102088, 9427005562, 148488733 ####[address] [address] Hematocrit (Bld) [Volume fraction] 36.9 % Normal 34.0-46.0 [facility] Comment on above: Performed By: #### 1 3024858, 3421851, 3795402256, 6568205, 978525362, 470814577, 5212575554, 289440127 ####[address] [address] Hemoglobin (Bld) [Mass/Vol] 12.5 g/dL Normal 12.0-16.0 [facility] Comment on above: Performed By: #### 1 1968612, 7641844, 8556777981, 2609592, 737087534, 739630659, 6913286634, 470059509 ####[address] [address] Lymphocytes (Bld) [#/Vol] 3.2 E9/L Normal 1.0-4.0 [facility] Comment on above: Performed By: #### 1 9526717, 4108002, 2088968665, 1602407, 067851949, 198281597, 6200641529, 855011504 ####[address] [address] Lymphocytes/100 WBC (Bld) 28.1 % Normal 14.0-50.0 [facility] Comment on above: Performed By: #### 1 9501561, 7336643, 0042860970, 1501700, 832716080, 747453915, 3973440723, 759434343 ####[address] [place] [address] MCH (RBC) [Entitic mass] 29.2 pg Normal 27.0-34.0 [facility] Comment on above: Performed By: #### 1 5814611, 8368631, 1401197746, 6923026, 198886976, 601468383, 9960981052, 862071193 ####[address] [address] MCHC (RBC) [Mass/Vol] 33.9 g/dL Normal 31.4-36.0 [facility] Comment on above: Performed By: #### 1 0148846, 0688189, 6706983468, 7385150, 615050647, 820184325, 3075814970, 305861145 ####[address] [address] MCV (RBC) [Entitic vol] 86.1 fL Normal 80.0-100.0 [facility] Comment on above: Performed By: #### 1 4171420, 6393180, 1195279023, 8458275, 218377583, 659188368, 7642956644, 267717326 ####[address] [address] Monocytes (Bld) [#/Vol] 0.8 E9/L Normal 0.2-1.0 [facility] Comment on above: Performed By: #### 1 8892541, 2452948, 5946208681, 1875311, 116971698, 744052356, 0085138199, 163011680 ####[address] [address] Neutrophils (Bld) [#/Vol] 7.0 E9/L Normal 2.0-7.5 [facility] Comment on above: Performed By: #### 1 5487372, 5045389, 2218658114, 2914252, 029382549, 411071209, 2304074091, 817155783 ####[address] [place] [address] Neutrophils/100 WBC (Bld) 62.2 % Normal 36.0-75.0 [facility] Comment on above: Performed By: #### 1 0298375, 3831577, 8168434805, 6243782, 092372140, 112452607, 8977979307, 521332476 ####[address] [address] Platelet 341.0 E9/L Normal 150.0-500.0 [facility] Comment on above: Performed By: #### 1 5517145, 5277981, 6803633585, 0098640, 681479489, 413444589, 3429673528, 620217219 ####[address] [address] Platelet mean volume (Bld) [Entitic vol] 8.4 fL Normal 6.4-10.8 [facility] Comment on above: Performed By: #### 1 0888168, 6743841, 3942109789, 3827712, 126504008, 298422404, 7405601707, 511022664 ####[address] [address] RBC (Bld) [#/Vol] 4.3 E12/L Normal 4.3-5.9 [facility] Comment on above: Performed By: #### 1 6764669, 3989839, 2662086791, 6917864, 014720789, 626872651, 3750086391, 881305497 ####[address] [place] [address] WBC corrected for nucl RBC Auto (Bld) [#/Vol] 11.3 E9/L High 4.0-11.0 [facility] Comment on above: Performed By: #### 1 9341200, 9992028, 7954813405, 1351378, 446329601, 276333755, 3582937566, 041109446 ####[facility] [address] [place] [address] CHEMISTRYOrdered By: Becka Spaulding on 01-08-2024 HbA1c (Bld) [Mass fraction] 5.5 % Normal <=5.9% [facility] ChemAutoSS Consent for Treatmenton 12-14 Consent for Treatment [id number] 4030 [id number]#1.0 0TIFF Normal [facility] HEMATOLOGYOrdered By: SYSTEM SYSTEM on 01-08-2024 [...] High 4.0 - 11.0 E9/L Remisol Heme [id number] 01-08-2024 HbA1c (Bld) [Mass fraction] 5.5 % Normal <=5.9 [facility] Comment on above: Performed By: #### 1 4412184, 1466093, 7425308699, 3728018, 022131829, 834810638, 5376513037, 111716462 ####[facility] [address] [place] [address] Physician Orderon 01-08-2024 Physician Order [id number]#1. 00TIFF Normal [facility] BhCG Quanton 12-14-2023 HCG.beta subunit Qn 073566 m[IU]/mL High 1-3 [facility] Comment on above: Result Comment: 'F N ON < 1 - 3' ' 0.2 - 1 WEEK = 5 TO 50' ' 1 - 2 WEEKS = 50 - 500' ' 2 - 3 WEEKS = 100 - 5000' ' 3 - 4 WEEKS = 500 - 86804' ' 4 - 5 WEEKS = 1000 - 22838' ' 5 - 6 WEEKS = 07486 - 886250' ' 6 - 8 WEEKS = 74218 - 070036' ' 8 - 12 WEEKS = 13022 - 757745' Performed By: #### 2 741641 ####[facility] [address] [place] [address] CHEMISTRYOrdered By: SYSTEM SYSTEM on 12-14-2023 HCG.beta subunit Qn 359530 m[IU]/mL High 1 - 3 mIU/mL [facility] Comment on above: Result Comment: 'F N ON < 1 - 3' ' 0.2 - 1 WEEK = 5 TO 50' ' 1 - 2 WEEKS = 50 - 500' ' 2 - 3 WEEKS = 100 - 5000' ' 3 - 4 WEEKS = 500 - 50102' ' 4 - 5 WEEKS = 1000 - 41698' ' 5 - 6 WEEKS = 61696 - 126794' ' 6 - 8 WEEKS = 74317 - 985740' ' 8 - 12 WEEKS = [address] - 062933' Consent for Treatmenton Consent for Treatment [id number] [id number]#1.0 0TIFF Normal [facility] Physician Orderon 12-14-2023 Physician Order [id number]#1.0 0TIFF Normal [facility] BhCG Quanton 12-12-2023 Beta hCG Qnt 563216 mIU/mL High 1-3 [facility] Comment on above: Result Comment: 'F N ON < 1 - 3' ' 0.2 - 1 WEEK = 5 TO 50' ' 1 - 2 WEEKS = 50 - 500' ' 2 - 3 WEEKS = 100 - 5000' ' 3 - 4 WEEKS = 500 - 68704' ' 4 - 5 WEEKS = 1000 - 26789' ' 5 - 6 WEEKS = 11172 - 684068' ' 6 - 8 WEEKS = 49685 - 148737' ' 8 - 12 WEEKS = 28680 - 980261' Performed By: #### 2 934881 ####[facility] [address] [place] [address] CHEMISTRYOrdered By: SYSTEM SYSTEM on 12-12-2023 HCG.beta subunit Qn 971083 m[IU]/mL High 1 - 3 mIU/mL Rem[facility] Chem Comment on above: Result Comment: 'F N ON < 1 - 3' ' 0.2 - 1 WEEK = 5 TO 50' ' 1 - 2 WEEKS = 50 - 500' ' 2 - 3 WEEKS = 100 - 5000' ' 3 - 4 WEEKS = 500 - 27210' ' 4 - 5 WEEKS = 1000 - 38632' ' 5 - 6 WEEKS = 42743 - 854244' ' 6 - 8 WEEKS = 31850 - 528252' ' 8 - 12 WEEKS = [address] - 659919' Consent for Treatmenton 11-16 Consent for Treatment [id number] [id number]#1.0 0TIFF Normal [facility] Patient Educationon 12-12-19 Patient Education Emergency Medicine [...] including vitamins, herbs, eye drops, creams, and jtvl-csn-fztwqgs medicines. ? Any problems you or family [...] if you need an emergent specialist or analytics consultant that is not available at the medical center you are at. ? You need to have more tests. A medical billing and coding specialist may be consulted if needed. Get [...] provider. Document Revised: 06/14/2022 Document Reviewed: 02/09/2022 [employer] Patient Education ? 2022 [employer]. Obstetrics and Gynecology Health Maintenance, Female Adopting [...] disease. What (more content not included)... Normal [facility] Physician Orderon 12-12-2023 Physician Order [id number]#1. 00TIFF [facility] CHEMISTRYOrdered By: SYSTEM SYSTEM on 06-08-2023 Glucose 3 Hr post 75 g glucose PO [Mass/Vol] 87 mg/dL Normal 55 - 140 mg/dL [facility] Remisol Glucose 2 Hr post 75 g glucose PO [Mass/Vol] 136 mg/dL Normal 55 - 155 mg/dL [facility] Remisol Glucose 1 Hr post 75 g glucose PO [Mass/Vol] 166 mg/dL Normal 55 - 180 mg/dL [facility] Remisol Glucose post fast [Mass/Vol] 93 mg/dL Normal 55 - 99 [facility] CHE[facility]YOrdered By: Lab ROP User on 06-08-2023 Glucose [Mass/Vol] 86 mg/dL Normal 55 - 99 mg/dL [facility] POC Subsection Comment on above: Result Comment: Repe at Test POC Device SN [id number] Invalid Interpretation Code [facility] POC Subsection POC User ID [id number] Invalid Interpretation Code [facility] POC Subsection POC Username NEHEMIAH VENEGAS Invalid Interpretation Code [facility] POC Subsection Capillary Glucose POCon 05-16 Glucose [Mass/Vol] 86 mg/dL Normal 55-99 [facility] Comment on above: Result Comment: Repe at Test Performed By: #### 2 [id number] ####[facility] [id number] Consent for Treatmenton 05-16 Consent for Treatment [id number]#1.0 0CD:127 Normal [facility] Glu 1 Hron 06-08-2023 Glucose [Mass/Vol] 166 mg/dL Normal 55-180 [facility] Comment on above: Result Comment: POSI TIVE SCREEN = 1 HR > 140 mg/dL Performed By: #### 2 381481 ####[facility] [address] [place] [address] Glu 2 Hron 06-08-2023 Glucose [Mass/Vol] 136 mg/dL Normal 55-155 [facility] Comment on above: Result Comment: DIAB ETES FASTING >126 mg/dL or 2 HOUR >200 mg/dL Performed By: #### 2 456103 ####[facility] [address] [place] [address] Glu 3 Hron 06-08-2023 Glucose [Mass/Vol] 87 mg/dL Normal 55-140 [facility] Comment on above: Result Comment: GEST ATIONAL DIABETES 2 of the following: FASTING >95 mg/dL 1 HOUR >180 mg/dL 2 HOUR >155 mg/dL 3 HOUR >140 mg/dL Performed By: #### 2 153662 ####[facility] [address] [place] [address] Glu Fastingon 06-08-2023 Glucose [Mass/Vol] 93 mg/dL Normal 55-99 [facility] Comment on above: Performed By: #### 2 [id number] ####[facility] [address] [place] [address] Physician Orderon 06-08-2023 Physician Order [id number] 0CD:127 Normal [facility] Auto Diffon 05-29-2023 Basophils/100 WBC (Bld) 0.3 % Normal 0.0-2.0 [facility] Comment on above: Order Comment: Order Added by Discern Expert. Performed By: #### 2 [id number], [id number], [id number] ####[address] [place] [address] Basophils/Leukocytes Auto (Bld) [Pure # fraction] 0.0 E9/L Normal 0.0-0.2 [facility] Comment on above: Order Comment: Order Added by Discern Expert. Performed By: #### 2 820964, [id number], [id number] ####[address] [address] Eosinophils/100 WBC (Bld) 0.7 % Normal 0.0-8.0 [facility] Comment on above: Order Comment: Order Added by Discern Expert. Performed By: #### 2 [id number], [id number], [id number] ####[address] [address] Eosinophils/Leukocytes Auto (Bld) [Pure # fraction] 0.1 E9/L Normal 0.0-0.5 [facility] Comment on above: Order Comment: Order Added by Discern Expert. Performed By: #### 2 [id number], [id number], [id number] ####[address] [address] Lymphocytes/100 WBC (Bld) 20.4 % Normal 14.0-50.0 [facility] Comment on above: Order Comment: Order Added by Discern Expert. Performed By: #### 2 951213, [id number], [id number] ####[address] [address] Lymphocytes/Leukocytes Auto (Bld) [Pure # fraction] 1.9 E9/L Normal 1.0-4.0 [facility] Comment on above: Order Comment: Order Added by Discern Expert. Performed By: #### 2 270188, [id number], [id number] ####[address] [address] Monocytes/100 WBC (Bld) 5.7 % Normal 4.0-14.0 [facility] Comment on above: Order Comment: Order Added by Discern Expert. Performed By: #### 2 839412, [id number], [id number] ####[address] [address] Monocytes/Leukocytes Auto (Bld) [Pure # fraction] 0.5 E9/L Normal 0.2-1.0 [facility] Comment on above: Order Comment: Order Added by Discern Expert. Performed By: #### 2 981294, [id number], [id number] ####[address] [address] Neutrophils/100 WBC (Bld) 72.9 % Normal 36.0-75.0 [facility] Comment on above: Order Comment: Order Added by Discern Expert. Performed By: #### 2 932064, [id number], 3885873 ####[address] [address] Neutrophils/Leukocytes Auto (Bld) [Pure # fraction] 6.9 E9/L Normal 2.0-7.5 [facility] Comment on above: Order Comment: Order Added by Discern Expert. Performed By: #### 2 873090, [id number], [id number] ####[address] [address] CBC w/ Auto Diffon 3 Erythrocyte distribution width (RBC) [Ratio] 13.5 % Normal 10.9-14.2 [facility] Comment on above: Performed By: #### 2 901602, [id number], [id number] ####[address] [address] Hematocrit (Bld) [Volume fraction] 32.8 % Low 34.0-46.0 [facility] Comment on above: Performed By: #### 2 695256, [id number], 4441797 ####[address] [address] Hemoglobin (Bld) [Mass/Vol] 11.2 g/dL Low 12.0-16.0 [facility] Comment on above: Performed By: #### 2 413162, [id number], 9367739 ####[facility] [address] [place] [address] MCH (RBC) [Entitic mass] 30.1 pg Normal 27.0-34.0 [facility] Comment on above: Performed By: #### 2 546728, [id number], 3486163 ####[address] [address] MCHC (RBC) [Mass/Vol] 34.1 g/dL Normal 31.4-36.0 [facility] Comment on above: Performed By: #### 2 075553, [id number], 5152864 ####[address] MCV (RBC) [Entitic vol] 88.3 fL Normal 80.0-100.0 [facility] Comment on above: Performed By: #### 2 034943, [id number], [id number] ####[facility] [address] [place] [address] Platelet mean volume (Bld) [Entitic vol] 8.9 fL Normal 6.4-10.8 [facility] Comment on above: Performed By: #### 2 224365, [id number], 3116927 ####[address] [address] Platelets (Bld) [#/Vol] 296.0 E9/L Normal 150.0-500.0 [facility] Comment on above: Performed By: #### 2 828137, [id number], 3067207 ####[facility] [address] [place] [address] RBC (Bld) [#/Vol] 3.7 E12/L Low 4.3-5.9 [facility] Comment on above: Performed By: #### 2 769428, 86125527, 8897275 ####[facility] [address] [place] [address] WBC corrected for nucl RBC Auto (Bld) [#/Vol] 9.5 E9/L Normal 4.0-11.0 [facility] Comment on above: Performed By: #### 2 192559, [id number], 9636949 ####[facility] [address] [place] [address] CHEMISTRYOrdered By: SYSTEM SYSTEM on 05-29-2023 Glucose 1 Hr post 50 g glucose PO [Mass/Vol] 146 mg/dL High 55 - 140 mg/dL [facility] Remisol Consent for Treatmenton 05-15 Consent for Treatment [id number] 0CD:127 Normal [facility] Gest Scr Glu 1 Hron 05-29-20 Glucose [Mass/Vol] 146 mg/dL High 55-140 [facility] Comment on above: Result Comment: Posi tive Screen =1 HR > 140mg/dL Performed By: #### 2 652878, [id number], 5635186 ####[facility] [address] [place] [address] HEMATOLOGYOrdered By: SYSTEM SYSTEM on 05-29-2023 Basophils/100 [...] 9.5 E9/L Normal 4.0 - 11.0 E9/L FT HemeAutoSS Physician Orderon 05-29-2023 Physician Order [id number] 00CD:127 Normal [facility] BOX TEST SENT OUTon 01-30-20 23 SENT TO REF LAB 01/29/2023 Normal [facility] Comment on above: Performed By: #### B OX #### [facility] [address] [place] [address] Dr. Lydia De Dios US PREG TVon [...] GLEN RALPH Date: 2023-01-19 10:36 Normal [facility] CHEMISTRYOrdered By: SYSTEM SYSTEM on 12-23-2022 HCG.beta [...] <=149mg/dL [facility] CHEMISTRYOrdered By: Kuldeep lozater on 06-09-2022 HbA1c (Bld) [Mass fraction] 5.7 % Normal <=5.9% [facility] ChemAutoSS CHEMISTRYOrdered By: SYSTEM SYSTEM on 03-24-2022 Progesterone [Mass/Vol] 8.90 ng/mL Invalid Interpretation Code [facility]isol CHEMISTRYOrdered By: SYSTEM SYSTEM on 03-02-2022 Progesterone [Mass/Vol] 3.80 ng/mL Invalid Interpretation Code [facility] PROGRESSon 06-20-2018 Protein mass conc HNO ID: [id number]: Funmilayo Sanchez (Rt)e: RadiologyAuthor Type: TechnicianType: Progress NotesFiled: 06/20/2018 3:02 PMNote Text: Radiology Service Progress NotePATIENT NAME: Tommy EldridgeRN: [id number] OF SERVICE: June 20, 2018TIME: 3:01 PMPATIENT IDENTITY VERIFICATION COMPLETED USING TWO (2) METHODS: Patientconfirmed name verbally and ID Band .PATIENT GENDER DATA: Female. status: : NoBreastfeeding status: NO.PATIENT RELEVANT IMPLANT DATA REVIEWED: Not ApplicableRADIOLOGY DEPARTMENT: General X-ray: Exam(s) Completed: HSGPERIPHERAL IV DATA: Not applicableSIGNED BY: Funmilayo Bermudez, RTSept2017 3:01 PM [facility] XR HYSTEROSALPINGOGRAMon XR HYSTEROSALPINGOGRAM * * *Final Report * * *DATE OF EXAM: Jun 20 2018 2:58PM X 5389 - XR HYSTEROSALPINGOGRAM / REASON: infertility testing * * * * Physician Interpretation * * * * XR HYSTEROSALPINGOGRAMPRO VIDED HISTORY: infertility testingCOMPARISON: No previous similar exams are available for comparisonTECHNIQUE: Fluoroscopic Radiation Summary:Plane A, Air Kerma: 9.4 mGyDose Area Product (DAP): 0.0 mGy*tyV4Tajgef time: 0:12 min:secRESULT: 3 spot images were obtained of the pelvis. Contrast was administered by the AUDIT [employer]ERKS SUPERVISOR physician with approximately 5 cc of contrast [...] DAVILA MD on Jun 20 2018 4:10PM [id number] Normal [facility] Vital Signs Date Time Vital Sign Value Performing Clinician Facility 07-23-2024 08:54-0400 Blood Pressure Location [facility] 07-23-2024 08:54-0400 Body temperature 97.52 [degF] Laishakalyn HaneyGina [facility] 07-23-2024 08:54-0400 Diastolic blood pressure 74 mm[Hg] Laishakalyn HaneyGina [facility] 07-23-2024 08:54-0400 Heart rate 74 /min Laisha [facility] 07-23-2024 08:54-0400 SaO2% (BldA) [Mass fraction] 98 % Laisha Haneycross [facility] 07-23-2024 08:54-0400 Systolic blood pressure 120 mm[Hg] Laisha Bundle [facility] 07-15-2024 08:39-0400 Body mass index (BMI) [Ratio] 34.22 kg/m2 Darrel Keyana DO Work Phone: [facility] 07-15-2024 08:39-0400 Body weight 91.85 kg Darrel Keyana DO Work Phone: [facility] 07-15-2024 08:39-0400 Diastolic blood pressure 72 mm[Hg] Darrel Keyana DO Work Phone: [facility] 07-15-2024 08:39-0400 Systolic blood pressure 110 mm[Hg] Darrel Keyana DO Work Phone: [facility] 06-08-2022 16:10-0400 Blood Pressure Location Samirayohan Ambrizell [facility] 06-08-2022 16:10-0400 Body temperature 98.42 [degF] Samira Null [facility] 06-08-2022 16:10-0400 Diastolic blood pressure 70 mm[Hg] Samira Null [facility] 06-08-2022 16:10-0400 Heart rate 75 /min Samira Null [facility] 06-08-2022 16:10-0400 Respiratory rate 16 /min Samira Null [facility] 06-08-2022 16:10-0400 SaO2% (BldA) [Mass fraction] 98 % Samira Null [facility] 06-08-2022 16:10-0400 Systolic blood pressure 120 mm[Hg] Samira Null [facility] Encounters Encounter Date Encounter Type Care Provider Facility Start: 09-01-2024 End: 09-01-2024 ambulatory DARREL KEYANA Not Available Start: 07-30-2024 ambulatory Marcelo COHNG [facility] y:[facility] Start: 07-24-2024 End: 07-24-2024 ambulatory Laisha RiveraSarah Gina Facility:[facility] Start: 07-24-2024 End: 07-24-2024 Patient encounter procedure Laisha Fuentes [facility] Start: 07-23-2024 End: 07-23-2024 ambulatory Laisha Fuentes Facility:[facility] Start: 07-23-2024 End: 07-23-2024 Patient encounter procedure Laisha Fuentes [facility] Start: 07-23-2024 End: 07-23-2024 Well adult monitoring check done Laisha Fuentes [facility] Start: 07-16-2024 End: 07-16-2024 Clinisync Result Encounter Darrel Keyana DO Work Phone: [facility] Unsolicited Start: 07-16-2024 End: 07-16-2024 Clinisync Result Encounter Darrel Keyana DO Work Phone: [facility] Unsolicited Start: 07-15-2024 End: 07-15-2024 Bamboo flowsheet Darrel Keyana DO Work Phone: [facility] Start: 07-15-2024 End: 07-15-2024 Bamboo flowsheet Darrel Keyana DO Work Phone: [facility] Start: 07-15-2024 End: 07-15-2024 Clinisync Result Encounter Darrel Keyana DO Work Phone: [facility] Unsolicited Start: 07-15-2024 End: 07-15-2024 ambulatory DARREL KEYANA Not Available Start: 07-15-2024 End: 07-15-2024 flow sheet Darrel Keyana DO Work Phone: [facility] Comment on above: Third trimester preg ammy; 39 weeks gestation of Start: 07-08-2024 End: 07-08-2024 ambulatory DARRLE KEYANA Not Available Start: 07-03-2024 End: 07-03-2024 ambulatory DARREL KEYANA Not Available Start: 06-25-2024 End: 06-25-2024 ambulatory DARREL KEYANA Not Available Start: 06-10-2024 End: 06-10-2024 ambulatory EUGENIE HUMPHREY Not Available Start: 05-28-2024 End: 05-28-2024 ambulatory DARREL KEYANA Not Available Start: 05-14-2024 End: 05-14-2024 ambulatory EUGENIE HUMPHREY Not Available Start: 04-29-2024 End: 04-29-2024 ambulatory EUGENIE HUMPHREY Not Available Start: 04-15-2024 End: 04-15-2024 ambulatory DARREL KEYANA Not Available Start: 04-14-2024 End: 04-14-2024 ambulatory Darrel R KEYANA Facility:[facility] Start: 04-14-2024 End: 04-14-2024 Patient encounter procedure Darrel R KEYANA [facility] Start: 03-18-2024 End: 03-18-2024 ambulatory DARREL KEYANA Not Available Start: 02-20-2024 End: 02-20-2024 ambulatory EUGENIE HUMPHREY Not Available Start: 01-22-2024 End: 01-22-2024 ambulatory DARREL KEYANA Not Available Start: 01-08-2024 End: 01-08-2024 ambulatory Darrel R KEYANA Facility:[facility] Start: 01-08-2024 End: 01-08-2024 Patient encounter procedure Darrel R KEYANA [facility] Start: 01-04-2024 End: 01-04-2024 ambulatory DARREL KEYANA Not Available Start: 12-24-2023 End: 12-24-2023 ambulatory Mariya Oneal Facility:[facility] Start: 12-24-2023 End: 12-24-2023 Patient encounter procedure Mariya Oneal [facility] Start: 12-24-2023 End: 12-24-2023 Well adult monitoring check done Mariya Oneal [facility] Start: 12-14-2023 End: 12-14-2023 ambulatory Darrel R KEYANA Facility:[facility] Start: 12-14-2023 End: 12-14-2023 Patient encounter procedure Darrel R KEYANA [facility] Start: 12-12-2023 End: 12-12-2023 ambulatory Darrel R KEYANA Facility:[facility] Start: 12-12-2023 End: 12-12-2023 Patient encounter procedure Darrel R KEYANA [facility] Start: 10-09-2023 End: 10-09-2023 ambulatory DARREL MUNGUIAO Not Available Start: 07-23-2023 End: 10-21-2023 ambulatory DO Jewel Schmidt Facility:[facility] Start: 06-08-2023 End: 06-08-2023 ambulatory Darrel R KEYANA Facility:[facility] Start: 06-08-2023 End: 06-08-2023 Patient encounter procedure Darrel R KEYANA [facility] Start: 05-29-2023 End: 05-29-2023 ambulatory EUGENIE YIN Facility:[facility] Start: 05-29-2023 End: 05-29-2023 Patient encounter procedure EUGENIE YIN [facility] Start: 01-29-2023 End: 01-30-[address] DARREL RIDLEY . Facility:[facility] Start: 01-19-2023 End: 01-20-[address] DARREL RIDLEY . Facility:[facility] Start: 12-23-2022 End: 12-23-2022 Patient encounter procedure Darrel RIDLEY [facility] Start: 12-22-2022 End: 12-22-2022 Lab Drop off Darrel RIDLEY [facility] Start: 12-16-2022 End: 12-16-2022 Patient encounter procedure Darrel RIDLEY [facility] Start: 12-06-2022 End: 12-06-2022 Patient encounter procedure Darrel RIDLEY [facility] Start: 10-26-2022 End: 10-26-2022 Patient encounter procedure Jeison Emanuely [facility] Start: 10-20-2022 End: 10-20-2022 Patient encounter procedure Jeison Eamnuely [facility] Start: 06-09-2022 End: 06-09-2022 Patient encounter procedure Samira Null [facility] Start: 06-08-2022 End: 06-08-2022 Patient encounter procedure Saimra Null [facility] Start: 06-08-2022 End: 06-08-2022 Well adult monitoring check done Samira Null [facility] Start: 03-24-2022 End: 03-24-2022 Patient encounter procedure Jeison Leon [facility] Start: 03-02-2022 End: 03-02-2022 Patient encounter procedure Jeison Leon [facility] Start: 06-20-2018 [facility] Procedures Date Procedure Procedure Detail Performing Clinician Start: 07-16-2024 ALL CBC WITH AUTO DIFF [email or web address] DO Work Phone: Start: 07-15-2024 HMHP CBC WITH PLATEL ET NO DIFFERENTIAL [employer] Work Phone: Start: 07-15-2024 Urnls dip stick/tabl et rgnt non-auto w/o micrscp [email or web address] DO Work Phone: Start: 03-15-2023 Microscopic observat ion [Identifier] in Cervix by Cyto stain [employer] Work Phone: Start: 03-11-2019 Betamethasone (substance) [facility] Start: 03-10-2019 Betamethasone (substance) [facility] Augmentation mammoplasty Lianna an [facility] Breast prosthesis, d evice (physical object) [facility] Plan of Treatment Date Care Activity Detail Author Start: 05-31-2028 Screening for malign ant neoplasm of cervix HPV/Cotest [facility] Start: 03-15-2028 Screening for malign ant neoplasm of cervix [facility] Start: 09-01-2024 End: 09-01-2024 ambulatory 09/01/2024 10:10 AM EST Visit [facility] [address] [place] [address] Darrel Ridley, DO [address] [place] [address] [facility] Start: 06-15-2024 Influenza vaccination Influenza Vacc ine (#1) [facility] Immunizations Immunization Date Immunization Notes Care Provider Fa marceloty 07-23-2023 influenza virus vaccine, unspecified formulation Darrel RIDLEY [facility] Comment on above: Reason for Medicatio n: Prophylaxis 08-03-2022 influenza virus vaccine, unspecified formulation [facility] Comment on above: Reason for Medicatio n: Prophylaxis 08-09-2021 influenza virus vaccine, unspecified formulation; Translations: [Fluzone PF Quadrivalent ] [facility] Comment on above: Reason for Medicatio n: Prophylaxis 02-19-2021 COVID-19, mRNA, LNP- S, PF, 30 mcg/0.3 mL dose; Translations: [Pfizer-BioNTech COVID-19 Vaccine] [facility] Comment on above: Reason for Medicatio n: Prophylaxis 01-29-2021 COVID-19, mRNA, LNP- S, PF, 30 mcg/0.3 mL dose; Translations: [Pfizer-BioNTech COVID-19 Vaccine] [facility] Comment on above: Reason for Medicatio n: Prophylaxis 08-22-2019 influenza virus vaccine, live, attenuated, for intranasal use [facility] 04-11-2019 tetanus toxoid, redu vanesa diphtheria toxoid, and acellular pertussis vaccine, adsorbed; Translations: [Adacel (Tdap)] [facility] Payers Date Payer Category Payer Unknown [employer] [id number] 2021-Present [address] [place] [address] [id number] 1992 Unknown [id number] 2.16.840.1.040145.3.579.2.593 1992 Unknown [id number] 2.16.840.1.352114.3.579.2.593 1992 Unknown [id number] 2.16.840.1.851597.3.579.2.727 1992 Unknown [id number] 2.16.840.1.926926.3.579.2.727 1992 Unknown [id number] 2.16.840.1.414463.3.579.2.727 1992 Unknown [id number] 2.16.840.1.329727.3.579.2.727 1992 Unknown [id number] 2.16.840.1.714869.3.579.2.727 1992 Unknown [id number] 2.16.840.1.181340.3.579.2.727 1992 Unknown [id number] 2.16.840.1.601268.3.579.2.727 1992 Unknown [id number] 2.16.840.1.093456.3.579.2.727 1992 Unknown [id number] 2.16.840.1.051206.3.579.2.727 1992 Unknown [id number] 2.16.840.1.478700.3.579.2.727 1992 Unknown [id number] 2.16.840.1.199025.3.579.2.727 1992 Unknown [id number] 2.16.840.1.294015.3.579.2.1259 1992 Unknown [id number] 2.16.840.1.768063.3.579.2.9 1992 Unknown [id number] 2.16.840.1.217035.3.579.2.1258 1992 Unknown [id number] 2.16.840.1.160753.3.579.2.9 1992 Unknown [id number] 2.16.840.1.627301.3.579.2.1258 1992 Unknown [id number] 2.16.840.1.619276.3.579.2.1258 1992 Unknown [id number] 2.16.840.1.638711.3.579.2.1258 1992 Unknown [id number] 2.16.840.1.499264.3.579.2.1258 1992 Unknown [id number] 2.16.840.1.934868.3.579.2.1258 1992 Unknown [id number] 2.16.840.1.090886.3.579.2.1258 1992 Unknown [id number] 2.16.840.1.936396.3.579.2.1258 1992 Unknown [id number] 2.16.840.1.438769.3.579.2.1258 1992 Unknown [id number] 2.16.840.1.711110.3.579.2.1258 1992 Unknown [id number] 2.16.840.1.537765.3.579.2.1258 1992 Unknown [id number] 2.16.840.1.017960.3.579.2.9 1959 Unknown [id number] Social History Date Type Detail Facility Start: 06-16-2021 End: 07-23-2024 Tobacco smoking status Ex-smoker (finding) [facility] Tobacco smoking status Never [facility] Start: 03-18-2024 Sex Assigned At Female [facility] Start: 03-15-2015 End: 03-15-2017 History of tobacco use Current smoker [facility] Start: 03-15-2015 End: 03-15-2017 History of tobacco use Cigarette Smoker [facility] Start: 03-18-2024 End: 07-03-2024 Cigarettes smoked current (pack per day) - Reported 0.3 [facility] Start: 07-03-2024 Tobacco use and exposure Smokeless tobacco non-user [facility] Start: 07-08-2024 End: 07-15-2024 Alcoholic beverage intake Ex-drinker (finding) [facility] Start: 05-08-2023 Alcohol Comment Caffeine intak e: 1-2 cups per day [facility] Start: 10-26-2023 [facility] Start: 1990 Sex assigned at Not on file N [facility] Start: 04-10-2023 Gender identity Identifies as female gender (finding) [facility] Functional Status Date Assessment Result Facility 07-23-2024 Functional Status N/A [facility] 06-08-2022 Functional Status N/A [facility] Clinical Notes 05-24-2022 to 07-23-2024 Елена White LPN - 07/15/2024 8:30 AM EDTLaboratoryLaboratoryLaboratory Note Date & Type Note Facility 07-23-2024 Evaluation + Plan note Future Scheduled TestsCBC w/ Auto Diff 07/23/24Comprehensive Metabolic Panel 07/23/24Lipid Panel 07/23/24 [facility] 07-23-2024 Hospital Discharg e instructions Patient Education 07/23/2024 09:25:10 Health Maintenance, Female Health Maintenance, Female Adopting [...] provider. Document Revised: 02/20/2022 Document Reviewed: 02/20/2022 [employer] Patient Education 2023 Yatra. [facility] 07-23-2024 Note Patient Education Obstetrics and Gynecology Health Maintenance, Female Adopting [...] various ages. This may include screening for: ? Breast cancer. ? Cervical cancer. ? Colorectal cancer. ? Skin cancer. ? Lung cancer. What should I know about heart disease, diabetes, and high blood pressure? Blood pressure and heart disease ? High blood pressure causes heart disease and increases the risk of stroke. This is more likely to develop in people who have high blood pressure readings or are overweight. ? Have your blood pressure checked: ? Every 3?5 years if you are 18?39 years of age. ? Every year if you are 40 years old or older. Diabetes Have regular diabetes screenings. This checks your fasting blood sugar level. Have the screening done: ? Once every three years after age 40 if you are at a normal weight and have a low risk for diabetes. ? More often and at a younger age [...] infection. Hepatitis C Testing is recommended for: ? Everyone born from 1945 through 1965. ? Anyone with known risk factors for hepatitis C. Sexually transmitted infections (STIs) ? Get screened for STIs, including gonorrhea and chlamydia, if: ? You are sexually active and are younger than 24 years of age. ? You are older than 24 years of age and your health care provider tells you that you are at risk for this type of infection. ? Your sexual activity has changed since you were last screened, and you are at increased risk for chlamydia or gonorrhea. Ask your health care provider if you are at risk. ? Ask your health care provider about whether you are at high risk for HIV. Your health care provider may recommend a prescription medicine to help prevent HIV infection. If you choose to take medicine to prevent HIV, you should first get tested for HIV. You should then be tested every 3 months for as long as you are taking the medicine. ? If you are about to stop having your period (premenopausal) and you may become , seek counseling before you get . ? Take 400 to 800 micrograms (mcg) of folic acid every day if you become . ? Ask for control (contraception) if you want to prevent . Osteoporosis and menopause Osteoporosis is a disease in which the bones lose minerals and strength with aging. This can result in bone fractures. If you are 65 years old or older, or if you are at risk for osteoporosis and fractures, ask your health care provider if you should: ? Be screened for bone loss. ? Take a calcium or vitamin D supplement to lower your risk of fractures. ? Be given hormone replacement therapy (HRT) to treat symptoms of menopause. Follow these instructions at home: Alcohol use ? Do not drink alcohol if: ? Your health care provider tells you not to drink. ? You are , may be , or are planning to become . ? If you drink alcohol: ? Limit how much you have to: ? 0?1 drink a day. ? Know how (more content not included)... [facility] 07-15-2024 History of Presen t illness Narrative Reason for Appointment: Patient ID: Tommy Fabian is a 33 y.o. female who presents for Routine Visit Patient presents today for Return OB appointment. MEDICATIONS Current Outpatient Medications Medication Instructions aspirin 81 mg, Oral, Daily Iron 18 MG/15ML liquid 15 mL, Oral, Daily magnesium 250 MG tablet Multiple Vitamin (multivitamin) tablet 1 tablet, Oral, Daily omega-3 acid ethyl esters (LOVAZA) 1 g, Oral, 2 times daily VITAMIN D, CHOLECALCIFEROL, PO 1 capsule, Oral, Daily ALLERGIES No Known Allergies PROBLEMS Active Ambulatory Problems Diagnosis Date Noted No Active Ambulatory Problems Resolved Ambulatory Problems Diagnosis Date Noted No Resolved Ambulatory Problems Past Medical History: Diagnosis Date COVID 04/2022 Female infertility History of medical problems PCOS (polycystic ovarian syndrome) Polyhydramnios Pre-eclampsia Toxoplasmosis HISTORY PAST MEDICAL HISTORY SOCIAL HISTORY Past Medical History: Diagnosis Date COVID 04/2022 positive Female infertility History of medical problems C. january PCOS (polycystic ovarian syndrome) Polyhydramnios Pre-eclampsia Toxoplasmosis Social History Tobacco Use Smoking status: Former Current packs/day: 0.00 Average packs/day: 0.3 packs/day for 2.0 years (0.5 ttl pk-yrs) Types: Cigarettes Start date: 03/15/2015 Quit date: 03/15/2017 Years since quittin.3 Smokeless tobacco: Never Substance Use Topics Alcohol use: Not Currently Comment: Caffeine intake: 1-2 cups per day Drug use: Never FAMILY HISTORY Family History Problem Relation Name Age of Onset Hypertension Mother Sherly Manuel Endometriosis Mother Sherly Manuel Fibroids Mother Sherly Manuel Diabetes Mother Sherly [place] Hypertension Father Josue Mcnally Diabetes type II Father Josue Mcnally Diabetes Father Josue Mcnally No Known Problems Brother Heart disease Daughter Satish No Known Problems Son Sammy Lung cancer Mother's Brother SURGICAL HISTORY Past Surgical History: Procedure Laterality Date BREAST RECONSTRUCTION 2010 implant/lift VAGINAL DELIVERY x2 REVIEW OF SYSTEMS Review of Systems: Review of Systems Constitutional: Negative. HENT: Negative. Eyes: Negative. Respiratory: Negative. Cardiovascular: Negative. Gastrointestinal: Negative. Genitourinary: Negative. Musculoskeletal: Negative. Skin: Negative. Neurological: Negative. All other systems reviewed and are negative. Hematological: Negative. Endocrine: Negative. Allergic/Immunologic: Negative. OBJECTIVE Objective: Physical Exam Constitutional: Appearance: Normal appearance. She is well-developed. Genitourinary: Vulva normal. Cardiovascular: Rate and Rhythm: Normal rate and regular rhythm. Pulmonary: Effort: Pulmonary effort is normal. Breath sounds: Normal breath sounds. Abdominal: General: Bowel sounds are normal. There is no distension. Palpations: Abdomen is soft. Tenderness: There is no abdominal tenderness. There is no guarding or rebound. Musculoskeletal: General: No swelling. Normal range of motion. Right lower leg: No edema. Left lower leg: No edema. Neurological: Mental Status: She is alert and oriented to person, place, and time. Skin: General: Skin is warm and dry. Psychiatric: Mood and Affect: Mood normal. Behavior: Behavior normal. Vitals and nursing note reviewed. 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 Vitals: Estimated body mass index is 34.22 kg/m as calculated from the following: Height as of 02/15/23: 5' 4.5 . Weight as of this encounter: 202 lb 8 oz. BP: 110/72 Patient's last menstrual period was 11/04/2023. ASSESSMENT & PLAN ICD-10-CM 1. Third trimester Z34.93 POCT urinalysis dipstick manually resulted 2. 39 weeks gestation of Z3A.39 POCT urinalysis dipstick manually resulted Return OB: Patient presents today for a routine obstetrics appointment. Patient is currently 39w4d . Patient states she is doing well but has complaints of being tired due to current . Pt having contractions, discharge and spotting- pt is in labor cervical check 5cm, being sent to [facility]. Patient has verbalizes frequent movement. labor precautions was discussed/given and patient was instructed to perform kick counts three times a day. Orders Placed This Encounter Procedures POCT urinalysis dipstick manually resulted Follow Up: Patient is to return to office in 6 weeks for . Documented by Esperazna White LPN on behalf of: Darrel Ridley DO documented in this encounter [facility] 01-08-2024 Evaluation + Plan note Diagnostic Tests PendingRPR with Conf Rfx 01/08/24Rubella Antibody IgG 01/08/24epatitis B Surface Antigen 01/08/24CV Antibody RFX to Quant PCR 01/08/24IV Screen 4th Generation wRfx 01/08/24Urine Culture 01/08/24 [facility] 12-12-2023 Hospital Discharg e instructions Patient Education [...] including vitamins, herbs, eye drops, creams, and ntay-tkb-ianelcr medicines. Any problems you or family members [...] if you need an emergent specialist or analytics consultant that is not available at the medical center you are at. You need to have more tests. A medical billing and coding specialist may be consulted if needed. Get [...] provider. Document Revised: 06/14/2022 Document Reviewed: 02/09/2022 [employer] Patient Education 2022 [employer]atra. 12/12/2023 07:29:07 Health Maintenance, Female Health Maintenance, [...] provider. Document Revised: 02/20/2022 Document Reviewed: 02/20/2022 [employer] Patient Education 2022 [employer]atra. Follow Up Care 11/15/2023 13:38:14 With:Mariya Girard Address: [facility] [address], [place] [address]- When:Within 6 Month(s) Comments:[facility] 12-06-2022 Evaluation + Plan note Diagnostic Tests PendingAnti-Mullerian Hormone ([facility]) 12/06/22 Future Scheduled TestsCOVID-19 ([facility]) 05/24/22 [facility] 06-08-2022 Hospital Discharg e instructions Patient Education [...] produces. Follow these instructions at home: Take [id number]-rvb-[id number] and prescription medicines only as told by [...] 01/25/2006 Document Revised: 09/13/2018 Document Reviewed: 03/18/2017 [employer] Patient Education 2020 Yatra. 06/08/2022 16:45:33 Health Maintenance, Female Health Maintenance, [...] 04/15/2012 Document Revised: 09/24/2019 Document Reviewed: 09/24/2019 [employer] Patient Education 2020 Yatra. Follow Up Care 06/06/2022 18:36:13 With:Samira Null CNP Address: [address] [place] [address]- [phone] When:1 year Comments:or sooner if needed [facility] 06-08-2022 Evaluation + Plan note Future Scheduled [id number] 06/08/22COVID-19 ([facility] 05/24/22Lipid Panel 06/08/22 [facility] 05-24-2022 Evaluation + Plan note Future Scheduled TestsCOVID-19 ([facility]) 05/24/22 [facility] Evaluation + Plan note No data available for this section [facility] Evaluation + Plan note Future Appointments Appointment Date:12/24/2023 08:20:00 AM Scheduled Provider:Mariya Girard Location:[facility] Appointment Type:FM Open [facility] Evaluation note Diagnosis Third trimester state, incidental 39 weeks gestation of [facility] No data available for this section [facility] No data available for this section [facility] Summary Purpose Family History [...] section and content) DATE CREATED AUTHOR 06/29/2018 [facility] DATE CREATED AUTHOR AUTHOR'S ORGANIZ ATION 02/04/2023 [facility] DATE CREATED AUTHOR AUTHOR'S ORGANIZ ATION 04/14/2024 [facility] DATE CREATED AUTHOR AUTHOR'S ORGANIZ ATION 07/25/2024 [facility] DATE CREATED AUTHOR AUTHOR'S ORGANIZ ATION 07/26/2024 [facility] DATE CREATED AUTHOR AUTHOR'S ORGANIZ ATION 08/01/2024 [facility] DATE CREATED AUTHOR AUTHOR'S ORGANIZ ATION 09/03/2024 [facility] EPIC Care Team (unrecognized sect ion and content) Dog Licenser Relationship Specialty Start Date End Date Unallocated, Noms ProviderMD [address] [place] [address] PCP - General 08/30/23 Eugenie Yin PA [address] [place] [address] PCP - [facility] 10/15/19 10/14/99 Dog Licenser Relationship Specialty Start Date End Date Unallocated, Nadege Pham MD [address] [place] [address] PCP - General 08/30/23 Eugenie Yin PA [address] [place] [address] PCP - [facility] [place] [place] 10/15/19 10/14/99 Dog Licenser Relationship Specialty Start Date End Date Unallocated, Nadege Pham MD [address] [place] [id number] PCP - General 08/30/23 Eugenie Yin PA [address] [place] [address] PCP - [facility] [place] [place] 10/15/19 10/14/99 Reason for Visit (unrecogniz ed section and content) Reason Comments Routine Visit FOR RECORDS PERTAINING TO PATIENTS WHO ARE [...] BE BASED ON THE PRIMARY CLINICAL RECORDS. [employer] provides no warranty or guarantee of the accuracy or completeness of information in this document.
[2024-09-05 07:35] LABS: Basophils Percent Auto 0.5 % (0.2-2.0); Eosinophils Absolute Auto 0.2 10^3/uL (0.0-0.7); Eosinophils Percent Auto 1.9 % (0.9-7.0); Immature Granulocytes Abs Auto 0.03 10^3/uL (0.00-0.03); Immature Granulocytes Pct Auto 0.4 % (0.0-0.5); Lymphocytes Absolute Auto 3.1 10^3/uL (1.2-3.8); Lymphocytes Percent Auto 38.7 % (20.5-60.0); Mean Corpuscular HGB Conc 32.5 g/dL (29.9-35.2); Mean Corpuscular Hemoglobin 28.6 pg (26.7-34.0); Mean Corpuscular Volume 87.9 fL (81.0-99.0); Mean Platelet Volume 9.9 fL (9.5-13.5); Monocytes Absolute Auto 0.6 10^3/uL (0.3-0.8); Monocytes Percent Auto 7.4 % (1.7-12.0); Neutrophils Percent Auto 51.1 % (43.0-75.0); Platelet Count 357 10^3/uL (150-450); Red Blood Count 4.55 10^6/uL (4.20-5.40); Red Cell Distribution Width 12.6 % (11.0-15.0); White Blood Count 7.9 10^3/uL (4.0-11.0)
[2024-09-05] MEDS: LACTATED RINGER'S SOLUTION 1,000 ML 50 ML IV (08:08)
[2024-09-05 08:11] LABS: HCG Quantitative <1 mIU/mL
--- NOTE | 2024-09-05 10:05 | PM.ONB ---
Brief Operative Note Date of procedure: 09/05/24 Pre-op diagnosis general: desires permanent sterilization Post-op diagnosis: same as pre-op Procedure: NAME OF PROCEDURE: robotic assisted bilateral laparoscopic salpingectomy PROCEDURE: The patient was taken back to the Operating Room where she was given general anesthesia without difficulty. She was then prepped and draped in the normal sterile fashion after being placed in a dorsal lithotomy position. A wet sponge stick was placed into the patient's vagina. Attention was then turned to the patient's abdomen, where a scalpel was used to make a small infraumbilical incision. The S retractors were then used to dissect the underlying layers until the fascia could be seen. The fascia was then grasped with Rubin clamps and tented up. A knife was then used to make a small incision to the fascia. The muscle was identified, at that time two sutures of #0 Vicryl on a GI needle was then used and placed through the fascia. the peritoneum was then identified and entered bluntly. The 10-4 Leonel was then placed into the patient's abdomen. This was confirmed with direct visualization of the bowel, using the laparoscope. The patient's abdomen was then insufflated using approximately 4 liters of CO2 gas. Survey of the patient's abdomen demonstrated ovaries were normal in appearance as well as both tubes and uterus. A second and third rt and lt lateral robotic ports which were 8 mm in size, was then placed after the skin incision was made under direct visualization . the robotic arms were engaged. The patient's tube on the patient's right side was identified and tented up using a grasper, the ligasure apparatus was then used to come across the mesosalpingx from the fimbriated end to the insertion site at the uterus, the tube was then amputated and removed in its entirety. This was done on the contralateral side. The tubes were the removed from the patients abdomen. Excellent hemostasis was noted. The lateral ports were then moved under direct visualization with excellent hemostasis. All instruments were removed from the patient's abdomen. The fascia was closed using the #0 Vicryl on GI needle. The skin was closed using 4-0 Vicryl subcuticularly. All instruments were removed from the patient's vagina as well. The patient was taken out of the dorsal lithotomy position and placed in the supine position and taken to recovery in stable condition. Sponge, lap and needle counts were correct x2. Anesthesia: GETA Surgeon: Bucky Ridley Aircraft Mechanic Armament: Olive Edouard Estimated blood loss (mL): 5 Pathology: other (tubes) Condition: stable Disposition: PACU Urinary Catheter Management Urinary Catheter Management Urethral: Cath placed during this visit: no
[2024-09-05] MEDS: HYDROMORPHONE HCL 0.5 MG/0.5 ML SYRINGE IV ×2 (10:31→10:39)
--- NOTE | 2024-09-05 10:44 | PC.NURSE ---
1031- Patient c/o abdominal pain of 8 to abdomen. Patient medicated with Dilaudid for pain as ordered.
--- NOTE | 2024-09-05 10:44 | PC.NURSE ---
1039- Pain remains 8 to abdomen. Patient remedicated with Dilaudid for pain as ordered.
[2024-09-05] MEDS: LACTATED RINGER'S SOLUTION 1,000 ML 150 ML IV (11:21)
[2024-09-05] MEDS: PROMETHAZINE HCL 25 MG TABLET PO (11:41)
--- NOTE | 2024-09-05 13:10 | PC.NURSE ---
1230- patient upto BR with assist x1. Patient voids moderate amount of clear yellow urine without difficulty.
== END 2024-09-05 12:50 | disposition home or self-care (01) ==
PROVIDERS: Visit Provider Obstetrics & Gynecology
PROC: (CPT 840; principal; 2024-09-05 08:40)
DX: Z30.2 Encounter for sterilization (principal); Z87.891 Personal history of nicotine dependence; K21.9 Gastro-esophageal reflux disease without esophagitis; G47.33 Obstructive sleep apnea (adult) (pediatric)
CPT/HCPCS: 58661; 36415; 84702; 85025; J1100; J1171; J1885; J2250; J2405; J2704; J3010; Q0169

== ENCOUNTER 2025-04-20 19:47 | Outpatient (REF) | payer OTHER, SELFPAY ==
--- OUTSIDE RECORDS SUMMARY | 2025-04-20 15:13 | XMS_ITS ---
Author Name Auto Generated Organization [facility] Care Team Providers Care Silo Man Name Role Phone Laisha Fuentes Attending Unavailable Laisha Fuentes Admitting Unavailable María ElenaEle rebolledoMarilin Jennifer Attending Unavailable Celia Moulton Attending Unavailable Laisha Fuentes Attending Unavailable Laisha Fuentes Attending Unavailable Mariya Oneal Attending Unavailab Marcelo Alex Attending Unavailable Vincent, Juan Attending Unavailable Vincent, Juan Attending Unavailable Hajdari, Funmi H Attending Unavailable Vincent, Juan Attending Unavailable Laisha Fuentes Attending Unavailable Laisha Fuentes Referring Unavailable Laisha Fuentes Attending Unavailable Laisha Fuentes Admitting Unavailable KEYANA, Darrel R Attending Unavailable KEYANA, Darrel R Admitting Unavailable LUANNHLKAL REBOLLEDO Attending Unavailable KEYANA, DARREL Attending Unavailable HUMPHREY, TU Attending Unavailable HUMPHREY, TU Attending Unavailable KEYANA, DARREL Attending Unavailable HUMPHREY, TU Attending Unavailable KEYANA, DARREL Attending Unavailable KEYANA, DARREL Attending Unavailable KEYANA, DARREL Attending Unavailable KEYANA, DARREL Attending Unavailable KEYANA, DARREL Attending Unavailable HUMPHREY, TU Attending Unavailable PROBLEMS No Problem Records Found PROCEDURES No Procedure Records Found RESULTS NONVISIT NOTE - PT Observed: 03/31/2025 3:27 PM Status: F Source: [facility] Nonvisit Note - PT Chart reviewed with eval prepped for scheduled eval. KK PATIENT EDUCATION Observed: 03/30/2025 4:04 PM Status: C Source: [facility] Patient Education Orthopedics Herniated Disk Rehab Ask your health care provider which exercises are safe for you. Do exercises exactly as told by your health care provider and adjust them as directed. It is normal to feel mild stretching, pulling, tightness, or discomfort as you do these exercises. Stop right away if you feel sudden pain or your pain gets worse. Do not begin these exercises until told by your health care provider. Stretching and zlkah-yb-iwiopx exercises These exercises warm up your muscles and joints and improve the movement and flexibility of your back. These exercises may also help to relieve pain, numbness, and tingling. Prone extension on elbows 1. Lie on your abdomen on a firm surface (prone position). 2. Prop yourself up on your elbows. 3. Use your arms to help lift your chest up until you feel a gentle stretch in your abdomen and your lower back. ??? This will place some of your body weight on your elbows. If this is uncomfortable, try stacking pillows under your chest. ??? Your hips should stay down, against the surface that you are lying on. Keep your hips, back, and buttocks muscles relaxed. 4. Hold this position for seconds. 5. Slowly relax your upper body and return to the starting position. Repeat times. Complete this exercise times a day. Standing extension 1. Stand with your feet shoulder-width apart. 2. Place your hands on your lower back, with your palms on your back. 3. Gently arch your back (extension) and press forward with your hands. Keep your hips over your toes. Do not let your hips drift forward while arching your back. 4. Hold this position for seconds. 5. Slowly return to the starting position. Repeat times. Complete this exercise times a day. Strengthening exercises These exercises build muscle strength and endurance in your back. Endurance is the ability to use your muscles for a long time, even after they get tired. Pelvic tilt 1. Lie on your back on a firm surface. Bend your knees and keep your feet flat on the floor. 2. Tense your abdominal muscles. Tip your pelvis up toward the ceiling and flatten your lower back into the floor. ??? To help with this exercise, you may place a small towel under your lower back and try to push your back into the towel. 3. Hold this position for seconds. 4. Let your muscles relax completely before you repeat this exercise. Repeat times. Complete this exercise times a day. Alternating arm and leg raises 1. Get on your hands and knees on a firm surface. If you are on a hard floor, you may want to use padding, such as an exercise mat, to cushion your knees. 2. Line up your arms and legs. Your hands should be below your shoulders, and your knees should be below your hips. 3. Lift your left leg behind you. At the same time, raise your right arm and straighten it in front of you. If you have trouble with your balance or the exercise is painful, start by raising one arm or one leg individually first. ??? Do not lift your leg higher than your hip. ??? Do not lift your arm higher than your shoulder. ??? Keep your abdominal and back muscles tight. ??? Keep your hips facing the ground. ??? Do not arch your back. ??? Keep your balance carefully. Continue to look down at the floor for improved balance. ??? Breathe easy and do not hold your breath. 4. Hold this position for seconds. 5. Slowly return to the starting position and repeat with your right leg and your left arm. Repeat times. Complete this exercise times a day. Bridge 1. Lie on your back on a firm surface with your knees bent and your feet flat on the floor. 2. Tighten your abdominal and buttocks muscles and lift your buttocks off the floor until your trunk and hips are level with your thighs. ??? You should feel the muscles working in your buttocks and the back of your thighs. ??? Do not arch your back. ??? If this exercise is too easy, try doing it with your arms crossed over your chest. 3. Hold this position for seconds. 4. Slowly lower your hips to the starting position. 5. Let your muscles relax completely after each repetition. Repeat times. Complete this exercise times a day. This information is not intended to replace advice given to you by your health care provider. Make sure you discuss any questions you have with your health care provider. Document Revised: 07/18/2021 Document Reviewed: 07/18/2021 Elsevier Patient Education ? 2023 [employer]Back Exercises These exercises help to make your trunk and back strong. They also help to keep the lower back flexible. Doing these exercises can help to prevent or lessen pain in your lower back. ??? If you have back pain, try to do these exercises 2?3 times each day or as told by your doctor. ??? As you get better, do the exercises once each day. Repeat the exercises more often as told by your doctor. ??? To stop back pain from coming back, do the exercises once each day, or as told by your doctor. Do exercises exactly as told by your doctor. Stop right away if you feel sudden pain or your pain gets worse. Exercises Single knee to chest Do these steps 3?5 times in a row for each le. Lie on your back on a firm bed or the floor with your legs stretched out. 2. Bring one knee to your chest. 3. Grab your knee or thigh with both hands and hold it in place. 4. Pull on your knee until you feel a gentle stretch in your lower back or butt. 5. Keep doing the stretch for 10?30 seconds. 6. Slowly let go of your leg and straighten it. Pelvic tilt Do these steps 5?10 times in a row: 1. Lie on your back on a firm bed or the floor with your legs stretched out. 2. Bend your knees so they point up to the ceiling. Your feet should be flat on the floor. 3. Tighten your lower belly (abdomen) muscles to press your lower back against the floor. This will make your tailbone point up to the ceiling instead of pointing down to your feet or the floor. 4. Stay in this position for 5?10 seconds while you gently tighten your muscles and breathe evenly. Cat?cow Do these steps until your lower back bends more easily: 1. Get on your hands and knees on a firm bed or the floor. Keep your hands under your shoulders, and keep your knees under your hips. You may put padding under your knees. 2. Let your head hang down toward your chest. Tighten (contract) the muscles in your belly. Point your tailbone toward the floor so your lower back becomes rounded like the back of a cat. 3. Stay in this position for 5 seconds. 4. Slowly lift your head. Let the muscles of your belly relax. Point your tailbone up toward the ceiling so your back forms a sagging arch like the back of a cow. 5. Stay in this position for 5 seconds. Press-ups Do these steps 5?10 times in a row: 1. Lie on your belly (face-down) on a firm bed or the floor. 2. Place your hands near your head, about shoulder-width apart. 3. While you keep your back relaxed and keep your hips on the floor, slowly straighten your arms to raise the top half of your body and lift your shoulders. Do not use your back muscles. You may change where you place your hands to make yourself more comfortable. 4. Stay in this position for 5 seconds. Keep your back relaxed. 5. Slowly return to lying flat on the floor. Bridges Do these steps 10 times in a row: 1. Lie on your back on a firm bed or the floor. 2. Bend your knees so they point up to the ceiling. Your feet should be flat on the floor. Your arms should be flat at your sides, next to your body. 3. Tighten your butt muscles and lift your butt off the floor until your waist is almost as high as your knees. If you do not feel the muscles working in your butt and the back of your thighs, slide your feet 1?2 inches (2.5?5 cm) farther away from your butt. 4. Stay in this position for 3?5 seconds. 5. Slowly lower your butt to the floor, and let your butt muscles relax. If this exercise is too easy, try doing it with your arms crossed over your chest. Belly crunches Do these steps 5?10 times in a row: 1. Lie on your back on a firm bed or the floor with your legs stretched out. 2. Bend your knees so they point up to the ceiling. Your feet should be flat on the floor. 3. Cross your arms over your chest. 4. Tip your chin a little bit toward your chest, but do not bend your neck. 5. Tighten your belly muscles and slowly raise your chest just enough to lift your shoulder blades a tiny bit off the floor. Avoid raising your body higher than that because it can put too much stress on your lower back. 6. Slowly lower your chest and your head to the floor. Back lifts Do these steps 5?10 times in a row: 1. Lie on your belly (face-down) with your arms at your sides, and rest your forehead on the floor. 2. Tighten the muscles in your legs and your butt. 3. Slowly lift your chest off the floor while you keep your hips on the floor. Keep the back of your head in line with the curve in your back. Look at the floor while you do this. 4. Stay in this position for 3?5 seconds. 5. Slowly lower your chest and your face to the floor. Contact a doctor if: ??? Your back pain gets a lot worse when you do an exercise. ??? Your back pain does not get better within 2 hours after you exercise. If you have any of these problems, stop doing the exercises. Do not do them again unless your doctor says it is okay. Get help right away if: ??? You have sudden, very bad back pain. If this happens, stop doing the exercises. Do not do them again unless your doctor says it is okay. This information is not intended to replace advice given to you by your health care provider. Make sure you discuss any questions you have with your health care provider. Document Revised: 12/14/2021 Document Reviewed: 12/14/2021 [employer] Patient Education ? 2023 [employer]. FAMILY MEDICINE OFFICE/CLINI C NOTE Observed: 03/30/2025 2:40 PM Status: F Source: [facility] Family Medicine Office/Clini c Note Chief Complaint herniated discs still in pain at level 6 HPI Staff Patient here today for ER follow up. Was seen on 03/29 for right sided lower back pain. Was also seen in [facility] on 03/23. Concerns since discharge: she is taking steroid. states she is still in lots of pain Treatment and Disposition ED Course: The patient presented with lower back pain radiating down to her leg. More likely her pain is of lumbosacral radiculopathy. The CT of the lumbar spine shows herniated disc at L3-L4 and L4-L5. The patient has no signs or symptoms of cauda equina syndrome. The patient was given Toradol and Norflex in the emergency room. She is driving. Will discharge patient home with prescription for tapering prednisone, Percocet for breakthrough pain and follow-up with her primary care and back specialist. The patient was instructed to return to the emergency room if her pain gets worse, bowel or bladder incontinence, saddle paresthesia, weakness in her leg or any new symptoms. History of Present Illness I have reviewed and discussed the HPI (staff) with the patient today. Information was verified and is correct. Additional information provided if needed. Pt reports to office today for ER follow up. She was seen in 03/23 for lumbar back pain with sciatica and was given steroid and muscle relaxer. She went to ER 03/29 due to continued pain and she was given toradol and norflex and she was sent home with prednisone taper and percocet. CT showed She is feeling a lot better since she went to ER yesterday. She is still taking the second course of prednisone. She denies any numbness/tingling or weakness of LEs. Pain does continue to radiate down her R buttock and leg at times but has greatly improved since yesterday. She denies loss of bowel or bladder control. She was advised to follow up with Dr Cast neurosurgeon and also start PT. She has not contacted Dr Goldberg's office yet. Review of Systems PHQ Score Initial Depression Screen Score: 0 SCORE ROS negative unless otherwise stated in HPI. Physical Exam Vitals & Measurements HR: 69(Peripheral) BP: 128/78 SpO2: 97% HT: 63 in HT: 161 cm WT: 82.6 kg WT: 182.102 lb BMI: 31.87 PHYSICAL EXAM General: Well developed, well nourished, [...] with appropriate mood and affect Assessment/Plan 1. Lumbosacral radiculopathy (M54.17: Radiculopathy, lumbosacral region) Acute, improving. Continue prednisone taper and percocet prn for breakthrough pain. Refer to PT for further management. Pt will contact Dr Cast's office for appt. Pt is aware of red flags/when to report to ER for emergency medical evaluation. Follow up as needed. Ordered: [facility] [place] [place] Evaluate Patient, Develop a Plan of Care, & Implement Plan 2. Herniated lumbar intervertebral disc (M51.26: Other intervertebral disc displacement, lumbar region) See #1. Ordered: [facility] [place] [facility] Physical Therapy Evaluate Patient, Develop a Plan of Care, & Implement Plan 3. BMI 31.0-31.9,adult (Z68.31: Body mass index [BMI] 31.0-31.9, adult) The standard range for ages 18 and older is >=18.5 and < 25 kg/m2. Your BMI today was above this range, this falls in the overweight to obese category and there are medical benefits to weight loss. We can offer counselling, referral, and/or medical support in addressing this problem. Your BMI and weight management will be followed at subsequent visits. 4. Obese (E66.9: Obesity, unspecified) Encourage healthy diet and lifestyle choices. Follow-up With When Contact Information Laisha Daniels [phone] Additional Instructions: Patient Education Herniated Disk Rehab Back Exercises, Nejr-rq-Khjs Problem List/Past Medical History Ongoing Anxiety Bacterial conjunctivitis of left eye BMI 32.0-32.9,adult Clostridium difficile diarrhea Cough Diarrhea Diverticula, colon Dysphagia Elevated liver enzymes Encounter for weight loss counseling Fullness in right ear Influenza A Myositis of thigh Non-smoker Obesity PCOS (polycystic ovarian syndrome) Routine adult health maintenance Historical Procedure/Surgical History Betamethasone (03/11/2019), Betamethasone (03/10/2019), Breast augmentation, Breast implant. Medications cyclobenzaprine 5 mg Tab, 5 mg= 1 tab(s), Oral, TID Percocet 5 mg-325 mg oral tablet, 1 tab(s), Oral, q6hr, PRN predniSONE 10 mg Tab, see instruction, Oral, As Directed Allergies No Known Allergies No Known Medication Allergies Social History Alcohol - Low Risk, 06/25/2019 Current. Beer, Wine. 1-2 times per month., 11/19/2024 Current, Beer, Wine, 1-2 times per month, 06/25/2019 Substance Abuse - Denies Substance Abuse, 06/25/2019 Never., 11/19/2024 Tobacco - Denies Tobacco Use, 04/13/2016 Former smoker, quit more than 30 days ago Tobacco Use:. Never Smokeless Tobacco Use:. Started age 16.0 Years. Stopped age 25 Years., 03/30/2025 Family History Hypertension: Mother. Immunizations Vaccine Date Status Comments influenza virus vaccine, inactivated 08/06/2024 Given Prophylaxis influenza virus vaccine, inactivated 07/23/2023 Given Prophylaxis influenza virus vaccine, inactivated 08/03/2022 Given Prophylaxis influenza virus vaccine, inactivated 08/09/2021 Given Prophylaxis SARS-CoV-2 (COVID-19) mRNA BNT-162b2 vax 02/19/2021 Given Prophylaxis SARS-CoV-2 (COVID-19) mRNA BNT-162b2 vax 01/29/2021 Given Prophylaxis influenza virus vaccine, live, trivalent 08/22/2019 Recorded diphtheria/pertussis, acel/tetanus adult 04/11/2019 Given Result Comment: Electronical ly Signed By: Laisha Daniels\.br\Date and Time Signed: 03/30/25 16:04 EDT AMBULATORY VISIT SUMMARY Observed: 03/30 2:40 PM Status: F Source: [facility] Ambulatory Visit Summary TOBIASTOMMY BOCANEGRA Jennifer :1990 Visit Date:03/30/2025 Ambulatory Visit Instructions Your Diagnosis BMI 31.0-31.9,adult Obese Your Care Team Attending Physician - Laisha Daniels Primary Care Physician - Laisha Daniels This Is Your Medications List Contact prescribing physician if questions or concerns acetaminophen-oxycodone (Percocet 5 mg-325 mg oral tablet) cyclobenzaprine (cyclobenzaprine 5 mg Tab) predniSONE (predniSONE 10 mg Tab) Procedures Performed Betamethasone (03/11/2019), Betamethasone (03/10/2019), Breast augmentation, Breast implant. Discharge Vitals Heart Rate (Peripheral) 69 Blood Pressure 128/78 Height 161 cm Height 63 in Weight 82.6 kg Weight 182.102 lb BMI 31.87 What to do next Scheduled Follow-Up Appointments Sunday 10:20 AM EDT With: Laisha Daniels Where: [facility] [address], [place] [address]- Medications What How Much When Why Instructions Unchanged acetaminophen-oxycodone (Percocet 5 mg-325 mg oral tablet) 1 Tablets By Mouth Every 6 hours as needed for as needed for pain Lumbosacral radiculopathy Herniated lumbar intervertebral disc Contact prescribing physician if questions or concerns Unchanged cyclobenzaprine (cyclobenzaprine 5 mg Tab) 1 Tablets By Mouth 3 times a day Lumbago with sciatica Duration: 7 Days Contact prescribing physician if questions or concerns Unchanged predniSONE (predniSONE 10 mg Tab) see instruction By Mouth As Directed 6 tabs for 2 days,5 tabs for 2 days,4 tabs for 2 days,3 tabs for 2 days,2 tabs for 2 days,1 tab for 2 days Contact prescribing physician if questions or concerns Allergies No Known Allergies No Known Medication Allergies Problems Ongoing - Any problem that you are currently receiving treatment for. Anxiety Bacterial conjunctivitis of left eye BMI 32.0-32.9,adult Clostridium difficile diarrhea Cough Diarrhea Diverticula, colon Dysphagia Elevated liver enzymes Encounter for weight loss counseling Fullness in right ear Influenza A Myositis of thigh Non-smoker Obesity PCOS (polycystic ovarian syndrome) Routine adult health maintenance Historical - Any problem that you are no longer receiving treatment for. Patient Survey You may receive a survey via text or e-mail asking about your office visit. Please share your experience with us by completing your survey. We appreciate your feedback and thank you for choosing us for your care. AMBULATORY VISIT SUMMARY Observed: 03/30 2:40 PM Status: F Source: [facility] Ambulatory Visit Summary TOMMY ARREOLA :1990 Visit Date:03/30/2025 Ambulatory Visit Instructions Your Diagnosis BMI 31.0-31.9,adult Obese Your Care Team Attending Physician - Laisha Daniels Primary Care Physician - Laisha Daniels This Is Your Medications List Contact prescribing physician if questions or concerns acetaminophen-oxycodone (Percocet 5 mg-325 mg oral tablet) cyclobenzaprine (cyclobenzaprine 5 mg Tab) predniSONE (predniSONE 10 mg Tab) Procedures Performed Betamethasone (03/11/2019), Betamethasone (03/10/2019), Breast augmentation, Breast implant. Discharge Vitals Heart Rate (Peripheral) 69 Blood Pressure 128/78 Height 161 cm Height 63 in Weight 82.6 kg Weight 182.102 lb BMI 31.87 What to do next Scheduled Follow-Up Appointments Sunday 10:20 AM EDT With: Laisha Daniels Where: [facility] [address], [place] [address]- Medications What How Much When Why Instructions Unchanged acetaminophen-oxycodone (Percocet 5 mg-325 mg oral tablet) 1 Tablets By Mouth Every 6 hours as needed for as needed for pain Lumbosacral radiculopathy Herniated lumbar intervertebral disc Contact prescribing physician if questions or concerns Unchanged cyclobenzaprine (cyclobenzaprine 5 mg Tab) 1 Tablets By Mouth 3 times a day Lumbago with sciatica Duration: 7 Days Contact prescribing physician if questions or concerns Unchanged predniSONE (predniSONE 10 mg Tab) see instruction By Mouth As Directed 6 tabs for 2 days,5 tabs for 2 days,4 tabs for 2 days,3 tabs for 2 days,2 tabs for 2 days,1 tab for 2 days Contact prescribing physician if questions or concerns Allergies No Known Allergies No Known Medication Allergies Problems Ongoing - Any problem that you are currently receiving treatment for. Anxiety Bacterial conjunctivitis of left eye BMI 32.0-32.9,adult Clostridium difficile diarrhea Cough Diarrhea Diverticula, colon Dysphagia Elevated liver enzymes Encounter for weight loss counseling Fullness in right ear Influenza A Myositis of thigh Non-smoker Obesity PCOS (polycystic ovarian syndrome) Routine adult health maintenance Historical - Any problem that you are no longer receiving treatment for. Patient Survey You may receive a survey via text or e-mail asking about your office visit. Please share your experience with us by completing your survey. We appreciate your feedback and thank you for choosing us for your care. ED PATIENT EDUCATION NOTE Observed: 03/15 8:53 AM Status: F Source: [facility] ED Patient Education Note Orthopedics Lumbosacral Radiculopathy Lumbosacral radiculopathy is a condition that involves the spinal nerves and nerve roots in the low back and bottom of the spine. The condition develops when these nerves and nerve roots move out of place or become inflamed and cause symptoms. What are the causes? This condition may be caused by: ??? Pressure from a disk that bulges out of place (herniated disk). A disk is a plate of soft cartilage that separates bones in the spine. ??? Disk changes that occur with age (disk degeneration). ??? A narrowing of the bones of the lower back (spinal stenosis). ??? A tumor. ??? An infection. ??? An injury that places sudden pressure on the disks that cushion the bones of your lower spine. What increases the risk? You are more likely to develop this condition if: ??? You are a male who is 30?50 years old. ??? You are a female who is 50?60 years old. ??? You use improper technique when lifting things. ??? You are overweight or live a sedentary lifestyle. ??? You smoke. ??? Your work requires frequent lifting. ??? You do repetitive activities that strain the spine. What are the signs or symptoms? Symptoms of this condition include: ??? Pain that goes down from your back into your legs (sciatica), usually on one side of the body. This is the most common symptom. The pain may be worse when you sit, cough, or sneeze. ??? Tingling and numbness in your legs. ??? Muscle weakness in your legs. ??? Loss of bladder control or bowel control. How is this diagnosed? This condition may be diagnosed based on: ??? Your symptoms and medical history. ??? A physical exam. If the pain lasts, you may have tests, such as: ??? MRI. ??? X-ray. ??? CT scan. ??? A type of CT scan used to examine the spinal canal after injecting a dye into your spine (myelogram). ??? A test to measure how electrical impulses move through a nerve (nerve conduction study). ??? A test to measure the electrical activity in muscles (electromyogram). How is this treated? In many cases, treatment is not needed for this condition. With rest, the condition usually gets better over time. If treatment is needed, it may include: ??? Working with a physical therapist to improve strength and flexibility. ??? Taking pain medicine. ??? Applying heat or ice or both to the affected areas. ??? Having chiropractic spinal manipulation. ??? Using transcutaneous electrical nerve stimulation (TENS) therapy. ??? Getting a steroid injection in the spine. ??? Having surgery. This may be needed if other treatments do not help. Different types of surgery may be done depending on the cause of this condition. Follow these instructions at home: Activity ??? Avoid bending and any other activities that make the problem worse. ??? Maintain a proper position when standing or sitting. ? When standing, keep your upper back and neck straight with your shoulders pulled back. Avoid slouching. ? When sitting, keep your back straight and relax your shoulders. Do not round your shoulders or pull them backward. ??? Do not sit or skiver machine one place for long periods of time. ??? Take brief periods of rest throughout the day. This will reduce your pain. It is usually better to rest by lying down or standing, not sitting. ??? Mix in mild activity or stretching between long periods of rest. This will help to prevent stiffness and pain. ??? Get regular exercise. Ask your health care provider what activities are safe for you. If you were shown how to do any exercises or stretches, do them as told by your health care provider. ??? You may have to avoid lifting. Ask your health care provider how much you can safely lift. ??? Always use proper lifting technique, which includes: ? Bending your knees. ? Keeping the load close to your body. ? Avoiding twisting. Managing pain ??? If directed, put ice on the affected area. To do this: ? Put ice in a plastic bag. ? Place a towel between your skin and the bag. ? Leave the ice on for 20 minutes, 2?3 times a day. ? Remove the ice if your skin turns bright red. This is very important. If you cannot feel pain, heat, or cold, you have a greater risk of damage to the area. ??? If directed, apply heat to the affected area as often as told by your health care provider. Use the heat source that your health care provider recommends, such as a moist heat pack or a heating pad. ? Place a towel between your skin and the heat source. ? Leave the heat on for 20?30 minutes. ? Remove the heat if your skin turns bright red. This is especially important if you are unable to feel pain, heat, or cold. You have a greater risk of getting burned. ??? Take yucs-xam-plrxipt and prescription medicines only as told by your health care provider. General instructions ??? Sleep on a firm mattress in a comfortable position. Try lying on your side with your knees slightly bent. If you lie on your back, put a pillow under your knees. ??? Ask your health care provider if the medicine prescribed to you requires you to avoid driving or using machinery. ??? If your health care provider prescribed a diet or exercise program, follow it as told. ??? Keep all follow-up visits. This is important. Contact a health care provider if: ??? Your pain does not get better over time, even when taking pain medicines. Get help right away if: ??? You develop severe pain. ??? Your pain suddenly gets worse. ??? You develop increasing weakness in your legs. ??? You lose the ability to control your bladder or bowel. ??? You have difficulty walking or balancing. ??? You have a fever. Summary ??? Lumbosacral radiculopathy is a condition that occurs when the spinal nerves and nerve roots in the lower part of the spine move out of place or become inflamed and cause symptoms. ??? Symptoms include pain, numbness, and tingling that go down from your back into your legs (sciatica), muscle weakness, and loss of bladder control or bowel control. ??? If directed, apply ice or heat or both to the affected area as told by your health care provider. ??? Follow instructions about activity, rest, and proper lifting technique. This information is not intended to replace advice given to you by your health care provider. Make sure you discuss any questions you have with your health care provider. Document Revised: 04/06/2022 Document Reviewed: 04/06/2022 [employer] Patient Education ? 2023 [employer]Herniated Disk A herniated disk, also called a ruptured disk or slipped disk, occurs when a disk in the spine bulges out too far. Between the bones in the spine (vertebrae), there are oval disks that are made of a soft, spongy center filled with liquid that is surrounded by a tough outer ring. The disks connect the vertebrae, help the spine move, and keep the bones from rubbing against each other when you move. When you have a herniated disk, the spongy center of the disk bulges out or breaks through the outer ring. The spongy center can press on a nerve between the vertebrae and cause pain. This can occur anywhere in the back or neck area, but the lower back is most commonly affected. What are the causes? This condition may be caused by: ??? Age-related wear and tear. ??? Sudden injury, such as a strain or sprain. What increases the risk? The following factors may make you more likely to develop this condition: ??? Aging. This is the main risk factor for a herniated disk. ??? Being a man who is 30?50 years old. ??? Frequently doing activities that involve heavy lifting, bending, or twisting. ??? Not getting enough exercise. ??? Being overweight. ??? Using tobacco products. What are the signs or symptoms? Symptoms may vary depending on where your herniated disk is located. ??? A herniated disk in the lower back may cause: ? Sharp pain in part of the hips, buttocks, or legs. ? Sharp pain in the lower back, spreading down through the leg into the foot (sciatica). ??? A herniated disk in the neck may cause dizziness and vertigo. It may also cause pain or weakness in the neck, shoulder, or upper arm, forearm, or fingers. You may also have muscle weakness. You may have trouble: ??? Lifting your leg or arm. ??? Standing on your toes. ??? Squeezing tightly with one of your hands. Other symptoms may include: ??? Numbness or tingling in the affected areas of the hands, arms, feet, or legs. ??? Inability to control when you urinate or when you have bowel movements. This is a rare but serious sign of a severe herniated disk in the lower back. How is this diagnosed? This condition may be diagnosed based on: ??? Your symptoms. ??? Your medical history. ??? A physical exam. The exam may include: ? A straight-leg test. For this test, you will lie on your back while your health care provider lifts your leg, keeping your knee straight. If you feel pain, you likely have a herniated disk. ? Neurologic tests. These include checking for numbness, reflexes, muscle strength, and problems with posture. ??? Imaging tests, such as: ? X-rays. ? MRI. ? CT scan. ? Electromyogram (EMG) to check the nerves that control muscles. How is this treated? Treatment for this condition may include: ??? A period of light, painless activity for a few days to several weeks. Complete bed rest is not recommended. ? If you have a herniated disk in your lower back, avoid sitting as it increases pressure on the disk. ??? Medicines. These may include: ? NSAIDs, such as ibuprofen, to help reduce pain and swelling. ? Muscle relaxants to prevent sudden tightening of the back muscles (back spasms). ? Prescription pain medicines, if you have severe pain. ??? Ice or heat therapy. ??? Steroid injections in the area of the herniated disk. These can help reduce pain and swelling. ??? Physical therapy to strengthen your back muscles. In many cases, symptoms go away with treatment over a period of days or weeks. You will most likely be free of symptoms after 3?4 months. If other treatments do not help to relieve your symptoms, you may need surgery. Follow these instructions at home: Medicines ??? Take ptby-mcj-quwevfg and prescription medicines only as told by your health care provider. ??? Ask your health care provider if the medicine prescribed to you: ? Requires you to avoid driving or using heavy machinery. ? Can cause constipation. You may need to take these actions to prevent or treat constipation: ? Drink enough fluid to keep your urine pale yellow. ? Take pmer-jlj-kyqxgmj or prescription medicines. ? Eat foods that are high in fiber, such as beans, whole grains, and fresh fruits and vegetables. ? Limit foods that are high in fat and processed sugars, such as fried or sweet foods. Managing pain, stiffness, and swelling ??? If directed, put ice on the painful area. Icing can help to relieve pain. To do this: ? Put ice in a plastic bag. ? Place a towel between your skin and the bag. ? Leave the ice on for 20 minutes, 2?3 times a day. ? Remove the ice if your skin turns bright red. This is very important. If you cannot feel pain, heat, or cold, you have a greater risk of damage to the area. ??? If directed, apply heat to the painful area as often as told by your health care provider. Heat can reduce the stiffness of your muscles. Use the heat source that your health care provider recommends, such as a moist heat pack or a heating pad. ? Place a towel between your skin and the heat source. ? Leave the heat on for 20?30 minutes. ? Remove the heat if your skin turns bright red. This is especially important if you are unable to feel pain, heat, or cold. You may have a greater risk of getting burned. Activity ??? Avoid strict bed rest but only do activities that are painless. ??? Gradually return to your normal activities and exercise as told by your health care provider. Ask your health care provider what activities and exercises are safe for you. ??? Use good posture. ??? Avoid movements that cause pain. ??? Do not lift anything that is heavier than 10 lb (4.5 kg), or the limit that you are told, until your health care provider says that it is safe. ??? Do not sit or stand for long periods of time without changing positions. ??? Do not sit for long periods of time without getting up and moving around. ??? If physical therapy was prescribed, do exercises as told by your health care provider. ??? Aim to strengthen muscles in your back and abdomen with exercises such as swimming or walking. General instructions ??? Do not use any products that contain nicotine or tobacco, such as cigarettes, e-cigarettes, and chewing tobacco. These products can delay healing. If you need help quitting, ask your health care provider. ??? Do not wear high-heeled shoes. ??? Do not sleep on your abdomen. ??? If you are overweight, work with your health care provider to lose weight safely. ??? Keep all follow-up visits. This is important. How is this prevented? Maintain a healthy weight. ??? Maintain physical fitness. Do at least 150 minutes of moderate-intensity exercise each week, such as brisk walking or water aerobics. ??? When lifting objects: ? Keep your feet at least shoulder-width apart and tighten the muscles of your abdomen. ? Keep your spine neutral as you bend your knees and hips. It is important to lift using the strength of your legs, not your back. Do not lock your knees straight out. ? Always ask for help to lift heavy or awkward objects. Contact a health care provider if you: ??? Have back pain or neck pain that does not get better after 6 weeks. ??? Have severe pain in your back, neck, legs, or arms. ??? Develop numbness, tingling, or weakness anywhere in your body. Get help right away if: ??? You cannot move your arms or legs. ??? You cannot control when you urinate or have bowel movements. ??? You feel dizzy or you faint. ??? You have shortness of breath. These symptoms may represent a serious problem that is an emergency. Do not wait to see if the symptoms will go away. Get medical help right away. Call your local emergency services (911 in the [place] Do not drive yourself to the hospital. Summary ??? A herniated disk, also called a ruptured disk or slipped disk, occurs when a disk in the spine bulges out too far (herniates). ??? This condition may be caused by age-related wear and tear or a sudden injury. ??? Symptoms may vary depending on where your herniated disk is located. ??? Treatment may include rest, medicines, ice or heat therapy, steroid injections, and physical therapy. ??? If other treatments do not help to relieve your symptoms, you may need surgery. This information is not intended to replace advice given to you by your health care provider. Make sure you discuss any questions you have with your health care provider. Document Revised: 01/19/2021 Document Reviewed: 01/19/2021 [employer] Patient Education ? 2023 [email or web address] ED PATIENT SUMMARY Observed: 03/29/2025 8:53 AM Status: F Source: [facility] ED Patient Summary [address] [address] Patient Discharge Instructions Person Information Name: TOMMY ARREOLA Age: 34 Years Arrival Date: 03/29/2025 07:00:00 Discharge Diagnosis: 1:Lumbosacral radiculopathy; 2:Herniated lumbar intervertebral disc Primary Care Physician: Laisha Daniels Provider Information Primary Provider: Funmi Lindo M.D. Advanced Patient Care Specialist:None The exam and treatment you received in the Emergency Department were for an urgent problem and are not intended as complete care. It is important that you follow up with a doctor, nurse practitioner, or physician???s surgical supply assistant for ongoing care. If your symptoms become worse or you do not improve as expected and you are unable to reach your usual health care provider, you should return to the Emergency Department. We are available 24 hours a day. TOMMY ARREOLA has been given the following list of patient education materials, prescriptions and follow-up instructions: Follow-up Instructions: With: Address: When: Hugo Cast [address], [facility] [address] [place] [address] [phone] [employer] (1) In 3 days 04/01/2025 Comments: Return to the emergency room if your pain gets worse, bowel or bladder incontinence, numbness/tingling in the saddle/groin area, weakness on your leg or any new symptoms. With: Address: When: Laisha Fuentes [address], [place], [place] [id number] [phone] [employer] (1) In 3 days 04/01/2025 In the event that this physician does not participate in your insurance network, please consult with your insurance company to find a nearby participating provider. Patient Education Materials: Lumbosacral Radiculopathy; Herniated Disk A MESSAGE TO ALL PATIENTS REGARDING OPIOIDS PRESCRIPTION OPIOIDS: WHAT YOU NEED TO KNOW Prescription opioids can be used to help relieve kandqbmc-pl-xqgrip pain and are often prescribed following a surgery or injury, or for certain health conditions. These medications can be an important part of the treatment but also come with serious risks. It is important to work with your healthcare provider to make sure you are getting the safest, most effective care. WHAT ARE THE RISKS AND SIDE EFFECTS OF OPIOID USE? Prescription opioids carry serious risks of addiction and overdose, especially with prolonged use. An opioid overdose, often marked by slowed breathing, can cause sudden . The use of prescription opioids can have a number of side effects as well, even when taken as directed: ??? Tolerance???meaning you might need to take more of the medication for the same pain relief ??? Physical dependence???meaning you have symptoms of withdrawal when a medication is stopped ??? Increased sensitivity to pain ??? Constipation ??? Nausea, vomiting, and dry mouth ??? Sleepiness and dizziness ??? Confusion ??? Depression ??? Low levels of testosterone that can result in lower sex drive, energy, and strength ??? Itching and sweating RISKS ARE GREATER WITH: ??? History of drug misuse, substance use disorder, or overdose ??? Mental health conditions (such as depression or anxiety) ??? Sleep apnea ??? Older age (65 years and older) ??? Avoid alcohol while taking prescription opioids. Also, unless specifically advised by your health care provider, medications to avoid include: ??? Benzodiazepines (such as Xanax or Valium) ??? Muscle relaxants (such as Soma or Flexeril) ??? Hypnotics (such as Ambien or Lunesta) ??? Other prescription opioids KNOW YOUR OPTIONS Talk to your health care provider about ways to manage your pain that don???t involve prescription opioids. Some of these options may actually work better and have fewer risks and side effects. Options may include: ??? Pain relievers such as acetaminophen, ibuprofen, and naproxen ??? Some medication that are also used for depression or seizures ??? Physical therapy and exercise ??? Cognitive behavioral therapy, a psychological, goal-directed approach, in which patients learn how to modify physical, behavioral, and emotional triggers of pain and stress. IF YOU ARE PRESCRIBED OPIOIDS FOR PAIN: ??? Never take opioids in greater amounts or more often than prescribed. ??? Follow up with your primary health care provider. o Work together to create a plan on how to manage your pain. o Talk about ways to help manage your pain that don???t involve prescription opioids. o Talk about any and all concerns and side effects. ??? Help prevent misuse and abuse o Never sell or share prescription opioids. o Never use another person???s prescription opioids. ??? Store prescription opioids in a secure place and out of reach of others (this may include visitors, children, friends, and family). ??? Safely dispose of unused prescription opioids: Find your community drug take-back program or your pharmacy mail-back program, or flush them down the toilet, following guidance from the Food and Drug Administration (www.fda.gov/Drugs/ResourcesForYou). ??? Visit www.cdc.gov/drugoverdose to learn about the risks of opioids abuse and overdose. ??? If you believe you may be struggling with addiction, tell your health cattle care worker and ask for guidance or call [facility]???S National Helpline at 5-226-486-HELP. v Source: [place] Department of Health and Human Services/Center for Disease Control & Prevention [facility] Medications Given: Medication Dose Route ketorolac 30.00 mg IV Push Right Hand orphenadrine 60.00 mg IV Push Right Hand Medication Information: New Medications [facility] 1984, [address] [place], [place] [id number], [phone] acetaminophen-oxycodone (Percocet 5 mg-325 mg oral tablet) 1 Tablets By Mouth every 6 hours as needed as needed for pain. Refills: 0. predniSONE (predniSONE 10 mg Tab) see instruction By Mouth As Directed. 6 tabs for 2 days,5 tabs for 2 days,4 tabs for 2 days,3 tabs for 2 days,2 tabs for 2 days,1 tab for 2 days. Refills: 0. Medications to Continue with No Changes Other Medications cyclobenzaprine (cyclobenzaprine 5 mg Tab) 1 Tablets By Mouth 3 times a day for 7 Days. Refills: 0. Comment: Patient Portal You may access all of your results and other medical record information on our secure patient portal. If you are not signed up for this yet, please contact [facility] at [phone] to get signed up today. MICHEAL Award Nomination The MICHEAL (Diseases Attacking the Immune SYstem) Award is an international recognition program that honors and celebrates the skillful, compassionate care nurses provide every day. Anyone who experiences or observes amazing care being provided by a nurse is encouraged to submit a nomination. To nominate your nurse, use your smart phone to scan the QR code below. You may receive a survey from [employer] asking you to rate your care experience. Your feedback is important and will help us understand what we do well and how we can improve the quality of care we provide to you, your loved ones and our community. It???s an honor to serve you. Thank you for choosing [facility] Patient Education Materials: Lumbosacral Radiculopathy Lumbosacral radiculopathy is a condition that involves the spinal nerves and nerve roots in the low back and bottom of the spine. The condition develops when these nerves and nerve roots move out of place or become inflamed and cause symptoms. What are the causes? This condition may be caused by: ??? Pressure from a disk that bulges out of place (herniated disk). A disk is a plate of soft cartilage that separates bones in the spine. ??? Disk changes that occur with age (disk degeneration). ??? A narrowing of the bones of the lower back (spinal stenosis). ??? A tumor. ??? An infection. ??? An injury that places sudden pressure on the disks that cushion the bones of your lower spine. What increases the risk? You are more likely to develop this condition if: ??? You are a male who is 30?50 years old. ??? You are a female who is 50?60 years old. ??? You use improper technique when lifting things. ??? You are overweight or live a sedentary lifestyle. ??? You smoke. ??? Your work requires frequent lifting. ??? You do repetitive activities that strain the spine. What are the signs or symptoms? Symptoms of this condition include: ??? Pain that goes down from your back into your legs (sciatica), usually on one side of the body. This is the most common symptom. The pain may be worse when you sit, cough, or sneeze. ??? Tingling and numbness in your legs. ??? Muscle weakness in your legs. ??? Loss of bladder control or bowel control. How is this diagnosed? This condition may be diagnosed based on: ??? Your symptoms and medical history. ??? A physical exam. If the pain lasts, you may have tests, such as: ??? MRI. ??? X-ray. ??? CT scan. ??? A type of CT scan used to examine the spinal canal after injecting a dye into your spine (myelogram). ??? A test to measure how electrical impulses move through a nerve (nerve conduction study). ??? A test to measure the electrical activity in muscles (electromyogram). How is this treated? In many cases, treatment is not needed for this condition. With rest, the condition usually gets better over time. If treatment is needed, it may include: ??? Working with a physical therapist to improve strength and flexibility. ??? Taking pain medicine. ??? Applying heat or ice or both to the affected areas. ??? Having chiropractic spinal manipulation. ??? Using transcutaneous electrical nerve stimulation (TENS) therapy. ??? Getting a steroid injection in the spine. ??? Having surgery. This may be needed if other treatments do not help. Different types of surgery may be done depending on the cause of this condition. Follow these instructions at home: Activity ??? Avoid bending and any other activities that make the problem worse. ??? Maintain a proper position when standing or sitting. ? When standing, keep your upper back and neck straight with your shoulders pulled back. Avoid slouching. ? When sitting, keep your back straight and relax your shoulders. Do not round your shoulders or pull them backward. ??? Do not sit or skiver machine one place for long periods of time. ??? Take brief periods of rest throughout the day. This will reduce your pain. It is usually better to rest by lying down or standing, not sitting. ??? Mix in mild activity or stretching between long periods of rest. This will help to prevent stiffness and pain. ??? Get regular exercise. Ask your health care provider what activities are safe for you. If you were shown how to do any exercises or stretches, do them as told by your health care provider. ??? You may have to avoid lifting. Ask your health care provider how much you can safely lift. ??? Always use proper lifting technique, which includes: ? Bending your knees. ? Keeping the load close to your body. ? Avoiding twisting. Managing pain ??? If directed, put ice on the affected area. To do this: ? Put ice in a plastic bag. ? Place a towel between your skin and the bag. ? Leave the ice on for 20 minutes, 2?3 times a day. ? Remove the ice if your skin turns bright red. This is very important. If you cannot feel pain, heat, or cold, you have a greater risk of damage to the area. ??? If directed, apply heat to the affected area as often as told by your health care provider. Use the heat source that your health care provider recommends, such as a moist heat pack or a heating pad. ? Place a towel between your skin and the heat source. ? Leave the heat on for 20?30 minutes. ? Remove the heat if your skin turns bright red. This is especially important if you are unable to feel pain, heat, or cold. You have a greater risk of getting burned. ??? Take ohte-afo-quchrde and prescription medicines only as told by your health care provider. General instructions ??? Sleep on a firm mattress in a comfortable position. Try lying on your side with your knees slightly bent. If you lie on your back, put a pillow under your knees. ??? Ask your health care provider if the medicine prescribed to you requires you to avoid driving or using machinery. ??? If your health care provider prescribed a diet or exercise program, follow it as told. ??? Keep all follow-up visits. This is important. Contact a health care provider if: ??? Your pain does not get better over time, even when taking pain medicines. Get help right away if: ??? You develop severe pain. ??? Your pain suddenly gets worse. ??? You develop increasing weakness in your legs. ??? You lose the ability to control your bladder or bowel. ??? You have difficulty walking or balancing. ??? You have a fever. Summary ??? Lumbosacral radiculopathy is a condition that occurs when the spinal nerves and nerve roots in the lower part of the spine move out of place or become inflamed and cause symptoms. ??? Symptoms include pain, numbness, and tingling that go down from your back into your legs (sciatica), muscle weakness, and loss of bladder control or bowel control. ??? If directed, apply ice or heat or both to the affected area as told by your health care provider. ??? Follow instructions about activity, rest, and proper lifting technique. This information is not intended to replace advice given to you by your health care provider. Make sure you discuss any questions you have with your health care provider. Document Revised: 04/06/2022 Document Reviewed: 04/06/2022 [employer] Patient Education ? 2023 [employer] Herniated Disk A herniated disk, also called a ruptured disk or slipped disk, occurs when a disk in the spine bulges out too far. Between the bones in the spine (vertebrae), there are oval disks that are made of a soft, spongy center filled with liquid that is surrounded by a tough outer ring. The disks connect the vertebrae, help the spine move, and keep the bones from rubbing against each other when you move. When you have a herniated disk, the spongy center of the disk bulges out or breaks through the outer ring. The spongy center can press on a nerve between the vertebrae and cause pain. This can occur anywhere in the back or neck area, but the lower back is most commonly affected. What are the causes? This condition may be caused by: ??? Age-related wear and tear. ??? Sudden injury, such as a strain or sprain. What increases the risk? The following factors may make you more likely to develop this condition: ??? Aging. This is the main risk factor for a herniated disk. ??? Being a man who is 30?50 years old. ??? Frequently doing activities that involve heavy lifting, bending, or twisting. ??? Not getting enough exercise. ??? Being overweight. ??? Using tobacco products. What are the signs or symptoms? Symptoms may vary depending on where your herniated disk is located. ??? A herniated disk in the lower back may cause: ? Sharp pain in part of the hips, buttocks, or legs. ? Sharp pain in the lower back, spreading down through the leg into the foot (sciatica). ??? A herniated disk in the neck may cause dizziness and vertigo. It may also cause pain or weakness in the neck, shoulder, or upper arm, forearm, or fingers. You may also have muscle weakness. You may have trouble: ??? Lifting your leg or arm. ??? Standing on your toes. ??? Squeezing tightly with one of your hands. Other symptoms may include: ??? Numbness or tingling in the affected areas of the hands, arms, feet, or legs. ??? Inability to control when you urinate or when you have bowel movements. This is a rare but serious sign of a severe herniated disk in the lower back. How is this diagnosed? This condition may be diagnosed based on: ??? Your symptoms. ??? Your medical history. ??? A physical exam. The exam may include: ? A straight-leg test. For this test, you will lie on your back while your health care provider lifts your leg, keeping your knee straight. If you feel pain, you likely have a herniated disk. ? Neurologic tests. These include checking for numbness, reflexes, muscle strength, and problems with posture. ??? Imaging tests, such as: ? X-rays. ? MRI. ? CT scan. ? Electromyogram (EMG) to check the nerves that control muscles. How is this treated? Treatment for this condition may include: ??? A period of light, painless activity for a few days to several weeks. Complete bed rest is not recommended. ? If you have a herniated disk in your lower back, avoid sitting as it increases pressure on the disk. ??? Medicines. These may include: ? NSAIDs, such as ibuprofen, to help reduce pain and swelling. ? Muscle relaxants to prevent sudden tightening of the back muscles (back spasms). ? Prescription pain medicines, if you have severe pain. ??? Ice or heat therapy. ??? Steroid injections in the area of the herniated disk. These can help reduce pain and swelling. ??? Physical therapy to strengthen your back muscles. In many cases, symptoms go away with treatment over a period of days or weeks. You will most likely be free of symptoms after 3?4 months. If other treatments do not help to relieve your symptoms, you may need surgery. Follow these instructions at home: Medicines ??? Take mhha-jmp-klsqnoj and prescription medicines only as told by your health care provider. ??? Ask your health care provider if the medicine prescribed to you: ? Requires you to avoid driving or using heavy machinery. ? Can cause constipation. You may need to take these actions to prevent or treat constipation: ? Drink enough fluid to keep your urine pale yellow. ? Take czet-yyv-gmfcagc or prescription medicines. ? Eat foods that are high in fiber, such as beans, whole grains, and fresh fruits and vegetables. ? Limit foods that are high in fat and processed sugars, such as fried or sweet foods. Managing pain, stiffness, and swelling ??? If directed, put ice on the painful area. Icing can help to relieve pain. To do this: ? Put ice in a plastic bag. ? Place a towel between your skin and the bag. ? Leave the ice on for 20 minutes, 2?3 times a day. ? Remove the ice if your skin turns bright red. This is very important. If you cannot feel pain, heat, or cold, you have a greater risk of damage to the area. ??? If directed, apply heat to the painful area as often as told by your health care provider. Heat can reduce the stiffness of your muscles. Use the heat source that your health care provider recommends, such as a moist heat pack or a heating pad. ? Place a towel between your skin and the heat source. ? Leave the heat on for 20?30 minutes. ? Remove the heat if your skin turns bright red. This is especially important if you are unable to feel pain, heat, or cold. You may have a greater risk of getting burned. Activity ??? Avoid strict bed rest but only do activities that are painless. ??? Gradually return to your normal activities and exercise as told by your health care provider. Ask your health care provider what activities and exercises are safe for you. ??? Use good posture. ??? Avoid movements that cause pain. ??? Do not lift anything that is heavier than 10 lb (4.5 kg), or the limit that you are told, until your health care provider says that it is safe. ??? Do not sit or stand for long periods of time without changing positions. ??? Do not sit for long periods of time without getting up and moving around. ??? If physical therapy was prescribed, do exercises as told by your health care provider. ??? Aim to strengthen muscles in your back and abdomen with exercises such as swimming or walking. General instructions ??? Do not use any products that contain nicotine or tobacco, such as cigarettes, e-cigarettes, and chewing tobacco. These products can delay healing. If you need help quitting, ask your health care provider. ??? Do not wear high-heeled shoes. ??? Do not sleep on your abdomen. ??? If you are overweight, work with your health care provider to lose weight safely. ??? Keep all follow-up visits. This is important. How is this prevented? Maintain a healthy weight. ??? Maintain physical fitness. Do at least 150 minutes of moderate-intensity exercise each week, such as brisk walking or water aerobics. ??? When lifting objects: ? Keep your feet at least shoulder-width apart and tighten the muscles of your abdomen. ? Keep your spine neutral as you bend your knees and hips. It is important to lift using the strength of your legs, not your back. Do not lock your knees straight out. ? Always ask for help to lift heavy or awkward objects. Contact a health care provider if you: ??? Have back pain or neck pain that does not get better after 6 weeks. ??? Have severe pain in your back, neck, legs, or arms. ??? Develop numbness, tingling, or weakness anywhere in your body. Get help right away if: ??? You cannot move your arms or legs. ??? You cannot control when you urinate or have bowel movements. ??? You feel dizzy or you faint. ??? You have shortness of breath. These symptoms may represent a serious problem that is an emergency. Do not wait to see if the symptoms will go away. Get medical help right away. Call your local emergency services (911 in the [place] Do not drive yourself to the hospital. Summary ??? A herniated disk, also called a ruptured disk or slipped disk, occurs when a disk in the spine bulges out too far (herniates). ??? This condition may be caused by age-related wear and tear or a sudden injury. ??? Symptoms may vary depending on where your herniated disk is located. ??? Treatment may include rest, medicines, ice or heat therapy, steroid injections, and physical therapy. ??? If other treatments do not help to relieve your symptoms, you may need surgery. This information is not intended to replace advice given to you by your health care provider. Make sure you discuss any questions you have with your health care provider. Document Revised: 01/19/2021 Document Reviewed: 01/19/2021 [employer] Patient Education ? 2023 [employer] I, TOMMY ARREOLA , have received the following patient education materials/instructions and have verbalized understanding: Patient Education Materials: Lumbosacral Radiculopathy; Herniated Disk Follow-up Instructions: With: Address: When: Hugo Cast [address], [address] [place] [address] [phone] [employer] (1) In 3 days 04/01/2025 Comments: Return to the emergency room if your pain gets worse, bowel or bladder incontinence, numbness/tingling in the saddle/groin area, weakness on your leg or any new symptoms. With: Address: When: Laisha Fuentes [address] [place] [address] [phone] [employer] (1) In 3 days 04/01/2025 Patient Signature Date Clinician/Nurse Signature Date 03/29/2025 08:53:36 ED CLINICAL SUMMARY Observed: 03/29/2025 8:53 AM Status: F Source: [facility] ED Clinical Summary [address] [address] ED Clinical Summary Person Information Name: TOMMY ARREOLA [facility] Age: 34 Years : 1990 Sex: Female Language: Luxembourgish PCP: Laisha Daniels Marital Status: Visit Id: Visit Reason: Leg pain-swelling; Hip pain-swelling; Back pain; BACK/HIP PAIN Speciality: Acuity: 4 Enc Type: Emergency Med Service: Emergency Arrival: 03/29/2025 07:00:00 Discharge: 03/29/2025 08:53:28 LOS: 000 01:53 Checkin: 03/29/2025 07:00:00 Checkout: 03/29/2025 08:53:28 Dispo Type: Home (Routine DC) EVENTS: Event Name Event Status Request Date/Time Start Date/Time Complete Date/Time Arrive Complete 03/29/2025 07:00:00 03/29/2025 07:00:00 03/29/2025 07:00:00 Document Home Meds Request 03/29/2025 07:00:00 Triage Complete 03/29/2025 07:00:00 03/29/2025 07:09:06 03/29/2025 07:09:06 Bed Assign Complete 03/29/2025 07:02:58 03/29/2025 07:02:58 03/29/2025 07:02:58 Dr Exam Complete 03/29/2025 07:02:58 03/29/2025 07:06:52 03/29/2025 07:06:52 RN Exam Complete 03/29/2025 07:02:58 03/29/2025 07:11:01 03/29/2025 07:11:01 Registration Complete 03/29/2025 07:05:06 03/29/2025 07:05:06 03/29/2025 07:05:06 Reg Complete Request 03/29/2025 07:05:06 Reg Bed Request Complete 03/29/2025 07:05:06 03/29/2025 07:05:06 03/29/2025 07:05:06 Registration Complete 03/29/2025 07:06:52 03/29/2025 07:14:17 03/29/2025 07:14:17 Isolation Screening Request 03/29/2025 07:09:07 Meds Admin Complete 03/29/2025 07:23:26 03/29/2025 07:41:43 CT Complete 03/29/2025 07:23:26 03/29/2025 07:31:18 03/29/2025 07:51:15 Pending Labs Complete 03/29/2025 07:43:44 03/29/2025 08:17:02 Discharge Complete 03/29/2025 08:45:42 03/29/2025 08:53:34 03/29/2025 08:53:34 Transfer Complete 03/29/2025 08:53:34 03/29/2025 08:53:34 03/29/2025 08:53:34 ADDRESS: [address] [place] [address] [phone] PHYS DOC NOTES: MEDICAL INFORMATION: Prescriptions Given: New Medications [facility], [address] [facility] [place], [place] [id number], [phone] acetaminophen-oxycodone (Percocet 5 mg-325 mg oral tablet) 1 Tablets By Mouth every 6 hours as needed as needed for pain. Refills: 0. predniSONE (predniSONE 10 mg Tab) see instruction By Mouth As Directed. 6 tabs for 2 days,5 tabs for 2 days,4 tabs for 2 days,3 tabs for 2 days,2 tabs for 2 days,1 tab for 2 days. Refills: 0. Medications to Continue with No Changes Other Medications cyclobenzaprine (cyclobenzaprine 5 mg Tab) 1 Tablets By Mouth 3 times a day for 7 Days. Refills: 0. PATIENT EDUCATION INFORMATION: Instructions: Lumbosacral Radiculopathy; Herniated Disk Follow up: With: Address: When: Hugo Cast [address], [facility] [address] [place] [address] [phone] Business (1) In 3 days 04/01/2025 Comments: Return to the emergency room if your pain gets worse, bowel or bladder incontinence, numbness/tingling in the saddle/groin area, weakness on your leg or any new symptoms. With: Address: When: Laisha Fuentes [address] [place], [place] [id number] [phone] Business (1) In 3 days 04/01/2025 DIAGNOSIS: 1:Lumbosacral radiculopathy; 2:Herniated lumbar intervertebral disc UA WITH CULT RFLX Collected: 5 7:55 AM Status: F Source: [facility] TYPE CODE TESTS RESULT OUT OF RANGE REFERENCE UNITS LAB [id number](LOIN C) UA Spec Desc Clean Catch Normal LAB [id number](LOIN C) UA Color Colorless Abnormal Yellow Result Comment: Microscopic readings are only performed on those samples that meet specific criteria set forth by [facility]. LAB [id number](LOIN C) UA Clarity Clear Normal Clear LAB [id number](LOIN C) UA Spec Grav 1.007 Unknown 1.005-1.030 LAB [id number](LOIN C) UA pH 7.5 Unknown 5.0-9.0 LAB [id number](LOIN C) UA Protein Negative Normal Negative mg/dL LAB [id number](LOIN C) UA Glucose Negative Normal Negative mg/dL LAB [id number](LOIN C) UA Ketones Negative Normal Negative mg/dL LAB [id number](LOIN C) UA Bili Negative Normal Negative mg/dL LAB [id number](LOIN C) UA Blood 2+ Abnormal Negative mg/dL LAB [id number](LOIN C) UA Nitrite Negative Normal Negative mg/dL LAB [id number](LOIN C) UA Urobilinogen Negative Normal Negative mg/dL LAB [id number](LOIN C) UA Leuk Est Negative Normal Negative CD:66475 62727 LAB [id number](LOIN C) UA WBC 0-5 Normal 0-5 CD:53227 16451 LAB [id number](LOIN C) UA RBC 4-20 Abnormal 0-3 CD:33455 12885 LAB [id number](LOIN C) UA Squam Epithelial 0-2 Unknown CD:18839 94449 LAB [id number](LOIN C) UA Mucous Negative Normal Negative CD:50546 50727 Performed By: #### [id number] 3 #### [facility] [address] [place] [address] CT SPINE LUMBAR W/O CONTRAST Observed: 0 03/29/2025 7:31 AM Status: F Source: [facility] Exam Date/Time: 03/29/2025 07:51 EDT Reason for Exam: Radiculopathy Report IMPRESSION: No acute fracture or traumatic malalignment. Multilevel degenerative changes including probable disc herniations as discussed. These findings could better be assessed with follow-up lumbar MRI. HISTORY: Radiculopathy. Right lower back pain radiating to the hip and legs. History of sciatica pain. Pain worsening. TECHNIQUE: Routine CT of the lumbar spine without contrast. Sagittal and coronal reconstructions. All CT scans at this facility use dose modulation, iterative reconstruction, and/or weight based dosing when appropriate to reduce radiation dose to as low as reasonably achievable. Unless otherwise stated, incidental findings identified in this report do not require routine follow-up imaging. COMPARISON: CT 09/26/2024. RESULT: Counting reference: Lumbosacral junction. For the purposes of this report, L5-S1 is the last well-formed disc space. Alignment: Alignment is anatomic. Bone marrow /fracture: No evidence for acute fracture. No destructive osseous lesions. Paraspinal soft tissues: Nonobstructing 3 mm interpolar left renal calculus. Diverticulosis without evidence for acute diverticulitis. Canal and foramina, degenerative changes: Multilevel degenerative changes. Large disc protrusion/extrusion in the central region at L3-L4 with at least moderate canal narrowing, without significant foraminal narrowing.Broad-based disc bulge with probable right subarticular zone disc protrusion at L4-L5 with at least mild to moderate canal narrowing, probable right subarticular narrowing and probable abutment of the descending right L5 nerve root. Disc bulge or small protrusion at L5-S1, without significant bony canal or foraminal narrowing. Sacrum and iliac wings: No acute findings. Degenerative changes SI joints. Report Ordering Provider: Funmi Lindo FINAL REPORT Dictated: 03/29/2025 8:16 am Juan Chappell MD Signed (Electronic Signature): 03/29/2025 8:16 am Signed by: Juan Chappell MD Transcribed by: BEVERLY Technologist: JASON ED NOTE-PHYSICIAN Observed: 03/29/2025 7:00 AM Status: F Source: [facility] ED Note-Physician Basic Information Time Seen: Robin Lindo M.D. H 03/29/2025 07:06 Chief Complaint patient presents with right sided lower back pain that radiates down into hip and legs. denies numbness or tingling. finished day steroid course on sunday for sciatic nerve pain- pain signficantly worsened since History of Present Illness The patient is a 34-year-old female who presented to the emergency room with lower back pain. The patient states the pain is on the right side of the lumbar region radiates down to buttock and posterior to the right thigh. The patient stated the pain has been present for past 10 days. She states she was seen at the urgent care and placed on prednisone for 5 days. The patient states she started getting better in the first days of the prednisone and the last day the pain started getting worse again. The patient denies any bowel or bladder incontinence. She denies any saddle paresthesia. The patient denies any weakness on her leg. The patient denies any numbness or tingling on her leg. The patient states the pain is worse with movement especially trying to lift her leg. The patient states last night she was having some chills. She covered herself with blanket and she started sweating. The patient did not check the temperature. She denies any abdominal pain. Denies any burning with urination or blood in urine. The patient denies any other associated symptoms. Review of Systems Additional ROS info: Except as noted in the above Review of Systems and in the History of Present Illness all other systems have been reviewed and are negative or noncontributory. Physical Exam Vitals & Measurements T: 36.6 ???C(Oral) HR: 97(Peripheral) RR: 18 BP: 144/97 SpO2: 98% HT: 161 cm WT: 84.3 kg BMI: 32.52 General: alert, no acute distress Skin: warm, dry Head: no trauma, normocephalic Neck: Trachea midline, no tenderness, supple Eye: normal conjunctiva, sclera clear Cardiovascular: regular rate and rhythm Respiratory: Lungs CTA, respirations non labored, breath sounds equal Gastrointestinal: soft, non distended, no tenderness, no guarding Back: No erythema no swelling appreciated of the lumbosacral region. There is mild tenderness on the right lumbosacral region and the right buttock. Straight leg raising negative bilateral. Extremities: no deformity, no trauma Neurological: Alert and oriented, motor strength equal & normal bilaterally, sensation equal & normal bilaterally, speech normal, no focal neuro deficits Psychiatric: cooperative, affect appropriate for age Medical Decision Making MEDICAL DECISION MAKING Number and Complexity of Problems Differential Diagnosis: [] [facility] Data External documents reviewed: [] My EKG interpretation: [] My CT interpretation: [] My X-ray interpretation: [] My Ultrasound interpretation: [] Decision rules/scores evaluated: [] Discussed with: [] Treatment and Disposition ED Course: The patient presented with lower back pain radiating down to her leg. More likely her pain is of lumbosacral radiculopathy. The CT of the lumbar spine shows herniated disc at L3-L4 and L4-L5. The patient has no signs or symptoms of cauda equina syndrome. The patient was given Toradol and Norflex in the emergency room. She is driving. Will discharge patient home with prescription for tapering prednisone, Percocet for breakthrough pain and follow-up with her primary care and back specialist. The patient was instructed to return to the emergency room if her pain gets worse, bowel or bladder incontinence, saddle paresthesia, weakness in her leg or any new symptoms. Shared decision making: [] Code status: [] Assessment/Plan 1. Lumbosacral radiculopathy (M54.17: Radiculopathy, lumbosacral region) Ordered: acetaminophen-oxycodone, 1 tab(s), Oral, q6hr as needed for pain, 12 tab(s), Refill(s) 0, [facility] 1985, 161, cm, 03/29/25 7:09:00 EDT, Height/Length Dosing, 84.3, kg, 03/29/25 7:09:00 EDT, Weight Dosing 2. Herniated lumbar intervertebral disc (M51.26: Other intervertebral disc displacement, lumbar region) Ordered: acetaminophen-oxycodone, 1 tab(s), Oral, q6hr as needed for pain, 12 tab(s), Refill(s) 0, [facility] 1985, 161, cm, 03/29/25 7:09:00 EDT, Height/Length Dosing, 84.3, kg, 03/29/25 7:09:00 EDT, Weight Dosing Orders: ketorolac, 30 mg = 1 mL, Injection, IV Push, Once, Stop date 03/29/25 7:22:00 EDT, STAT, Start date 03/29/25 7:22:00 EDT, 03/29/25 7:22:00 EDT orphenadrine, 60 mg = 2 mL, Injection, IV Push, Once, Stop date 03/29/25 7:22:00 EDT, STAT, Start date 03/29/25 7:22:00 EDT, 03/29/25 7:22:00 EDT predniSONE, see instruction, Oral, As Directed, 6 tabs for 2 days,5 tabs for 2 days,4 tabs for 2 days,3 tabs for 2 days,2 tabs for 2 days,1 tab for 2 days, # 42 tab(s), Refills(s) 0, Pharmacy: [facility], 161, cm, 03/29/25 7:09:00 EDT, Height/Length Do... CT Spine Lumbar w/o Contrast UA with Cult Rflx Medications Administered Given ketorolac 30 mg/mL Inj 1 mL, 30 mg, IV Push orphenadrine 30 mg/mL Inj, 60 mg, IV Push Disposition Plan Patient Discharge Condition Stable Discharge Disposition Discharge home Discharge Prescription List Prescriptions Percocet 5 mg-325 mg oral tablet, 1 tab(s), Oral, q6hr, PRN predniSONE 10 mg Tab, see instruction, Oral, As Directed Follow-up With When Contact Information Hugo Cast In 3 days 04/01/2025 EDT [address] [place] [address] [phone] Business (1) Additional Instructions: Return to the emergency room if your pain gets worse, bowel or bladder incontinence, numbness/tingling in the saddle/groin area, weakness on your leg or any new symptoms. Laisha Fuentes In 3 days 04/01/2025 EDT [address] [place] [address] [phone] Business (1) Additional Instructions: Patient Education Lumbosacral Radiculopathy Herniated Disk Problem List/Past Medical History Ongoing Anxiety Bacterial conjunctivitis of left eye BMI 32.0-32.9,adult Clostridium difficile diarrhea Cough Diarrhea Diverticula, colon Dysphagia Elevated liver enzymes Encounter for weight loss counseling Fullness in right ear Influenza A Myositis of thigh Non-smoker Obesity PCOS (polycystic ovarian syndrome) Routine adult health maintenance Historical Procedure/Surgical History Betamethasone (03/11/2019), Betamethasone (03/10/2019), Breast augmentation, Breast implant. Medications Inpatient No active inpatient medications Home cyclobenzaprine 5 mg Tab, 5 mg= 1 tab(s), Oral, TID Percocet 5 mg-325 mg oral tablet, 1 tab(s), Oral, q6hr, PRN predniSONE 10 mg Tab, see instruction, Oral, As Directed Allergies No Known Allergies No Known Medication Allergies Social History Alcohol - Low Risk, 06/25/2019 Current. Beer, Wine. 1-2 times per month., 11/19/2024 Current, Beer, Wine, 1-2 times per month, 06/25/2019 Substance Abuse - Denies Substance Abuse, 06/25/2019 Never., 11/19/2024 Tobacco - Denies Tobacco Use, 04/13/2016 Former smoker, quit more than 30 days ago Tobacco Use:. Never Smokeless Tobacco Use:. Started age 16.0 Years. Stopped age 25 Years., 03/23/2025 Family History Hypertension: Mother. Lab Results UA Spec Desc: Clean Catch (03/29/25 07:55:00) UA Color: Colorless Abnormal (03/29/25 07:55:00) UA Clarity: Clear (03/29/25 07:55:00) UA Spec Grav: 1.007 (03/29/25 07:55:00) UA pH: 7.5 (03/29/25 07:55:00) UA Protein: Negat (03/29/25 07:55:00) UA Glucose: Negat (03/29/25 07:55:00) UA Ketones: Negat (03/29/25 07:55:00) UA Bili: Negat (03/29/25 07:55:00) UA Blood: 2+ Abnormal (03/29/25 07:55:00) UA Nitrite: Negat (03/29/25 07:55:00) UA Urobilinogen: Negat (03/29/25 07:55:00) UA Leuk Est: Negat (03/29/25 07:55:00) UA RBC: 4-20 Abnormal (03/29/25 07:55:00) UA Squam Epithelial: 0-2 (03/29/25 07:55:00) UA WBC: 0-5 (03/29/25 07:55:00) UA Mucous: Negat (03/29/25 07:55:00) Diagnostic Results CT Spine Lumbar w/o Contrast 03/29/25 08:20:02 IMPRESSION: No acute fracture or traumatic malalignment. Multilevel degenerative changes including probable disc herniations as discussed. These findings could better be assessed with follow-up lumbar MRI. HISTORY: Radiculopathy. Right lower back pain radiating to the hip and legs. History of sciatica pain. Pain worsening. TECHNIQUE: Routine CT of the lumbar spine without contrast. Sagittal and coronal reconstructions. All CT scans at this facility use dose modulation, iterative reconstruction, and/or weight based dosing when appropriate to reduce radiation dose to as low as reasonably achievable. Unless otherwise stated, incidental findings identified in this report do not require routine follow-up imaging. COMPARISON: CT 09/26/2024. RESULT: Counting reference: Lumbosacral junction. For the purposes of this report, L5-S1 is the last well-formed disc space. Alignment: Alignment is anatomic. Bone marrow /fracture: No evidence for acute fracture. No destructive osseous lesions. Paraspinal soft tissues: Nonobstructing 3 mm interpolar left renal calculus. Diverticulosis without evidence for acute diverticulitis. Canal and foramina, degenerative changes: Multilevel degenerative changes. Large disc protrusion/extrusion in the central region at L3-L4 with at least moderate canal narrowing, without significant foraminal narrowing.Broad-based disc bulge with probable right subarticular zone disc protrusion at L4-L5 with at least mild to moderate canal narrowing, probable right subarticular narrowing and probable abutment of the descending right L5 nerve root. Disc bulge or small protrusion at L5-S1, without significant bony canal or foraminal narrowing. Sacrum and iliac wings: No acute findings. Degenerative changes SI joints. Ordering Provider: Funmi Lindo Signed By: Juan Chappell MD Result Comment: Electronical ly Signed By: Guicho Alexander, Funmi Almanza.br\Date and Time Signed: 03/29/25 08:50 EDT PATIENT EDUCATION Observed: 03/24/2025 12:10 AM Status: C Source: [facility] Patient Education Orthopedics Back Exercises These exercises help to make your trunk and back strong. They also help to keep the lower back flexible. Doing these exercises can help to prevent or lessen pain in your lower back. ??? If you have back pain, try to do these exercises 2?3 times each day or as told by your doctor. ??? As you get better, do the exercises once each day. Repeat the exercises more often as told by your doctor. ??? To stop back pain from coming back, do the exercises once each day, or as told by your doctor. Do exercises exactly as told by your doctor. Stop right away if you feel sudden pain or your pain gets worse. Exercises Single knee to chest Do these steps 3?5 times in a row for each le. Lie on your back on a firm bed or the floor with your legs stretched out. 2. Bring one knee to your chest. 3. Grab your knee or thigh with both hands and hold it in place. 4. Pull on your knee until you feel a gentle stretch in your lower back or butt. 5. Keep doing the stretch for 10?30 seconds. 6. Slowly let go of your leg and straighten it. Pelvic tilt Do these steps 5?10 times in a row: 1. Lie on your back on a firm bed or the floor with your legs stretched out. 2. Bend your knees so they point up to the ceiling. Your feet should be flat on the floor. 3. Tighten your lower belly (abdomen) muscles to press your lower back against the floor. This will make your tailbone point up to the ceiling instead of pointing down to your feet or the floor. 4. Stay in this position for 5?10 seconds while you gently tighten your muscles and breathe evenly. Cat?cow Do these steps until your lower back bends more easily: 1. Get on your hands and knees on a firm bed or the floor. Keep your hands under your shoulders, and keep your knees under your hips. You may put padding under your knees. 2. Let your head hang down toward your chest. Tighten (contract) the muscles in your belly. Point your tailbone toward the floor so your lower back becomes rounded like the back of a cat. 3. Stay in this position for 5 seconds. 4. Slowly lift your head. Let the muscles of your belly relax. Point your tailbone up toward the ceiling so your back forms a sagging arch like the back of a cow. 5. Stay in this position for 5 seconds. Press-ups Do these steps 5?10 times in a row: 1. Lie on your belly (face-down) on a firm bed or the floor. 2. Place your hands near your head, about shoulder-width apart. 3. While you keep your back relaxed and keep your hips on the floor, slowly straighten your arms to raise the top half of your body and lift your shoulders. Do not use your back muscles. You may change where you place your hands to make yourself more comfortable. 4. Stay in this position for 5 seconds. Keep your back relaxed. 5. Slowly return to lying flat on the floor. Bridges Do these steps 10 times in a row: 1. Lie on your back on a firm bed or the floor. 2. Bend your knees so they point up to the ceiling. Your feet should be flat on the floor. Your arms should be flat at your sides, next to your body. 3. Tighten your butt muscles and lift your butt off the floor until your waist is almost as high as your knees. If you do not feel the muscles working in your butt and the back of your thighs, slide your feet 1?2 inches (2.5?5 cm) farther away from your butt. 4. Stay in this position for 3?5 seconds. 5. Slowly lower your butt to the floor, and let your butt muscles relax. If this exercise is too easy, try doing it with your arms crossed over your chest. Belly crunches Do these steps 5?10 times in a row: 1. Lie on your back on a firm bed or the floor with your legs stretched out. 2. Bend your knees so they point up to the ceiling. Your feet should be flat on the floor. 3. Cross your arms over your chest. 4. Tip your chin a little bit toward your chest, but do not bend your neck. 5. Tighten your belly muscles and slowly raise your chest just enough to lift your shoulder blades a tiny bit off the floor. Avoid raising your body higher than that because it can put too much stress on your lower back. 6. Slowly lower your chest and your head to the floor. Back lifts Do these steps 5?10 times in a row: 1. Lie on your belly (face-down) with your arms at your sides, and rest your forehead on the floor. 2. Tighten the muscles in your legs and your butt. 3. Slowly lift your chest off the floor while you keep your hips on the floor. Keep the back of your head in line with the curve in your back. Look at the floor while you do this. 4. Stay in this position for 3?5 seconds. 5. Slowly lower your chest and your face to the floor. Contact a doctor if: ??? Your back pain gets a lot worse when you do an exercise. ??? Your back pain does not get better within 2 hours after you exercise. If you have any of these problems, stop doing the exercises. Do not do them again unless your doctor says it is okay. Get help right away if: ??? You have sudden, very bad back pain. If this happens, stop doing the exercises. Do not do them again unless your doctor says it is okay. This information is not intended to replace advice given to you by your health care provider. Make sure you discuss any questions you have with your health care provider. Document Revised: 12/14/2021 Document Reviewed: 12/14/2021 [facility] Patient Education ? 2023 LIQVID.Sciatica Sciatica is pain, weakness, tingling, or loss of feeling (numbness) along the sciatic nerve. The sciatic nerve starts in the lower back and goes down the back of each leg. Sciatica usually affects one side of the body. Sciatica usually goes away on its own or with treatment. Sometimes, sciatica may come back. What are the causes? This condition happens when the sciatic nerve is pinched or has pressure put on it. This may be caused by: ??? A disk in between the bones of the spine bulging out too far (herniated disk). ??? Changes in the spinal disks due to aging. ??? A condition that affects a muscle in the butt. ??? Extra bone growth near the sciatic nerve. ??? A break (fracture) of the area between your hip bones (pelvis). ??? . ??? Tumor. This is rare. What increases the risk? You are more likely to develop this condition if you: ??? Play sports that put pressure or stress on the spine. ??? Have poor strength and ease of movement (flexibility). ??? Have had a back injury or back surgery. ??? Sit for long periods of time. ??? Do activities that involve bending or lifting over and over again. ??? Are very overweight (obese). What are the signs or symptoms? Symptoms can vary from mild to very bad. They may include: ??? Any of these problems in the lower back, leg, hip, or butt: ? Mild tingling, loss of feeling, or dull aches. ? A burning feeling. ? Sharp pains. ??? Loss of feeling in the back of the calf or the sole of the foot. ??? Leg weakness. ??? Very bad back pain that makes it hard to move. These symptoms may get worse when you cough, sneeze, or laugh. They may also get worse when you sit or stand for long periods of time. How is this treated? This condition often gets better without any treatment. However, treatment may include: ??? Changing or cutting back on physical activity when you have pain. ??? Exercising, including strengthening and stretching. ??? Putting ice or heat on the affected area. ??? Shots of medicines to relieve pain and swelling or to relax your muscles. ??? Surgery. Follow these instructions at home: Medicines ??? Take koim-apx-zrjedkh and prescription medicines only as told by your doctor. ??? Ask your doctor if you should avoid driving or using machines while you are taking your medicine. Managing pain ??? If told, put ice on the affected area. To do this: ? Put ice in a plastic bag. ? Place a towel between your skin and the bag. ? Leave the ice on for 20 minutes, 2?3 times a day. ? If your skin turns bright red, take off the ice right away to prevent skin damage. The risk of skin damage is higher if you cannot feel pain, heat, or cold. ??? If told, put heat on the affected area. Do this as often as told by your doctor. Use the heat source that your doctor tells you to use, such as a moist heat pack or a heating pad. ? Place a towel between your skin and the heat source. ? Leave the heat on for 20?30 minutes. ? If your skin turns bright red, take off the heat right away to prevent mar. The risk of mar is higher if you cannot feel pain, heat, or cold. Activity ??? Return to your normal activities when your doctor says that it is safe. ??? Avoid activities that make your symptoms worse. ??? Take short rests during the day. ? When you rest for a long time, do some physical activity or stretching between periods of rest. ? Avoid sitting for a long time without moving. Get up and move around at least one time each hour. ??? Do exercises and stretches as told by your doctor. ??? Do not lift anything that is heavier than 10 lb (4.5 kg). ? Avoid lifting heavy things even when you do not have symptoms. ? Avoid lifting heavy things over and over. ??? When you lift objects, always lift in a way that is safe for your body. To do this, you should: ? Bend your knees. ? Keep the object close to your body. ? Avoid twisting. General instructions ??? Stay at a healthy weight. ??? Wear comfortable shoes that support your feet. Avoid wearing high heels. ??? Avoid sleeping on a mattress that is too soft or too hard. You might have less pain if you sleep on a mattress that is firm enough to support your back. Contact a doctor if: ??? Your pain is not controlled by medicine. ??? Your pain does not get better. ??? Your pain gets worse. ??? Your pain lasts longer than 4 weeks. ??? You lose weight without trying. Get help right away if: ??? You cannot control when you pee (urinate) or poop (have a bowel movement). ??? You have weakness in any of these areas and it gets worse: ? Lower back. ? The area between your hip bones. ? Butt. ? Legs. ??? You have redness or swelling of your back. ??? You have a burning feeling when you pee. Summary ??? Sciatica is pain, weakness, tingling, or loss of feeling (numbness) along the sciatic nerve. This may include the lower back, legs, hips, and butt. ??? This condition happens when the sciatic nerve is pinched or has pressure put on it. ??? Treatment often includes rest, exercise, medicines, and putting ice or heat on the affected area. This information is not intended to replace advice given to you by your health care provider. Make sure you discuss any questions you have with your health care provider. Document Revised: 01/08/2023 Document Reviewed: 01/08/2023 [employer] Patient Education ? 2023 [employer]VID. FAMILY MEDICINE OFFICE/CLINI C NOTE Observed: 03/23/2025 3:46 PM Status: F Source: [facility] Family Medicine Office/Clini c Note Chief Complaint lower back pain HPI Staff 34 year old female complaints of lower back pain, right buttock/hip pain Onset: pt lifted daughter who is 43 lbs, out of bathtub on Sunday OTC tried: hot/cold packs, icy hot, ibuprofen History of Present Illness I have reviewed and verified the staff HPI to be accurate for this encounter. Portions of this record have been created with voice recognition software. Occasional wrong-word or ???jsecc-a-ssmz??? substitutions may have occurred due to the inherent limitations of voice recognition software. 34 year old female presents with complaint of muscle tightness and low back pain causing radiation of pain down right leg. She noticed it Sunday after lifting 43 pound child out of tub.Denies saddle anesthesia. No loss of bowel or bladder function. Has been using heat/ice, pain patches and OTC NSAIDs without much relief. Would like to try muscle relaxer and steroids. Review of Systems PHQ Score Initial Depression Screen Score: 0 SCORE ROS negative unless otherwise stated in HPI. Physical Exam Vitals & Measurements T: 36.8 ???C(Oral) HR: 79(Peripheral) BP: 118/84 SpO2: 97% HT: 161 cm HT: 63 in WT: 83 kg WT: 182.983 lb BMI: 32.02 General: Well developed, well nourished, in no acute distress Eyes: not assessed Ears: not assessed Nose: not addressed Mouth: not assessed Neck: not assessed Lungs: clear to auscultation throughout, no wheezing, no rales. No respiratory distress Cardio: regular rate and rhythm, no murmur Abdomen: not assessed Musculoskeletal: No deformity or scoliosis noted. Normal range of motion. Joints normal. No erythema, edema, effusion, or ecchymosis pain with straight leg raise on right, no spinal tenderness, lumbar muscles tightness Extremity: not assessed Neurologic: not assessed Skin: No rashes, ulcerations, or suspicious lesions Mental Status: Alert and oriented x3. Normal mood and affect Assessment/Plan Exam consistent with lumbar strain with radiation of pain down right leg. Will order muscle relaxer and steroids as she has had relief in past from this. 1. Lumbago with sciatica (M54.40: Lumbago with sciatica, unspecified side) Please follow-up with your primary care provider in 3 to 5 days. Contact their office this afternoon to schedule follow-up appointment. You were seen and evaluated in convenient care today in regards to low back pain following twisting or turning wrong about a week ago. There is no localized spinal tenderness today. This seems to be musculoskeletal in nature when she is treated for a lumbar sprain. Discussed in regards to treatment to continue Tylenol as needed for pain in addition to prescription for prednisone 40 mg daily x5 days in addition to Flexeril, muscle relaxer 1 tablet every 8 hours as needed for muscle spasm. Do not drive or drink alcohol while taking the muscle relaxer as it may make you drowsy. After finishing the prednisone you may resume NSAID medications such as Aleve Advil or ibuprofen. Refrain from use of these while taking prednisone as they can both cause upset stomach. Eat when taking prednisone. Continue to monitor department if you continue to have symptoms despite resting using ice and heat in addition to the medications schedule close follow-up with primary care provider. Ordered: cyclobenzaprine, 5 mg = 1 tab(s), Oral, TID, X 7 day(s), # 21 tab(s), Refills(s) 0, [facility], 161, cm, 03/23/25 16:19:00 EDT, Height/Length Dosing, 83, kg, 03/23/25 16:19:00 EDT, Weight Dosing predniSONE, 40 mg = 2 tab(s), Oral, Daily, with food or milk, X 5 day(s), # 10 tab(s), Refills(s) 0, Pharmacy: [facility], 161, cm, 03/23/25 16:19:00 EDT, Height/Length Dosing, 83, kg, 03/23/25 16:19:00 EDT, Weight Dosing Follow-up With When Contact Information Laisha Daniels [phone] Additional Instructions: Patient Education Back Exercises, Idkh-ui-Qhzr Sciatica, Onnv-fh-[id number] Problem List/Past Medical History Ongoing Anxiety Bacterial conjunctivitis of left eye BMI 32.0-32.9,adult Clostridium difficile diarrhea Cough Diarrhea Diverticula, colon Dysphagia Elevated liver enzymes Encounter for weight loss counseling Fullness in right ear Influenza A Myositis of thigh Non-smoker Obesity PCOS (polycystic ovarian syndrome) Routine adult health maintenance Historical Procedure/Surgical History Betamethasone (03/11/2019), Betamethasone (03/10/2019), Breast augmentation, Breast implant. Medications Augmentin 875 mg-125 mg Tab, 1 tab(s), Oral, q12hr cyclobenzaprine 5 mg Tab, 5 mg= 1 tab(s), Oral, TID predniSONE 20 mg Tab, 40 mg= 2 tab(s), Oral, Daily Allergies No Known Allergies No Known Medication Allergies Social History Alcohol - Low Risk, 06/25/2019 Current. Beer, Wine. 1-2 times per month., 11/19/2024 Current, Beer, Wine, 1-2 times per month, 06/25/2019 Substance Abuse - Denies Substance Abuse, 06/25/2019 Never., 11/19/2024 Tobacco - Denies Tobacco Use, 04/13/2016 Former smoker, quit more than 30 days ago Tobacco Use:. Never Smokeless Tobacco Use:. Started age 16.0 Years. Stopped age 25 Years., 03/23/2025 Family History Hypertension: Mother. Immunizations Vaccine Date Status Comments influenza virus vaccine, inactivated 08/06/2024 Given Prophylaxis influenza virus vaccine, inactivated 07/23/2023 Given Prophylaxis influenza virus vaccine, inactivated 08/03/2022 Given Prophylaxis influenza virus vaccine, inactivated 08/09/2021 Given Prophylaxis SARS-CoV-2 (COVID-19) mRNA BNT-162b2 vax 02/19/2021 Given Prophylaxis SARS-CoV-2 (COVID-19) mRNA BNT-162b2 vax 01/29/2021 Given Prophylaxis influenza virus vaccine, live, trivalent 08/22/2019 Recorded diphtheria/pertussis, acel/tetanus adult 04/11/2019 Given Result Comment: Electronical ly Signed By: Fredy PROCTOR, Rosie\.br\Date and Time Signed: 03/24/25 00:20 EDT AMBULATORY VISIT SUMMARY Observed: 03/23 3:46 PM Status: F Source: [facility] Ambulatory Visit Summary TOMMY ARREOLA :1990 Visit Date:03/23/2025 Ambulatory Visit Instructions Your Diagnosis Lumbago with sciatica Your Care Team Attending Physician - Fredy PROCTOR, Rosie Primary Care Physician - Laisha Daniels This Is Your Medications List amoxicillin-clavulanate (Augmentin 875 mg-125 mg Tab) Procedures Performed Betamethasone (03/11/2019), Betamethasone (03/10/2019), Breast augmentation, Breast implant. Discharge Vitals Temperature (Oral) 36.8 ???C Heart Rate (Peripheral) 79 Blood Pressure 118/84 Height 161 cm Height 63 in Weight 83 kg Weight 182.983 lb BMI 32.02 Medications What How Much When Instructions Unchanged amoxicillin-clavulanate (Augmentin 875 mg-125 mg Tab) 1 Tablets By Mouth Every 12 hours Duration: 10 Days Allergies No Known Allergies No Known Medication Allergies Problems Ongoing - Any problem that you are currently receiving treatment for. Anxiety Bacterial conjunctivitis of left eye BMI 32.0-32.9,adult Clostridium difficile diarrhea Cough Diarrhea Diverticula, colon Dysphagia Elevated liver enzymes Encounter for weight loss counseling Fullness in right ear Influenza A Myositis of thigh Non-smoker Obesity PCOS (polycystic ovarian syndrome) Routine adult health maintenance Historical - Any problem that you are no longer receiving treatment for. Patient Survey You may receive a survey via text or e-mail asking about your office visit. Please share your experience with us by completing your survey. We appreciate your feedback and thank you for choosing us for your care. PATIENT EDUCATION Observed: 03/18/2025 3:56 PM Status: C Source: [facility] Patient Education Gastroenterology Food Choices to Help Relieve Diarrhea, Adult Diarrhea can make you feel weak and cause you to become dehydrated. Dehydration is a condition in which there is not enough water or other fluids in the body. It is important to choose the right foods and drinks to: ??? Relieve diarrhea. ??? Replace lost fluids and nutrients. ??? Prevent dehydration. What are tips for following this plan? Relieving diarrhea ??? Avoid foods that make your diarrhea worse. These may include: ? Foods and drinks that are sweetened with high-fructose corn syrup, honey, or sweeteners such as xylitol, sorbitol, and mannitol. Check food labels for these ingredients. ? Fried, greasy, or spicy foods. ? Raw fruits and vegetables. ??? Eat foods that are rich in probiotics. These include foods such as yogurt and fermented milk products. Probiotics can help increase healthy bacteria in your stomach and intestines (gastrointestinal or GI tract). This may help digestion and stop diarrhea. ??? If you have lactose intolerance, avoid dairy products. These may make your diarrhea worse. ??? Take medicine to help stop diarrhea only as told by your health care provider. Replacing nutrients ??? Eat bland, wizu-wn-xcitsy foods in small amounts as you are able, until your diarrhea starts to get better. These foods include bananas, applesauce, rice, toast, and crackers. ??? Over time, add nutrient-rich foods as your body tolerates them or as told by your health care provider. These include: ? Well-cooked protein foods, such as eggs, lean meats like fish or chicken without skin, and tofu. ? Peeled, seeded, and soft-cooked fruits and vegetables. ? Low-fat dairy products. ? Whole grains. ??? Take vitamin and mineral supplements as told by your health care provider. Preventing dehydration ??? Start by sipping water or a solution to prevent dehydration (oral rehydration solution, or ORS). This is a drink that helps replace fluids and minerals your body has lost. You can buy an ORS at pharmacies and retail stores. ??? Try to drink at least 8?10 cups (2,000?2,500 mL) of fluid each day to help replace lost fluids. If your urine is pale yellow, you are getting enough fluids. ??? You may drink other liquids in addition to water, such as fruit juice that you have added water to (diluted fruit juice) or low-calorie sports drinks, as tolerated or as told by your health care provider. ??? Avoid drinks with caffeine, such as coffee, tea, or soft drinks. ??? Avoid alcohol. This information is not intended to replace advice given to you by your health care provider. Make sure you discuss any questions you have with your health care provider. Document Revised: 03/20/2023 Document Reviewed: 03/20/2023 [facility] Patient Education ? 2023 [employer].Diverticulosis Diverticulosis is when small pouches called diverticula form in the wall of the colon. The colon is where water is absorbed. It is also where poop (stool) is formed. The pouches form when the inside layer of the colon pushes through weak spots in the outer layers of the colon. You may have a few pouches or many of them. In most cases, the pouches do not cause problems. If they become inflamed or infected, you may have a condition called diverticulitis. What are the causes? The cause of this condition is not known. What increases the risk? You are more likely to get this condition if: ??? You are older than 60 years of age. ??? You do not eat enough fiber or you get constipated a lot. ??? You are overweight. ??? You do not get enough exercise. ??? You smoke. ??? You take ntmr-qqw-rfzvjqz pain medicines. ??? You have a family history of the condition. What are the signs or symptoms? In most people, there are no symptoms. If you do have symptoms, they may include: ??? Bloating. ??? Stomach cramps. ??? Constipation or diarrhea. ??? Pain in the lower left side of your abdomen. How is this diagnosed? This condition is often diagnosed during an exam for other colon problems. It may be diagnosed when you have: ??? A colonoscopy. This is when a tube with a camera on the end is used to look at your colon. ??? A barium enema. This is an X-ray exam that uses dye to look at your colon. ??? A CT scan. How is this treated? You may not need treatment. Your health care provider will tell you what you can do at home to help prevent problems. You may need treatment if you have symptoms or if you have had diverticulitis before. You may be told to: ??? Eat a high-fiber diet. ??? Take medicine to relax your colon. ??? Lose weight. Follow these instructions at home: Medicines ??? Take fftd-dmy-tuuzzna and prescription medicines only as told by your provider. ??? If told, take a fiber supplement or probiotic. Managing constipation Your condition may cause constipation. To prevent or treat constipation, you may need to: ??? Drink enough fluid to keep your pee (urine) pale yellow. ??? Take aniu-mwe-dasutoi or prescription medicines. ??? Eat foods that are high in fiber, such as beans, whole grains, and fresh fruits and vegetables. ??? Limit foods that are high in fat and processed sugars, such as fried or sweet foods. Try not to strain when you poop. Contact a health care provider if: ??? Your symptoms get worse all of a sudden. ??? You have pain in your abdomen that gets worse. ??? You have bloating or stomach cramps. ??? You continue to have frequent constipation. ??? You have a fever or chills. ??? You vomit. ??? Your poop is bloody, black, or tarry. This information is not intended to replace advice given to you by your health care provider. Make sure you discuss any questions you have with your health care provider. Document Revised: 06/28/2023 Document Reviewed: 06/28/2023 [facility] Patient Education ? 2023 [employer]Infectious Disease Diarrhea, Adult Diarrhea is frequent loose and sometimes watery bowel movements. Diarrhea can make you feel weak and cause you to become dehydrated. Dehydration is a condition in which there is not enough water or other fluids in the body. Dehydration can make you tired and thirsty, cause you to have a dry mouth, and decrease how often you urinate. Diarrhea typically lasts 2?3 days. However, it can last longer if it is a sign of something more serious. It is important to treat your diarrhea as told by your health care provider. Follow these instructions at home: Eating and drinking Follow these recommendations as told by your health care provider: ??? Take an oral rehydration solution (ORS). This is an erdw-hvv-aoyjqkf medicine that helps return your body to its normal balance of nutrients and water. It is found at pharmacies and retail stores. ??? Drink enough fluid to keep your urine pale yellow. ? Drink fluids such as water, diluted fruit juice, and low-calorie sports drinks. You can drink milk also, if desired. Sucking on ice chips is another way to get fluids. ? Avoid drinking fluids that contain a lot of sugar or caffeine, such as soda, energy drinks, and regular sports drinks. ? Avoid alcohol. ??? Eat bland, hlgc-sx-bpkbha foods in small amounts as you are able. These foods include bananas, applesauce, rice, lean meats, toast, and crackers. ??? Avoid spicy or fatty foods. Medicines ??? Take wtof-zfq-pdcmgnw and prescription medicines only as told by your health care provider. ??? If you were prescribed antibiotics, take them as told by your health care provider. Do not stop using the antibiotic even if you start to feel better. General instructions ??? Wash your hands often using soap and water for at least 20 seconds. If soap and water are not available, use hand radiology tech. Others in the household should wash their hands as well. Hands should be washed: ? After using the toilet or changing a diaper. ? Before preparing, cooking, or serving food. ? While caring for a sick person or while visiting someone in a hospital. ??? Rest at home while you recover. ??? Take a warm bath to relieve any burning or pain from frequent diarrhea episodes. ??? Watch your condition for any changes. Contact a health care provider if: ??? You have a fever. ??? Your diarrhea gets worse. ??? You have new symptoms. ??? You vomit every time you eat or drink. ??? You feel light-headed, dizzy, or have a headache. ??? You have muscle cramps. ??? You have signs of dehydration, such as: ? Dark urine, very little urine, or no urine. ? Cracked lips. ? Dry mouth. ? Sunken eyes. ? Sleepiness. ? Weakness. ??? You have bloody or black stools or stools that look like tar. ??? You have severe pain, cramping, or bloating in your abdomen. ??? Your skin feels cold and clammy. ??? You feel confused. Get help right away if: ??? You have chest pain or your heart is beating very quickly. ??? You have trouble breathing or you are breathing very quickly. ??? You feel extremely weak or you faint. These symptoms may be an emergency. Get help right away. Call 911. ??? Do not wait to see if the symptoms will go away. ??? Do not drive yourself to the hospital. This information is not intended to replace advice given to you by your health care provider. Make sure you discuss any questions you have with your health care provider. Document Revised: 03/20/2023 Document Reviewed: 03/20/2023 [facility] Patient Education ? 2023 [employer]. AMBULATORY VISIT SUMMARY Observed: 03/18 3:05 PM Status: F Source: [facility] Ambulatory Visit Summary ANN MARIEJESSENIANGOZITOMMY Jennifer :1990 Visit Date:03/18/2025 Ambulatory Visit Instructions Your Diagnosis UTI symptoms Diarrhea Diverticula, colon Your Care Team Attending Physician - Celia Emanuel Primary Care Physician - Laisha Daniels This Is Your Medications List amoxicillin-clavulanate (Augmentin 875 mg-125 mg Tab) multivitamin, ( AD) Procedures Performed Betamethasone (03/11/2019), Betamethasone (03/10/2019), Breast augmentation, Breast implant. Discharge Vitals Temperature (Oral) 36.9 ???C Heart Rate (Peripheral) 95 Respiratory Rate 18 Blood Pressure 126/78 Height 161 cm Height 63 in Weight 83.7 kg Weight 184.527 lb BMI 32.29 What to do next You Need to Schedule the Following Appointments Follow Up with Laisha Daniels When: Where: [phone] Medications What How Much When Instructions New amoxicillin-clavulanate (Augmentin 875 mg-125 mg Tab) 1 Tablets By Mouth Every 12 hours Duration: [address] [facility] Unchanged multivitamin, ( AD) 1 Tablets By Mouth Every day Pharmacy Information [facility]: [address] [place], [place] [phone] Allergies No Known Allergies No Known Medication Allergies Problems Ongoing - Any problem that you are currently receiving treatment for. Anxiety Bacterial conjunctivitis of left eye BMI 32.0-32.9,adult Clostridium difficile diarrhea Cough Diarrhea Diverticula, colon Dysphagia Elevated liver enzymes Encounter for weight loss counseling Fullness in right ear Influenza A Myositis of thigh Non-smoker Obesity PCOS (polycystic ovarian syndrome) Routine adult health maintenance Historical - Any problem that you are no longer receiving treatment for. Patient Survey You may receive a survey via text or e-mail asking about your office visit. Please share your experience with us by completing your survey. We appreciate your feedback and thank you for choosing us for your care. Education Materials Food Choices to Help Relieve Diarrhea, Adult Diarrhea can make you feel weak and cause you to become dehydrated. Dehydration is a condition in which there is not enough water or other fluids in the body. It is important to choose the right foods and drinks to: ??? Relieve diarrhea. ??? Replace lost fluids and nutrients. ??? Prevent dehydration. What are tips for following this plan? Relieving diarrhea ??? Avoid foods that make your diarrhea worse. These may include: ? Foods and drinks that are sweetened with high-fructose corn syrup, honey, or sweeteners such as xylitol, sorbitol, and mannitol. Check food labels for these ingredients. ? Fried, greasy, or spicy foods. ? Raw fruits and vegetables. ??? Eat foods that are rich in probiotics. These include foods such as yogurt and fermented milk products. Probiotics can help increase healthy bacteria in your stomach and intestines (gastrointestinal or GI tract). This may help digestion and stop diarrhea. ??? If you have lactose intolerance, avoid dairy products. These may make your diarrhea worse. ??? Take medicine to help stop diarrhea only as told by your health care provider. Replacing nutrients ??? Eat bland, vwxh-wz-vecltc foods in small amounts as you are able, until your diarrhea starts to get better. These foods include bananas, applesauce, rice, toast, and crackers. ??? Over time, add nutrient-rich foods as your body tolerates them or as told by your health care provider. These include: ? Well-cooked protein foods, such as eggs, lean meats like fish or chicken without skin, and tofu. ? Peeled, seeded, and soft-cooked fruits and vegetables. ? Low-fat dairy products. ? Whole grains. ??? Take vitamin and mineral supplements as told by your health care provider. Preventing dehydration ??? Start by sipping water or a solution to prevent dehydration (oral rehydration solution, or ORS). This is a drink that helps replace fluids and minerals your body has lost. You can buy an ORS at pharmacies and retail stores. ??? Try to drink at least 8???10 cups (2,000???2,500 mL) of fluid each day to help replace lost fluids. If your urine is pale yellow, you are getting enough fluids. ??? You may drink other liquids in addition to water, such as fruit juice that you have added water to (diluted fruit juice) or low-calorie sports drinks, as tolerated or as told by your health care provider. ??? Avoid drinks with caffeine, such as coffee, tea, or soft drinks. ??? Avoid alcohol. This information is not intended to replace advice given to you by your health care provider. Make sure you discuss any questions you have with your health care provider. Document Revised: 03/20/2023 Document Reviewed: 03/20/2023 [facility] Patient Education ??? 2023 [employer]. Diarrhea, Adult Diarrhea is frequent loose and sometimes watery bowel movements. Diarrhea can make you feel weak and cause you to become dehydrated. Dehydration is a condition in which there is not enough water or other fluids in the body. Dehydration can make you tired and thirsty, cause you to have a dry mouth, and decrease how often you urinate. Diarrhea typically lasts 2???3 days. However, it can last longer if it is a sign of something more serious. It is important to treat your diarrhea as told by your health care provider. Follow these instructions at home: Eating and drinking Follow these recommendations as told by your health care provider: ??? Take an oral rehydration solution (ORS). This is an uimg-odk-lyywfdz medicine that helps return your body to its normal balance of nutrients and water. It is found at pharmacies and retail stores. ??? Drink enough fluid to keep your urine pale yellow. ? Drink fluids such as water, diluted fruit juice, and low-calorie sports drinks. You can drink milk also, if desired. Sucking on ice chips is another way to get fluids. ? Avoid drinking fluids that contain a lot of sugar or caffeine, such as soda, energy drinks, and regular sports drinks. ? Avoid alcohol. ??? Eat bland, nxzi-xg-xdwkcu foods in small amounts as you are able. These foods include bananas, applesauce, rice, lean meats, toast, and crackers. ??? Avoid spicy or fatty foods. Medicines ??? Take bhvn-pyh-jersuab and prescription medicines only as told by your health care provider. ??? If you were prescribed antibiotics, take them as told by your health care provider. Do not stop using the antibiotic even if you start to feel better. General instructions ??? Wash your hands often using soap and water for at least 20 seconds. If soap and water are not available, use hand radiology tech. Others in the household should wash their hands as well. Hands should be washed: ? After using the toilet or changing a diaper. ? Before preparing, cooking, or serving food. ? While caring for a sick person or while visiting someone in a hospital. ??? Rest at home while you recover. ??? Take a warm bath to relieve any burning or pain from frequent diarrhea episodes. ??? Watch your condition for any changes. Contact a health care provider if: ??? You have a fever. ??? Your diarrhea gets worse. ??? You have new symptoms. ??? You vomit every time you eat or drink. ??? You feel light-headed, dizzy, or have a headache. ??? You have muscle cramps. ??? You have signs of dehydration, such as: ? Dark urine, very little urine, or no urine. ? Cracked lips. ? Dry mouth. ? Sunken eyes. ? Sleepiness. ? Weakness. ??? You have bloody or black stools or stools that look like tar. ??? You have severe pain, cramping, or bloating in your abdomen. ??? Your skin feels cold and clammy. ??? You feel confused. Get help right away if: ??? You have chest pain or your heart is beating very quickly. ??? You have trouble breathing or you are breathing very quickly. ??? You feel extremely weak or you faint. These symptoms may be an emergency. Get help right away. Call 911. ??? Do not wait to see if the symptoms will go away. ??? Do not drive yourself to the hospital. This information is not intended to replace advice given to you by your health care provider. Make sure you discuss any questions you have with your health care provider. Document Revised: 03/20/2023 Document Reviewed: 03/20/2023 [employer] Patient Education ??? 2023 [employer]. Diverticulosis Diverticulosis is when small pouches called diverticula form in the wall of the colon. The colon is where water is absorbed. It is also where poop (stool) is formed. The pouches form when the inside layer of the colon pushes through weak spots in the outer layers of the colon. You may have a few pouches or many of them. In most cases, the pouches do not cause problems. If they become inflamed or infected, you may have a condition called diverticulitis. What are the causes? The cause of this condition is not known. What increases the risk? You are more likely to get this condition if: ??? You are older than 60 years of age. ??? You do not eat enough fiber or you get constipated a lot. ??? You are overweight. ??? You do not get enough exercise. ??? You smoke. ??? You take umnb-zbq-dwjqcgj pain medicines. ??? You have a family history of the condition. What are the signs or symptoms? In most people, there are no symptoms. If you do have symptoms, they may include: ??? Bloating. ??? Stomach cramps. ??? Constipation or diarrhea. ??? Pain in the lower left side of your abdomen. How is this diagnosed? This condition is often diagnosed during an exam for other colon problems. It may be diagnosed when you have: ??? A colonoscopy. This is when a tube with a camera on the end is used to look at your colon. ??? A barium enema. This is an X-ray exam that uses dye to look at your colon. ??? A CT scan. How is this treated? You may not need treatment. Your health care provider will tell you what you can do at home to help prevent problems. You may need treatment if you have symptoms or if you have had diverticulitis before. You may be told to: ??? Eat a high-fiber diet. ??? Take medicine to relax your colon. ??? Lose weight. Follow these instructions at home: Medicines ??? Take mzay-qid-ishwpkx and prescription medicines only as told by your provider. ??? If told, take a fiber supplement or probiotic. Managing constipation Your condition may cause constipation. To prevent or treat constipation, you may need to: ??? Drink enough fluid to keep your pee (urine) pale yellow. ??? Take qspq-css-qxjfieb or prescription medicines. ??? Eat foods that are high in fiber, such as beans, whole grains, and fresh fruits and vegetables. ??? Limit foods that are high in fat and processed sugars, such as fried or sweet foods. Try not to strain when you poop. Contact a health care provider if: ??? Your symptoms get worse all of a sudden. ??? You have pain in your abdomen that gets worse. ??? You have bloating or stomach cramps. ??? You continue to have frequent constipation. ??? You have a fever or chills. ??? You vomit. ??? Your poop is bloody, black, or tarry. This information is not intended to replace advice given to you by your health care provider. Make sure you discuss any questions you have with your health care provider. Document Revised: 06/28/2023 Document Reviewed: 06/28/2023 [employer] Patient Education ??? 2023 [facility] [employer] FAMILY MEDICINE OFFICE/CLINI C NOTE Observed: 03/18/2025 3:05 PM Status: F Source: [facility] Family Medicine Office/Clini c Note Chief Complaint back, hip, pelvic pressure HPI Staff 34 year old female presents with abdominal, back and hip pain. Pt. states that she woke up this morning around 0200 with the symptoms. Pt. also stated that she has a history of UTIs and the symptoms are not the normal symptoms. Pt. explains pain as sharp pains that come and go. History of Present Illness Patient had diarrhea for a week after getting a stomach bug from her child. She states she had tubes removed about 6 months ago. patient still has ovaries and uterus. Had CT Scan and a severe UTI in Sep 2024. She had a sharp lower abdominal pain, right side pain. no fever, got chills, took shower. no nausea . Drank some Kambucha, made it worse . Review of Systems PHQ Score Initial Depression Screen Score: 0 SCORE Physical Exam Vitals & Measurements T: 36.9 ???C(Oral) HR: 95(Peripheral) RR: 18 BP: 126/78 SpO2: 97% HT: 63 in HT: 161 cm WT: 83.7 kg WT: 184.527 lb BMI: 32.29 General: alert, no acute distress, well appearing, _pleasant, younger to middle- aged female in room 3 with her 5-year-old son Skin: warm, dry, intact Head: no trauma, normocephalic Eye: normal conjunctiva, sclera clear, _PERRLA ENMT: TMs clear bilaterally, normal light reflex, oral mucosa moist, no pharyngeal erythema or exudate, normal dentition Cardiovascular: regular rate and rhythm, normal peripheral perfusion, no edema Respiratory: Lungs CTA, respirations non labored Chest wall: no deformity, non tender Gastrointestinal: soft, non distended, mild right and left lower tenderness, no guarding. Negative CVA tenderness, negative Valencia sign, mild suprapubic tenderness, negative iliopsoas Back: No tenderness, Normal ROM, Normal alignment. Extremities: no deformity, no trauma Neurological: oriented x 4, LOC appropriate for age, CN II-XII intact, speech normal Psychiatric: cooperative? , affect appropriate for age? , normal? judgement, normal? psychiatric thoughts. Assessment/Plan UA results show: negative for all components Based on these results and patient complaints, will start on antimicrobial: AUGMENTIN 875 mg BID x 7-[address] scan in Sep 2024 mild free fluid Advised to take ATB as ordered, along with a probiotic. Due to patient's history of diverticuli I will treat with Augmentin. She denies having any colonoscopies in the past. Denies any blood in the stool. Denies any fever but she has been having hot and cold sweats and chills. I did not send a urine culture as the urinalysis was clear. Reasons to go to the ER including severe right lower quadrant pain with rebound guarding or tenderness discussed with the patient and she was agreeable to this. Brat diet encouraged for the next 3 days And recommended that patient follow-up with PCP 1. UTI symptoms (R39.9: Unspecified symptoms and signs involving the genitourinary system) Ordered: HCG, Urine POC 47362 Urnls Dip Stick Auto w/o Microscopy POC 88154 2. Diarrhea (R19.7: Diarrhea, unspecified) 3. Diverticula, colon (K57.30: Diverticulosis of large intestine without perforation or abscess without bleeding) Orders: amoxicillin-clavulanate, 1 tab(s), Oral, q12hr for 10 day(s), 20 tab(s), Refill(s) 0, [facility], 161, cm, 03/18/25 15:27:00 EDT, Height/Length Dosing, 83.7, kg, 03/18/25 15:27:00 EDT, Weight Dosing Total time spent preparing the chart, conducting of the encounter with the patient and family and time spent documenting, reviewing, and ordering tests was 25 minutes. Portions of this record may have been created with voice recognition artificial intelligence software, specifically [employer], [employer] and or [employer]. Substitutions may have occurred due to the inherent limitations of voice recognition and artificial intelligence software. Follow-up With When Contact Information Laisha Daniels [phone] Additional Instructions: Patient Education Food Choices to Help Relieve Diarrhea, Adult Diarrhea, Adult Diverticulosis Problem List/Past Medical History Ongoing Anxiety Bacterial conjunctivitis of left eye BMI 32.0-32.9,adult Clostridium difficile diarrhea Cough Diarrhea Diverticula, colon Dysphagia Elevated liver enzymes Encounter for weight loss counseling Fullness in right ear Influenza A Myositis of thigh Non-smoker Obesity PCOS (polycystic ovarian syndrome) Routine adult health maintenance Historical Procedure/Surgical History Betamethasone (03/11/2019), Betamethasone (03/10/2019), Breast augmentation, Breast implant. Medications Augmentin 875 mg-125 mg Tab, 1 tab(s), Oral, q12hr AD, 1 tab(s), Oral, Daily Allergies No Known Allergies No Known Medication Allergies Social History Alcohol - Low Risk, 06/25/2019 Current. Beer, Wine. 1-2 times per month., 11/19/2024 Current, Beer, Wine, 1-2 times per month, 06/25/2019 Substance Abuse - Denies Substance Abuse, 06/25/2019 Never., 11/19/2024 Tobacco - Denies Tobacco Use, 04/13/2016 Former smoker, quit more than 30 days ago Tobacco Use:. Never Smokeless Tobacco Use:. Started age 18.0 Years. Stopped age 25 Years., 03/18/2025 Family History Hypertension: Mother. Immunizations Vaccine Date Status Comments influenza virus vaccine, inactivated 08/06/2024 Given Prophylaxis influenza virus vaccine, inactivated 07/23/2023 Given Prophylaxis influenza virus vaccine, inactivated 08/03/2022 Given Prophylaxis influenza virus vaccine, inactivated 08/09/2021 Given Prophylaxis SARS-CoV-2 (COVID-19) mRNA BNT-162b2 vax 02/19/2021 Given Prophylaxis SARS-CoV-2 (COVID-19) mRNA BNT-162b2 vax 01/29/2021 Given Prophylaxis influenza virus vaccine, live, trivalent 08/22/2019 Recorded diphtheria/pertussis, acel/tetanus adult 04/11/2019 Given Lab Results Ambulatory Point of Care Results Bilirubin Urine Dipstick: Negative (03/18/25 15:33:00) Blood Urine Dipstick: Negative (03/18/25 15:33:00) Glucose Urine Dipstick: Negative (03/18/25 15:33:00) Ketones Urine Dipstick: Negative (03/18/25 15:33:00) Leukocytes Urine Dipstick: Negative (03/18/25 15:33:00) Nitrite Urine Dipstick: Negative (03/18/25 15:33:00) Protein Urine Dipstick: Negative (03/18/25 15:33:00) Specific [place] Urine Dipstick: <=1.005 (03/18/25 15:33:00) Urine Appearance Urine Dipstick: Clear (03/18/25 15:33:00) Urine Color Urine Dipstick: Yellow (03/18/25 15:33:00) Urobilinogen Urine Dipstick: Normal 0.2-1 EU/dl (03/18/25 15:33:00) pH Urine Dipstick: 7 (03/18/25 15:33:00) HCG, Urine: Negative (03/18/25 16:02:00) Result Comment: Electronical ly Signed By: Kenney PROCTOR, Celia Dominguez\.br\Date and Time Signed: 03/18/25 17:00 EDT AMBULATORY VISIT SUMMARY Observed: 03/18 3:05 PM Status: F Source: [facility] Ambulatory Visit Summary TOMMY ARREOLA :1990 Visit Date:03/18/2025 Ambulatory Visit Instructions Your Diagnosis UTI symptoms Diarrhea Diverticula, colon Your Care Team Attending Physician - Celia Emanuel Primary Care Physician - Laisha Daniels This Is Your Medications List amoxicillin-clavulanate (Augmentin 875 mg-125 mg Tab) multivitamin, ( AD) Procedures Performed Betamethasone (03/11/2019), Betamethasone (03/10/2019), Breast augmentation, Breast implant. Discharge Vitals Temperature (Oral) 36.9 ???C Heart Rate (Peripheral) 95 Respiratory Rate 18 Blood Pressure 126/78 Height 161 cm Height 63 in Weight 83.7 kg Weight 184.527 lb BMI 32.29 What to do next You Need to Schedule the Following Appointments Follow Up with Laisha Daniels When: Where: [phone] Medications What How Much When Instructions New amoxicillin-clavulanate (Augmentin 875 mg-125 mg Tab) 1 Tablets By Mouth Every 12 hours Duration: [address] [facility] Unchanged multivitamin, ( AD) 1 Tablets By Mouth Every day Pharmacy Information [facility]: [address] [place], [place] [phone] Allergies No Known Allergies No Known Medication Allergies Problems Ongoing - Any problem that you are currently receiving treatment for. Anxiety Bacterial conjunctivitis of left eye BMI 32.0-32.9,adult Clostridium difficile diarrhea Cough Diarrhea Diverticula, colon Dysphagia Elevated liver enzymes Encounter for weight loss counseling Fullness in right ear Influenza A Myositis of thigh Non-smoker Obesity PCOS (polycystic ovarian syndrome) Routine adult health maintenance Historical - Any problem that you are no longer receiving treatment for. Patient Survey You may receive a survey via text or e-mail asking about your office visit. Please share your experience with us by completing your survey. We appreciate your feedback and thank you for choosing us for your care. Education Materials Food Choices to Help Relieve Diarrhea, Adult Diarrhea can make you feel weak and cause you to become dehydrated. Dehydration is a condition in which there is not enough water or other fluids in the body. It is important to choose the right foods and drinks to: ??? Relieve diarrhea. ??? Replace lost fluids and nutrients. ??? Prevent dehydration. What are tips for following this plan? Relieving diarrhea ??? Avoid foods that make your diarrhea worse. These may include: ? Foods and drinks that are sweetened with high-fructose corn syrup, honey, or sweeteners such as xylitol, sorbitol, and mannitol. Check food labels for these ingredients. ? Fried, greasy, or spicy foods. ? Raw fruits and vegetables. ??? Eat foods that are rich in probiotics. These include foods such as yogurt and fermented milk products. Probiotics can help increase healthy bacteria in your stomach and intestines (gastrointestinal or GI tract). This may help digestion and stop diarrhea. ??? If you have lactose intolerance, avoid dairy products. These may make your diarrhea worse. ??? Take medicine to help stop diarrhea only as told by your health care provider. Replacing nutrients ??? Eat bland, jtmi-qn-jaakua foods in small amounts as you are able, until your diarrhea starts to get better. These foods include bananas, applesauce, rice, toast, and crackers. ??? Over time, add nutrient-rich foods as your body tolerates them or as told by your health care provider. These include: ? Well-cooked protein foods, such as eggs, lean meats like fish or chicken without skin, and tofu. ? Peeled, seeded, and soft-cooked fruits and vegetables. ? Low-fat dairy products. ? Whole grains. ??? Take vitamin and mineral supplements as told by your health care provider. Preventing dehydration ??? Start by sipping water or a solution to prevent dehydration (oral rehydration solution, or ORS). This is a drink that helps replace fluids and minerals your body has lost. You can buy an ORS at pharmacies and retail stores. ??? Try to drink at least 8???10 cups (2,000???2,500 mL) of fluid each day to help replace lost fluids. If your urine is pale yellow, you are getting enough fluids. ??? You may drink other liquids in addition to water, such as fruit juice that you have added water to (diluted fruit juice) or low-calorie sports drinks, as tolerated or as told by your health care provider. ??? Avoid drinks with caffeine, such as coffee, tea, or soft drinks. ??? Avoid alcohol. This information is not intended to replace advice given to you by your health care provider. Make sure you discuss any questions you have with your health care provider. Document Revised: 03/20/2023 Document Reviewed: 03/20/2023 [facility] Patient Education ??? 2023 LIQVID. Diarrhea, Adult Diarrhea is frequent loose and sometimes watery bowel movements. Diarrhea can make you feel weak and cause you to become dehydrated. Dehydration is a condition in which there is not enough water or other fluids in the body. Dehydration can make you tired and thirsty, cause you to have a dry mouth, and decrease how often you urinate. Diarrhea typically lasts 2???3 days. However, it can last longer if it is a sign of something more serious. It is important to treat your diarrhea as told by your health care provider. Follow these instructions at home: Eating and drinking Follow these recommendations as told by your health care provider: ??? Take an oral rehydration solution (ORS). This is an boqa-bws-pyxvqpx medicine that helps return your body to its normal balance of nutrients and water. It is found at pharmacies and retail stores. ??? Drink enough fluid to keep your urine pale yellow. ? Drink fluids such as water, diluted fruit juice, and low-calorie sports drinks. You can drink milk also, if desired. Sucking on ice chips is another way to get fluids. ? Avoid drinking fluids that contain a lot of sugar or caffeine, such as soda, energy drinks, and regular sports drinks. ? Avoid alcohol. ??? Eat bland, mpax-bd-egduov foods in small amounts as you are able. These foods include bananas, applesauce, rice, lean meats, toast, and crackers. ??? Avoid spicy or fatty foods. Medicines ??? Take rzgk-oii-jnzincy and prescription medicines only as told by your health care provider. ??? If you were prescribed antibiotics, take them as told by your health care provider. Do not stop using the antibiotic even if you start to feel better. General instructions ??? Wash your hands often using soap and water for at least 20 seconds. If soap and water are not available, use hand radiology tech. Others in the household should wash their hands as well. Hands should be washed: ? After using the toilet or changing a diaper. ? Before preparing, cooking, or serving food. ? While caring for a sick person or while visiting someone in a hospital. ??? Rest at home while you recover. ??? Take a warm bath to relieve any burning or pain from frequent diarrhea episodes. ??? Watch your condition for any changes. Contact a health care provider if: ??? You have a fever. ??? Your diarrhea gets worse. ??? You have new symptoms. ??? You vomit every time you eat or drink. ??? You feel light-headed, dizzy, or have a headache. ??? You have muscle cramps. ??? You have signs of dehydration, such as: ? Dark urine, very little urine, or no urine. ? Cracked lips. ? Dry mouth. ? Sunken eyes. ? Sleepiness. ? Weakness. ??? You have bloody or black stools or stools that look like tar. ??? You have severe pain, cramping, or bloating in your abdomen. ??? Your skin feels cold and clammy. ??? You feel confused. Get help right away if: ??? You have chest pain or your heart is beating very quickly. ??? You have trouble breathing or you are breathing very quickly. ??? You feel extremely weak or you faint. These symptoms may be an emergency. Get help right away. Call 911. ??? Do not wait to see if the symptoms will go away. ??? Do not drive yourself to the hospital. This information is not intended to replace advice given to you by your health care provider. Make sure you discuss any questions you have with your health care provider. Document Revised: 03/20/2023 Document Reviewed: 03/20/2023 [employer] Patient Education ??? 2023 LIQVID. Diverticulosis Diverticulosis is when small pouches called diverticula form in the wall of the colon. The colon is where water is absorbed. It is also where poop (stool) is formed. The pouches form when the inside layer of the colon pushes through weak spots in the outer layers of the colon. You may have a few pouches or many of them. In most cases, the pouches do not cause problems. If they become inflamed or infected, you may have a condition called diverticulitis. What are the causes? The cause of this condition is not known. What increases the risk? You are more likely to get this condition if: ??? You are older than 60 years of age. ??? You do not eat enough fiber or you get constipated a lot. ??? You are overweight. ??? You do not get enough exercise. ??? You smoke. ??? You take ermq-bdf-gqgagdl pain medicines. ??? You have a family history of the condition. What are the signs or symptoms? In most people, there are no symptoms. If you do have symptoms, they may include: ??? Bloating. ??? Stomach cramps. ??? Constipation or diarrhea. ??? Pain in the lower left side of your abdomen. How is this diagnosed? This condition is often diagnosed during an exam for other colon problems. It may be diagnosed when you have: ??? A colonoscopy. This is when a tube with a camera on the end is used to look at your colon. ??? A barium enema. This is an X-ray exam that uses dye to look at your colon. ??? A CT scan. How is this treated? You may not need treatment. Your health care provider will tell you what you can do at home to help prevent problems. You may need treatment if you have symptoms or if you have had diverticulitis before. You may be told to: ??? Eat a high-fiber diet. ??? Take medicine to relax your colon. ??? Lose weight. Follow these instructions at home: Medicines ??? Take jkhq-jza-sjqunnb and prescription medicines only as told by your provider. ??? If told, take a fiber supplement or probiotic. Managing constipation Your condition may cause constipation. To prevent or treat constipation, you may need to: ??? Drink enough fluid to keep your pee (urine) pale yellow. ??? Take oeyy-tot-sqfgcfr or prescription medicines. ??? Eat foods that are high in fiber, such as beans, whole grains, and fresh fruits and vegetables. ??? Limit foods that are high in fat and processed sugars, such as fried or sweet foods. Try not to strain when you poop. Contact a health care provider if: ??? Your symptoms get worse all of a sudden. ??? You have pain in your abdomen that gets worse. ??? You have bloating or stomach cramps. ??? You continue to have frequent constipation. ??? You have a fever or chills. ??? You vomit. ??? Your poop is bloody, black, or tarry. This information is not intended to replace advice given to you by your health care provider. Make sure you discuss any questions you have with your health care provider. Document Revised: 06/28/2023 Document Reviewed: 06/28/2023 [facility] Patient Education ??? 2023 LIQVID. FAMILY MEDICINE OFFICE/CLINI C NOTE Observed: 11/19/2024 12:05 PM Status: F Source: [facility] Family Medicine Office/Clini c Note Chief Complaint pt here for fluid in right ear, stuffy nose, onset 1 week. pt left eye is very red and itchy, right eye is very red. History of Present Illness Tommy is a 34 yo female presenting today for acute visit d/t URI sx Pt reports symptoms started on Sunday Pt reports they are experiencing: dry cough, nasal congestion, sore throat, right ear fullness, left eye redness, itchiness, leg soreness since working out on Sunday. Exposure to 4 kids at home (kids are in daycare/school) Eutebg-ju-nls had COVID and flu-A recently. She got her flu vaccine at work earlier this fall Pt denies CP, SOB, wheezing, chest tightness, chills, runny nose, sinus pressure, changes in taste/smell/appetite, n/v/d, abd pain, MARIE, fatigue, urinary changes, or dizziness at this time. Pt has tried OTC remedies including: warm compress smoker: no Hx of deviated septum/sinus surgeries: no Review of Systems PHQ Score Initial Depression Screen Score: 3 SCORE Detailed Depression Screen Score: 1 Total Depression Screen Score: 4 Physical Exam Vitals & Measurements T: 36.8 ???C(Oral) HR: 118(Peripheral) BP: 128/80 SpO2: 99% HT: 64 in HT: 161.5 cm WT: 83.8 kg WT: 184.747 lb BMI: 32.13 General: Well developed, well nourished, in no acute distress Eyes: Bilateral PERRLA, left eye conjunctivae and sclerae erythematous, right eye WNL, EOMs intact, lids without stye, chalazion, ect/extropion, ptosis, xanthelasma, blepharitis. No discharge to inner canthi.Negative for corneal abrasion or foreign bodies. Ears: right ear effusion noted, otherwise bilateral WNL Nose: No deformity, discharge, inflammation, or lesions. No congestion, no erythema; pink & moist turbinates; clear rhinorrhea. Mouth: mucous membranes pink, moist and intact. [place] posterior oropharynx, no palatal inflammation, uvula midline, no cobble-stoning, 3+ graded enlarged tonsils bilat, no tonsillar exudate, no ulcers, no active post nasal drip. tongue midline and wnl. Good dentition. Neck: Neck supple. No lymphadenopathy. Trachea midline. No thyroid, masses, tenderness, or enlargement noted. No bruit. Lungs: Normal respiratory effort and clear to auscultation Cardio: Regular rate and rhythm, normal S1 and S2, no murmur, no rub Abdomen: not assessed Musculoskeletal: No deformity or scoliosis noted. No vertebral tenderness. Normal range of motion. No vertebral point tenderness. Joints normal. No erythema, edema, effusion, crepitus, or ecchymosis. Straight leg raise negative Extremity: No clubbing, cyanosis, edema, or deformity. Normal ROM with upper and lower extremities, bilaterally. Neurologic: Cranial nerves II-XII grossly intact. motor strength equal & normal bilaterally, sensation equal & normal bilaterally. Gait normal. Skin: No rashes, ulcerations, or suspicious lesions Mental Status: Alert and oriented x3. Normal mood and affect Assessment/Plan 1. Dysphagia (R13.10: Dysphagia, unspecified) strep swab negative do salt rinse gargles daily Ordered: Influenza Type A&B POC 95020 Rapid COVID POC 49762 Rapid Strep POC 36037 2. Cough (R05.9: Cough, unspecified) COVID negative d/t viral URI and discussed likely duration of sx and red flags/when to seek emergency care. Rest and push fluids, Vit C, D and zinc x 2 weeks. Pt verbalized understanding f/u PRN Ordered: Influenza Type A&B POC 55710 Rapid COVID POC 80350 Rapid Strep POC 34642 3. Influenza A (J10.1: Influenza due to other identified influenza virus with other respiratory manifestations) Reviewed with patient that physical exam and symptoms are consistent with a viral infection. Discussed antibiotics unfortunately do not treat viral illnesses, it will take time to run its course. The first 3-5 days of symptoms are typically the worst (fever, body aches, etc), with cold symptoms lasting 7-14 days. Encouraged fluids to keep secretions thin. Rest. Take Tylenol/Ibuprofen for pain/fevers as needed, may need to alternate. May use Dayquil or similar for symptoms. 4. Fullness in right ear (H93.8X1: Other specified disorders of right ear) use xyzal and flonase OTC PRN 5. Bacterial conjunctivitis of left eye (H10.9: Unspecified conjunctivitis) Physical exam and complaints consistent with bacterial conjunctivitis. Will treat with polytrim. Use as directed and finish course. Do not touch tup of applicator to eye, wash hands before and after to void cross contamination. Patient advised to clean any discharge from eyelids with baby shampoo and warm water. If you wear contacts, remove them and wear glasses until infection resolved (discard current pair to avoid recontamination). Dispose of recent eye make-up. Encouraged frequent and thorough hand hygiene to prevent spread to other eye. Advised is contagious up until 24 hours after using prescribed treatment. Once symptoms are gone, continue using eye drops for 2 more days. Usually the eye improves within 2-3 days of using the drops. Discussed symptoms that would indicate prompt follow-up (severe eye pain, vision loss, significant swelling above/below eye). Antihistamine eye drops are helpful for itching. These are available eryw-jcs-bmiuskn and include 'Zaditor' ([facility], [place], [facility]). Follow up with your PCP or Eye doctor if not improving over the next 3 days; or sooner if worsening/severe symptoms. Ordered: polymyxin B-trimethoprim ophthalmic, 1 drop(s), OPTH, QID for 10 day(s), 10 mL, Refill(s) 0, [facility], 161.5, cm, 11/19/24 10:48:00 EST, Height/Length Dosing, 83.8, kg, 11/19/24 10:48:00 EST, Weight Dosing 6. Myositis of thigh (M60.859: Other myositis, unspecified thigh) likely d/t viral infection see above rest, using heating pad and tylenol PRN 7. BMI 32.0-32.9,adult (Z68.32: Body mass index [BMI] 32.0-32.9, adult) The standard range for ages 18 and older is >=18.5 and < 25 kg/m2. Your BMI today was above this range, this falls in the overweight to obese category and there are medical benefits to weight loss. We can offer counselling, referral, and/or medical support in addressing this problem. Your BMI and weight management will be followed at subsequent visits. 8. Obesity (E66.9: Obesity, unspecified) Reviewed importance of making a lifestyle change regarding dietary choices. Start WW, G-BOMBS or MIND (Mediterranean-DASH intervention for neurodegenerative diet) diet and focus on portion control and only eating when truly hungry and stopping when 2/3 satiety. monitor cooking habits/avoid fast food and fried/fatty foods/seed oils. Encouraged routine cardio exercise with Goal: 3-5x/week for 30-45 minutes. Start out slow and increase to achieve your goals. Will monitor for progress. Follow-up With When Contact Information Mariya Girard Only if needed [address], [place] [address]- Additional Instructions: Patient Education Influenza, Adult Upper Respiratory Infection, Adult, Etar-dt-Pjxl Earache, Adult Bacterial Conjunctivitis, Adult Problem List/Past Medical History Ongoing Anxiety Bacterial conjunctivitis of left eye BMI 32.0-32.9,adult Clostridium difficile diarrhea Cough Dysphagia Elevated liver enzymes Encounter for weight loss counseling Fullness in right ear Influenza A Myositis of thigh Non-smoker Obesity PCOS (polycystic ovarian syndrome) Routine adult health maintenance Historical Procedure/Surgical History Betamethasone (03/11/2019), Betamethasone (03/10/2019), Breast augmentation, Breast implant. Medications Polytrim 10 mL Soln-Opth, 1 drop(s), OPTH, QID AD, 1 tab(s), Oral, Daily Allergies No Known Allergies No Known Medication Allergies Social History Alcohol - Low Risk, 06/25/2019 Current. Beer, Wine. 1-2 times per month., 11/19/2024 Current, Beer, Wine, 1-2 times per month, 06/25/2019 Substance Abuse - Denies Substance Abuse, 06/25/2019 Never., 11/19/2024 Tobacco - Denies Tobacco Use, 04/13/2016 Former smoker, quit more than 30 days ago Tobacco Use:. Never Smokeless Tobacco Use:. Started age 16.0 Years. Stopped age 25 Years., 11/19/2024 Family History Hypertension: Mother. Immunizations Vaccine Date Status Comments influenza virus vaccine, inactivated 08/06/2024 Given Prophylaxis influenza virus vaccine, inactivated 07/23/2023 Given Prophylaxis influenza virus vaccine, inactivated 08/03/2022 Given Prophylaxis influenza virus vaccine, inactivated 08/09/2021 Given Prophylaxis SARS-CoV-2 (COVID-19) mRNA BNT-162b2 vax 02/19/2021 Given Prophylaxis SARS-CoV-2 (COVID-19) mRNA BNT-162b2 vax 01/29/2021 Given Prophylaxis influenza virus vaccine, live, trivalent 08/22/2019 Recorded diphtheria/pertussis, acel/tetanus adult 04/11/2019 Given Lab Results Ambulatory Point of Care Results Rapid Strep POC Result: Negative (11/19/24 11:12:00) Influenza A POC: Positive (11/19/24 11:11:00) Influenza B POC: Negative (11/19/24 11:11:00) Rapid Covid POC: Negative (11/19/24 11:11:00) Result Comment: Electronical ly Signed By: Kimmy PROCTORMariya.suha\Date and Time Signed: 11/19/24 12:05 EST PATIENT EDUCATION Observed: 11/19/2024 12:05 PM Status: C Source: [facility] Patient Education ENT Earache, Adult An earache, or ear pain, can be caused by many things, including: ??? An infection. ??? Ear wax buildup. ??? Ear pressure. ??? Something in the ear that should not be there (foreign body). ??? A sore throat. ??? Tooth problems. ??? Jaw problems. Treatment of the earache will depend on the cause. If the cause is not clear or cannot be known, you may need to watch your symptoms until your earache goes away or until a cause is found. Follow these instructions at home: Medicines ??? Take or apply arfn-nbd-uuafrgy and prescription medicines only as told by your health care provider. ??? If you were prescribed antibiotics, use them as told by your health care provider. Do not stop using the antibiotic even if you start to feel better. ??? Do not put anything in your ear other than medicine that is prescribed by your health care provider. Managing pain If directed, apply heat to the affected area as often as told by your health care provider. Use the heat source that your health care provider recommends, such as a moist heat pack or a heating pad. ??? Place a towel between your skin and the heat source. ??? Leave the heat on for 20?30 minutes. ??? If your skin turns bright red, remove the heat right away to prevent mar. The risk of mar is higher if you cannot feel pain, heat, or cold. If directed, put ice on the affected area. To do this: ??? Put ice in a plastic bag. ??? Place a towel between your skin and the bag. ??? Leave the ice on for 20 minutes, 2?3 times a day. ??? If your skin turns bright red, remove the ice right away to prevent skin damage. The risk of skin damage is higher if you cannot feel pain, heat, or cold. General instructions ??? Pay attention to any changes in your symptoms. ??? Try resting in an upright position instead of lying down. This may help to reduce pressure in your ear and relieve pain. ??? Chew gum if it helps to relieve your ear pain. ??? Treat any allergies as told by your health care provider. ??? Drink enough fluid to keep your urine pale yellow. ??? It is up to you to get the results of any tests that were done. Ask your health care provider, or the department that is doing the tests, when your results will be ready. Contact a health care provider if: ??? Your pain does not improve within 2 days. ??? Your earache gets worse. ??? You have new symptoms. ??? You have a fever. Get help right away if: ??? You have a severe headache. ??? You have a stiff neck. ??? You have trouble swallowing. ??? You have redness or swelling behind your ear. ??? You have fluid or blood coming from your ear. ??? You have hearing loss. ??? You feel dizzy. This information is not intended to replace advice given to you by your health care provider. Make sure you discuss any questions you have with your health care provider. Document Revised: 02/12/2023 Document Reviewed: 02/12/2023 [facility] Patient Education ? 2023 [employer].Infectious Disease Influenza, Adult Influenza, also called the flu, is a viral infection that mainly affects the respiratory tract. This includes the lungs, nose, and throat. The flu spreads easily from person to person (is contagious). It causes common cold symptoms, along with high fever and body aches. What are the causes? This condition is caused by the influenza virus. You can get the virus by: ??? Breathing in droplets that are in the air from an infected person's cough or sneeze. ??? Touching something that has the virus on it (has been contaminated) and then touching your mouth, nose, or eyes. What increases the risk? The following factors may make you more likely to get the flu: ??? Not washing or sanitizing your hands often. ??? Having close contact with many people during cold and flu season. ??? Touching your mouth, eyes, or nose without first washing or sanitizing your hands. ??? Not getting an annual flu shot. You may have a higher risk for the flu, including serious problems, such as a lung infection (pneumonia), if you: ??? Are older than 65. ??? Are . ??? Have a weakened disease-fighting system (immune system). This includes people who have HIV or AIDS, are on chemotherapy, or are taking medicines that reduce (suppress) the immune system. ??? Have a long-term (chronic) illness, such as heart disease, kidney disease, diabetes, or lung disease. ??? Have a liver disorder. ??? Are severely overweight (morbidly obese). ??? Have anemia. ??? Have asthma. What are the signs or symptoms? Symptoms of this condition usually begin suddenly and last 4?14 days. These may include: ??? Fever and chills. ??? Headaches, body aches, or muscle aches. ??? Sore throat. ??? Cough. ??? Runny or stuffy (congested) nose. ??? Chest discomfort. ??? Poor appetite. ??? Weakness or fatigue. ??? Dizziness. ??? Nausea or vomiting. How is this diagnosed? This condition may be diagnosed based on: ??? Your symptoms and medical history. ??? A physical exam. ??? Swabbing your nose or throat and testing the fluid for the influenza virus. How is this treated? If the flu is diagnosed early, you can be treated with antiviral medicine that is given by mouth (orally) or through an IV. This can help reduce how severe the illness is and how long it lasts. Taking care of yourself at home can help relieve symptoms. Your health care provider may recommend: ??? Taking xnvo-owk-wulrdwl medicines. ??? Drinking plenty of fluids. In many cases, the flu goes away on its own. If you have severe symptoms or complications, you may be treated in a hospital. Follow these instructions at home: Activity ??? Rest as needed and get plenty of sleep. ??? Stay home from work or school as told by your health care provider. Unless you are visiting your health care provider, avoid leaving home until your fever has been gone for 24 hours without taking medicine. Eating and drinking ??? Take an oral rehydration solution (ORS). This is a drink that is sold at pharmacies and retail stores. ??? Drink enough fluid to keep your urine pale yellow. ??? Drink clear fluids in small amounts as you are able. Clear fluids include water, ice chips, fruit juice mixed with water, and low-calorie sports drinks. ??? Eat bland, ksom-xc-dafeka foods in small amounts as you are able. These foods include bananas, applesauce, rice, lean meats, toast, and crackers. ??? Avoid drinking fluids that contain a lot of sugar or caffeine, such as energy drinks, regular sports drinks, and soda. ??? Avoid alcohol. ??? Avoid spicy or fatty foods. General instructions ??? Take taff-qlr-zdbxmes and prescription medicines only as told by your health care provider. ??? Use a cool mist humidifier to add humidity to the air in your home. This can make it easier to breathe. ? When using a cool mist humidifier, clean it daily. Empty the water and replace it with clean water. ??? Cover your mouth and nose when you cough or sneeze. ??? Wash your hands with soap and water often and for at least 20 seconds, especially after you cough or sneeze. If soap and water are not available, use alcohol- based hand radiology tech. ??? Keep all follow-up visits. This is important. How is this prevented? Get an annual flu shot. This is usually available in late summer, fall, or winter. Ask your health care provider when you should get your flu shot. ??? Avoid contact with people who are sick during cold and flu season. This is generally fall and winter. Contact a health care provider if: ??? You develop new symptoms. ??? You have: ? Chest pain. ? Diarrhea. ? A fever. ??? Your cough gets worse. ??? You produce more mucus. ??? You feel nauseous or you vomit. Get help right away if you: ??? Develop shortness of breath or have difficulty breathing. ??? Have skin or nails that turn a bluish color. ??? Have severe pain or stiffness in your neck. ??? Develop a sudden headache or sudden pain in your face or ear. ??? Cannot eat or drink without vomiting. These symptoms may represent a serious problem that is an emergency. Do not wait to see if the symptoms will go away. Get medical help right away. Call your local emergency services (911 in the [place] Do not drive yourself to the hospital. Summary ??? Influenza, also called the flu, is a viral infection that primarily affects your respiratory tract. ??? Symptoms of the flu usually begin suddenly and last 4?14 days. ??? Getting an annual flu shot is the best way to prevent getting the flu. ??? Stay home from work or school as told by your health care provider. Unless you are visiting your health care provider, avoid leaving home until your fever has been gone for 24 hours without taking medicine. ??? Keep all follow-up visits. This is important. This information is not intended to replace advice given to you by your health care provider. Make sure you discuss any questions you have with your health care provider. Document Revised: 05/20/2021 Document Reviewed: 05/20/2021 [facility] Patient Education ? 2022 [facility] [employer] Upper Respiratory Infection, Adult An upper respiratory infection (URI) affects the nose, throat, and upper airways that lead to the lungs. The most common type of URI is often called the common cold. URIs usually get better on their own, without medical treatment. What are the causes? A URI is caused by a germ (virus). You may catch these germs by: ??? Breathing in droplets from an infected person's cough or sneeze. ??? Touching something that has the germ on it (is contaminated) and then touching your mouth, nose, or eyes. What increases the risk? You are more likely to get a URI if: ??? You are very young or very old. ??? You have close contact with others, such as at work, school, or a health care facility. ??? You smoke. ??? You have long-term (chronic) heart or lung disease. ??? You have a weakened disease-fighting system (immune system). ??? You have nasal allergies or asthma. ??? You have a lot of stress. ??? You have poor nutrition. What are the signs or symptoms? Runny or stuffy (congested) nose. ??? Cough. ??? Sneezing. ??? Sore throat. ??? Headache. ??? Feeling tired (fatigue). ??? Fever. ??? Not wanting to eat as much as usual. ??? Pain in your forehead, behind your eyes, and over your cheekbones (sinus pain). ??? Muscle aches. ??? Redness or irritation of the eyes. ??? Pressure in the ears or face. How is this treated? URIs usually get better on their own within 7?10 days. Medicines cannot cure URIs, but your doctor may recommend certain medicines to help relieve symptoms, such as: ??? Jzji-ygr-jpohuqi cold medicines. ??? Medicines to reduce coughing (cough suppressants). Coughing is a type of defense against infection that helps to clear the nose, throat, windpipe, and lungs (respiratory system). Take these medicines only as told by your doctor. ??? Medicines to lower your fever. Follow these instructions at home: Activity ??? Rest as needed. ??? If you have a fever, stay home from work or school until your fever is gone, or until your doctor says you may return to work or school. ? You should stay home until you cannot spread the infection anymore (you are not contagious). ? Your doctor may have you wear a face mask so you have less risk of spreading the infection. Relieving symptoms ??? Rinse your mouth often with salt water. To make salt water, dissolve ??1 tsp (3?6 g) of salt in 1 cup (237 mL) of warm water. ??? Use a cool-mist humidifier to add moisture to the air. This can help you breathe more easily. Eating and drinking ??? Drink enough fluid to keep your pee (urine) pale yellow. ??? Eat soups and other clear broths. General instructions ??? Take iqqa-rgs-qmrbkju and prescription medicines only as told by your doctor. ??? Do not smoke or use any products that contain nicotine or tobacco. If you need help quitting, ask your doctor. ??? Avoid being where people are smoking (avoid secondhand smoke). ??? Stay up to date on all your shots (immunizations), and get the flu shot every year. ??? Keep all follow-up visits. How to prevent the spread of infection to others ??? Wash your hands with soap and water for at least 20 seconds. If you cannot use soap and water, use hand radiology tech. ??? Avoid touching your mouth, face, eyes, or nose. ??? Cough or sneeze into a tissue or your sleeve or elbow. Do not cough or sneeze into your hand or into the air. Contact a doctor if: ??? You are getting worse, not better. ??? You have any of these: ? A fever or chills. ? Brown or red mucus in your nose. ? Yellow or brown fluid (discharge)coming from your nose. ? Pain in your face, especially when you bend forward. ? Swollen neck glands. ? Pain when you swallow. ? White areas in the back of your throat. Get help right away if: ??? You have shortness of breath that gets worse. ??? You have very bad or constant: ? Headache. ? Ear pain. ? Pain in your forehead, behind your eyes, and over your cheekbones (sinus pain). ? Chest pain. ??? You have long-lasting (chronic) lung disease along with any of these: ? Making high-pitched whistling sounds when you breathe, most often when you breathe out (wheezing). ? Long-lasting cough (more than 14 days). ? Coughing up blood. ? A change in your usual mucus. ??? You have a stiff neck. ??? You have changes in your: ? Vision. ? Hearing. ? Thinking. ? Mood. These symptoms may be an emergency. Get help right away. Call 911. ??? Do not wait to see if the symptoms will go away. ??? Do not drive yourself to the hospital. Summary ??? An upper respiratory infection (URI) is caused by a germ (virus). The most common type of URI is often called the common cold. ??? URIs usually get better within 7?10 days. ??? Take gvds-pte-zxszpkz and prescription medicines only as told by your doctor. This information is not intended to replace advice given to you by your health care provider. Make sure you discuss any questions you have with your health care provider. Document Revised: 05/03/2022 Document Reviewed: 05/03/2022 [employer] Patient Education ? 2023 [facility]Bacterial Conjunctivitis, Adult Bacterial conjunctivitis is an infection of the clear membrane that covers the white part of the eye and the inner surface of the eyelid (conjunctiva). When the blood vessels in the conjunctiva become inflamed, the eye becomes red or pink. The eye often feels irritated or itchy. Bacterial conjunctivitis spreads easily from person to person (is contagious). It also spreads easily from one eye to the other eye. What are the causes? This condition is caused by bacteria. You may get the infection if you come into close contact with: ??? A person who is infected with the bacteria. ??? Items that are contaminated with the bacteria, such as a face towel, contact lens solution, or eye makeup. What increases the risk? You are more likely to develop this condition if: ??? You are exposed to other people who have the infection. ??? You wear contact lenses. ??? You have a sinus infection. ??? You have had a recent eye injury or surgery. ??? You have a weak body defense system (immune system). ??? You have a medical condition that causes dry eyes. What are the signs or symptoms? Symptoms of this condition include: ??? Thick, yellowish discharge from the eye. This may turn into a crust on the eyelid overnight and cause your eyelids to stick together. ??? Tearing or watery eyes. ??? Itchy eyes. ??? Burning feeling in your eyes. ??? Eye redness. ??? Swollen eyelids. ??? Blurred vision. How is this diagnosed? This condition is diagnosed based on your symptoms and medical history. Your health care provider may also take a sample of discharge from your eye to find the cause of your infection. How is this treated? This condition may be treated with: ??? Antibiotic eye drops or ointment to clear the infection more quickly and prevent the spread of infection to others. ??? Antibiotic medicines taken by mouth (orally) to treat infections that do not respond to drops or ointments or that last longer than 10 days. ??? Cool, wet cloths (cool compresses) placed on the eyes. ??? Artificial tears applied 2?6 times a day. Follow these instructions at home: Medicines ??? Take or apply your antibiotic medicine as told by your health care provider. Do not stop using the antibiotic, even if your condition improves, unless directed by your health care provider. ??? Take or apply empy-gwl-iyjulrh and prescription medicines only as told by your health care provider. ??? Be very careful to avoid touching the edge of your eyelid with the eye-drop bottle or the ointment tube when you apply medicines to the affected eye. This will keep you from spreading the infection to your other eye or to other people. Managing discomfort ??? Gently wipe away any drainage from your eye with a warm, wet washcloth or a cotton ball. ??? Apply a clean, cool compress to your eye for 10?20 minutes, 3?4 times a day. General instructions ??? Do not wear contact lenses until the inflammation is gone and your health care provider says it is safe to wear them again. Ask your health care provider how to sterilize or replace your contact lenses before you use them again. Wear glasses until you can resume wearing contact lenses. ??? Avoid wearing eye makeup until the inflammation is gone. Throw away any old eye cosmetics that may be contaminated. ??? Change or wash your pillowcase every day. ??? Do not share towels or washcloths. This may spread the infection. ??? Wash your hands often with soap and water for at least 20 seconds and especially before touching your face or eyes. Use paper towels to dry your hands. ??? Avoid touching or rubbing your eyes. ??? Do not drive or use heavy machinery if your vision is blurred. Contact a health care provider if: ??? You have a fever. ??? Your symptoms do not get better after 10 days. Get help right away if: ??? You have a fever and your symptoms suddenly get worse. ??? You have severe pain when you move your eye. ??? You have facial pain, redness, or swelling. ??? You have a sudden loss of vision. Summary ??? Bacterial conjunctivitis is an infection of the clear membrane that covers the white part of the eye and the inner surface of the eyelid (conjunctiva). ??? Bacterial conjunctivitis spreads easily from eye to eye and from person to person (is contagious). ??? Wash your hands often with soap and water for at least 20 seconds and especially before touching your face or eyes. Use paper towels to dry your hands. ??? Take or apply your antibiotic medicine as told by your health care provider. Do not stop using the antibiotic even if your condition improves. ??? Contact a health care provider if you have a fever or if your symptoms do not get better after 10 days. Get help right away if you have a sudden loss of vision. This information is not intended to replace advice given to you by your health care provider. Make sure you discuss any questions you have with your health care provider. Document Revised: 01/11/2022 Document Reviewed: 01/11/2022 [facility] Patient Education ? 2023 [employer]. AMBULATORY VISIT SUMMARY Observed: 11/19 11:14 AM Status: F Source: [facility] Ambulatory Visit Summary TOMMY ARREOLA :1990 Visit Date:11/19/2024 Ambulatory Visit Instructions Your Diagnosis Dysphagia Cough Influenza A Fullness in right ear Bacterial conjunctivitis of left eye Myositis of thigh BMI 32.0-32.9,adult Obesity Your Care Team Attending Physician - Kimmy PROCTOR, Mariya Rodrigues Primary Care Physician - Laisha Daniels. This Is Your Medications List multivitamin, ( AD) polymyxin B-trimethoprim ophthalmic (Polytrim 10 mL Soln-Opth) Procedures Performed Betamethasone (03/11/2019), Betamethasone (03/10/2019), Breast augmentation, Breast implant. Discharge Vitals Temperature (Oral) 36.8 ???C Heart Rate (Peripheral) 118 Blood Pressure 128/80 Height 161.5 cm Height 64 in Weight 83.8 kg Weight 184.747 lb BMI 32.13 Medications What How Much When Why Instructions New polymyxin B-trimethoprim ophthalmic (Polytrim 10 mL Soln-Opth) 1 Drops Ophthalmic 4 times a day Bacterial conjunctivitis of left eye Duration: [address] [facility] 1985 Unchanged multivitamin, ( AD) 1 Tablets By Mouth Every day Pharmacy Information [facility] 1986: [address] [facility] [place], [place] [id number] [phone] Allergies No Known Allergies No Known Medication Allergies Problems Ongoing - Any problem that you are currently receiving treatment for. Anxiety Bacterial conjunctivitis of left eye BMI 32.0-32.9,adult Clostridium difficile diarrhea Cough Dysphagia Elevated liver enzymes Encounter for weight loss counseling Fullness in right ear Influenza A Myositis of thigh Non-smoker Obesity PCOS (polycystic ovarian syndrome) Routine adult health maintenance Historical - Any problem that you are no longer receiving treatment for. Patient Survey You may receive a survey via text or e-mail asking about your office visit. Please share your experience with us by completing your survey. We appreciate your feedback and thank you for choosing us for your care. ED NOTE-PHYSICIAN Observed: 09/26/2024 10:27 PM Status: F Source: [facility] ED Note-Physician Basic Information Time Seen: Ja CHRISTENSEN, Marco Austin. 09/26/2024 18:45 Chief Complaint Pt reports bilateral lower abd pain. Hurts to start urine stream. A lot of pressure. Had laproscopic tube removal 3 wks ago. Denies fevers/chills. Nauseous, no vomiting. History of Present Illness A 33-year-old female reports emergency department with complaints of lower abdominal pain. Reports that it feels like a lot of pressure in her lower abdomen. Reports history of a tubal ligation about 3 weeks ago. She states she is nauseous without any vomiting. Reports that hurts to start her stream of urine. She denies any fevers or chills. States that was recently about 10 weeks ago as well. She states that she went to get checked out. Denies any other abdominal surgeries. Denies any pain elsewhere. States that she is not breast-feeding. Review of Systems No other aggravating or relieving factors no other associated symptoms no other prior treatments or complaints. Family: Reviewed and noncontributory Social: lives at home Review of systems negative unless otherwise specified in the HPI. Physical Exam Vitals & Measurements T: 36.5 ???C(Oral) HR: 81(Monitored) RR: 18 BP: 115/74 SpO2: 97% HT: 161.5 cm WT: 88 kg BMI: 33.74 General: The patient appears well and in no apparent distress. Patient is resting comfortably on bed. Afebrile Skin: Warm, dry, no pallor noted. Head: Normocephalic, atraumatic Neck: No JVD Eye: PERRLA, EOMI ENT: Moist mucus membranes Cardiovascular: Regular rate. normal peripheral perfusion Respiratory: No respiratory distress. no accessory muscle use. no obvious audible wheezing Chest Wall: no deformity Musculoskeletal: normal ROM, no deformity, no swelling GI: No obvious distention. Mild tenderness along the suprapubic region of the patient's abdomen. No rebound tenderness guarding noted. No CVA tenderness bilaterally. Neurological: A&O. moves all extremities equal strength and symmetry Psychiatric: Cooperative and appropriate Medical Decision Making MEDICAL DECISION MAKING Number and Complexity of Problems Differential Diagnosis: [] [facility] Data External documents reviewed: [] My EKG interpretation: [] My CT interpretation: Per stat rad: No bowel obstruction. Liquid stool in the colon which may be incidental or mild enteritis. Small hiatal hernia. Mild colonic diverticulosis without diverticulitis. No urethral stone or obstructive uropathy. Liver, gallbladder, pancreas and spleen are very unremarkable. Trace physiologic free fluid in the pelvis. Small fat-containing umbilical hernia. My X-ray interpretation: [] My Ultrasound interpretation: [] Decision rules/scores evaluated: [] Discussed with: [] Treatment and Disposition ED Course: A 33-year-old female reports to the emergency department with complaints of lower abdominal pain. Reports been going on for last couple days. Reports hard to start a stream of urine and increased frequency. Exam the patient does reveal some suprapubic abdominal tenderness. No obvious findings otherwise. Due to concerns we did do lab work as well as a CT. Lab work reviewed noted. No acute changes seen. Patient appears to be have a UTI. She also complains that she is having some mild diarrhea. With a CT showing concerns for possible enteritis, likely this causing the diarrhea. Discussed pain could be enteritis versus UTI. Will treat with antibiotics, Zofran, and Bentyl for pain. Patient was understanding. Discussed return precautions. Follow-up with your primary care provider in 3 to 5 days. If symptoms worsen, do not improve, or new symptoms arise please report back to emergency department for further evaluation. The patient was understanding and agreeable to plan moving forward. Shared decision making: [] Code status: [] Assessment/Plan Enteritis (K52.9: Noninfective gastroenteritis and colitis, unspecified) UTI (urinary tract infection) (N39.0: Urinary tract infection, site not specified) Orders: cephalexin, 500 mg = 1 cap(s), Cap, Oral, QID, STAT, Start date 09/26/24 20:38:00 EST, 09/26/24 20:38:00 EST dicyclomine, 10 mg = 1 cap(s), Cap, Oral, Once, Stop date 09/26/24 20:38:00 EST, STAT, Start date 09/26/24 20:38:00 EST, 09/26/24 20:38:00 EST dicyclomine, 10 mg = 1 cap(s), Oral, QID, X 7 day(s), # 28 cap(s), Refills(s) 0, [facility], 161.5, cm, 09/26/24 18:46:00 EST, Height/Length Dosing, 88, kg, 09/26/24 18:46:00 EST, Weight Dosing ondansetron, 4 mg = 2 mL, Injection, IV Push, Once, Stop date 09/26/24 18:51:00 EST, STAT, Start date 09/26/24 18:51:00 EST, 09/26/24 18:51:00 EST ondansetron, 4 mg = 1 tab(s), Oral, q8hr, PRN Nausea/Vomiting, # 12 tab(s), Refills(s) 0, [facility], 161.5, cm, 09/26/24 18:46:00 EST, Height/Length Dosing, 88, kg, 09/26/24 18:46:00 EST, Weight Dosing ondansetron, 12 mg = 3 tab(s), Tab-Dis, Oral, Once, Stop date 09/26/24 20:38:00 EST, STAT, Start date 09/26/24 20:38:00 EST, 09/26/24 20:38:00 EST Basic Metabolic Panel CBC w/ Auto Diff CT Abdomen/Pelvis w/ Contrast eGFR Hepatic Function Panel Lipase Level UA with Cult Rflx Urine Culture Medications Administered Given Bentyl 10 mg Cap, 10 mg, Oral Keflex 500 mg Cap, 500 mg, Oral ondansetron 4 mg Dis Tab, 12 mg, Oral ondansetron 4 mg/2 mL Inj, 4 mg, IV Push Disposition Plan Patient Discharge Condition Stable Discharge Disposition To home Discharge Prescription List Prescriptions Bentyl 10 mg Cap, 10 mg= 1 cap(s), Oral, QID Zofran ODT 4 mg Tab-Dis, 4 mg= 1 tab(s), Oral, q8hr, PRN Follow-up With When Contact Information Laishakalyn HaneyGina In 3 days 09/29/2024 EST [address] [facility] [place] [address] [phone] Business (1) Additional Instructions: Call Dr for diagnosis based follow up Patient Education Viral Gastroenteritis, Adult, [id number] Urinary Tract Infection, Adult, [id number] Attestation Patient seen and evaluated by the physician surgical supply assistant. Attending physician was present in the emergency department and supervised care. This visit was performed by both the physician and an APC. I performed all aspects of the MDM as documented. This report was transcribed using voice recognition software. Every effort was made to ensure accuracy, however, inadvertently computerized wood window and door craftsman mistakes may be present. Appropriate healthcare PPE was used in evaluating this patient. The patient was placed in a mask. The healthcare provider was wearing mask, gloves, and utilizing proper hand hygiene. All equipment was properly cleansed. I performed a substantive part of the MDM during the patient???s E/M visit. I personally made or approved the documented management plan and acknowledge its risk of complications. (Independent Interpretation) My (EKG/X-Ray/US/CT as applicable) interpretation as above. (Discussion) Management/test interpretation discussed with APC. Problem List/Past Medical History Ongoing Anxiety BMI 33.0-33.9,adult Clostridium difficile diarrhea Elevated liver enzymes Encounter for weight loss counseling Non-smoker Obesity PCOS (polycystic ovarian syndrome) Routine adult health maintenance Historical Procedure/Surgical History Betamethasone (03/11/2019), Betamethasone (03/10/2019), Breast augmentation, Breast implant. Medications Inpatient Keflex 500 mg Cap, 500 mg= 1 cap(s), Oral, QID Home Bentyl 10 mg Cap, 10 mg= 1 cap(s), Oral, QID AD, 1 tab(s), Oral, Daily Zofran ODT 4 mg Tab-Dis, 4 mg= 1 tab(s), Oral, q8hr, PRN Allergies No Known Allergies No Known Medication Allergies Social History Alcohol - Low Risk, 06/25/2019 Current, Beer, Wine, 1-2 times per month, 06/25/2019 Substance Abuse - Denies Substance Abuse, 06/25/2019 Tobacco - Denies Tobacco Use, 04/13/2016 Former smoker, quit more than 30 days ago Tobacco Use:. Never Smokeless Tobacco Use:. Started age 16.0 Years. Stopped age 25 Years., 07/23/2024 Family History Hypertension: Mother. Lab Results WBC: 15.9 E9/L High (09/26/24 18:52:00) RBC: 4.9 E12/L (09/26/24 18:52:00) HGB: 14.3 gm/dL (09/26/24 18:52:00) Hct: 42.1 % (09/26/24 18:52:00) MCV: 85.7 fL (09/26/24 18:52:00) MCH: 29.1 pg (09/26/24 18:52:00) MCHC: 34 gm/dL (09/26/24 18:52:00) RDW: 13.8 % (09/26/24 18:52:00) Platelet: 402 E9/L (09/26/24 18:52:00) MPV: 8.8 fL (09/26/24 18:52:00) Neutro Auto: 82.6 % High (09/26/24 18:52:00) Lymph Auto: 10.9 % Low (09/26/24 18:52:00) Burke Auto: 5.7 % (09/26/24 18:52:00) Eos Auto: 0.5 % (09/26/24 18:52:00) Basophil Auto: 0.3 % (09/26/24 18:52:00) Neutro Absolute: 13.1 E9/L High (09/26/24 18:52:00) Lymph Absolute: 1.7 E9/L (09/26/24 18:52:00) Burke Absolute: 0.9 E9/L (09/26/24 18:52:00) Eos Absolute: 0.1 E9/L (09/26/24 18:52:00) Basophil Absolute: 0 E9/L (09/26/24 18:52:00) Glucose Lvl: 112 mg/dL (09/26/24 18:52:00) BUN: 14 mg/dL (09/26/24 18:52:00) Creatinine: 0.9 mg/dL (09/26/24 18:52:00) eGFR: 87 mL/min/1.73 m2 (09/26/24 18:52:00) BUN/Creat Ratio: 16 (09/26/24 18:52:00) Sodium Lvl: 138 mmol/L (09/26/24 18:52:00) Potassium Lvl: 3.8 mmol/L (09/26/24 18:52:00) Chloride: 96 mmol/L Low (09/26/24 18:52:00) CO2: 25 mmol/L (09/26/24 18:52:00) AGAP: 21 mEq/L High (09/26/24 18:52:00) Calcium Lvl: 9.1 mg/dL (09/26/24 18:52:00) Alk Phos: 61 Int._Unit/L (09/26/24 18:52:00) ALT: 65 Int._Unit/L High (09/26/24 18:52:00) AST: 45 Int._Unit/L High (09/26/24 18:52:00) Total Protein: 8.4 gm/dL High (09/26/24 18:52:00) Albumin Lvl: 4.6 gm/dL (09/26/24 18:52:00) Globulin: 3.8 gm/dL (09/26/24 18:52:00) A/G Ratio: 1.2 (09/26/24 18:52:00) Bili Total: 0.7 mg/dL (09/26/24 18:52:00) Bili Direct: 0.1 mg/dL (09/26/24 18:52:00) Bili Indirect: 0.6 mg/dL (09/26/24 18:52:00) Lipase Lvl: 27 unit/L (09/26/24 18:52:00) UA Spec Desc: Clean Catch (09/26/24 18:52:00) UA Color: Yellow (09/26/24 18:52:00) UA Clarity: Turbid Abnormal (09/26/24 18:52:00) UA Spec Grav: 1.024 (09/26/24 18:52:00) UA pH: 6.0 (09/26/24 18:52:00) UA Protein: 1+ Abnormal (09/26/24 18:52:00) UA Glucose: Negat (09/26/24 18:52:00) UA Ketones: Negat (09/26/24 18:52:00) UA Bili: Negat (09/26/24 18:52:00) UA Blood: Trace Abnormal (09/26/24 18:52:00) UA Nitrite: Negat (09/26/24 18:52:00) UA Urobilinogen: Negat (09/26/24 18:52:00) UA Leuk Est: 75 Fabiano/uL Abnormal (09/26/24 18:52:00) UA RBC: 0-3 (09/26/24 18:52:00) UA Squam Epithelial: >10 (09/26/24 18:52:00) UA WBC: 16-25 Abnormal (09/26/24 18:52:00) UA Bacteria: Trace (09/26/24 18:52:00) UA Mucous: 2+ Abnormal (09/26/24 18:52:00) Diagnostic Results No qualifying data available. Result Comment: Electronical ly Signed By: Marco Peres PA-C\.br\Date and Time Signed: 09/26/24 22:29 EST\.br\Electronically Co-Signed By: Cristopher Lamas DO.br\Date and Time Co-Signed: 09/27/24 21:48 EST ED NOTE-PHYSICIAN Observed: 09/26/2024 10:27 PM Status: F Source: [facility] ED Note-Physician Basic Information Time Seen: Marco Peres PA-C 09/26/2024 18:45 Chief Complaint Pt reports bilateral lower abd pain. Hurts to start urine stream. A lot of pressure. Had laproscopic tube removal 3 wks ago. Denies fevers/chills. Nauseous, no vomiting. History of Present Illness A 33-year-old female reports emergency department with complaints of lower abdominal pain. Reports that it feels like a lot of pressure in her lower abdomen. Reports history of a tubal ligation about 3 weeks ago. She states she is nauseous without any vomiting. Reports that hurts to start her stream of urine. She denies any fevers or chills. States that was recently about 10 weeks ago as well. She states that she went to get checked out. Denies any other abdominal surgeries. Denies any pain elsewhere. States that she is not breast-feeding. Review of Systems No other aggravating or relieving factors no other associated symptoms no other prior treatments or complaints. Family: Reviewed and noncontributory Social: lives at home Review of systems negative unless otherwise specified in the HPI. Physical Exam Vitals & Measurements T: 36.5 ???C(Oral) HR: 81(Monitored) RR: 18 BP: 115/74 SpO2: 97% HT: 161.5 cm WT: 88 kg BMI: 33.74 General: The patient appears well and in no apparent distress. Patient is resting comfortably on bed. Afebrile Skin: Warm, dry, no pallor noted. Head: Normocephalic, atraumatic Neck: No JVD Eye: PERRLA, EOMI ENT: Moist mucus membranes Cardiovascular: Regular rate. normal peripheral perfusion Respiratory: No respiratory distress. no accessory muscle use. no obvious audible wheezing Chest Wall: no deformity Musculoskeletal: normal ROM, no deformity, no swelling GI: No obvious distention. Mild tenderness along the suprapubic region of the patient's abdomen. No rebound tenderness guarding noted. No CVA tenderness bilaterally. Neurological: A&O. moves all extremities equal strength and symmetry Psychiatric: Cooperative and appropriate Medical Decision Making MEDICAL DECISION MAKING Number and Complexity of Problems Differential Diagnosis: [] [facility] Data External documents reviewed: [] My EKG interpretation: [] My CT interpretation: Per stat rad: No bowel obstruction. Liquid stool in the colon which may be incidental or mild enteritis. Small hiatal hernia. Mild colonic diverticulosis without diverticulitis. No urethral stone or obstructive uropathy. Liver, gallbladder, pancreas and spleen are very unremarkable. Trace physiologic free fluid in the pelvis. Small fat-containing umbilical hernia. My X-ray interpretation: [] My Ultrasound interpretation: [] Decision rules/scores evaluated: [] Discussed with: [] Treatment and Disposition ED Course: A 33-year-old female reports to the emergency department with complaints of lower abdominal pain. Reports been going on for last couple days. Reports hard to start a stream of urine and increased frequency. Exam the patient does reveal some suprapubic abdominal tenderness. No obvious findings otherwise. Due to concerns we did do lab work as well as a CT. Lab work reviewed noted. No acute changes seen. Patient appears to be have a UTI. She also complains that she is having some mild diarrhea. With a CT showing concerns for possible enteritis, likely this causing the diarrhea. Discussed pain could be enteritis versus UTI. Will treat with antibiotics, Zofran, and Bentyl for pain. Patient was understanding. Discussed return precautions. Follow-up with your primary care provider in 3 to 5 days. If symptoms worsen, do not improve, or new symptoms arise please report back to emergency department for further evaluation. The patient was understanding and agreeable to plan moving forward. Shared decision making: [] Code status: [] Assessment/Plan Enteritis (K52.9: Noninfective gastroenteritis and colitis, unspecified) UTI (urinary tract infection) (N39.0: Urinary tract infection, site not specified) Orders: cephalexin, 500 mg = 1 cap(s), Cap, Oral, QID, STAT, Start date 09/26/24 20:38:00 EST, 09/26/24 20:38:00 EST dicyclomine, 10 mg = 1 cap(s), Cap, Oral, Once, Stop date 09/26/24 20:38:00 EST, STAT, Start date 09/26/24 20:38:00 EST, 09/26/24 20:38:00 EST dicyclomine, 10 mg = 1 cap(s), Oral, QID, X 7 day(s), # 28 cap(s), Refills(s) 0, Pharmacy: [facility], 161.5, cm, 09/26/24 18:46:00 EST, Height/Length Dosing, 88, kg, 09/26/24 18:46:00 EST, Weight Dosing ondansetron, 4 mg = 2 mL, Injection, IV Push, Once, Stop date 09/26/24 18:51:00 EST, STAT, Start date 09/26/24 18:51:00 EST, 09/26/24 18:51:00 EST ondansetron, 4 mg = 1 tab(s), Oral, q8hr, PRN Nausea/Vomiting, # 12 tab(s), Refills(s) 0, Pharmacy: [facility], 161.5, cm, 09/26/24 18:46:00 EST, Height/Length Dosing, 88, kg, 09/26/24 18:46:00 EST, Weight Dosing ondansetron, 12 mg = 3 tab(s), Tab-Dis, Oral, Once, Stop date 09/26/24 20:38:00 EST, STAT, Start date 09/26/24 20:38:00 EST, 09/26/24 20:38:00 EST Basic Metabolic Panel CBC w/ Auto Diff CT Abdomen/Pelvis w/ Contrast eGFR Hepatic Function Panel Lipase Level UA with Cult Rflx Urine Culture Medications Administered Given Bentyl 10 mg Cap, 10 mg, Oral Keflex 500 mg Cap, 500 mg, Oral ondansetron 4 mg Dis Tab, 12 mg, Oral ondansetron 4 mg/2 mL Inj, 4 mg, IV Push Disposition Plan Patient Discharge Condition Stable Discharge Disposition To home Discharge Prescription List Prescriptions Bentyl 10 mg Cap, 10 mg= 1 cap(s), Oral, QID Zofran ODT 4 mg Tab-Dis, 4 mg= 1 tab(s), Oral, q8hr, PRN Follow-up With When Contact Information Laisha Fuentes In 3 days 09/29/2024 EST [address] [place] [address] [phone] Business (1) Additional Instructions: Call Dr for diagnosis based follow up Patient Education Viral Gastroenteritis, Adult, Jvmu-[id number] Urinary Tract Infection, Adult, Slxb-[id number] Attestation Patient seen and evaluated by the physician surgical supply assistant. Attending physician was present in the emergency department and supervised care. This visit was performed by both the physician and an APC. I performed all aspects of the MDM as documented. This report was transcribed using voice recognition software. Every effort was made to ensure accuracy, however, inadvertently computerized wood window and door craftsman mistakes may be present. Appropriate healthcare PPE was used in evaluating this patient. The patient was placed in a mask. The healthcare provider was wearing mask, gloves, and utilizing proper hand hygiene. All equipment was properly cleansed. I performed a substantive part of the MDM during the patient???s E/M visit. I personally made or approved the documented management plan and acknowledge its risk of complications. (Independent Interpretation) My (EKG/X-Ray/US/CT as applicable) interpretation as above. (Discussion) Management/test interpretation discussed with APC. Problem List/Past Medical History Ongoing Anxiety BMI 33.0-33.9,adult Clostridium difficile diarrhea Elevated liver enzymes Encounter for weight loss counseling Non-smoker Obesity PCOS (polycystic ovarian syndrome) Routine adult health maintenance Historical Procedure/Surgical History Betamethasone (03/11/2019), Betamethasone (03/10/2019), Breast augmentation, Breast implant. Medications Inpatient Keflex 500 mg Cap, 500 mg= 1 cap(s), Oral, QID Home Bentyl 10 mg Cap, 10 mg= 1 cap(s), Oral, QID AD, 1 tab(s), Oral, Daily Zofran ODT 4 mg Tab-Dis, 4 mg= 1 tab(s), Oral, q8hr, PRN Allergies No Known Allergies No Known Medication Allergies Social History Alcohol - Low Risk, 06/25/2019 Current, Beer, Wine, 1-2 times per month, 06/25/2019 Substance Abuse - Denies Substance Abuse, 06/25/2019 Tobacco - Denies Tobacco Use, 04/13/2016 Former smoker, quit more than 30 days ago Tobacco Use:. Never Smokeless Tobacco Use:. Started age 16.0 Years. Stopped age 25 Years., 07/23/2024 Family History Hypertension: Mother. Lab Results WBC: 15.9 E9/L High (09/26/24 18:52:00) RBC: 4.9 E12/L (09/26/24 18:52:00) HGB: 14.3 gm/dL (09/26/24 18:52:00) Hct: 42.1 % (09/26/24 18:52:00) MCV: 85.7 fL (09/26/24 18:52:00) MCH: 29.1 pg (09/26/24 18:52:00) MCHC: 34 gm/dL (09/26/24 18:52:00) RDW: 13.8 % (09/26/24 18:52:00) Platelet: 402 E9/L (09/26/24 18:52:00) MPV: 8.8 fL (09/26/24 18:52:00) Neutro Auto: 82.6 % High (09/26/24 18:52:00) Lymph Auto: 10.9 % Low (09/26/24 18:52:00) Burke Auto: 5.7 % (09/26/24 18:52:00) Eos Auto: 0.5 % (09/26/24 18:52:00) Basophil Auto: 0.3 % (09/26/24 18:52:00) Neutro Absolute: 13.1 E9/L High (09/26/24 18:52:00) Lymph Absolute: 1.7 E9/L (09/26/24 18:52:00) Burke Absolute: 0.9 E9/L (09/26/24 18:52:00) Eos Absolute: 0.1 E9/L (09/26/24 18:52:00) Basophil Absolute: 0 E9/L (09/26/24 18:52:00) Glucose Lvl: 112 mg/dL (09/26/24 18:52:00) BUN: 14 mg/dL (09/26/24 18:52:00) Creatinine: 0.9 mg/dL (09/26/24 18:52:00) eGFR: 87 mL/min/1.73 m2 (09/26/24 18:52:00) BUN/Creat Ratio: 16 (09/26/24 18:52:00) Sodium Lvl: 138 mmol/L (09/26/24 18:52:00) Potassium Lvl: 3.8 mmol/L (09/26/24 18:52:00) Chloride: 96 mmol/L Low (09/26/24 18:52:00) CO2: 25 mmol/L (09/26/24 18:52:00) AGAP: 21 mEq/L High (09/26/24 18:52:00) Calcium Lvl: 9.1 mg/dL (09/26/24 18:52:00) Alk Phos: 61 Int._Unit/L (09/26/24 18:52:00) ALT: 65 Int._Unit/L High (09/26/24 18:52:00) AST: 45 Int._Unit/L High (09/26/24 18:52:00) Total Protein: 8.4 gm/dL High (09/26/24 18:52:00) Albumin Lvl: 4.6 gm/dL (09/26/24 18:52:00) Globulin: 3.8 gm/dL (09/26/24 18:52:00) A/G Ratio: 1.2 (09/26/24 18:52:00) Bili Total: 0.7 mg/dL (09/26/24 18:52:00) Bili Direct: 0.1 mg/dL (09/26/24 18:52:00) Bili Indirect: 0.6 mg/dL (09/26/24 18:52:00) Lipase Lvl: 27 unit/L (09/26/24 18:52:00) UA Spec Desc: Clean Catch (09/26/24 18:52:00) UA Color: Yellow (09/26/24 18:52:00) UA Clarity: Turbid Abnormal (09/26/24 18:52:00) UA Spec Grav: 1.024 (09/26/24 18:52:00) UA pH: 6.0 (09/26/24 18:52:00) UA Protein: 1+ Abnormal (09/26/24 18:52:00) UA Glucose: Negat (09/26/24 18:52:00) UA Ketones: Negat (09/26/24 18:52:00) UA Bili: Negat (09/26/24 18:52:00) UA Blood: Trace Abnormal (09/26/24 18:52:00) UA Nitrite: Negat (09/26/24 18:52:00) UA Urobilinogen: Negat (09/26/24 18:52:00) UA Leuk Est: 75 Fabiano/uL Abnormal (09/26/24 18:52:00) UA RBC: 0-3 (09/26/24 18:52:00) UA Squam Epithelial: >10 (09/26/24 18:52:00) UA WBC: 16-25 Abnormal (09/26/24 18:52:00) UA Bacteria: Trace (09/26/24 18:52:00) UA Mucous: 2+ Abnormal (09/26/24 18:52:00) Diagnostic Results No qualifying data available. Result Comment: Electronical ly Signed By: Marco Peres PA-C\.br\Date and Time Signed: 09/26/24 22:29 EST\.br\Electronically Co-Signed By: Cristopher Lamas DO\.br\Date and Time Co-Signed: 09/27/24 21:48 EST ED PATIENT EDUCATION NOTE Observed: 09/14 8:54 PM Status: F Source: [facility] ED Patient Education Note Gastroenterology Viral Gastroenteritis, Adult Viral gastroenteritis is also known as the stomach flu. This condition may affect your stomach, your small intestine, and your large intestine. It can cause sudden watery poop (diarrhea), fever, and vomiting. This condition is caused by certain germs (viruses). These germs can be passed from person to person very easily (are contagious). Having watery poop and vomiting can make you feel weak and cause you to not have enough water in your body (get dehydrated). This can make you tired and thirsty, make you have a dry mouth, and make it so you pee (urinate) less often. It is important to replace the fluids that you lose from having watery poop and vomiting. What are the causes? You can get sick by catching germs from other people. ??? You can also get sick by: ? Eating food, drinking water, or touching a surface that has the germs on it (is contaminated). ? Sharing utensils or other personal items with a person who is sick. What increases the risk? Having a weak body defense system (immune system). ??? Living with one or more children who are younger than 2 years. ??? Living in a usp. ??? Going on cruise ships. What are the signs or symptoms? Symptoms of this condition start suddenly. Symptoms may last for a few days or for as long as a week. ??? Common symptoms include: ? Watery poop. ? Vomiting. ??? Other symptoms include: ? Fever. ? Headache. ? Feeling tired (fatigue). ? Pain in the belly (abdomen). ? Chills. ? Feeling weak. ? Feeling like you may vomit (nauseous). ? Muscle aches. ? Not feeling hungry. How is this treated? This condition typically goes away on its own. The focus of treatment is to replace the fluids that you lose. This condition may be treated with: ??? An ORS (oral rehydration solution). This is a drink that helps you replace fluids and minerals your body lost. It is sold at pharmacies and stores. ??? Medicines to help with your symptoms. ??? Probiotic supplements to reduce symptoms of watery poop. ??? Fluids given through an IV tube, if needed. Older adults and people with other diseases or a weak body defense system are at higher risk for not having enough water in the body. Follow these instructions at home: Eating and drinking ??? Take an ORS as told by your doctor. ??? Drink clear fluids in small amounts as you are able. Clear fluids include: ? Water. ? Ice chips. ? Fruit juice that has water added to it (is diluted). ? Low-calorie sports drinks. ??? Drink enough fluid to keep your pee (urine) pale yellow. ??? Eat small amounts of healthy foods every 3?4 hours as you are able. This may include whole grains, fruits, vegetables, lean meats, and yogurt. ??? Avoid fluids that have a lot of sugar or caffeine in them. This includes energy drinks, sports drinks, and soda. ??? Avoid spicy or fatty foods. ??? Avoid alcohol. General instructions ??? Wash your hands often. This is very important after you have watery poop or you vomit. If you cannot use soap and water, use hand radiology tech. ??? Make sure that all people in your home wash their hands well and often. ??? Take [id number]-hfzepet and prescription medicines only as told by your doctor. ??? Rest at home while you get better. ??? Watch your condition for any changes. ??? Take a warm bath to help with any burning or pain from having watery poop. ??? Keep all follow-up visits. Contact a doctor if: ??? You cannot keep fluids down. ??? Your symptoms get worse. ??? You have new symptoms. ??? You feel light-headed or dizzy. ??? You have muscle cramps. Get help right away if: ??? You have chest pain. ??? You have trouble breathing, or you are breathing very fast. ??? You have a fast heartbeat. ??? You feel very weak or you faint. ??? You have a very bad headache, a stiff neck, or both. ??? You have a rash. ??? You have very bad pain, cramping, or bloating in your belly. ??? Your skin feels cold and clammy. ??? You feel mixed up (confused). ??? You have pain when you pee. ??? You have signs of not having enough water in the body, such as: ? Dark pee, hardly any pee, or no pee. ? Cracked lips. ? Dry mouth. ? Sunken eyes. ? Feeling very sleepy. ? Feeling weak. ??? You have signs of bleeding, such as: ? You see blood in your vomit. ? Your vomit looks like coffee grounds. ? You have bloody or black poop or poop that looks like tar. These symptoms may be an emergency. Get help right away. Call 911. ??? Do not wait to see if the symptoms will go away. ??? Do not drive yourself to the hospital. Summary ??? Viral gastroenteritis is also known as the stomach flu. ??? This condition can cause sudden watery poop (diarrhea), fever, and vomiting. ??? These germs can be passed from person to person very easily. ??? Take an ORS (oral rehydration solution) as told by your doctor. This is a drink that is sold at pharmacies and stores. ??? Wash your hands often, especially after having watery poop or vomiting. If you cannot use soap and water, use hand radiology tech. This information is not intended to replace advice given to you by your health care provider. Make sure you discuss any questions you have with your health care provider. Document Revised: 07/31/2022 Document Reviewed: 07/31/2022 [facility] Patient Education ? 2023 [employer].Obstetrics and Gynecology Urinary Tract Infection, Adult A urinary tract infection (UTI) is an infection of any part of the urinary tract. The urinary tract includes: ??? The kidneys. ??? The ureters. ??? The bladder. ??? The urethra. These organs make, store, and get rid of pee (urine) in the body. What are the causes? This infection is caused by germs (bacteria) in your genital area. These germs grow and cause swelling (inflammation) of your urinary tract. What increases the risk? The following factors may make you more likely to develop this condition: ??? Using a small, thin tube (catheter) to drain pee. ??? Not being able to control when you pee or poop (incontinence). ??? Being female. If you are female, these things can increase the risk: ? Using these methods to prevent : ? A medicine that kills sperm (spermicide). ? A device that blocks sperm (diaphragm). ? Having low levels of a female hormone (estrogen). ? Being . You are more likely to develop this condition if: ??? You have genes that add to your risk. ??? You are sexually active. ??? You take antibiotic medicines. ??? You have trouble peeing because of: ? A prostate that is bigger than normal, if you are male. ? A blockage in the part of your body that drains pee from the bladder. ? A kidney stone. ? A nerve condition that affects your bladder. ? Not getting enough to drink. ? Not peeing often enough. ??? You have other conditions, such as: ? Diabetes. ? A weak disease-fighting system (immune system). ? Sickle cell disease. ? Gout. ? Injury of the spine. What are the signs or symptoms? Symptoms of this condition include: ??? Needing to pee right away. ??? Peeing small amounts often. ??? Pain or burning when peeing. ??? Blood in the pee. ??? Pee that smells bad or not like normal. ??? Trouble peeing. ??? Pee that is cloudy. ??? Fluid coming from the vagina, if you are female. ??? Pain in the belly or lower back. Other symptoms include: ??? Vomiting. ??? Not feeling hungry. ??? Feeling mixed up (confused). This may be the first symptom in older adults. ??? Being tired and grouchy (irritable). ??? A fever. ??? Watery poop (diarrhea). How is this treated? Taking antibiotic medicine. ??? Taking other medicines. ??? Drinking enough water. In some cases, you may need to see a specialist. Follow these instructions at home: Medicines ??? Take kcuf-pma-raxfhyn and prescription medicines only as told by your doctor. ??? If you were prescribed an antibiotic medicine, take it as told by your doctor. Do not stop taking it even if you start to feel better. General instructions ??? Make sure you: ? Pee until your bladder is empty. ? Do not hold pee for a long time. ? Empty your bladder after sex. ? Wipe from front to back after peeing or pooping if you are a female. Use each tissue one time when you wipe. ??? Drink enough fluid to keep your pee pale yellow. ??? Keep all follow-up visits. Contact a doctor if: ??? You do not get better after 1?2 days. ??? Your symptoms go away and then come back. Get help right away if: ??? You have very bad back pain. ??? You have very bad pain in your lower belly. ??? You have a fever. ??? You have chills. ??? You feeling like you will vomit or you vomit. Summary ??? A urinary tract infection (UTI) is an infection of any part of the urinary tract. ??? This condition is caused by germs in your genital area. ??? There are many risk factors for a UTI. ??? Treatment includes antibiotic medicines. ??? Drink enough fluid to keep your pee pale yellow. This information is not intended to replace advice given to you by your health care provider. Make sure you discuss any questions you have with your health care provider. Document Revised: 05/08/2021 Document Reviewed: 05/13/2021 Elsevier Patient Education ? 2023 LIQVID. ED PATIENT SUMMARY Observed: 09/26/2024 8:54 PM Status: F Source: [facility] ED Patient Summary [address] [address] Patient Discharge Instructions Person Information Name: TOMMY ARREOLA Age: 33 Years Arrival Date: 09/26/2024 18:38:09 Discharge Diagnosis: Enteritis; UTI (urinary tract infection) Primary Care Physician: Laisha Daniels Provider Information Primary Provider: Cristopher Lamas DO Advanced Patient Care Specialist:None The exam and treatment you received in the Emergency Department were for an urgent problem and are not intended as complete care. It is important that you follow up with a doctor, nurse practitioner, or physician???s surgical supply assistant for ongoing care. If your symptoms become worse or you do not improve as expected and you are unable to reach your usual health care provider, you should return to the Emergency Department. We are available 24 hours a day. TOMMY ARREOLA has been given the following list of patient education materials, prescriptions and follow-up instructions: Follow-up Instructions: With: Address: When: Laisha Fuentes [address] [place] [address] [facility] [place], [place] [phone] Business (1) In 3 days 09/29/2024 Comments: Call Dr for diagnosis based follow up In the event that this physician does not participate in your insurance network, please consult with your insurance company to find a nearby participating provider. Patient Education Materials: Viral Gastroenteritis, Adult, Gsty-dg-Kqgj; Urinary Tract Infection, Adult, Ddio-tm-Qsqq A MESSAGE TO ALL PATIENTS REGARDING OPIOIDS PRESCRIPTION OPIOIDS: WHAT YOU NEED TO KNOW Prescription opioids can be used to help relieve ngkiolem-rq-luebwt pain and are often prescribed following a surgery or injury, or for certain health conditions. These medications can be an important part of the treatment but also come with serious risks. It is important to work with your healthcare provider to make sure you are getting the safest, most effective care. WHAT ARE THE RISKS AND SIDE EFFECTS OF OPIOID USE? Prescription opioids carry serious risks of addiction and overdose, especially with prolonged use. An opioid overdose, often marked by slowed breathing, can cause sudden . The use of prescription opioids can have a number of side effects as well, even when taken as directed: ??? Tolerance???meaning you might need to take more of the medication for the same pain relief ??? Physical dependence???meaning you have symptoms of withdrawal when a medication is stopped ??? Increased sensitivity to pain ??? Constipation ??? Nausea, vomiting, and dry mouth ??? Sleepiness and dizziness ??? Confusion ??? Depression ??? Low levels of testosterone that can result in lower sex drive, energy, and strength ??? Itching and sweating RISKS ARE GREATER WITH: ??? History of drug misuse, substance use disorder, or overdose ??? Mental health conditions (such as depression or anxiety) ??? Sleep apnea ??? Older age (65 years and older) ??? Avoid alcohol while taking prescription opioids. Also, unless specifically advised by your health care provider, medications to avoid include: ??? Benzodiazepines (such as Xanax or Valium) ??? Muscle relaxants (such as Soma or Flexeril) ??? Hypnotics (such as Ambien or Lunesta) ??? Other prescription opioids KNOW YOUR OPTIONS Talk to your health care provider about ways to manage your pain that don???t involve prescription opioids. Some of these options may actually work better and have fewer risks and side effects. Options may include: ??? Pain relievers such as acetaminophen, ibuprofen, and naproxen ??? Some medication that are also used for depression or seizures ??? Physical therapy and exercise ??? Cognitive behavioral therapy, a psychological, goal-directed approach, in which patients learn how to modify physical, behavioral, and emotional triggers of pain and stress. IF YOU ARE PRESCRIBED OPIOIDS FOR PAIN: ??? Never take opioids in greater amounts or more often than prescribed. ??? Follow up with your primary health care provider. o Work together to create a plan on how to manage your pain. o Talk about ways to help manage your pain that don???t involve prescription opioids. o Talk about any and all concerns and side effects. ??? Help prevent misuse and abuse o Never sell or share prescription opioids. o Never use another person???s prescription opioids. ??? Store prescription opioids in a secure place and out of reach of others (this may include visitors, children, friends, and family). ??? Safely dispose of unused prescription opioids: Find your community drug take-back program or your pharmacy mail-back program, or flush them down the toilet, following guidance from the Food and Drug Administration (www.fda.gov/Drugs/ResourcesForYou). ??? Visit www.cdc.gov/drugoverdose to learn about the risks of opioids abuse and overdose. ??? If you believe you may be struggling with addiction, tell your health cattle care worker and ask for guidance or call [facility]???S National Helpline at 8-824-485-MRPM. v Source: [place] Department of Health and Human Services/Center for Disease Control & Prevention [facility] Medications Given: Medication Dose Route ondansetron 4.00 mg IV Push Right Antecubit [place] dicyclomine 10.00 mg Oral ondansetron 12.00 mg Oral cephalexin 500.00 mg Oral Medication Information: New Medications [facility] 1984, [address] [facility] [place], [place] [id number], [phone] dicyclomine (Bentyl 10 mg Cap) 1 Capsules By Mouth 4 times a day for 7 Days. Refills: 0. ondansetron (Zofran ODT 4 mg Tab-Dis) 1 Tablets By Mouth every 8 hours as needed Nausea/Vomiting. Refills: 0. Medications to Continue with No Changes Other Medications multivitamin, ( AD) 1 Tablets By Mouth every day. Comment: Pharmacy Information: Patient Portal You may access all of your results and other medical record information on our secure patient portal. If you are not signed up for this yet, please contact Health Information Management at [phone] to get signed up today. MICHEAL Award Nomination The MICHEAL (Diseases Attacking the Immune SYstem) Award is an international recognition program that honors and celebrates the skillful, compassionate care nurses provide every day. Anyone who experiences or observes amazing care being provided by a nurse is encouraged to submit a nomination. To nominate your nurse, use your smart phone to scan the QR code below. You may receive a survey from Karla Dejesus asking you to rate your care experience. Your feedback is important and will help us understand what we do well and how we can improve the quality of care we provide to you, your loved ones and our community. It???s an honor to serve you. Thank you for choosing [facility] Patient Education Materials: Viral Gastroenteritis, Adult Viral gastroenteritis is also known as the stomach flu. This condition may affect your stomach, your small intestine, and your large intestine. It can cause sudden watery poop (diarrhea), fever, and vomiting. This condition is caused by certain germs (viruses). These germs can be passed from person to person very easily (are contagious). Having watery poop and vomiting can make you feel weak and cause you to not have enough water in your body (get dehydrated). This can make you tired and thirsty, make you have a dry mouth, and make it so you pee (urinate) less often. It is important to replace the fluids that you lose from having watery poop and vomiting. What are the causes? You can get sick by catching germs from other people. ??? You can also get sick by: ? Eating food, drinking water, or touching a surface that has the germs on it (is contaminated). ? Sharing utensils or other personal items with a person who is sick. What increases the risk? Having a weak body defense system (immune system). ??? Living with one or more children who are younger than 2 years. ??? Living in a usp. ??? Going on cruise ships. What are the signs or symptoms? Symptoms of this condition start suddenly. Symptoms may last for a few days or for as long as a week. ??? Common symptoms include: ? Watery poop. ? Vomiting. ??? Other symptoms include: ? Fever. ? Headache. ? Feeling tired (fatigue). ? Pain in the belly (abdomen). ? Chills. ? Feeling weak. ? Feeling like you may vomit (nauseous). ? Muscle aches. ? Not feeling hungry. How is this treated? This condition typically goes away on its own. The focus of treatment is to replace the fluids that you lose. This condition may be treated with: ??? An ORS (oral rehydration solution). This is a drink that helps you replace fluids and minerals your body lost. It is sold at pharmacies and stores. ??? Medicines to help with your symptoms. ??? Probiotic supplements to reduce symptoms of watery poop. ??? Fluids given through an IV tube, if needed. Older adults and people with other diseases or a weak body defense system are at higher risk for not having enough water in the body. Follow these instructions at home: Eating and drinking ??? Take an ORS as told by your doctor. ??? Drink clear fluids in small amounts as you are able. Clear fluids include: ? Water. ? Ice chips. ? Fruit juice that has water added to it (is diluted). ? Low-calorie sports drinks. ??? Drink enough fluid to keep your pee (urine) pale yellow. ??? Eat small amounts of healthy foods every 3?4 hours as you are able. This may include whole grains, fruits, vegetables, lean meats, and yogurt. ??? Avoid fluids that have a lot of sugar or caffeine in them. This includes energy drinks, sports drinks, and soda. ??? Avoid spicy or fatty foods. ??? Avoid alcohol. General instructions ??? Wash your hands often. This is very important after you have watery poop or you vomit. If you cannot use soap and water, use hand radiology tech. ??? Make sure that all people in your home wash their hands well and often. ??? Take uzey-oho-baeqqcw and prescription medicines only as told by your doctor. ??? Rest at home while you get better. ??? Watch your condition for any changes. ??? Take a warm bath to help with any burning or pain from having watery poop. ??? Keep all follow-up visits. Contact a doctor if: ??? You cannot keep fluids down. ??? Your symptoms get worse. ??? You have new symptoms. ??? You feel light-headed or dizzy. ??? You have muscle cramps. Get help right away if: ??? You have chest pain. ??? You have trouble breathing, or you are breathing very fast. ??? You have a fast heartbeat. ??? You feel very weak or you faint. ??? You have a very bad headache, a stiff neck, or both. ??? You have a rash. ??? You have very bad pain, cramping, or bloating in your belly. ??? Your skin feels cold and clammy. ??? You feel mixed up (confused). ??? You have pain when you pee. ??? You have signs of not having enough water in the body, such as: ? Dark pee, hardly any pee, or no pee. ? Cracked lips. ? Dry mouth. ? Sunken eyes. ? Feeling very sleepy. ? Feeling weak. ??? You have signs of bleeding, such as: ? You see blood in your vomit. ? Your vomit looks like coffee grounds. ? You have bloody or black poop or poop that looks like tar. These symptoms may be an emergency. Get help right away. Call 911. ??? Do not wait to see if the symptoms will go away. ??? Do not drive yourself to the hospital. Summary ??? Viral gastroenteritis is also known as the stomach flu. ??? This condition can cause sudden watery poop (diarrhea), fever, and vomiting. ??? These germs can be passed from person to person very easily. ??? Take an ORS (oral rehydration solution) as told by your doctor. This is a drink that is sold at pharmacies and stores. ??? Wash your hands often, especially after having watery poop or vomiting. If you cannot use soap and water, use hand radiology tech. This information is not intended to replace advice given to you by your health care provider. Make sure you discuss any questions you have with your health care provider. Document Revised: 07/31/2022 Document Reviewed: 07/31/2022 [facility] Patient Education ? 2023 LIQVID. Urinary Tract Infection, Adult A urinary tract infection (UTI) is an infection of any part of the urinary tract. The urinary tract includes: ??? The kidneys. ??? The ureters. ??? The bladder. ??? The urethra. These organs make, store, and get rid of pee (urine) in the body. What are the causes? This infection is caused by germs (bacteria) in your genital area. These germs grow and cause swelling (inflammation) of your urinary tract. What increases the risk? The following factors may make you more likely to develop this condition: ??? Using a small, thin tube (catheter) to drain pee. ??? Not being able to control when you pee or poop (incontinence). ??? Being female. If you are female, these things can increase the risk: ? Using these methods to prevent : ? A medicine that kills sperm (spermicide). ? A device that blocks sperm (diaphragm). ? Having low levels of a female hormone (estrogen). ? Being . You are more likely to develop this condition if: ??? You have genes that add to your risk. ??? You are sexually active. ??? You take antibiotic medicines. ??? You have trouble peeing because of: ? A prostate that is bigger than normal, if you are male. ? A blockage in the part of your body that drains pee from the bladder. ? A kidney stone. ? A nerve condition that affects your bladder. ? Not getting enough to drink. ? Not peeing often enough. ??? You have other conditions, such as: ? Diabetes. ? A weak disease-fighting system (immune system). ? Sickle cell disease. ? Gout. ? Injury of the spine. What are the signs or symptoms? Symptoms of this condition include: ??? Needing to pee right away. ??? Peeing small amounts often. ??? Pain or burning when peeing. ??? Blood in the pee. ??? Pee that smells bad or not like normal. ??? Trouble peeing. ??? Pee that is cloudy. ??? Fluid coming from the vagina, if you are female. ??? Pain in the belly or lower back. Other symptoms include: ??? Vomiting. ??? Not feeling hungry. ??? Feeling mixed up (confused). This may be the first symptom in older adults. ??? Being tired and grouchy (irritable). ??? A fever. ??? Watery poop (diarrhea). How is this treated? Taking antibiotic medicine. ??? Taking other medicines. ??? Drinking enough water. In some cases, you may need to see a specialist. Follow these instructions at home: Medicines ??? Take jnvo-eld-muqmjht and prescription medicines only as told by your doctor. ??? If you were prescribed an antibiotic medicine, take it as told by your doctor. Do not stop taking it even if you start to feel better. General instructions ??? Make sure you: ? Pee until your bladder is empty. ? Do not hold pee for a long time. ? Empty your bladder after sex. ? Wipe from front to back after peeing or pooping if you are a female. Use each tissue one time when you wipe. ??? Drink enough fluid to keep your pee pale yellow. ??? Keep all follow-up visits. Contact a doctor if: ??? You do not get better after 1?2 days. ??? Your symptoms go away and then come back. Get help right away if: ??? You have very bad back pain. ??? You have very bad pain in your lower belly. ??? You have a fever. ??? You have chills. ??? You feeling like you will vomit or you vomit. Summary ??? A urinary tract infection (UTI) is an infection of any part of the urinary tract. ??? This condition is caused by germs in your genital area. ??? There are many risk factors for a UTI. ??? Treatment includes antibiotic medicines. ??? Drink enough fluid to keep your pee pale yellow. This information is not intended to replace advice given to you by your health care provider. Make sure you discuss any questions you have with your health care provider. Document Revised: 05/08/2021 Document Reviewed: 05/13/2021 Elsevier Patient Education ? 2023 [facility] I, TOMMY RAREOLA , have received the following patient education materials/instructions and have verbalized understanding: Patient Education Materials: Viral Gastroenteritis, Adult, Jfng-na-Srls; Urinary Tract Infection, Adult, Psgt-kc-Jrlw Follow-up Instructions: With: Address: When: Laisha Fuentes [address] [place] [address] [place]arell [place] [phone] Business (1) In 3 days 09/29/2024 Comments: Call Dr for diagnosis based follow up Patient Signature Date Clinician/Nurse Signature Date 09/26/2024 20:54:41 ED CLINICAL SUMMARY Observed: 09/26/2024 8:54 PM Status: F Source: [facility] ED Clinical Summary [address] [address] ED Clinical Summary Person Information Name: TOMMY ARREOLA [facility] Age: 33 Years : 1990 Sex: Female Language: Luxembourgish PCP: Laisha Daniels Marital Status: Visit Id: Visit Reason: Nausea; Abdominal pain; LOWER ABD PAIN Speciality: Acuity: 3 Enc Type: Emergency Med Service: Emergency Arrival: 09/26/2024 18:38:09 Discharge: 09/26/2024 20:54:32 LOS: 000 02:16 Checkin: 09/26/2024 18:38:09 Checkout: 09/26/2024 20:54:32 Dispo Type: Home (Routine DC) EVENTS: Event Name Event Status Request Date/Time Start Date/Time Complete Date/Time Arrive Complete 09/26/2024 18:38:09 09/26/2024 18:38:09 09/26/2024 18:38:09 Document Home Meds Request 09/26/2024 18:38:09 Triage Complete 09/26/2024 18:38:09 09/26/2024 18:46:33 09/26/2024 18:46:33 Registration Complete 09/26/2024 18:40:33 09/26/2024 18:40:33 09/26/2024 18:40:33 Reg Complete Request 09/26/2024 18:40:33 Reg Bed Request Complete 09/26/2024 18:40:34 09/26/2024 18:40:34 09/26/2024 18:40:34 Bed Assign Complete 09/26/2024 18:41:23 09/26/2024 18:41:23 09/26/2024 18:41:23 Dr Exam Complete 09/26/2024 18:41:23 09/26/2024 18:45:39 09/26/2024 18:45:39 RN Exam Complete 09/26/2024 18:41:23 09/26/2024 18:54:14 09/26/2024 18:54:14 Registration Request 09/26/2024 18:45:39 Isolation Screening Request 09/26/2024 18:46:34 Pending Labs Complete 09/26/2024 18:48:28 09/26/2024 19:08:06 CT Complete 09/26/2024 18:51:51 09/26/2024 19:24:26 09/26/2024 19:41:47 Pending Labs Complete 09/26/2024 18:51:51 09/26/2024 19:38:39 Lab Complete 09/26/2024 18:51:51 09/26/2024 19:38:39 Meds Admin Complete 09/26/2024 18:51:51 09/26/2024 18:59:02 Dr Exam Complete 09/26/2024 19:05:35 09/26/2024 19:05:35 09/26/2024 19:05:35 Pending Labs Inlab 09/26/2024 19:08:06 09/26/2024 19:08:06 Lab Inlab 09/26/2024 19:08:06 09/26/2024 19:08:06 Pending Labs Complete 09/26/2024 19:12:16 09/26/2024 19:12:16 09/26/2024 19:37:50 Lab Complete 09/26/2024 19:12:16 09/26/2024 19:12:16 09/26/2024 19:37:50 Meds Admin Request 09/26/2024 20:38:29 Discharge Complete 09/26/2024 20:39:55 09/26/2024 20:54:40 09/26/2024 20:54:40 Transfer Complete 09/26/2024 20:54:40 09/26/2024 20:54:40 09/26/2024 20:54:40 ADDRESS: [address] [place] [phone] PHYS DOC NOTES: MEDICAL INFORMATION: Prescriptions Given: New Medications [facility] 1984, [address] [facility] [address] [place] [id number], [phone] dicyclomine (Bentyl 10 mg Cap) 1 Capsules By Mouth 4 times a day for 7 Days. Refills: 0. ondansetron (Zofran ODT 4 mg Tab-Dis) 1 Tablets By Mouth every 8 hours as needed Nausea/Vomiting. Refills: 0. Medications to Continue with No Changes Other Medications multivitamin, ( AD) 1 Tablets By Mouth every day. PATIENT EDUCATION INFORMATION: Instructions: Viral Gastroenteritis, Adult, Cbup-ty-Ptnd; Urinary Tract Infection, Adult, Iuck-ma-Joqs Follow up: With: Address: When: [place] [phone] Business (1) In 3 days 09/29/2024 Comments: Call Dr for diagnosis based follow up DIAGNOSIS: Enteritis; UTI (urinary tract infection) CT ABDOMEN/PELVIS W/ CONTRAST Observed: 09/26/2024 7:24 PM Status: F Source: [facility] Exam Date/Time: 09/26/2024 19:41 EST Reason for Exam: ABDOMINAL PAIN, ACUTE, NONLOCALIZED;Other (please specify) Report IMPRESSION: MULTIPLE NONSPECIFIC NONDISTENDED FLUID-FILLED LOOPS OF SMALL BOWEL AND A SMALL AMOUNT OF FLUID WITHIN THE COLON MAY REPRESENT ENTERITIS. COLONIC DIVERTICULOSIS WITHOUT DIVERTICULITIS. EXAM: CT Abdomen/Pelvis w/ Contrast History: Abdominal pain Technique: Multiple contiguous axial images were obtained of the abdomen and pelvis from the level of the lung bases through the ischial tuberosities with contrast. Multiplanar reformats were obtained. Delayed images were obtained. Unless otherwise stated, incidental findings identified in this report do not require routine follow-up imaging. Comparison: None available Findings: Lung bases are clear. Left breast prostheses partially visualized. The liver, gallbladder, spleen, stomach, pancreas, and adrenal glands are within normal limits. The kidneys enhance uniformly. Simple appearing left renal cyst measures approximately 1.8 cm. No urinary tract calculi or hydronephrosis. Urinary bladder is well distended. The uterus is present. Trace free fluid within the pelvis likely physiologic. Abdominal aorta is nonaneurysmal. No retroperitoneal or abdominal/pelvic lymphadenopathy. Tiny fat-containing periumbilical hernia. No small bowel obstruction. Multiple nonspecific nondistended fluid-filled loops of small bowel and a small amount of fluid within the colon. Colonic diverticuli are identified. No overt colonic mass or pericolonic inflammation. Appendix is within normal limits. No free air. No acute osseous abnormality. All CT scans at this facility use dose modulation, iterative reconstruction, and/or Report weight based dosing when appropriate to reduce radiation dose to as low as reasonably achievable. Ordering Provider: Marco Peres FINAL REPORT Dictated: 09/27/2024 9:30 am Jewel Lopez DO Signed (Electronic Signature): 09/27/2024 9:30 am Signed by: Jewel Lopez DO Transcribed by: BEVERLY Technologist: JESSICA Technical Comments GFR (mL/min/1/73m2) na/age Contrast: Isovue 300 Contrast amount in ml's: 100 Rectal Contrast Given? No Oral contrast amount in ml's: 0 C URINE Observed: 09/26/2024 6:52 PM Status: F Source: [facility] Microbiology PROCEDURE: Urine Culture [R1] SOURCE: U CleanCatch BODY SITE: COLLECTED DATE/TIME: 09/26/2024 18:52 EST RECEIVED DATE/TIME: 09/26/2024 19:25 EST START DATE/TIME: 09/26/2024 19:26 EST FREE TEXT SOURCE: Marco Peres PA-C, PA-C, Marco Austin. FINAL REPORTS Final Report [] Verified Date/Time: 09/28/2024 06:58 EST 1,000 cfu/ml Mixed skin contaminants Performing Locations R1: This test was performed at: [facility], [address] [place] [address], [facility] , , Performed By: #### [id number] # ### [facility] [address] [place] [address] UA WITH CULT RFLX Collected: 4 6:52 PM Status: F Source: [facility] TYPE CODE TESTS RESULT OUT OF RANGE REFERENCE UNITS LAB 9194-2([facility]) CLASS:TYPE:PT: URINE COLLECTION METHOD:NOM:* Clean Catch Normal LAB 42457-5([facility]) COLOR:TYPE:PT: URINE:NOM:AUTO Yellow Normal Yellow Result Comment: Microscopic readings are only performed on those samples that meet specific criteria set forth by [facility]. LAB 44067-7([facility]) CLARITY:TYPE:P T:URINE:NOM: Turbid Abnormal Clear LAB 5811-5([facility]) SPECIFIC GRAVITY:RDEN:P T:URINE:SEMIQN :TEST STRIP 1.024 Unknown 1.005-1.030 LAB 5803-2([facility]) PH:LSCNC:PT:UR INE:SEMIQN:ARMAND T STRIP 6.0 Unknown 5.0-9.0 LAB 49986-9([facility]) PROTEIN:PRTHR: PT:URINE:ORD:T EST STRIP 1+ Abnormal Negative mg/dL LAB 46301-3([facility]) GLUCOSE:PRTHR: PT:URINE:ORD:T EST STRIP Negative Normal Negative mg/dL LAB 58829-9([facility]) KETONES:PRTHR: PT:URINE:ORD:T EST STRIP.AUTOMATE D Negative Normal Negative mg/dL LAB 28631-9([facility]) BILIRUBIN:PRTH R:PT:URINE:ORD :TEST STRIP.AUTOMATE D Negative Normal Negative mg/dL LAB 41527-1([facility]) HEMOGLOBIN:MCN C:PT:URINE:DINESH IQN:TEST STRIP.AUTOMATE D Trace Abnormal Negative mg/dL LAB 96236-9([facility]) NITRITE:PRTHR: PT:URINE:ORD:T EST STRIP.AUTOMATE D Negative Normal Negative mg/dL LAB 33930-0([facility]) UROBILINOGEN:M CNC:PT:URINE:S EMIQN:TEST STRIP Negative Normal Negative mg/dL LAB 34176-4([facility]) LEUKOCYTE ESTERASE:PRTHR :PT:URINE:ORD: TEST STRIP.AUTOMATE D 75 Fabiano/uL Abnormal Negative CD:[phone] [id number] LAB 33265-5([facility]) LEUKOCYTES:NEIDA IC:PT:URINE SED:QN:AUTOMAT ED COUNT 16-25 Abnormal 0-5 CD:[id number] LAB 39058-3([facility]) ERYTHROCYTES:P RTHR:PT:URINE SED:ORD:MICROS COPY.LIGHT 0-3 Normal 0-3 CD:[id number] [id number] LAB 89174-7([facility]) EPITHELIAL CELLS.SQUAMOUS :NARIC:PT:URIN E SED:QN:AUTOMAT ED COUNT >10 Unknown CD:[phone] [phone] LAB 18686-7([facility]) BACTERIA:PRTHR :PT:URINE:ORD: AUTOMATED Trace Normal Trace /HPF LAB 22430-4([facility]) MUCUS:PRTHR:PT :URINE:ORD:AUT OMATED 2+ Abnormal Negative CD:33160 34378 Performed By: #### [id number] #### [facility] [address] [place] [address] HEP FUNC PANEL Collected: 09/26/2024 6:52 PM Status: F Source: [facility] TYPE CODE TESTS RESULT OUT OF RANGE REFERENCE UNITS LAB 1744-2([facility]) ALANINE AMINOTRANSFERA SE:CCNC:PT:SER /PLAS:QN:NO ADDITION OF P-5'-P 65 High 6-46 Int._Unit /L LAB 1920-8([facility]) ASPARTATE AMINOTRANSFERA SE:CCNC:PT:SER /PLAS:QN: 45 High 5-43 Int._Unit /L LAB 1751-7([facility]) ALBUMIN:MCNC:P T:SER/PLAS:QN: 4.6 Normal 3.3-5.0 gm/dL LAB 53801-5([facility]) GLOBULIN:MCNC: PT:SER:QN:CALC ULATED 3.8 Normal 1.4-4.0 gm/dL LAB 19791-3([facility]) ALBUMIN/GLOBUL IN:MCRTO:PT:SE R:QN: 1.2 Normal 1.1-2.2 LAB 6768-6([facility]) ALKALINE PHOSPHATASE:CC NC:PT:SER/PLAS :QN: 61 Normal 21-98 Int._Unit /L LAB 19687([facility]) BILIRUBIN.GLUC URONIDATED+REBECCA IRUBIN.ALBUMIN BOUND:MCNC:PT: SER/PLAS:QN: 0.1 Normal 0.0-0.4 mg/dL LAB 67287-0([facility]) BILIRUBIN.NON- GLUCURONIDATED :MSCNC:PT:SER/ PLAS:QN: 0.6 Normal 0.1-0.9 mg/dL LAB 1974-2([facility]) BILIRUBIN:MCNC :PT:SER/PLAS:Q N: 0.7 Normal 0.0-1.1 mg/dL LAB 2885-2([facility]) PROTEIN:MCNC:P T:SER/PLAS:QN: 8.4 High 6.0-7.8 gm/dL Performed By: #### [id number] # ### [facility] [address] [place] [address] EGFR Collected: 6:52 PM Status: F Source: [facility] TYPE CODE TESTS RESULT OUT OF RANGE REFERENCE UNITS LAB [id number]([facility]) eGFR 87 Normal >=59 mL/min/1 .7 3 m2 Performed By: #### [id number] #### [facility] [address] [place] [address] LIPASE LEVEL Collected: 09/26/2024 6:52 PM Status: F Source: [facility] TYPE CODE TESTS RESULT OUT OF RANGE REFERENCE UNITS LAB 3040-3([facility]) TRIACYLGLYCEROL LIPASE:CCNC:PT:SER/ PLAS:QN: 27 Normal 13-58 unit/L Performed By: #### [id number] # ### [facility] [address] [place] [address] BMP Collected: 6:52 PM Status: F Source: [facility] TYPE CODE TESTS RESULT OUT OF RANGE REFERENCE UNITS LAB 2345-7([facility]) GLUCOSE:MCNC :PT:SER/PLAS :QN: 112 Normal 55-199 mg/dL LAB 3094-0([facility]) UREA NITROGEN:MCN C:PT:SER/JASMIN S:QN: 14 Normal 5-21 mg/dL LAB 2160-0([facility]) CREATININE:M CNC:PT:SER/P LAS:QN: 0.9 Normal 0.5-1.3 mg/dL LAB 3097-3([facility]) UREA NITROGEN/CRE ATININE:MRTO :PT:SER/PLAS :QN: 16 Normal 10-20 No Units LAB 36358-6([facility]) CALCIUM:MCNC :PT:SER/PLAS :QN: 9.1 Normal 8.9-11.1 mg/dL LAB 2951-2([facility]) SODIUM:SCNC: PT:SER/PLAS: QN: 138 Normal 135-145 mmol/L LAB 2823-3([facility]) POTASSIUM:SC NC:PT:SER/PL :QN: 3.8 Normal 3.5-5.3 mmol/L LAB 2075-0([facility]) CHLORIDE:SCN C:PT:SER/JASMIN S:QN: 96 Low 101-111 mmol/L LAB 2027-9([facility]) CARBON DIOXIDE:SCNC :PT:SER/PLAS :QN: 25 Normal 21-31 mmol/L LAB 42115-3([facility]) ANION GAP:SCNC:PT: SER/PLAS:QN: 21 High 6-16 mEq/L Performed By: #### [id number] # ### [facility] [address] [place] [address] CBC W/ AUTO DIFF Collected: 09/26/2024 6:52 PM Statu s: F Source: [facility] TYPE CODE TESTS RESULT OUT OF RANGE REFERENCE UNITS LAB 31973-4([facility]) LEUKOCYTES^^TRACI ECTED FOR NUCLEATED ERYTHROCYTES:NCN C:PT:BLD:QN:AUTO MATED COUNT 15.9 High 4.0-11.0 E9/L Result Comment: Peripheral s mear review performed. LAB 789-8([facility]) ERYTHROCYTES:NCN C:PT:BLD:QN:AUTO MATED COUNT 4.9 Normal 4.3-5.9 E12/L LAB 718-7([facility]) HEMOGLOBIN:MCNC: PT:BLD:QN: 14.3 Normal 12.0-16.0 gm/dL LAB 4544-3([facility]) HEMATOCRIT:VFR:P T:BLD:QN:AUTOMAT ED COUNT 42.1 Normal 34.0-46.0 % LAB 788-0([facility]) ERYTHROCYTE DISTRIBUTION WIDTH:RATIO:PT:R BC:QN:AUTOMATED COUNT 13.8 Normal 10.9-14.2 % LAB 785-6([facility]) ERYTHROCYTE MEAN CORPUSCULAR HEMOGLOBIN:ENTMA SS:PT:RBC:QN:AUT OMATED COUNT 29.1 Normal 27.0-34.0 pg LAB 786-4([facility]) ERYTHROCYTE MEAN CORPUSCULAR HEMOGLOBIN CONCENTRATION:MC NC:PT:RBC:QN:AUT OMATED COUNT 34.0 Normal 31.4-36.0 gm/dL LAB 787-2([facility]) ERYTHROCYTE MEAN CORPUSCULAR VOLUME:ENTVOL:PT :RBC:QN:AUTOMATE D COUNT 85.7 Normal 80.0-100.0 fL LAB 55547-8([facility]) PLATELET MEAN VOLUME:ENTVOL:PT :BLD:QN:AUTOMATE D COUNT 8.8 Normal 6.4-10.8 fL LAB 777-3([facility]) PLATELETS:NCNC:P T:BLD:QN:AUTOMAT ED COUNT 402.0 Normal 150.0-500.0 E9/L LAB 45450-0([facility]) NEUTROPHILS/100 LEUKOCYTES:NFR:P T:BLD:QN: 82.6 High 36.0-75.0 % Result Comment: Peripheral s mear review performed. LAB 731-0([facility]) LYMPHOCYTES:NCNC :PT:BLD:QN:AUTOM ATED COUNT 10.9 Low 14.0-50.0 % LAB 742-7([facility]) MONOCYTES:NCNC:P T:BLD:QN:AUTOMAT ED COUNT 0.9 Normal 0.2-1.0 E9/L LAB 713-8([facility]) EOSINOPHILS/100 LEUKOCYTES:NFR:P T:BLD:QN:AUTOMAT ED COUNT 0.5 Normal 0.0-8.0 % LAB 704-7([facility]) BASOPHILS:NCNC:P T:BLD:QN:AUTOMAT ED COUNT 0.3 Normal 0.0-2.0 % LAB 751-8([facility]) NEUTROPHILS:NCNC :PT:BLD:QN:AUTOM ATED COUNT 13.1 High 2.0-7.5 E9/L LAB 56268-0([facility]) LYMPHOCYTES:NCNC :PT:BLD:QN: 1.7 Normal 1.0-4.0 E9/L LAB 99923-5([facility]) EOSINOPHILS:NCNC :PT:BLD:QN: 0.1 Normal 0.0-0.5 E9/L LAB 68892-3([facility]) BASOPHILS/LEUKOC YTES:NFR.DF:PT:B LD:QN:AUTOMATED COUNT 0.0 Normal 0.0-0.2 E9/L Performed By: #### [id number] # ### [facility] [address] [place] [address] EGFR Collected: 8:59 AM Status: F Source: [facility] TYPE CODE TESTS RESULT OUT OF RANGE REFERENCE UNITS LAB 42376614([facility]) eGFR 77 Normal >=59 mL/min/1 .7 3 m2 Performed By: #### [id number] #### [facility] [address] [place] [address] LIPID PANEL Collected: 07/24/2024 8:59 AM Status: F Source: [facility] TYPE CODE TESTS RESULT OUT OF RANGE REFERENCE UNITS LAB 2092-3([facility]) CHOLESTEROL:M CNC:PT:SER/PL :QN: 258 High 120-200 mg/dL LAB 9([facility]) CHOLESTEROL.I N HDL:MCNC:PT:S ER/PLAS:QN: 60 Unknown mg/dL Result Comment: '>= 60 LOW R ISK' '<= 40 HIGH RISK' LAB 2089-1([facility]) CHOLESTEROL.I N LDL:MCNC:PT:S ER/PLAS:QN: 180 High <=129 mg/dL LAB 2571-8([facility]) TRIGLYCERIDE: MCNC:PT:SER/P LAS:QN: 174 High <=149 mg/dL LAB 25343-9([facility]) CHOLESTEROL.I N VLDL:MCNC:PT: SER/PLAS:QN:C ALCULATED 35 Normal 7-40 mg/dL Performed By: #### [id number] # ### [facility] [address] [place] [address] CMP Collected: 07/24/2024 8:59 AM Status: F Source: [facility] TYPE CODE TESTS RESULT OUT OF RANGE REFERENCE UNITS LAB 2345-7([facility]) GLUCOSE:MCNC:P T:SER/PLAS:QN: 90 Normal 55-199 mg/dL LAB 3094-0([facility]) UREA NITROGEN:MCNC: PT:SER/PLAS:QN : 13 Normal 5-21 mg/dL LAB 2160-0([facility]) CREATININE:MCN C:PT:SER/PLAS: QN: 1.0 Normal 0.5-1.3 mg/dL LAB 54470-3([facility]) CALCIUM:MCNC:P T:SER/PLAS:QN: 9.4 Normal 8.9-11.1 mg/dL LAB 2951-2([facility]) SODIUM:SCNC:PT :SER/PLAS:QN: 137 Normal 135-145 mmol/L LAB 2823-3([facility]) POTASSIUM:SCNC :PT:SER/PLAS:Q N: 4.0 Normal 3.5-5.3 mmol/L LAB 2075-0([facility]) CHLORIDE:SCNC: PT:SER/PLAS:QN : 103 Normal 101-111 mmol/L LAB 2027-9([facility]) CARBON DIOXIDE:SCNC:P T:SER/PLAS:QN: 28 Normal 21-31 mmol/L LAB 6768-6([facility]) ALKALINE PHOSPHATASE:CC NC:PT:SER/PLAS :QN: 68 Normal 21-98 Int._Unit /L LAB 1974-2([facility]) BILIRUBIN:MCNC :PT:SER/PLAS:Q N: 0.4 Normal 0.0-1.1 mg/dL LAB 1751-7([facility]) ALBUMIN:MCNC:P T:SER/PLAS:QN: 3.7 Normal 3.3-5.0 gm/dL LAB 2885-2([facility]) PROTEIN:MCNC:P T:SER/PLAS:QN: 7.2 Normal 6.0-7.8 gm/dL LAB 1744-2([facility]) ALANINE AMINOTRANSFERA SE:CCNC:PT:SER /PLAS:QN:NO ADDITION OF P-5'-P 38 Normal 6-46 Int._Unit /L LAB 1920-8([facility]) ASPARTATE AMINOTRANSFERA SE:CCNC:PT:SER /PLAS:QN: 34 Normal 5-43 Int._Unit /L LAB 3097-3([facility]) UREA NITROGEN/CREAT ININE:MRTO:PT: SER/PLAS:QN: 13 Normal 10-20 No Units LAB 76548-1([facility]) ANION GAP:SCNC:PT:SE R/PLAS:QN: 10 Normal 6-16 mEq/L LAB 46262-2([facility]) GLOBULIN:MCNC: PT:SER:QN:CALC ULATED 3.5 Normal 1.4-4.0 gm/dL LAB 71802-8([facility]) ALBUMIN/GLOBUL IN:MCRTO:PT:SE R:QN: 1.1 Normal 1.1-2.2 Performed By: #### [id number] # ### [facility] [address] [place] [address] CBC W/ AUTO DIFF Collected: 07/24/2024 8:59 AM Statu s: F Source: [facility] TYPE CODE TESTS RESULT OUT OF RANGE REFERENCE UNITS LAB 30563-8([facility]) LEUKOCYTES^^TRACI ECTED FOR NUCLEATED ERYTHROCYTES:NCN C:PT:BLD:QN:AUTO MATED COUNT 9.8 Normal 4.0-11.0 E9/L LAB 789-8([facility]) ERYTHROCYTES:NCN C:PT:BLD:QN:AUTO MATED COUNT 4.5 Normal 4.3-5.9 E12/L LAB 718-7([facility]) HEMOGLOBIN:MCNC: PT:BLD:QN: 13.4 Normal 12.0-16.0 gm/dL LAB 4544-3([facility]) HEMATOCRIT:VFR:P T:BLD:QN:AUTOMAT ED COUNT 39.6 Normal 34.0-46.0 % LAB 788-0([facility]) ERYTHROCYTE DISTRIBUTION WIDTH:RATIO:PT:R BC:QN:AUTOMATED COUNT 13.2 Normal 10.9-14.2 % LAB 785-6([facility]) ERYTHROCYTE MEAN CORPUSCULAR HEMOGLOBIN:ENTMA SS:PT:RBC:QN:AUT OMATED COUNT 29.9 Normal 27.0-34.0 pg LAB 786-4([facility]) ERYTHROCYTE MEAN CORPUSCULAR HEMOGLOBIN CONCENTRATION:MC NC:PT:RBC:QN:AUT OMATED COUNT 33.9 Normal 31.4-36.0 gm/dL LAB 787-2([facility]) ERYTHROCYTE MEAN CORPUSCULAR VOLUME:ENTVOL:PT :RBC:QN:AUTOMATE D COUNT 88.0 Normal 80.0-100.0 fL LAB 25249-3([facility]) PLATELET MEAN VOLUME:ENTVOL:PT :BLD:QN:AUTOMATE D COUNT 8.3 Normal 6.4-10.8 fL LAB 33723474([facility]) Platelet 360.0 Normal 150.0-500.0 E9/ L LAB 75171-1([facility]) NEUTROPHILS/100 LEUKOCYTES:NFR:P T:BLD:QN: 63.9 Normal 36.0-75.0 % LAB 731-0([facility]) LYMPHOCYTES:NCNC :PT:BLD:QN:AUTOM ATED COUNT 26.5 Normal 14.0-50.0 % LAB 742-7([facility]) MONOCYTES:NCNC:P T:BLD:QN:AUTOMAT ED COUNT 0.7 Normal 0.2-1.0 E9/L LAB 713-8([facility]) EOSINOPHILS/100 LEUKOCYTES:NFR:P T:BLD:QN:AUTOMAT ED COUNT 1.6 Normal 0.0-8.0 % LAB 704-7([facility]) BASOPHILS:NCNC:P T:BLD:QN:AUTOMAT ED COUNT 0.4 Normal 0.0-2.0 % LAB 751-8([facility]) NEUTROPHILS:NCNC :PT:BLD:QN:AUTOM ATED COUNT 6.3 Normal 2.0-7.5 E9/L LAB 96551-0([facility]) LYMPHOCYTES:NCNC :PT:BLD:QN: 2.6 Normal 1.0-4.0 E9/L LAB 53621-5([facility]) EOSINOPHILS:NCNC :PT:BLD:QN: 0.2 Normal 0.0-0.5 E9/L LAB 71803-3([facility]) BASOPHILS/LEUKOC YTES:NFR.DF:PT:B LD:QN:AUTOMATED COUNT 0.0 Normal 0.0-0.2 E9/L Performed By: #### [id number] # ### [facility] [address] [place] [address] FAMILY MEDICINE OFFICE/CLINI C NOTE Observed: 07/23/2024 9:26 AM Status: F Source: [facility] Family Medicine Office/Clini c Note Chief Complaint wellness HPI Staff pt [...] anxiety, obesity, PCOS Social History: 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 BMI 33.0-33.9,adult (Z68.33: Body mass index [BMI] 33.0-33.9, adult) The standard range for ages 18 and older is >=18.5 and < 25 kg/m2. Your BMI today was above this range, this falls in the overweight to obese category and there are medical benefits to weight loss. We can offer counselling, referral, and/or medical support in addressing this problem. Your BMI and weight management will be followed at subsequent visits. 3. Obesity (E66.9: Obesity, unspecified) Encourage healthy diet and lifestyle choices. Follow-up No qualifying data available Patient Education Health Maintenance, Female Problem List/Past Medical History Ongoing Anxiety BMI 33.0-33.9,adult Clostridium difficile diarrhea Elevated liver enzymes Encounter for weight loss counseling Non-smoker Obesity PCOS (polycystic ovarian syndrome) Routine adult health maintenance Historical Procedure/Surgical History Betamethasone (03/11/2019), Betamethasone (03/10/2019), Breast augmentation, Breast implant. Medications AD, 1 tab(s), Oral, Daily Allergies No Known Allergies No Known Medication Allergies Social History Alcohol - Low Risk, 06/25/2019 Current, Beer, Wine, 1-2 times per month, 06/25/2019 Substance Abuse - Denies Substance Abuse, 06/25/2019 Tobacco - Denies Tobacco Use, 04/13/2016 Former smoker, quit more than 30 days ago Tobacco Use:. Never Smokeless Tobacco Use:. Started age 16.0 Years. Stopped age 25 Years., 07/23/2024 Family History Hypertension: Mother. Immunizations Vaccine Date Status Comments influenza virus vaccine, inactivated 07/23/2023 Given Prophylaxis influenza virus vaccine, inactivated 08/03/2022 Given Prophylaxis influenza virus vaccine, inactivated 08/09/2021 Given Prophylaxis SARS-CoV-2 (COVID-19) mRNA BNT-162b2 vax 02/19/2021 Given Prophylaxis SARS-CoV-2 (COVID-19) mRNA BNT-162b2 vax 01/29/2021 Given Prophylaxis influenza virus vaccine, live, trivalent 08/22/2019 Recorded diphtheria/pertussis, acel/tetanus adult 04/11/2019 Given Result Comment: Electronical ly Signed By: Gina REILLY, Laisha Villagomez.br\Date and Time Signed: 07/23/24 09:26 EDT PATIENT EDUCATION Observed: 07/23/2024 9:25 AM Status: F Source: [facility] Patient Education Obstetrics and Gynecology Health Maintenance, [...] 0?1 drink a day. ? Know how much alcohol is in your drink. In the [place] one drink equals one 12 oz bottle of beer (355 mL), one 5 oz glass of wine (148 mL), or one 1? oz glass of hard liquor (44 mL). Lifestyle ? Do not use any products that contain nicotine or tobacco. These products include cigarettes, chewing tobacco, and vaping devices, such as e-cigarettes. If you need help quitting, ask your health care provider. ? Do not use street drugs. ? Do not share needles. ? Ask your health care provider for help if you need support or information about quitting drugs. General instructions ? Schedule regular health, dental, and eye exams. ? Stay current with your vaccines. ? Tell your health care provider if: ? You often feel depressed. ? You have ever been abused or do not feel safe at home. Summary ? Adopting a healthy lifestyle and getting preventive care are important in promoting health and wellness. ? Follow your health care provider's instructions about healthy diet, exercising, and getting tested or screened for diseases. ? Follow your health care provider's instructions on monitoring your cholesterol and blood pressure. This information is not intended to replace advice given to you by your health care provider. Make sure you discuss any questions you have with your health care provider. Document Revised: 02/20/2022 Document Reviewed: 02/20/2022 [employer] Patient Education ? 2023 LIQVID. AMBULATORY VISIT SUMMARY Observed: 07/23 9:25 AM Status: F Source: [facility] Ambulatory Visit Summary TOMMY ARREOLA :1990 Visit Date:07/23/2024 Ambulatory Visit Instructions Your [...] 0?1 drink a day. ? Know how much alcohol is in your drink. In the [place] one drink equals one 12 oz bottle of beer (355 mL), one 5 oz glass of wine (148 mL), or one 1? oz glass of hard liquor (44 mL). Lifestyle ? Do not use any products that contain nicotine or tobacco. These products include cigarettes, chewing tobacco, and vaping devices, such as e-cigarettes. If you need help quitting, ask your health care provider. ? Do not use street drugs. ? Do not share needles. ? Ask your health care provider for help if you need support or information about quitting drugs. General instructions ? Schedule regular health, dental, and eye exams. ? Stay current with your vaccines. ? Tell your health care provider if: ? You often feel depressed. ? You have ever been abused or do not feel safe at home. Summary ? Adopting a healthy lifestyle and getting preventive care are important in promoting health and wellness. ? Follow your health care provider's instructions about healthy diet, exercising, and getting tested or screened for diseases. ? Follow your health care provider's instructions on monitoring your cholesterol and blood pressure. This information is not intended to replace advice given to you by your health care provider. Make sure you discuss any questions you have with your health care provider. Document Revised: 02/20/2022 Document Reviewed: 02/20/2022 [facility] Patient Education ? 2023 LIQVID. GEST SCR GLU 1 HR Collected: 04/14/2024 8:37 AM Stat us: F Source: [facility] TYPE CODE TESTS RESULT OUT OF RANGE REFERENCE UNITS LAB [id number]([facility]) Glucose Gest Scr 1Hr 125 Normal 55-140 mg/dL Performed By: #### [id number] #### [facility] [address] [place] [address] ALLERGIES DATE TYPE / CODE NAME / CODE REACTION SEVERITY SOURCE [id number](SNOME D CT) No Known Allergies [facility] [id number](SNOME D CT) No Known Medication Allergies [facility] ENCOUNTERS ADMIT/DISCHARGE ACCOUNT NUMBER ADMITTING ENCOUNTER CLASS LOCATION SOURCE 04/20/2025/04/20/20 [id number] Ambulatory Building:NO MS BCP OB [facility] PSYCHIATRIC 04/14/2025 [id number] [place] [facility] 04/03/2025 [id number] Ambulatory [facility] PH[facility] 03/30/2025/03/30/20 25 [id number] [place]: Exam 8 [facility] 03/29/2025 [id number] Emergency [facility]:EDRoom: ED-13Bed: CD:[id number] [facility] 03/29/2025/03/29/20 25 [id number] Emergency [facility]:EDRoom: ED-13Bed: CD:[id number] [facility] 03/23/2025/03/23/20 25 [id number] [place] 1 [facility] 03/18/2025/03/18/20 25 [id number] [place] : [place] 3 [facility] 02/23/2025/02/24/20 25 [id number] Ambulatory Building:NO MS NB OPHT [facility] EPIC 11/19/2024/11/19/19 25 [id number] [place] [facility] 09/26/[id number] Emergency [facility]:EDRoom: ED-05Bed: CD:[id number] [facility] 09/26/2024/09/26/20 24 [id number] Emergency [facility]:EDRoom: ED-05Bed: CD:[id number] [facility] 09/15/2024/09/15/20 24 [id number] Ambulatory Building:NO MS BCP OB [facility] EPIC 09/01/2024/09/01/20 24 [id number] Ambulatory Building:NO MS BCP OB [facility] EPIC 07/30/2024/10/28/19 25 [id number] Ambulatory [facility]:FT.MISC [facility] 07/24/2024/07/24/20 24 [id number] Laisha Fuentes Ambulatory FTBuildin g:FT LAB [facility] 07/24/2024 [id number] Laisha Fuentes Ambulatory FTBuildin g:FT LAB [facility] 07/23/2024/07/23/20 24 [id number] [place] 07/15/2024/07/15/20 24 [id number] Ambulatory Building:NO MS BCP OB [facility] EPIC 07/08/2024/07/08/20 24 [id number] Ambulatory Building:NO MS BCP OB [facility] EPIC 07/03/2024/07/03/20 24 [id number] Ambulatory Building:NO MS BCP OB [facility] EPIC 06/25/2024/06/25/20 24 [id number] Ambulatory Building:NO MS BCP OB [facility] EPIC 06/10/2024/06/10/20 24 [id number] Ambulatory Building:NO MS BCP OB [facility] EPIC 05/28/2024/05/28/20 24 [id number] Ambulatory Building:NO MS BCP OB [facility] EPIC 05/14/2024/05/14/20 24 [id number] Ambulatory Building:NO MS BCP OB [facility] EPIC 04/29/2024/04/29/20 24 [id number] Ambulatory Building:NO MS BCP OB [facility] EPIC 04/14/2024/04/14/20 24 [id number] Darrel RAVI Ambulatory FTBuildin g:[facility] PAYERS ENCOUNTER GUARANTOR PAYER SUBSCRIBER SOURCE 04/20/2025 TOMMY ARREOLADOB: [place], [place] [address]Lqg: () () Primary Insurance:MEDICAL MUTUALPolicy Number: [id number] ve Date:2021-10-15 TOMMY ARREOLADOB: [id number] [place] [address] [facility] PSYCHIATRIC 04/03/2025 TOMMY GUZMÁNB: [address] STTel: ~[phone]~(27 6 (HP) Primary Insurance:MEDICAL MUTUALPolicy Number: [id number] ve Date:1454-55-81KR [address] [place] [address]AX: TOMMY Rodriguez ANN MARIEJESSENIANGOZITRUMAN [facility] 03/30/2025 TOMMY Rodriguez YOURKVITCHDOB: [address] STTel: ~[phone]~(27 6 (HP) Primary Insurance:MEDICAL MUTUALPolicy Number: [id number] ve Date:7251-03-93AM [address] [address]DR: TOMMY Rodriguez MARLYS [facility] 03/29/2025 TOMMY Rodriguez ELBADOB: [address] STTel: [phone]~(27 6 (HP) Primary Insurance:MEDICAL MUTUALPolicy Number: [id number] ve Date:0870-56-02SD [address] [address]TS: TOMMY Rodriguez ANN MARIEJESSENIANGOZITRUMAN [facility] 03/29/2025 TOMMY Rodriguez YOURKrystianVINGOZIDOB: [address] STTel: [phone]~(27 6 (HP) Primary Insurance:MEDICAL MUTUALPolicy Number: [id number] ve Date:4432-71-66IT [address] [address]EW: TOMMY Rodriguez ANN MARIEJESSENIANGOZITRUMAN [facility] 03/23/2025 TOMMY Rodriguez YOURKrystianJESSENIANGOZIDOB: [address] STTel: ~[phone]~(27 6 (HP) Primary Insurance:MEDICAL MUTUALPolicy Number: [id number] ve Date:4185-26-81CL [address] [address]XV: TOMMY Rodriguez MARLYS [facility] 03/18/2025 TOMMY Rodriguez YOURKVITCHDOB: [address] STTel: ~[phone]~(27 6 (HP) Primary Insurance:MEDICAL MUTUALPolicy Number: [id number] ve Date:9632-29-04LT [address] [address]GV: TOMMY Rodriguez ANN MARIEJESSENIANGOZITRUMAN [facility] 02/23/2025 TOMMY Rodriguez YOURKVITCHDOB: [place], [place] [address]Wtn: (HP) (WP) Primary Insurance:MEDICAL MUTUALPolicy Number: [id number] ve Date:2021-10-15 TOMMY Rodriguez ELBADOB: [id number] [place] [address] [facility] PSYCHIATRIC 11/19/2024 TOMMY Rodriguez YOURDALJITDOB: [facility] [phone]~(27 6 (HP) Primary Insurance:MEDICAL MUTUALPolicy Number: [id number] ve Date:2438-46-76NR [address] [address]LH: TOMMY Rodriguez ANN MARIEJESSENIANGOZITRUMAN [facility] 09/26/2024 TOMMY Rodriguez YOURKrystianVITCHDOB: [address] STTel: [phone]~(27 6 (HP) Primary Insurance:MEDICAL MUTUALPolicy Number: [id number] ve Date:9557-13-91KT [address] [address]RA: TOMMY Rodriguez ANN MARIEJESSENIAANANYA [facility] 09/26/2024 TOMMY Rodriguez YOURKVITCHDOB: [address] STTel: [phone]~(27 6 (HP) Primary Insurance:MEDICAL MUTUALPolicy Number: [id number] ve Date:0619-88-27VS [address] [place] [address]PZ: TOMMY Jennifer MARLYS [facility] 09/15/2024 TOMMY Rodriguez YOURADÁNTCHDOB: [place], [place] [address]Bii: (HP) (WP) Primary Insurance:MEDICAL MUTUALPolicy Number: [id number] ve Date:2021-10-15 TOMMY Rodriguez YOURKVITCHDOB: [id number] [place] [address] [facility] EPIC 09/01/2024 TOMMY Rodriguez YOURADÁNTCHDOB: [place], [place] [address]Ttr: (HP) (WP) Primary Insurance:MEDICAL MUTUALPolicy Number: [id number] ve Date:2021-10-15 TOMMY Rodriguez TOBIASKVITCHDOB: [id number] [place] [address] [facility] EPIC 07/30/2024 TOMMY Rodriguez FREDTCHDOB: [facility] ~[phone]~(27 6 (HP) Primary Insurance:MEDICAL MUTUALPolicy Number: [id number] ve Date:4554-30-32NI [place] [address]WP: TOMMY Jennifer FRANKEL [facility] 07/24/2024 TOMMY Rodriguez TOBIASKVITCHDOB: [address] STTel: [phone]~(27 6 (HP) Primary Insurance:MEDICAL MUTUALPolicy Number: [id number] ve Date:1291-45-00RV [place] [address]WP: TOMMY FRANKEL [facility] 07/23/2024 TOMMY ARREOLADOB: [address] STTel: ~[phone]~(58 6 (HP) Primary Insurance:MEDICAL MUTUALPolicy Number: [id number] ve Date:2087-10-82[address], [place] [address]ZS: TOMMY Jennifer FRANKEL [facility] 07/15/2024 TOMMY Jennifer ARREOLADOB: [place], [place] [address]Pnq: (HP) (WP) Primary Insurance:MEDICAL MUTUALPolicy Number: [id number] ve Date:2021-10-15 TOMMY Rodriguez ELBADOB: [id number] [place] [address] [facility] EPIC 07/08/2024 TOMMY Jennifer ARREOLADOB: [place], [place] [address]Bsd: (HP) (WP) Primary Insurance:MEDICAL MUTUALPolicy Number: [id number] ve Date:2021-10-15 TOMMY ARREOLADOB: [id number] [place] [address] [facility] EPIC 07/03/2024 TOMMY Rodriguez ELBADOB: [place], [place] [address]Uxl: (HP) (WP) Primary Insurance:MEDICAL MUTUALPolicy Number: [id number] ve Date:2021-10-15 TOMMY ARREOLADOB: [id number] [place] [address] [facility] EPIC 06/25/2024 TOMMY ARREOLADOB: [place], [place] [address]Orc: (HP) (WP) Primary Insurance:MEDICAL MUTUALPolicy Number: [id number] ve Date:2021-10-15 TOMMY Rodriguez TOBIASKVITCHDOB: [id number] [place] [address] [facility] EPIC 06/10/2024 TOMMY Rodriguez YOURKrystianVITCHDOB: [place], [place] [address]Nqf: (HP) (WP) Primary Insurance:MEDICAL MUTUALPolicy Number: [id number] ve Date:2021-10-15 TOMMY Rodriguez TOBIASKVITCHDOB: [id number] [place] [address] [facility] EPIC 05/28/2024 TOMMY Rodriguez ANN MARIEVITCHDOB: [place], [place] [address]Fif: (HP) (WP) Primary Insurance:MEDICAL MUTUALPolicy Number: [id number] ve Date:2021-10-15 TOMMY Rodriguez ANN MARIEVITCHDOB: [id number] [place] [address] [facility] EPIC 05/14/2024 TOMMY Rodriguez ANN MARIEVITCHDOB: [place], [place] [address]Vnt: (HP) (WP) Primary Insurance:MEDICAL MUTUALPolicy Number: [id number] ve Date:2021-10-15 TOMMY Rodriguez ANN MARIEVITCHDOB: [id number] [place] [address] [facility] EPIC 04/29/2024 TOMMY Rodriguez TOBIASKVITCHDOB: [place], [place] [address]Dps: (HP) (WP) Primary Insurance:MEDICAL MUTUALPolicy Number: [id number] ve Date:2021-10-15 TOMMY Rodriguez FREDTCHDOB: [id number] [place] [address] [facility] EPIC
--- OUTSIDE RECORDS SUMMARY | 2025-04-20 15:20 | XMS_ITS | Encounter Summary ---
Author Organization [facility] Address [address] [place] [address] Care Team Providers Care Plexiglas Former Name Role Phone Kimmy Mariya WEB SITE DESIGNER Primary Care Provider [phone] Reason for Visit * Reason Comments Gynecologic Exam Encounter Details Date Type Department Care Team ([facility] st Contact Info) Description 04/20/2025 3:20 PM EDT Office Visit [facility] BCP OB [address] [place] [address] Bucky Ridley, DO [address] [place], [facility]11 Menorrhagia with regular cycle (Primary Dx); Well woman exam with routine gynecological exam; Dysmenorrhea Social History Tobacco Use Types Packs/Day Years Used Date Smoking Tobacco: Former Cigarettes 0.3 2 0 03/15/2015 - 03/15/2017 Smokeless Tobacco: Never Alcohol Use Standard Drinks/Week Comments Not Currently 0 (1 standard drink = 0.6 oz pure alcohol) Caffeine intake: 1-2 cups per day Comments No Sex and Gender Information Value Date Recorded Sex Assigned at Not on file Legal Sex Female 7:23 PM EDT Gender Identity Female 04/10/2023 10:50 AM EDT Sexual Orientation Not on file documented as of this encounter Last Filed Vital Signs Vital Sign Reading Time Taken Comments Blood Pressure 122/70 04/20/2025 3:29 PM EDT Pulse - - Temperature - - Respiratory Rate - - Oxygen Saturation - - Inhaled Oxygen Concentration - - Weight 83.9 kg (185 lb) 04/20/2025 3:29 PM EDT Height 162.6 cm (5' 4 ) 04/20/2025 3:29 PM EDT Body Mass Index 31.76 04/20/2025 3:29 PM EDT documented in this encounter Plan of Treatment Scheduled Orders Name Type Priority Associated Diagnoses Orde r Schedule Pap Smear Pathology and Cytology Routine Well woman exam with routine gynecological exam Ordered: 04/20/2025 HPV DNA probe, amplified Microbiology Routine Well woman exam with routine gynecological exam Ordered: 04/20/2025 US Pelvis w/ TV Imaging Routine Menorrhagia with regular cycle Dysmenorrhea Expected: 04/20/2025, Expires: 10/21/2025 documented as of this encounter Visit Diagnoses Diagnosis Menorrhagia with regular cycle- Primary Well woman exam with routine gynecological exam Routine gynecological examination Dysmenorrhea documented in this encounter Care Teams Plexiglas Former Relationship Specialty Start Date End Date Mariya Oneal NP [address] [place] [address] [place] [address] PCP - General 02/16/25 documented as of this encounter
--- OUTSIDE RECORDS SUMMARY | 2025-04-20 19:51 | XMS_ITS | Encounter Summary ---
Author Organization [facility] Address [address] [place] [address] Care Team Providers Care Ems Coordinator Name Role Phone Unallocated, Noms Provider Primary Care Provi obed Eugenie Haji Unavailable Mariya Oneal NP Primary Care Provider Encounter Details Date Type Department Care Team (Late st Contact Info) Description 09/01/2024 Abstract [facility] BCP OB [address] [facility] [place] [address] Bucky Ridley DO [address] [facility] [place] [address] Social History Tobacco Use Types Packs/Day Years Used Date Smoking Tobacco: Former Cigarettes 0.3 2 0 03/15/2015 - 03/15/2017 Smokeless Tobacco: Never Alcohol Use Standard Drinks/Week Comments Not Currently 0 (1 standard drink = 0.6 oz pure alcohol) Caffeine intake: 1-2 cups per day Comments Yes Sex and Gender Information Value Date Recorded Sex Assigned at Not on file Legal Sex Female 7:23 PM EDT Gender Identity Female 04/10/2023 10:50 AM EDT Sexual Orientation Not on file documented as of this encounter Plan of Treatment Not on file documented as of this encounter Visit Diagnoses Not on filedocumented in this encounter Care Teams Ems Coordinator Relationship Specialty Start Date End Date Unallocated, Noms Provider, [place] [address] PCP - General 08/30/23 02/15/25 Eugenie Haji PA [address] [place] [address] [place] [address] PCP - Medical [place] [employer] 10/15/19 03/24/25 Mariya Oneal NP [address] [place] [address] [address] PCP - General 02/16/25 documented as of this encounter
--- OUTSIDE RECORDS SUMMARY | 2025-04-20 19:51 | XMS_ITS | Encounter Summary ---
Author Organization [facility] Address [address] [place] [address] Care Team Providers Care Marking Machine Operator Name Role Phone Unallocated, Noms Provider Primary Care Provi obed Eugenie Haji Unavailable Mariya Oneal NP Primary Care Provider Encounter Details Date Type Department Care Team (Late st Contact Info) Description 09/05/2024 Abstract [facility] BCP OB [address] [facility] [place] [place] [address] Bucky Ridley DO [address] [facility] [place] [address] Social History Tobacco Use Types Packs/Day [...] on filedocumented in this encounter Care Teams Marking Machine Operator Relationship Specialty Start Date End Date Unallocated, Noms Provider[place] [address] PCP - General 08/30/23 02/15/25 Eugenie Haji PA [address] [place] [address] [place] [address] PCP - Medical [place] Commercial 10/15/19 03/24/25 Mariya Oneal NP [address] [place] [address] [address] PCP - General 02/16/25 documented as of this encounter
--- OUTSIDE RECORDS SUMMARY | 2025-04-20 19:51 | XMS_ITS | Encounter Summary ---
Author Organization [facility] Address [address] [place] [address] Care Team Providers Care Implementation Coordinator Name Role Phone Unallocated, Noms Provider MD Primary Care Provi obed Eugenie Yin Unavailable Mariya Oneal NP Primary Care Provider [phone] Encounter Details Date Type Department Care Team (Late st Contact Info) Description 03/06/2024 Clinisync Result Encounter [facility] External Department Unsolicited Eugenie Yin PA [address] [facility] [address] [place], [place] [id number] Social History Tobacco Use Types Packs/Day Years Used Date Smoking Tobacco: Never Alcohol Use Standard Drinks/Week Comments Never 0 (1 standard drink = 0.6 oz [...] on file documented as of this encounter Procedures Procedure Name Priority Date/Time Associated Diagnosis Comments US OB ANATOMY 03/06/2024 10:54 AM EDT documented in this encounter Results * US OB ANATOMY (03/06/2024 10:54 AM EDT) Anatomical Region Laterality Modality Other 03/06/2024 10:5 4 AM EDT [facility] 03/06/2024 10:57 AM EDT [address] [address] Ultrasound Report Signed Patient: TOMMY FABIAN MR#: [id number] : 1990 Acct:[id number] Age/Sex: 33 / F ADM Date: 03/06/24 Loc: [facility] Attending Dr: Eugenie Yin Ordering Physician: Eugenie Yin Date of Service: 03/06/24 Procedure(s): US OB anatomy Accession Number(s): [id number] cc: Eugenie Yin [place] [address] Patient Name: TOMMY FABIAN MRN: [id number] date: 1990 Sex: F Assigned Patient Location: [facility] Current Patient Location: [facility] Accession/Order Number: [id number] Exam Date: 03/06/2024 09:37 Report Date: 03/06/2024 10:54 At the request of: EUGENIE YIN Procedure: US OB anatomy EXAMINATION: US OB anatomy, US OB cervical length HISTORY: ANATOMY COMPARISON: No relevant comparison available. TECHNIQUE: Transabdominal sonographic examination was performed for obstetrical and evaluation. FINDINGS: Number: 1 Heart Rate: 143.0 bpm H.B. /min Amniotic Fluid Volume: Subjectively normal position: Cephalic Placental Location: Posterior, grade 1. Placental edge is 5.4 cm from the internal os Cervix Length: 4.8 cm , closed Normal anatomy: Lateral ventricles, cerebellum, posterior fossa, nose, lips, orbits, four-chamber heart, RVOT, LVOT, diaphragm, stomach, kidneys, abdominal cord insertion, bladder, umbilical arteries, three-vessel cord, spine, extremities BIOMETRY: BPD: 4.7 cm 20 weeks 0 days , 19% HC: 17.8 cm 20 weeks 2 days, 18% AC: 15.5 cm 20 weeks 5 days, 38% FL: 3.7 cm 21 weeks 6 days , 75% EFW:398.8 grams; 14 ounces, 58% FL/AC: 23.9 FL/BPD: 80.0 HC/AC: 1.2 GESTATIONAL AGE: Age by EDC: 20 weeks 6 days BRADY by EDC: 07/18/2024 Age by current US: 20 weeks 5 days BRADY by current US: 07/19/2024 US/US OB anatomy IMPRESSION: Normal anatomy scan Closed cervix measuring 4.8 cm in length *Reference: [facility] Practice Guideline for the performance of Obstetric Ultrasound Examinations, July 15, 2007. Electronically authenticated by: LISBETH PEOPLES Date: 03/06/2024 10:54 Dictated By: Lisbeth Peoples M.D. Signed By: 03/06/24 1057 DD/ 53 TD/TT: Training Program Manager: Procedure Note Radiology, Radiologist, MD - 03/06/2024 [facility] [place] [id number] Ultrasound Report Signed Patient: TOMMY FABIANMR#: [id number] : 1990Acct:[id number] Age/Sex: FADM Date: 03/06/24 Loc: [facility] Attending Dr: Eugenie Yin Ordering Physician: Eugenie Yin Date of Service: 03/06/24 Procedure(s): US OB anatomy Accession Number(s): [id number] cc: Eugenie Yin [place] [id number] Patient Name: TOMMY FABIAN MRN: [id number] date: 1990 Sex: F Assigned Patient Location: [facility] Current Patient Location: [facility] Accession/Order Number: [id number] Exam Date: 03/06/2024 09:37 Report Date: 03/06/2024 10:54 At the request of: EUGENIE YIN Procedure: US OB anatomy EXAMINATION: US OB anatomy, US OB cervical length HISTORY: ANATOMY COMPARISON: No relevant comparison available. TECHNIQUE: Transabdominal sonographic examination was performed for obstetrical and evaluation. FINDINGS: Number: 1 Heart Rate: 143.0 bpm H.B. /min Amniotic Fluid Volume: Subjectively normal position: Cephalic Placental Location: Posterior, grade 1. Placental edge is 5.4 cm from the internal os Cervix Length: 4.8 cm , closed Normal anatomy: Lateral ventricles, cerebellum, posterior fossa, nose,lips, orbits, four-chamber heart, RVOT, LVOT, diaphragm, stomach, kidneys,abdominal cord insertion, bladder, umbilical arteries, three-vessel cord, spine, extremities BIOMETRY: BPD: 4.7 cm 20 weeks 0 days , 19% HC: 17.8 cm 20 weeks 2 days, 18% AC: 15.5 cm 20 weeks 5 days, 38% FL: 3.7 cm 21 weeks 6 days , 75% EFW:398.8 grams; 14 ounces, 58% FL/AC: 23.9 FL/BPD: 80.0 HC/AC: 1.2 GESTATIONAL AGE: Age by EDC: 20 weeks 6 days BRADY by EDC: 07/18/2024 Age by current US: 20 weeks 5 days BRADY by current US: 07/19/2024 US/US OB anatomy IMPRESSION: Normal anatomy scan Closed cervix measuring 4.8 cm in length *Reference: [facility] Practice Guideline for the performance of Obstetric Ultrasound Examinations, July 15, 2007. Electronically authenticated by: LISBETH PEOPLES Date: 03/06/2024 10:54 Dictated By: Lisbeth Peoples M.D. Signed By:03/06/24 1057 DD/ 1054 TD/TT: Training Program Manager: us Eugenie [facility] Final Result documented in this encounter Visit Diagnoses Not on filedocumented in this encounter Care Teams Implementation Coordinator Relationship Specialty Start Date End Date Unallocated, Noms Provider, [address] [place] [address] PCP - General 08/30/23 02/15/25 Eugenie Yin PA [address] [place] [address] [place] [address] PCP - Medical [place] [employer] 10/15/19 03/24/25 Mariya Oneal NP [address] [place] [address] A; [address] [address] PCP - General 02/16/25 documented as of this encounter
--- OUTSIDE RECORDS SUMMARY | 2025-04-20 19:51 | XMS_ITS | Encounter Summary ---
Author Organization [facility] Address [address] [place] [address] Care Team Providers Care Drill Sharpener Name Role Phone Unallocated, Noms Provider Primary Care Provi obed Eugenie Haji Unavailable Mariya Oneal NP Primary Care Provider [phone] Encounter Details Date Type Department Care Team (Late st Contact Info) Description 09/05/2024 Abstract [facility] [address] [facility] [place] [address] Bucky Ridley DO [address] [facility] [place] [address] Social History Tobacco Use Types Packs/Day [...] on filedocumented in this encounter Care Teams Drill Sharpener Relationship Specialty Start Date End Date Unallocated, Noms Provider, [place] [address] PCP - General 08/30/23 02/15/25 Eugenie Haji PA [address] [place] [address] [place] [address] PCP - Medical [place] Commercial 10/15/19 03/24/25 Mariya Oneal NP [address] [place] [address] [address] PCP - General 02/16/25 documented as of this encounter
--- OUTSIDE RECORDS SUMMARY | 2025-04-20 19:51 | XMS_ITS | Encounter Summary ---
Author Organization [facility] Address [address] [place] [address] Care Team Providers Care Cloth Layer Name Role Phone Mariya Oneal CIRCUITS ENGINEER Primary Care Provider Encounter Details Date Type Department Care Team (Late st Contact Info) Description 04/20/2025 Bamboo flowsheet [facility] OB [address] [place] [address] Bucky Ridley, DO [address] [facility] [address] [place], [place] [address] Social History Tobacco Use Types Packs/Day Years [...] on filedocumented in this encounter Care Teams Cloth Layer Relationship Specialty Start Date End Date Mariya Oneal NP [address] [place] [address] A; [address] [address] PCP - General 02/16/25 documented as of this encounter
--- OUTSIDE RECORDS SUMMARY | 2025-04-20 19:51 | XMS_ITS | Encounter Summary ---
Author Organization [facility] Address [address] [place] [address] Care Team Providers Care Metal Roaster Name Role Phone Sami Villasenor DO Primary Care Provider [phone] Unallocated, Noms Provider MD Primary Care Provi obed Eugenie Haji Unavailable aMriya Oneal NP Primary Care Provider [phone] Encounter Details Date Type Department Care Team (Late st Contact Info) Description 05/08/2023 Abstract [facility] BCP OB [address] [facility] [place] [address] Eugenie Haji PA [address] [facility] [place] [address] Social History Tobacco Use Types Packs/Day Years Used Date Smoking Tobacco: Never Tobacco Cessation:Counseling Given: Not Answered Alcohol Use Standard Drinks/Week Comments Never 0 (1 standard drink = 0.6 oz pure alcohol) Caffeine intake: 1-2 cups per day Comments Yes Sex and Gender Information Value Date Recorded Sex Assigned at Not on file Legal Sex Female 7:23 PM EDT Gender Identity Female 04/10/2023 10:50 AM EDT Sexual Orientation Not on file COVID-19 Exposure Response Date Recorded In the last 10 days, have yo u been in contact with someone who was confirmed or suspected to have Coronavirus/COVID-19? No / Unsure 05/02/2023 8:36 AM EDT documented as of this encounter Plan of Treatment Not on file documented as of this encounter Visit Diagnoses Not on filedocumented in this encounter Care Teams Metal Roaster Relationship Specialty Start Date End Date Sami Villasenor DO [address] [place] [address] PCP - General Family Medicine 02/20/23 08/29/23 Unallocated, Noms Provider, [address] [place] [address] PCP - General 08/30/23 02/15/25 Eugenie Haji PA [address] [place] [address] [place] [address] PCP - Medical [place] Commercial 10/15/19 03/24/25 Mariya Oneal NP [address] [place] [address] [address] PCP - General 02/16/25 documented as of this encounter
--- OUTSIDE RECORDS SUMMARY | 2025-04-20 19:51 | XMS_ITS | Encounter Summary ---
Author Organization [facility] Address [address] [place] [address] Care Team Providers Care Refining Equipment Operator Name Role Phone Unallocated, Noms Provider Primary Care Provi obed Eugenie Haji Unavailable Mariya Oneal NP Primary Care Provider Encounter Details Date Type Department Care Team (Late st Contact Info) Description 07/08/2024 Abstract [facility] [address] [facility] [place] [place] [address] Bucky Ridley DO [address] [facility] [place] [address] Social History Tobacco Use Types Packs/Day [...] on filedocumented in this encounter Care Teams Refining Equipment Operator Relationship Specialty Start Date End Date Unallocated, Noms Provider[place] [address] PCP - General 08/30/23 02/15/25 Eugenie Haji PA [address] [place] [address] [place] [address] PCP - Medical [place] Commercial 10/15/19 03/24/25 Mariya Oneal NP [address] [place] [address] [address] PCP - General 02/16/25 documented as of this encounter
--- OUTSIDE RECORDS SUMMARY | 2025-04-20 19:51 | XMS_ITS | Encounter Summary ---
Author Organization [facility] Address [address] [place] [address] Care Team Providers Care Relay Mechanic Name Role Phone Sami Villasenor DO Primary Care Provider [phone] Unallocated, Noms Provider MD Primary Care Provi obed Eugenie Haji Unavailable Mariya Oneal NP Primary Care Provider Encounter Details Date Type Department Care Team (Late st Contact Info) Description 06/20/2023 Clinisync Result Encounter [facility] External Department Unsolicited Darrel Ridley DO [address] [facility] [address] [place], [place] [id number] Social History Tobacco Use Types Packs/Day Years [...] suspected to have Coronavirus/COVID-19? No / Unsure 06/19/2023 12:16 PM EDT documented as of this encounter Plan of Treatment Not on file documented as of this encounter Procedures Procedure Name Priority Date/Time Associated Diagnosis Comments OBGROWTH 06/20/2023 4:43 PM EDT documented in this encounter Results * OBGROWTH (06/20/2023 4:43 PM EDT) Anatomical Region Laterality Modality Other 06/20/2023 4:43 PM EDT Narrative 06/20/2023 4:43 [place] [address] Ultrasound Report Signed Patient: TOMMY FABIAN MR#: [id number] : 1990 Acct:[id number] Age/Sex: 32 / F ADM Date: 06/20/23 Loc: US Attending Dr: Darrel Ridley D.O. Ordering Physician: Darrel Ridley D.O. Date of Service: 06/20/23 Procedure(s): US OB growth Accession Number(s): [id number] cc: Eugenie Haji; Darrel Ridley D.O. The [place] [address] Patient Name: TOMMY FABIAN MRN: [id number] date: 1990 Sex: F Assigned Patient Location: US Current Patient Location: US Accession/Order Number: [id number] Exam Date: 06/20/2023 13:25 Report Date: 06/20/2023 16:43 At the request of: DARREL RIDLEY Procedure: US OB growth EXAMINATION: US OB growth HISTORY: LGA COMPARISON: No relevant comparison available. FINDINGS: Heart Rate: 139.0 bpm Amniotic Fluid Volume: 18.8 cm Number: 1.0 Position: Cephalic presentation, longitudinal lie Maximum Vertical Pocket: 5.3 cm cm 4.5 cm cm 4.6 cm cm 4.5 cm cm BIOMETRY: BPD: 7.4 cm cm; 29 weeks 4 days; 43% HC: 28.3 cmcm; 31 weeks 1 days, 66% AC: 27.2 cm cm; 31 weeks 2 days, 91% FL: 5.5 cm cm; 29 weeks 1 days; 26.2 % % EFW: 1575.3 grams, 3 lbs. 8 oz., 74% FL/AC: 20.3 FL/BPD: 74.8 HC/AC: 1.0 GESTATIONAL AGE: Age by EDC: 29 weeks 3 days BRADY by EDC: 09/02/2023 Age by US: 30 weeks 2 days BRADY by US: 08/27/2023 US/US OB growth IMPRESSION: Normal interval growth Electronically authenticated by: LISBETH PEOPLES Date: 06/20/2023 16:43 Dictated By: Lisbeth Peoples M.D. Signed By: 06/20/231645 DD/ 42 TD/TT: Tabulating Machine Mechanic: Procedure Note Radiology, Radiologist, MD - 07/06/2023 [place] [address] Ultrasound Report Signed Patient: TOMMY FABIANMR#: [id number] : 1990Acct:[id number] Age/Sex: 32 / FADM Date: 06/20/23 Loc: US Attending Dr: Darrel Ridley D.O. Ordering Physician: Darrel Ridley D.O. Date of Service: 06/20/23 Procedure(s): US OB growth Accession Number(s): [id number] cc: Eugenie Haji; Darrel Ridley D.O. The [place] [address] Patient Name: TOMMY FABIAN MRN: [id number] date: 1990 Sex: F Assigned Patient Location: US Current Patient Location: US Accession/Order Number: [id number] Exam Date: 06/20/2023 13:25 Report Date: 06/20/2023 16:43 At the request of: DARREL RIDLEY Procedure: US OB growth EXAMINATION: US OB growth HISTORY: LGA COMPARISON: No relevant comparison available. FINDINGS: Heart Rate: 139.0 bpm Amniotic Fluid Volume: 18.8 cm Number: 1.0 Position: Cephalic presentation, longitudinal lie Maximum Vertical Pocket: 5.3 cm cm 4.5 cm cm 4.6 cm cm 4.5 cm cm BIOMETRY: BPD: 7.4 cm cm; 29 weeks 4 days; 43% HC: 28.3 cmcm; 31 weeks 1 days, 66% AC: 27.2 cm cm; 31 weeks 2 days, 91% FL: 5.5 cm cm; 29 weeks 1 days; 26.2 % % EFW: 1575.3 grams, 3 lbs. 8 oz., 74% FL/AC: 20.3 FL/BPD: 74.8 HC/AC: 1.0 GESTATIONAL AGE: Age by EDC: 29 weeks 3 days BRADY by EDC: 09/02/2023 Age by US: 30 weeks 2 days BRADY by US: 08/27/2023 US/US OB growth IMPRESSION: Normal interval growth Electronically authenticated by: LISBETH PEOPLES Date: 06/20/2023 16:43 Dictated By: Lisbeth Peoples M.D. Signed By:06/20/231645 DD/ 42 TD/TT: Tabulating Machine Mechanic: us Darrel Keyana DO [facility] Final Result documented in this encounter Visit Diagnoses Not on filedocumented in this encounter Care Teams Relay Mechanic Relationship Specialty Start Date End Date Sami Villasenor DO [address] [place] [address] PCP - General Family Medicine 02/20/23 08/29/23 Unallocated, Noms Provider, [address] [place] [address] PCP - General 08/30/23 02/15/25 Eugenie Haji PA [address] [place] [address] [place] [address] PCP - Medical [place] [employer] 10/15/19 03/24/25 Mariya Oneal NP [address] [place] [address] [address]; [address] [address] PCP - General 02/16/25 documented as of this encounter
--- OUTSIDE RECORDS SUMMARY | 2025-04-20 19:51 | XMS_ITS | Clinical Summary ---
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 Encounters Date Type Department Care Team Description 04/20/2025 3:20 PM EDT Office Visit [facility] OB [address] [place] [address] Bucky Ridley, Menorrhagia with regular cycle (Primary Dx); Well woman exam with routine gynecological exam; Dysmenorrhea 04/20/2025 Bamboo flowsheet [facility] [address] [place] [address] Bucky Ridley DO 04/20/2025 Travel 02/23/2025 3:15 PM EDT Office Visit [facility] [address] [place] [phone] Chirag Rodriguez, DO Disorder of refraction (Primary Dx) 02/23/2025 Bamboo flowsheet [facility] [address] [place] [id number] Chirag Rodriguez, DO 02/23/2025 Travel from Last 3 Months Family History Medical History Relation Name Comments No Known Problems Brother Heart disease Daughter Satish Diabetes Father Josue Mcnally Diabetes type II Father Josue Mcnally Hypertension Father Josue Mcnally Diabetes Mother Sherly Manuel Endometriosis Mother Sherly Manuel Fibroids Mother Sherly Manuel Hypertension Mother Sherly Ruckerr Lung cancer Mother's Brother No Known Problems Son Sammy Relation Name Status Comments Brother Alive 1 Daughter Satish Alive Father Josue Mcnally Alive Mother Sherly Ruckerr Alive Mother's Brother Son Sammy Alive Social History Tobacco Use Types Packs/Day Years Used Date Smoking Tobacco: Former Cigarettes 0.3 2 0 03/15/2015 - 03/15/2017 Smokeless Tobacco: Never Tobacco Cessation:Counseling Given: Not Answered Alcohol Use Standard Drinks/Week Comments Not Currently 0 (1 standard drink = 0.6 oz pure alcohol) Caffeine intake: 1-2 cups per day Comments No Sex and Gender Information Value Date Recorded Sex Assigned at Not on file Legal Sex Female 7:23 PM EDT Gender Identity Female 04/10/2023 10:50 AM EDT Sexual Orientation Not on file Last Filed Vital Signs Vital Sign Reading Time Taken Comments Blood Pressure 122/70 04/20/2025 3:29 PM EDT Pulse - - Temperature - - Respiratory Rate - - Oxygen Saturation - - Inhaled Oxygen Concentration - - Weight 83.9 kg (185 lb) 04/20/2025 3:29 PM EDT Height 162.6 cm (5' 4 ) 04/20/2025 3:29 PM EDT Body Mass Index 31.76 04/20/2025 3:29 PM EDT Plan of Treatment Health Maintenance Due Date Last Done Comments Influenza Vaccine (#1) 2025 , 07/23/2023, 08/03/2022, Additional history exists Cervical Cancer Screening 03/15/2028 Pap Smear 03/15/2028 03/15/2023 HPV/Cotest 05/31/2028 05/31/2023 Procedures Procedure Name Priority Date/Time Associated Diagnosis Comments THINPREP PAP AND HPV MRNA E6/E7 W/RFL HPV 16,18/45 Routine 05/31/2023 10:07 AM EDT Well woman exam with routine gynecological exam PAP SMEAR Routine 03/15/2023 12:00 AM EDT from Last 3 Months or Most Recently Relevant to Health Maintenance Results * THINPREP PAP AND HPV MRNA E6/E7 W/RFL HPV 16,18/45 (05/31/2023 10:07 AM EDT) us Eugenie DUVAL LAB BLOOD ORDERABLES Final Resul t EXTERNAL LAB * Pap Smear (03/15/2023 12:00 AM EDT) Swab Cervical swab / Unknown us Bucky Ridley DO LAB CYTOLOGY ORDERABLES Final Re sult EXTERNAL LAB from Last 3 Months or Most Recently Relevant to Health Maintenance Insurance [employer] Care Teams Chainstitch Felled Seam Operator Relationship Specialty Start Date End Date Mariya Oneal NP [address] [place] [address] [address] PCP - General 02/16/25
--- OUTSIDE RECORDS SUMMARY | 2025-04-20 19:51 | XMS_ITS | Encounter Summary ---
Author Organization [facility] Address [address] [place] [address] Care Team Providers Care Hris Specialist Name Role Phone Unallocated, Noms Provider Primary Care Provi obed Eugenie Haji Unavailable Mariya Oneal NP Primary Care Provider Encounter Details Date Type Department Care Team (Late st Contact Info) Description 07/15/2024 Abstract [facility] OB [address] [facility] [place] [address] Bucky Ridley DO [address] [facility] [address] [place], [place] [id number] Social History Tobacco Use Types Packs/Day Years [...] on filedocumented in this encounter Care Teams Hris Specialist Relationship Specialty Start Date End Date Unallocated, Noms Provider, [place] [address] PCP - General 08/30/23 02/15/25 Eugenie Haji PA [address] [place] [address] [place] [address] PCP - Medical [place] [employer] 10/15/19 03/24/25 Mariya Oneal NP [address] [place] [address] [address] PCP - General 02/16/25 documented as of this encounter
--- OUTSIDE RECORDS SUMMARY | 2025-04-20 19:51 | XMS_ITS | Encounter Summary ---
Author Organization [facility] Address [address] [place] [address] Care Team Providers Care Malted Milk Mixer Name Role Phone Unallocated, Noms Provider Primary Care Provi obed Eugenie Haji Unavailable Mariya Oneal NP Primary Care Provider Encounter Details Date Type Department Care Team (Late st Contact Info) Description 09/10/2024 Abstract [facility]CP OB [address] [facility] [place] [address] Bucky Ridley DO [address] [facility] [place] [address] Social History Tobacco Use Types Packs/Day [...] on filedocumented in this encounter Care Teams Malted Milk Mixer Relationship Specialty Start Date End Date Unallocated, Noms Provider, [place] [address] PCP - General 08/30/23 02/15/25 Eugenie Haji PA [address] [place] [address] [place] [address] PCP - Medical [place] Commercial 10/15/19 03/24/25 aMriya Oneal NP [address] [place] [address] [address] PCP - General 02/16/25 documented as of this encounter
--- OUTSIDE RECORDS SUMMARY | 2025-04-20 19:51 | XMS_ITS | Encounter Summary ---
Author Organization [facility] Address [address] [place] [address] Care Team Providers Care Textile Pin Worker Name Role Phone Unallocated, Noms Provider MD Primary Care Provi oebd Eugenie Haji Unavailable Mariya Oneal NP Primary Care Provider [phone] Encounter Details Date Type Department Care Team (Late st Contact Info) Description 12/18/2023 Clinisync Result Encounter [facility] External Department Unsolicited Darrel Ridley, DO [address] [facility] [address] [place], [place] [id number] Social History Tobacco Use Types Packs/Day Years [...] Priority Date/Time Associated Diagnosis Comments US OB TRANSVAGINAL 12/18/2023 9: 41 AM EST documented in this encounter Results * US OB TRANSVAGINAL (12/18/2023 9:41 AM EST) Anatomical Region Laterality Modality Other 12/18/2023 9:41 AM EST Narrative 12/18/2023 9:43 [place] [address] Ultrasound Report Signed Patient: TOMMY FABIAN MR#: [id number] : 1990 Acct:[id number] Age/Sex: 33 / F ADM Date: 12/18/23 Loc: [facility] Attending Dr: Darrel Ridley D.O. Ordering Physician: Darrel Ridley D.O. Date of Service: 12/18/23 Procedure(s): US OB transvaginal Accession Number(s): [id number] cc: Eugenie Haji; Darrel Ridley D.O. [place] [id number] Patient Name: TOMMY FABIAN MRN: [id number] date: 1990 Sex: F Assigned Patient Location: [facility] Current Patient Location: [facility] Accession/Order Number: [id number] Exam Date: 12/18/2023 08:02 Report Date: 12/18/2023 09:41 At the request of: DARREL RIDLEY Procedure: US OB transvaginal EXAMINATION: US OB transvaginal HISTORY: MISSED MENSES COMPARISON: No relevant comparison available. FINDINGS: Transvaginal images Taylor intrauterine gestation Gestational sac: 3.16 cm, 8 weeks 6 days CRL: 2.70 cm, 9 weeks 4 days Yolk sac: 4.8 mm Heart rate: 167 bpm Cervix: Closed, 4 5 cm. The uterus is normal, anteverted, anteflexed The ovaries are normal. Left corpus luteal cyst Clinical age: 6 weeks 2 days Clinical BRADY: 08/10/2024 Ultrasound age: 9 weeks 4 days Ultrasound BRADY: 07/18/2024 US/US OB transvaginal IMPRESSION: Viable taylor intrauterine gestation measuring 9 weeks 4 days Electronically authenticated by: LISBETH PEOPLES Date: 12/18/2023 09:41 Dictated By: Lisbeth Peoples M.D. Signed By: 12/18/2343 DD/ 0 TD/TT: Manager Implementation: Procedure Note Radiology, Radiologist, - 12/18/2023 [place] [address] Ultrasound Report Signed Patient: TOMMY FABIANMR#: [id number] : 1990Acct:[id number] Age/Sex: 33 / FADM Date: 12/18/23 Loc: [facility] Attending Dr: Darrel Ridley D.O. Ordering Physician: Darrel Ridley D.O. Date of Service: 12/18/23 Procedure(s): US OB transvaginal Accession Number(s): [id number] cc: Eugenie Haji; Darrel Ridley D.O. The [place] [id number] Patient Name: TOMMY FABIAN MRN: [id number] date: 1990 Sex: F Assigned Patient Location: [facility] Current Patient Location: [facility] Accession/Order Number: [id number] Exam Date: 12/18/2023 08:02 Report Date: 12/18/2023 09:41 At the request of: DARREL RIDLEY Procedure: US OB transvaginal EXAMINATION: US OB transvaginal HISTORY: MISSED MENSES COMPARISON: No relevant comparison available. FINDINGS: Transvaginal images Taylor intrauterine gestation Gestational sac: 3.16 cm, 8 weeks 6 days CRL: 2.70 cm, 9 weeks 4 days Yolk sac: 4.8 mm Heart rate: 167 bpm Cervix: Closed, 4 5 cm. The uterus is normal, anteverted, anteflexed The ovaries are normal. Left corpus luteal cyst Clinical age: 6 weeks 2 days Clinical BRADY: 08/10/2024 Ultrasound age: 9 weeks 4 days Ultrasound BRADY: 07/18/2024 US/US OB transvaginal IMPRESSION: Viable taylor intrauterine gestation measuring 9 weeks 4 days Electronically authenticated by: LISBETH PEOPLES Date: 12/18/2023 09:41 Dictated By: Lisbeth Peoples M.D. Signed By:12/18/2343 DD/ 0 TD/TT: Manager Implementation: us Darrel Keyana DO [facility] Final Result documented in this encounter Visit Diagnoses Not on filedocumented in this encounter Care Teams Textile Pin Worker Relationship Specialty Start Date End Date Unallocated, Noms Provider, [address] [place] [address] PCP - General 08/30/23 02/15/25 Eugenie Haji PA [address] [place] [address] [place] [address] PCP - Medical [place] Commercial 10/15/19 03/24/25 Mariya Oneal NP [address] [place] [address] A; [address] [address] PCP - General 02/16/25 documented as of this encounter
--- OUTSIDE RECORDS SUMMARY | 2025-04-20 19:51 | XMS_ITS | Encounter Summary ---
Author Organization [facility] Address [address] [place] [address] Care Team Providers Care Filtration Plant Operator Name Role Phone Unallocated, Noms Provider Primary Care Provi obed Eugenie Haji Unavailable Mariya Oneal NP Primary Care Provider Encounter Details Date Type Department Care Team (Late st Contact Info) Description 05/30/2024 Abstract [facility] BCP OB [address] [facility] [place] [address] Bucky Ridley DO [address] [facility] [place] [address] Social History Tobacco Use Types Packs/Day [...] on filedocumented in this encounter Care Teams Filtration Plant Operator Relationship Specialty Start Date End Date Unallocated, Noms Provider, [place] [address] PCP - General 08/30/23 02/15/25 Eugenie Haji PA [address] [place] [address] [place] [address] PCP - Medical [place] Commercial 10/15/19 03/24/25 Mariya Oneal NP [address] [place] [address] [address] PCP - General 02/16/25 documented as of this encounter
--- OUTSIDE RECORDS SUMMARY | 2025-04-20 19:51 | XMS_ITS | Encounter Summary ---
Author Organization [facility] Address [address] [place] [address] Care Team Providers Care Creative Services Designer Name Role Phone Mariya Oneal SUMMER SESSIONS DIRECTOR Primary Care Provider [phone] Encounter Details Date Type Department Care Team (Latest Contact Info) Description 04/20/2025 Travel Social History Tobacco Use Types Packs/Day Years [...] on filedocumented in this encounter Care Teams Creative Services Designer Relationship Specialty Start Date End Date Mariya Oneal NP [address] [place] [address] [address]; [place] [id number] PCP - General 02/16/25 documented as of this encounter
--- OUTSIDE RECORDS SUMMARY | 2025-04-20 19:51 | XMS_ITS | Encounter Summary ---
Author Organization [facility] Address [address] [place] [address] Care Team Providers Care Weight Loss Centre Manager Name Role Phone Sami Villasenor DO Primary Care Provider [phone] Unallocated, Noms Provider MD Primary Care Provi obed Eugenie Haji Unavailable Mariya Oneal NP Primary Care Provider [phone] Encounter Details Date Type Department Care Team (Late st Contact Info) Description 06/12/2023 Abstract [facility] BCP OB [address] [facility] [place] [address] Maria Isabel Edwards LPN [address] [place] [address] Social History Tobacco Use Types Packs/Day [...] suspected to have Coronavirus/COVID-19? No / Unsure 06/05/2023 9:19 AM EDT documented as of this encounter Plan of Treatment Not on file documented as of this encounter Visit Diagnoses Not on filedocumented in this encounter Care Teams Weight Loss Centre Manager Relationship Specialty Start Date End Date Sami Villasenor DO [address] [place] [address] PCP - General Family Medicine 02/20/23 08/29/23 Unallocated, Noms Provider, [place] [address] PCP - General 08/30/23 02/15/25 Eugenie Haji PA [address] [place] [address] [place] [address] PCP - Medical [place] Commercial 10/15/19 03/24/25 Mariya Oneal NP [address] [place] [address] [address]; [address] [address] PCP - General 02/16/25 documented as of this encounter
--- OUTSIDE RECORDS SUMMARY | 2025-04-20 19:51 | XMS_ITS | Encounter Summary ---
Author Organization [facility] Address [address] [place] [address] Care Team Providers Care Optical Mechanic Apprentice Name Role Phone Unallocated, Noms Provider Primary Care Provi obed Eugenie Haji Unavailable Mariya Oneal NP Primary Care Provider [phone] Encounter Details Date Type Department Care Team (Late st Contact Info) Description 07/15/2024 Abstract [facility] BCP OB [address] [facility] [address] Bucky Ridley DO [address] [facility] [address] [place], [place] [address] Social History Tobacco Use Types Packs/Day Years [...] on filedocumented in this encounter Care Teams Optical Mechanic Apprentice Relationship Specialty Start Date End Date Unallocated, Noms Provider, [place] [address] PCP - General 08/30/23 02/15/25 Eugenie Haji PA [address] [place] [address] [place] [address] PCP - Medical [place] Commercial 10/15/19 03/24/25 Mariya Oneal NP [address] [place] [address] [address] PCP - General 02/16/25 documented as of this encounter
--- OUTSIDE RECORDS SUMMARY | 2025-04-20 19:51 | XMS_ITS | Encounter Summary ---
Author Organization [facility] Address [address] [place] [address] Care Team Providers Care Infant Lead Teacher Name Role Phone Unallocated, Noms Provider Primary Care Provi obed Eugenie Haji Unavailable Mariya Oneal NP Primary Care Provider [phone] Encounter Details Date Type Department Care Team (Late st Contact Info) Description 04/30/2024 Abstract [facility] BCP OB [address] [place] [address] Maria Isabel Edwards LPN [address] [facility] [place] [place] [address] Social History Tobacco Use Types [...] on filedocumented in this encounter Care Teams Infant Lead Teacher Relationship Specialty Start Date End Date Unallocated, Noms Provider, [place] [address] PCP - General 08/30/23 02/15/25 Eugenie Haji PA [address] [place] [address] [place] [address] PCP - Medical [place] Commercial 10/15/19 03/24/25 Mariya Oneal NP [address] [place] [address] [address] PCP - General 02/16/25 documented as of this encounter
--- OUTSIDE RECORDS SUMMARY | 2025-04-20 19:51 | XMS_ITS | Encounter Summary ---
Author Organization [facility] Address [address] [place] [address] Care Team Providers Care Liner Man Name Role Phone Unallocated, Noms Provider Primary Care Provi obed Eugenie Haji Unavailable Mariya Oneal NP Primary Care Provider [phone] Encounter Details Date Type Department Care Team (Late st Contact Info) Description 04/15/2024 Abstract [facility] BCP OB [address] [place] [address] Sandra Hopkins LPN [address] [place] [address] Social History Tobacco Use Types [...] on filedocumented in this encounter Care Teams Liner Man Relationship Specialty Start Date End Date Unallocated, Noms Provider, [place] [address] PCP - General 08/30/23 02/15/25 Eugenie Haji PA [address] [place] [address] [place] [address] PCP - Medical [place] Commercial 10/15/19 03/24/25 Mariya Oneal NP [address] [place] [address] [address] PCP - General 02/16/25 documented as of this encounter
--- OUTSIDE RECORDS SUMMARY | 2025-04-20 19:51 | XMS_ITS | Encounter Summary ---
Author Organization [facility] Address [address] [place] [address] Care Team Providers Care Correctional Captain Name Role Phone Unallocated, Noms Provider Primary Care Provi obed Eugenie Haji Unavailable Mariya Oneal NP Primary Care Provider [phone] Encounter Details Date Type Department Care Team (Late st Contact Info) Description 06/26/2024 Abstract [facility] BCP OB [address] [facility] [place] [address] Bucky Ridley DO [address] [facility] [place] [address] Social History Tobacco Use Types Packs/Day [...] on filedocumented in this encounter Care Teams Correctional Captain Relationship Specialty Start Date End Date Unallocated, Noms Provider, [place] [address] PCP - General 08/30/23 02/15/25 Eugenie Haji PA [address] [place] [address] [place] [address] PCP - Medical [place] Commercial 10/15/19 03/24/25 Mariya Oneal NP [address] [place] [address] [address] PCP - General 02/16/25 documented as of this encounter
--- OUTSIDE RECORDS SUMMARY | 2025-04-20 19:51 | XMS_ITS | Encounter Summary ---
Author Organization [facility] Address [address] [place] [address] Care Team Providers Care Tab Builder Name Role Phone Unallocated, Noms Provider Primary Care Provi obed Eugenie Yin Unavailable Mariya Oneal NP Primary Care Provider [phone] Encounter Details Date Type Department Care Team (Late st Contact Info) Description 05/28/2024 Clinisync Result Encounter [facility] External Department Unsolicited Eugenie Yin PA [address] [facility] [address] [place], [place] [id number] Social History Tobacco Use Types Packs/Day Years [...] Priority Date/Time Associated Diagnosis Comments US OB GROWTH 05/28/2024 1:57 PM EDT documented in this encounter Results * US OB GROWTH (05/28/2024 1:57 PM EDT) Anatomical Region Laterality Modality Other 05/28/2024 1:57 PM EDT Narrative 05/28/2024 1:59 PM EDT [address] [address] Ultrasound Report Signed Patient: TOMMY FABIAN MR#: [id number] : 1990 Acct:[id number] Age/Sex: 33 / F ADM Date: 05/28/24 Loc: [facility] Attending Dr: Eugenie Yin Ordering Physician: Eugenie Yin Date of Service: 05/28/24 Procedure(s): US OB growth Accession Number(s): [id number] cc: Eugenie Yin [place] [id number] Patient Name: TOMMY FABIAN MRN: [id number] date: 1990 Sex: F Assigned Patient Location: [facility] Current Patient Location: [facility] Accession/Order Number: [id number] Exam Date: 05/28/2024 12:59 Report Date: 05/28/2024 13:57 At the request of: EUGENIE YIN Procedure: US OB growth EXAMINATION: US OB growth HISTORY: INCONSISTENT SIZE WITH DATES COMPARISON: No relevant comparison available. FINDINGS: Heart Rate: 133 bpm Amniotic Fluid Volume: 12.7 cm, largest fluid pocket 3.9 cm Number: 1 Position: Cephalic presentation, longitudinal lie BIOMETRY: BPD: 7.76 cm; 31 weeks 1 day; 7.20 % HC: 28.91 cm; 30 weeks 6 days; 4.20 % AC: 28.75 cm; 32 weeks 5 days; 51.80 % FL: 6.41 cm; 33 weeks 1 day; 48.70 % EFW: 1866.97 g; 36.90 %, 4 lbs. 7 oz. FL/AC: 22.30 FL/BPD: 82.60 HC/AC: 1.01 GESTATIONAL AGE: Age by EDC: 32 weeks 5 days BRADY by EDC: 2024-07-18 Age by US: 32 weeks 2 days BRADY by US: 2024-07-21 US/US OB growth IMPRESSION: Normal interval growth Electronically authenticated by: LISBETH PEOPLES Date: 05/28/2024 13:57 Dictated By: Lisbeth Peoples M.D. Signed By: 05/28/24 1359 DD/ 2760 TD/TT: Obstetrician And Gynaecologist: Procedure Note Radiology, Radiologist, - 05/28/2024 [place] [address] Ultrasound Report Signed Patient: TOMMY FABIANMR#: [id number] : 1990Acct:[id number] Age/Sex: 33 / FADM Date: 05/28/24 Loc: [facility] Attending Dr: Eugenie Yin Ordering Physician: Eugenie Yin Date of Service: 05/28/24 Procedure(s): US OB growth Accession Number(s): [id number] cc: Eugenie Yin [place] [address] Patient Name: TOMMY FABIAN MRN: [id number] date: 1990 Sex: F Assigned Patient Location: [facility] Current Patient Location: [facility] Accession/Order Number: [id number] Exam Date: 05/28/2024 12:59 Report Date: 05/28/2024 13:57 At the request of: EUGENIE YIN Procedure: US OB growth EXAMINATION: US OB growth HISTORY: INCONSISTENT SIZE WITH DATES COMPARISON: No relevant comparison available. FINDINGS: Heart Rate: 133 bpm Amniotic Fluid Volume: 12.7 cm, largest fluid pocket 3.9 cm Number: 1 Position: Cephalic presentation, longitudinal lie BIOMETRY: BPD: 7.76 cm; 31 weeks 1 day; 7.20 % HC: 28.91 cm; 30 weeks 6 days; 4.20 % AC: 28.75 cm; 32 weeks 5 days; 51.80 % FL: 6.41 cm; 33 weeks 1 day; 48.70 % EFW: 1866.97 g; 36.90 %, 4 lbs. 7 oz. FL/AC: 22.30 FL/BPD: 82.60 HC/AC: 1.01 GESTATIONAL AGE: Age by EDC: 32 weeks 5 days BRADY by EDC: 2024-07-18 Age by US: 32 weeks 2 days BRADY by US: 2024-07-21 US/US OB growth IMPRESSION: Normal interval growth Electronically authenticated by: LISBETH PEOPLES Date: 05/28/2024 13:57 Dictated By: Lisbeth Peoples M.D. Signed By:05/28/24 1359 DD/ 1357 TD/TT: Obstetrician And Gynaecologist: Eugenie DUVAL [facility] Final Result documented in this encounter Visit Diagnoses Not on filedocumented in this encounter Care Teams Tab Builder Relationship Specialty Start Date End Date Unallocated, Noms Provider, [address] [place] [address] PCP - General 08/30/23 02/15/25 Eugenie Yin PA [address] [place] [address] [place] [address] PCP - Medical [place] [employer] 10/15/19 03/24/25 Mariya Oneal NP [address] [place] [address] [address]; [address] [address] PCP - General 02/16/25 documented as of this encounter
--- OUTSIDE RECORDS SUMMARY | 2025-04-20 19:51 | XMS_ITS | Encounter Summary ---
Author Organization [facility] Address [address] [place] [address] Care Team Providers Care Aquatic Biologist Name Role Phone Sami Villasenor DO Primary Care Provider [phone] Unallocated, Noms Provider MD Primary Care Provi obed Eugenie Haji Unavailable Mariya Oneal NP Primary Care Provider [phone] Encounter Details Date Type Department Care Team (Late st Contact Info) Description 08/14/2023 Clinisync Result Encounter [facility] External Department Unsolicited Darrel Ridley DO [address] [facility] [address] [place], [place] [id number] Social History Tobacco Use Types Packs/Day Years [...] suspected to have Coronavirus/COVID-19? No / Unsure 08/13/2023 8:44 AM EDT documented as of this encounter Plan of Treatment Not on file documented as of this encounter Procedures Procedure Name Priority Date/Time Associated Diagnosis Comments US OB GROWTH 08/14/2023 8:49 PM EDT documented in this encounter Results * US OB GROWTH (08/14/2023 8:49 PM EDT) Anatomical Region Laterality Modality Other 08/14/2023 8:49 PM EDT Narrative 08/14/2023 8:49 [place] [address] Ultrasound Report Signed Patient: TOMMY FABIAN MR#: [id number] : 1990 Acct:[id number] Age/Sex: 32 / F ADM Date: 08/14/23 Loc: US Attending Dr: Darrel Ridley D.O. Ordering Physician: Darrel Ridley D.O. Date of Service: 08/14/23 Procedure(s): US OB growth Accession Number(s): [id number] cc: Eugenie Haji; Darrel Ridley D.O. [place] [address] Patient Name: TOMMY FABIAN MRN: [id number] date: 1990 Sex: F Assigned Patient Location: Current Patient Location: US Accession/Order Number: [id number] Exam Date: 08/14/2023 08:33 Report Date: 08/14/2023 20:49 At the request of: DARREL RIDLEY Procedure: US OB growth PROCEDURE: US OB growth HISTORY: SIZE GREATER THAN DATES COMPARISON: None. TECHNIQUE: Transabdominal sonographic examination was performed for obstetrical and evaluation. FINDINGS: Heart Rate: 136.0 bpm Number: 1.0 Position: Cephalic Amniotic Fluid Volume: Objectively normal BIOMETRY: BPD: 8.7 cm 35 weeks 2 days, 15% HC: 32.9 cm 37 weeks 3 days, 30% AC: 33.8 cm 37 weeks 5 days, 75% FL: 7.3 cm 37 weeks 4 days, 57% EFW: 3180 g, 7 lbs. 0 oz. pounds, 59% by AUA FL/AC: 21.7 FL/BPD: 84.1 HC/AC: 1.0 GESTATIONAL AGE: Clinical Age (by LMP): 37 weeks 2 days Clinical BRADY: 09/02/2023 Ultrasound Age: 37 weeks 0 days Ultrasound BRADY: 09/04/2023 US/US OB growth IMPRESSION: Normal interval growth *Reference: [employer] Practice Guideline for the performance of Obstetric Ultrasound Examinations, July 15, 2007. Electronically authenticated by: LISBETH PEOPLES Date: 08/14/2023 20:49 Dictated By: Lisbeth Peoples M.D. Signed By: 08/14/232050 DD/ 48 TD/TT: Client Operations Manager: Procedure Note Radiology, Radiologist, MD - 08/14/2023 [place] [address] Ultrasound Report Signed Patient: TOMMY FABIANMR#: [id number] : 1990Acct:[id number] Age/Sex: 32 / FADM Date: 08/14/23 Loc: US Attending Dr: Darrel Ridley D.O. Ordering Physician: Darrel Ridley D.O. Date of Service: 08/14/23 Procedure(s): US OB growth Accession Number(s): [id number] cc: Eugenie Haji; Darrel Ridley D.O. [address] [place] [address] Patient Name: TOMMY FABIAN MRN: [id number] date: 1990 Sex: F Assigned Patient Location: US Current Patient Location: US Accession/Order Number: [id number] Exam Date: 08/14/2023 08:33 Report Date: 08/14/2023 20:49 At the request of: DARREL RIDLEY Procedure: US OB growth PROCEDURE: US OB growth HISTORY: SIZE GREATER THAN DATES COMPARISON: None. TECHNIQUE: Transabdominal sonographic examination was performed for obstetrical and evaluation. FINDINGS: Heart Rate: 136.0 bpm Number: 1.0 Position: Cephalic Amniotic Fluid Volume: Objectively normal BIOMETRY: BPD: 8.7 cm 35 weeks 2 days, 15% HC: 32.9 cm 37 weeks 3 days, 30% AC: 33.8 cm 37 weeks 5 days, 75% FL: 7.3 cm 37 weeks 4 days, 57% EFW: 3180 g, 7 lbs. 0 oz. pounds, 59% by AUA FL/AC: 21.7 FL/BPD: 84.1 HC/AC: 1.0 GESTATIONAL AGE: Clinical Age (by LMP): 37 weeks 2 days Clinical BRADY: 09/02/2023 Ultrasound Age: 37 weeks 0 days Ultrasound BRADY: 09/04/2023 US/US OB growth IMPRESSION: Normal interval growth *Reference: [employer] Practice Guideline for the performance of Obstetric Ultrasound Examinations, July 15, 2007. Electronically authenticated by: LISBETH PEOPLES Date: 08/14/2023 20:49 Dictated By: Lisbeth Peoples M.D. Signed By:08/14/232050 DD/ 48 TD/TT: Client Operations Manager: us Darrel Keyana DO [facility] Final Result documented in this encounter Visit Diagnoses Not on filedocumented in this encounter Care Teams Aquatic Biologist Relationship Specialty Start Date End Date Sami Villasenor DO [address] [facility] [address] [place] [address] PCP - General Family Medicine 02/20/23 08/29/23 Unallocated, Noms Provider, [address] [place] [address] PCP - General 08/30/23 02/15/25 Eugenie Haji PA [address] [place] [address] [place] [address] PCP - Medical [place] [employer] 10/15/19 03/24/25 Mariya Oneal NP [address] [place] [address] [address]; [address] [address] PCP - General 02/16/25 documented as of this encounter
--- OUTSIDE RECORDS SUMMARY | 2025-04-20 19:51 | XMS_ITS | Encounter Summary ---
Author Organization [facility] Address [address] [place] [address] Care Team Providers Care International Sourcing Manager Name Role Phone Unallocated, Noms Provider Primary Care Provi obed Eugenie Haji Unavailable Mariya Oneal NP Primary Care Provider Encounter Details Date Type Department Care Team (Late st Contact Info) Description 06/26/2024 Abstract [facility]CP OB [address] [facility] [place] [address] Bucky Ridley DO [address] [facility] [place] [address] Social History Tobacco Use Types Packs/Day [...] on filedocumented in this encounter Care Teams International Sourcing Manager Relationship Specialty Start Date End Date Unallocated, Noms Provider, [place] [address] PCP - General 08/30/23 02/15/25 Eugenie Haji PA [address] [place] [address] [place] [address] PCP - Medical [place] [employer] 10/15/19 03/24/25 Mariya Oneal NP [address] [place] [address] [address] PCP - General 02/16/25 documented as of this encounter
--- OUTSIDE RECORDS SUMMARY | 2025-04-20 19:51 | XMS_ITS | Encounter Summary ---
Author Organization [facility] Address [address] [place] [address] Care Team Providers Care Ux Manager Name Role Phone Unallocated, Noms Provider Primary Care Provi obed Eugenie Yin Unavailable Mariya Oneal NP Primary Care Provider [phone] Encounter Details Date Type Department Care Team (Late st Contact Info) Description 03/06/2024 Clinisync Result Encounter [facility] External Department Unsolicited Eugenie Yin PA [address] [facility] [address] [place], [place] [id number] Social History Tobacco Use Types Packs/Day Years [...] Priority Date/Time Associated Diagnosis Comments US OB CERVICAL LENGTH 03/06/2024 10:54 AM EDT documented in this encounter Results * US OB CERVICAL LENGTH (03/06/2024 10:54 AM EDT) Anatomical Region Laterality Modality Other 03/06/2024 10:5 4 AM EDT Narrative 03/06/2024 10:56 AM EDT [address] [address] Ultrasound Report Signed Patient: TOMMY FABIAN MR#: [id number] : 1990 Acct:[id number] Age/Sex: 33 / F ADM Date: 03/06/24 Loc: [facility] Attending Dr: Eugenie Yin Ordering Physician: Eugenie Yin Date of Service: 03/06/24 Procedure(s): US OB cervical length Accession Number(s): [id number] cc: Eugenie Yin [place] [id number] Patient Name: TOMMY FABIAN MRN: [id number] date: 1990 Sex: F Assigned Patient Location: [facility] Current Patient Location: [facility] Accession/Order Number: [id number] Exam Date: 03/06/2024 09:36 Report Date: 03/06/2024 10:54 At the request of: EUGENIE YIN Procedure: US OB cervical length EXAMINATION: US OB anatomy, US OB cervical [...] BRADY by current US: 07/19/2024 US/US OB cervical length IMPRESSION: Normal anatomy scan Closed cervix measuring 4.8 cm in length *Reference: [employer] Practice Guideline for the performance of Obstetric Ultrasound Examinations, July 15, 2007. Electronically authenticated by: LISBETH PEOPLES Date: 03/06/2024 10:54 Dictated By: Lisbeth Peoples M.D. 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: Procedure Note Radiology, Radiologist, MD - 03/06/2024 [place] [address] Ultrasound Report Signed Patient: TOMMY FABIANMR#: [id number] : 1990Acct:[id number] Age/Sex: 33 / FADM Date: 03/06/24 Loc: [facility] Attending Dr: Eugenie Yin Ordering Physician: Eugenie Yin Date of Service: 03/06/24 Procedure(s): US OB cervical length Accession Number(s): [id number] cc: Eugenie Yin [address] [address] Patient Name: TOMMY FABIAN MRN: [id number] date: 1990 Sex: F Assigned Patient Location: [facility] Current Patient Location: [facility] Accession/Order Number: [id number] Exam Date: 03/06/2024 09:36 Report Date: 03/06/2024 10:54 At the request of: EUGENIE YIN Procedure: US OB cervical length EXAMINATION: US OB anatomy, US OB cervical [...] BRADY by current US: 07/19/2024 US/US OB cervical length IMPRESSION: Normal anatomy scan Closed cervix measuring 4.8 cm in length *Reference: [employer] Practice Guideline for the performance of Obstetric Ultrasound Examinations, July 15, 2007. Electronically authenticated by: LISBETH PEOPLES Date: 03/06/2024 10:54 Dictated By: Lisbeth Peoples M.D. 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
[2025-04-23 14:08] LABS: Age Gdln ACOG Testing Note (.); IGP, Aptima HPV, rfx 16/18,45 Note (.)
== END 2025-04-20 19:48 | disposition home or self-care (01) ==
LOC: LAB 19:47
PROVIDERS: Visit Provider Obstetrics & Gynecology
DX: Z01.419 Encounter for gynecological examination (general) (routine) without abnormal findings (principal)
CPT/HCPCS: 87624; 88175